=== PATIENT | female | born 1950 | race Caucasian/White ===

== ENCOUNTER 2016-03-16 10:18 | Observation (INO) ==
--- NOTE | 2016-03-16 10:23 | Emergency Department Note ---
Disposition Clinical Impression: Chest pain Disposition: Admitted As Inpatient Condition: Good Referrals: Gustavo Alcantara Jr, MD [Primary Care Provider] - Forms: ED Satisfaction Letter Chest Pain HPI - General Chief Complaint: ED Chest Pain Stated Complaint: chest pain Time Seen by Provider: 03/16/16 10:22 Source: patient, EMS Mode of arrival: EMS Limitations: no limitations Vital Signs Reviewed: Yes Nursing Notes Reviewed: Yes - History of Present Illness HPI Narrative: A 66-year-old female with past medical history of coronary artery disease with 2 stents in the remote past presents with 1 day of worsening exertional dyspnea and left-sided chest pressure radiating into her left jaw. She states that she has pain when ambulating in the assisted. Normally, she is able to ambulate throughout the mild dyspnea, but has had chest pressure and significant shortness of breath over the last 24 hours. This morning, she denies chest pressure radiating to her left jaw at rest. This is not associated with diaphoresis or nausea. No GI or symptoms. No rashes or increased edema. Pt complaint: chest pain - Related Data Home Medications Medication Instructions Recorded Confirmed Ascorbic Acid [Vitamin C] 500 mg PO BID 06/13/15 06/13/15 Aspirin [Adult Low Dose Aspirin EC] 81 mg PO QDPC 06/13/15 06/13/15 Blistex Medicated Lip Ointment QID PRN 06/13/15 Calmoseptine Ointment Packet BID 06/13/15 Carbidopa-Levo 25-100 mg Odt 25 - 100 mg PO HS 06/13/15 06/13/15 Furosemide [Lasix] 80 mg PO BID 06/13/15 06/13/15 Insulin DETEMIR [Levemir] 70 unit SQ QAM 06/13/15 06/13/15 L. Acidophilus/Pectin, [place] 1 each PO QDPC 06/13/15 06/13/15 [Acidophilus Probiotic Capsule] LORazepam [Ativan] 0.5 mg PO Q8HR PRN 06/13/15 06/13/15 Metformin HCl [Glucophage] 1,000 mg PO BID 06/13/15 06/13/15 Metolazone [Zaroxolyn] 2.5 mg PO 3XW 06/13/15 06/13/15 Multivit/Ca/Min/Fe/FA [Thera M 1 each PO DAILY 06/13/15 06/13/15 Plus] Novolog units SQ ACHS PRN 06/13/15 Oxycodone HCl/Acetaminophen 1 each PO Q4HR PRN 06/13/15 06/13/15 [Percocet 5-325 mg Tablet] Potassium Chloride [K-Tab ER] 30 meq PO TID 06/13/15 06/13/15 Rivaroxaban [Xarelto] 20 mg PO HS 06/13/15 06/13/15 Ropinirole HCl [Requip] 0.25 mg PO HS 06/13/15 06/13/15 Sennosides/Docusate Sodium [Senna 1 each PO DAILY 06/13/15 06/13/15 Plus] Sertraline [Zoloft] 50 mg PO DAILY 06/13/15 06/13/15 Simvastatin 40 mg PO HS 06/13/15 06/13/15 SitaGLIPtin [Januvia] 100 mg PO DAILY 06/13/15 06/13/15 Spironolactone [Aldactone] 50 mg PO QAM 06/13/15 06/13/15 Zinc Sulfate 220 mg PO BID 06/13/15 06/13/15 Allergies Allergy/AdvReac Type Severity Reaction Status Date / Time Sulfa (Sulfonamide Allergy See Verified 06/12/15 20:58 Antibiotics) Comments tramadol AdvReac Nausea Verified 06/12/15 20:58 All systems ED: reviewed and negative except as stated. Chest Pain PMH - Past Medical History Medical history: Reports: diabetes, hyperlipidemia, myocardial infarction Surgical history: Reports: , cholecystectomy, orthopedic, other Psychiatric history: Reports: anxiety, depression - Social History Smoking Status: Never smoker Alcohol use: Reports: none Drug use: Reports: none Physical Exam - Head Head exam: atraumatic, normocephalic, normal inspection - Eye Eye exam: Present: normal appearance, PERRL, EOMI - ENT ENT exam: normal exam, normal oropharynx, mucous membranes moist - Neck Neck exam: Present: normal inspection, full ROM, trachea midline - Chest Chest inspection: Present: normal inspection, symmetric chest wall rise - Respiratory Respiratory exam: Clear to auscultation bilaterally without wheezes rales or rhonchi Cardiovascular Cardiovascular exam: Present: regular rate, normal rhythm, normal heart sounds - Abdominal Exam Abdominal exam: Present: soft, Non-Tender. Absent: tenderness, distention, guarding, rebound, rigidity - Extremities Exam Bilateral edema in the lower extremities with chronic venous stasis changes. - Back Exam Back exam: Present: normal inspection, full ROM. Absent: tenderness, CVA tenderness (R), CVA tenderness (L) - Neurological Exam Neurological exam: Present: alert, oriented X3, CN II-XII intact - Psychiatric Psychiatric exam: Present: normal affect, normal mood - Skin Skin exam: Present: warm, dry, intact, normal color Course - Reevaluation(s) Reevaluation #1: Patient with potassium of 2.5. This was replaced. Pain is remitted after nitroglycerin in the emergency department. Troponin is negative. Patient admitted for possible unstable angina. Time: 11:49 Reevaluation #2: Accepted by Herson. Time: 11:56 Vital Signs Temperature 98.2 F 03/16/16 10:21 Pulse Rate 77 03/16/16 10:21 Respiratory Rate 16 03/16/16 10:21 Blood Pressure 96/70 03/16/16 10:21 O2 Sat by Pulse Oximetry 97 03/16/16 10:21 Temperature 98.2 F 03/16/16 10:21 Pulse Rate 99 03/16/16 11:21 Respiratory Rate 16 03/16/16 11:21 Blood Pressure 142/60 03/16/16 11:21 O2 Sat by Pulse Oximetry 96 03/16/16 11:21 Oxygen Delivery Oxygen Delivery Room Air Chest Pain - Medical Records Medical records reviewed: Yes I reviewed the patient's medical records. - Lab Data Lab results reviewed: Yes I reviewed the patient's lab results. Result diagrams: 03/16/16 11:10 03/16/16 11:10 Lab Results 03/16/16 03/16/16 03/16/16 Range/Units 11:10 11:10 11:10 WBC 12.5 H (4.3-11.1) K/mcL RBC 4.27 (3.82-4.97) M/mcL Hgb 11.3 L (11.5-15.4) g/dL Hct 35.0 L (35.3-44.9) % MCV 82.0 L (83.0-100.0) fL MCH 26.5 L (28.0-33.3) pg MCHC 32.3 (31.6-35.5) g/dL RDW 16.7 H (11.5-14.5) % Plt Count 249 (140-400) K/mcL MPV 8.9 L (9.4-12.4) fL Immature Gran % 0.4 (0-4) % Seg Neutrophils % 77.1 % Lymphocytes % 16.1 % Monocytes % 3.8 % Eosinophils % 2.4 % Basophils % 0.2 % Neutrophils # 9.6 H (1.6-8.9) K/mcL Lymphocytes # 2.0 (0.6-4.6) K/mcL Monocytes # 0.5 (0.0-1.3) K/mcL Eosinophils # 0.3 (0.0-0.6) K/mcL Basophils # 0.0 (0.0-0.2) K/mcL PT 16.2 H (9.4-12.1) Seconds INR 1.5 APTT 36.0 (26.0-36.0) Seconds Sodium 136 (136-145) mEq/L Potassium 2.5 L* (3.5-4.5) mEq/L Chloride 92 L (98-109) mEq/L Carbon Dioxide 31 H (19-29) mEq/L BUN 41 H (7-20) mg/dL Creatinine 1.11 (0.57-1.11) mg/dL Est GFR ( Amer) 60 (> 60) Est GFR (Non-Af Amer) 49 L (> 60) BUN/Creatinine Ratio 37 H (6-26) Glucose 199 H (70-99) mg/dL Calculated Osmolality 298 (280-300) Calcium 9.3 (8.6-10.8) mg/dL Troponin I (0-0.03) ng/mL 03/16/16 Range/Units 11:10 WBC (4.3-11.1) K/mcL RBC (3.82-4.97) M/mcL Hgb (11.5-15.4) g/dL Hct (35.3-44.9) % MCV (83.0-100.0) fL MCH (28.0-33.3) pg MCHC (31.6-35.5) g/dL RDW (11.5-14.5) % Plt Count (140-400) K/mcL MPV (9.4-12.4) fL Immature Gran % (0-4) % Seg Neutrophils % % Lymphocytes % % Monocytes % % Eosinophils % % Basophils % % Neutrophils # (1.6-8.9) K/mcL Lymphocytes # (0.6-4.6) K/mcL Monocytes # (0.0-1.3) K/mcL Eosinophils # (0.0-0.6) K/mcL Basophils # (0.0-0.2) K/mcL PT (9.4-12.1) Seconds INR APTT (26.0-36.0) Seconds Sodium (136-145) mEq/L Potassium (3.5-4.5) mEq/L Chloride (98-109) mEq/L Carbon Dioxide (19-29) mEq/L BUN (7-20) mg/dL Creatinine (0.57-1.11) mg/dL Est GFR ( Amer) (> 60) Est GFR (Non-Af Amer) (> 60) BUN/Creatinine Ratio (6-26) Glucose (70-99) mg/dL Calculated Osmolality (280-300) Calcium (8.6-10.8) mg/dL Troponin I 0.02 (0-0.03) ng/mL - Radiology Data Radiology results reviewed: Yes I reviewed the patient's radiology results. - EKG Data EKG attestation: Yes I reviewed and interpreted this EKG. EKG results narrative: Normal sinus rhythm at 86 with normal axis and intervals. There is sinus arrhythmia. No ST elevation or depression. There is diffuse nonspecific T wave flattening. There is no significant change from 06/12/2015.
[2016-03-16] MEDS ORDERED: Nitroglycerin 0.4 MG TAB.SUBL SL ONE (10:34)
[2016-03-16] MEDS ORDERED: 0.9 % Sodium Chloride 500 ML IVC ONE (10:34)
[2016-03-16] MEDS ORDERED: Aspirin 81 MG TAB.CHEW PO ONE (10:34)
--- NOTE | 2016-03-16 10:40 | Emergency Department Note ---
START Narrative - START START: I examined this patient and my medical decision-making was reviewed with the COLLEGE ASSOCIATE/PA/Advanced Practice Nurse/Resident Physician. I agree with the documented findings, disposition and treatment plan as described except to the extent set forth below. ED attending note: Patient seen with emergency medicine resident Dr. Bernal. Please see a copy of his note for details of the H&P, evaluation, management and disposition of this patient. We independently had [id number] contact with the patient Briefly: 66-year-old female history of 2 prior stents comes in with chest pain. EKG shows a acute ischemic changes. Labs and x-ray are pending. Patient will get ED workup and admission for acute coronary syndrome. We have provided 30 minutes critical care service this patient.
[2016-03-16 11:18] LABS: Basophils % 0.2 %; Eosinophils # 0.3 K/mcL (0.0-0.6); Eosinophils % 2.4 %; Hemoglobin 11.3 g/dL (11.5-15.4); Immature Granulocytes % 0.4 % (0-4); Lymphocytes % 16.1 %; Mean Corpuscular HGB Conc 32.3 g/dL (31.6-35.5); Mean Corpuscular Hemoglobin 26.5 pg (28.0-33.3); Mean Platelet Volume 8.9 fL (9.4-12.4); Monocytes # 0.5 K/mcL (0.0-1.3); Monocytes % 3.8 %; Neutrophils # 9.6 K/mcL (1.6-8.9); Platelet Count 249 K/mcL (140-400); Red Blood Count 4.27 M/mcL (3.82-4.97); Red Cell Distribution Width 16.7 % (11.5-14.5); Segmented Neutrophils % 77.1 %
[2016-03-16 11:25] LABS: INR 1.5; Prothrombin Time 16.2 Seconds (9.4-12.1)
[2016-03-16 11:31] LABS: Calcium 9.3 mg/dL (8.6-10.8)
[2016-03-16 11:33] LABS: Potassium 2.5 mEq/L (3.5-4.5)
[2016-03-16] MEDS ORDERED: Potassium Effervescent 25 MEQ TABLET.EFF PO ONE (11:34)
[2016-03-16] MEDS ORDERED: 0.9 % Sodium Chloride 1,000 ML ONE ×2 (11:38→13:43)
[2016-03-16] MEDS ORDERED: Naloxone 0.4 MG/ML INJ IVP PRN (13:23)
[2016-03-16] MEDS ORDERED: Acetaminophen 325 MG TABLET PO PRN (13:23)
[2016-03-16] MEDS ORDERED: Ondansetron ODT 4 MG TAB.RAPDIS SL PRN (13:23)
[2016-03-16] MEDS ORDERED: Dextrose Gel 15 GM PO PRN ×2 (13:27)
[2016-03-16] MEDS ORDERED: D5% in Water 1,000 ML IV PRN (13:27)
[2016-03-16] MEDS ORDERED: *HR* Dextrose 50 % in Water (Syg) 50 ML SYRINGE IVP PRN (13:27)
--- NOTE | 2016-03-16 13:43 | Internal Med History&Physical ---
Date of Encounter: 03/16/16 Time of Encounter: 13:00 Assessment and Plan (1) Chest pain Current visit: Yes Status: Acute Patient has chest pain, with left-sided neck radiation, history of CAD S/P stent. History of diabetes. Need to rule out ACS. 1. We will trend his 3 sets of troponin. 2. Nuclear stress test if troponin negative. 3. Patient is on aspirin and xarelto. 4. Continue closely monitor patient 5. Nitroglycerin sublingual when necessary Qualifiers: Chest pain type: precordial pain Qualified Code(s): R07.2 - Precordial pain (2) Atrial flutter Current visit: No Status: Acute Now patient is on sinus rhythm. On xarelto Qualifiers: Atrial flutter type: unspecified Qualified Code(s): I48.92 - Unspecified atrial flutter (3) CAD (coronary artery disease) Current visit: No Status: Acute S/P 2 stent. Closer monitoring and continue current medication Qualifiers: Coronary Disease-Associated Artery/Lesion type: [place] artery [place] vs. transplanted heart: [place] heart Associated angina: angina presence unspecified Qualified Code(s): I25.10 - Atherosclerotic heart disease of [place] coronary artery without angina pectoris (4) DVT prophylaxis Current visit: No Status: Acute On xarelto (5) Diastolic CHF Current visit: No Status: Acute Pt is on lasix 80 mg po bid. Qualifiers: Congestive heart failure chronicity: chronic Qualified Code(s): I50.32 - Chronic diastolic (congestive) heart failure (6) Leukocytosis Current visit: No Status: Acute Review of her old charts, her WBC is always at high side. No signs of infection now. Qualifiers: Leukocytosis type: unspecified Qualified Code(s): D72.829 - Elevated white blood cell count, unspecified (7) Morbid obesity Current visit: No Status: Acute Need lifestyle modification Qualifiers: Obesity type: unspecified obesity type Qualified Code(s): E66.01 - Morbid ( severe) obesity due to excess calories (8) Parkinson disease Current visit: No Status: Acute Continue home medication levodopa/carbidopa (9) Diabetes mellitus Current visit: Yes Status: Acute Continue basal and sliding scale insulin. Follow-up glucose level. Qualifiers: Diabetes mellitus type: type 2 Diabetes mellitus complication status: without complication Diabetes mellitus watermelon inspector insulin use: with watermelon inspector use Qualified Code(s): E11.9 - Type 2 diabetes mellitus without complications ; Z79.4 - USP (current) use of insulin Internal Medicine - H&P: HPI Chief complaint: Chest pain Admitted From: Home Plans for Post Hospital Care: Home History of present illness: Ms. Francisco is a 66 year old female presented to ER for chest pain on and off since two days ago. Patient said that the pain started when she is at rest two days ago, located in the mid chest, dull, 8/10, radiated to the left and neck. Patient has nausea but not vomiting. She also complained mild shortness of breath when the pain happens. She also has diaphoresis with the chest pain. Pain lasted about 1 hour and disappear but itself. This morning patient had another episode of similar pain but without radiation. She denies cough, fever , runny nose, sore throat, abdominal pain or diarrhea. She was sent to ER. In ER she was found severe hypokalemia, she was given potassium by mouth and IV by ER doctor. She was admitted to rule out ACS. Past Med Surg Social Fam HX - Past Medical History Medical history: diabetes, hyperlipidemia, myocardial infarction Psychiatric history: anxiety, depression - Past Surgical History Surgical History: , cholecystectomy, orthopedic, other - Social History Smoking Status: Never smoker Smokeless Tobacco Status: No Alcohol use: none Drug use: none - Family History Mother Adopted: No Family Member Ethnicity: Non- Living Status: Hx Family Cardiac Disorders: Yes Hx Family Respiratory Disorders: Yes Hx Family Cancer: No Hx Family GI Disorders: No Hx Family Endocrine Disorder: No Hx Family Neuromuscular Disorders: No Hx Family Neurologic Disorders: No Hx Family HEENT Disorders: Yes Hx Family Autoimmune Disorders: No Internal Medicine - H&P: Meds Ascorbic Acid [Vitamin C] 500 mg PO BID 06/13/15 [History] Aspirin [Adult Low Dose Aspirin EC] 81 mg PO QDPC 06/13/15 [History] Blistex Medicated Lip Ointment QID PRN 06/13/15 [History] Calmoseptine Ointment Packet BID 06/13/15 [History] Carbidopa-Levo 25-100 mg Odt 25 - 100 mg PO HS 06/13/15 [History] Furosemide [Lasix] 80 mg PO BID 06/13/15 [History] Insulin DETEMIR [Levemir] 70 unit SQ QAM 06/13/15 [History] L. Acidophilus/Pectin, [place] [Acidophilus Probiotic Capsule] 1 each PO QDPC [History] LORazepam [Ativan] 0.5 mg PO Q8HR PRN 06/13/15 [History] Metformin HCl [Glucophage] 1,000 mg PO BID 06/13/15 [History] Metolazone [Zaroxolyn] 2.5 mg PO 3XW 06/13/15 [History] Multivit/Ca/Min/Fe/FA [Thera M Plus] 1 each PO DAILY 06/13/15 [History] Novolog units SQ ACHS PRN 06/13/15 [History] Oxycodone HCl/Acetaminophen [Percocet 5-325 mg Tablet] 1 each PO Q4HR PRN [History] Potassium Chloride [K-Tab ER] 30 meq PO TID 06/13/15 [History] Rivaroxaban [Xarelto] 20 mg PO HS 06/13/15 [History] Ropinirole HCl [Requip] 0.25 mg PO HS 06/13/15 [History] Sennosides/Docusate Sodium [Senna Plus] 1 each PO DAILY 06/13/15 [History] Sertraline [Zoloft] 50 mg PO DAILY 06/13/15 [History] Simvastatin 40 mg PO HS 06/13/15 [History] SitaGLIPtin [Januvia] 100 mg PO DAILY 06/13/15 [History] Spironolactone [Aldactone] 50 mg PO QAM 06/13/15 [History] Zinc Sulfate 220 mg PO BID 06/13/15 [History] Allergies Sulfa (Sulfonamide Antibiotics) Allergy (Verified 06/12/15 20:58) See Comments tramadol Adverse Reaction (Verified 06/12/15 20:58) Nausea All Systems PM: A 10-system review of systems was performed and is negative for pertinent findings except as documented above in the HPI. - Constitutional Vitals: Temp Pulse Resp BP Pulse Ox 98.2 F 99 16 142/60 96 03/16/16 10:21 03/16/16 11:21 03/16/16 11:21 03/16/16 11:21 03/16/16 11:21 General appearance: Present: A&O X 3, no acute distress, answers questions appropriately - Head Head exam: Present: atraumatic, normocephalic - Eye Eye exam: Present: PERRL, conjuntiva pink, sclera anicteric Pupils: Present: PERRL - Neck Neck exam general surgery: Present: supple, trachea midline. Absent: lymphadenopathy - Respiratory Respiratory exam: Present: CTAB. Absent: accessory muscle use, rales, rhonchi, wheezes - Cardiovascular Cardiovascular exam: Present: RRR, +S1, +S2. Absent: diastolic murmur, gallop, rubs, systolic murmur - GI/Abdominal GI/Abdominal exam: Present: normal bowel sounds, soft, no peritoneal signs. Absent: distended, tenderness - Extremities Exam Extremities exam: Present: pedal edema (Both leg non pitting Edema (lymph edema )), warm, radial pulses palpable and symetrical. Absent: calf tenderness, cyanotic - Neurological Exam Neurological exam: Present: CN II-XII intact, oriented X3, no focal deficits. Absent: pronater drift, facial droop, speech deficit - Skin Skin exam: Present: dry, intact Internal Med - H&P Results - Labs CBC & Chem 7: 03/16/16 11:10 03/16/16 11:10 Labs: Short CBC 03/16/16 Range/Units 11:10 WBC 12.5 H (4.3-11.1) K/mcL Hgb 11.3 L (11.5-15.4) g/dL Hct 35.0 L (35.3-44.9) % Plt Count 249 (140-400) K/mcL Neutrophils # 9.6 H (1.6-8.9) K/mcL BMP 03/16/16 11:10 Sodium 136 Potassium 2.5 L* Chloride 92 L Carbon Dioxide 31 H BUN 41 H Creatinine 1.11 Glucose 199 H Calcium 9.3 Cardiac Enzymes 03/16/16 Range/Units 11:10 Troponin I 0.02 (0-0.03) ng/mL
[2016-03-16] MEDS: Insulin LISPRO 300 UNITS/3 ML VIAL SQ SCH ×2 (17:48→22:08)
[2016-03-16] MEDS: Furosemide 40 MG TABLET PO SCH (22:03)
[2016-03-16] MEDS: Carbidopa/Levodopa 25/100 TABLET PO SCH (22:03)
[2016-03-16] MEDS: *HR* Rivaroxaban 10 MG TABLET PO SCH (22:03)
[2016-03-16] MEDS: Insulin DETEMIR 100 UNIT/ML X5UNITS SQ SCH (22:04)
[2016-03-17 04:22] LABS: Basophils % 0.2 %; Eosinophils # 0.3 K/mcL (0.0-0.6); Eosinophils % 2.3 %; Hematocrit 33.5 % (35.3-44.9); Hemoglobin 10.8 g/dL (11.5-15.4); Immature Granulocytes % 0.5 % (0-4); Lymphocytes # 1.6 K/mcL (0.6-4.6); Lymphocytes % 13.4 %; Mean Corpuscular HGB Conc 32.2 g/dL (31.6-35.5); Mean Corpuscular Hemoglobin 26.7 pg (28.0-33.3); Mean Corpuscular Volume 82.9 fL (83.0-100.0); Mean Platelet Volume 9.4 fL (9.4-12.4); Monocytes # 0.4 K/mcL (0.0-1.3); Monocytes % 3.5 %; Neutrophils # 9.3 K/mcL (1.6-8.9); Platelet Count 256 K/mcL (140-400); Red Blood Count 4.04 M/mcL (3.82-4.97); Red Cell Distribution Width 16.7 % (11.5-14.5); Segmented Neutrophils % 80.1 %
[2016-03-17 04:56] LABS: BUN/Creatinine Ratio 36 (6-26); Blood Urea Nitrogen 32 mg/dL (7-20); Calcium 8.9 mg/dL (8.6-10.8); Carbon Dioxide 30 mEq/L (19-29); Chloride 97 mEq/L (98-109); Chol/HDL Ratio 5.1 (0-4.9); Cholesterol 154 mg/dL (< 200); Glucose 155 mg/dL (70-99); HDL Cholesterol 30 mg/dL (40-59); LDL Cholesterol,Calculated 91 mg/dL (0-99); Magnesium 1.9 mg/dL (1.6-2.6); Osmolality,Calculated 300 (280-300); Sodium 140 mEq/L (136-145); Triglycerides 166 mg/dL (< 150); eGFR For African Americans > 60 (> 60); eGFR For Non-African Americans > 60 (> 60)
[2016-03-17] MEDS ORDERED: Regadenoson 0.4 MG/5 ML SYRINGE IVP ONE (07:39)
[2016-03-17] MEDS: Insulin LISPRO 300 UNITS/3 ML VIAL SQ SCH ×4 (08:17→21:29)
[2016-03-17] MEDS: Aspirin Enteric Coated 81 MG Tablet PO SCH (12:43)
[2016-03-17] MEDS: Furosemide 40 MG TABLET PO SCH ×2 (12:43→21:28)
--- NOTE | 2016-03-17 14:15 | Internal Med Progress Note ---
Date of Encounter: 03/17/16 Time of Encounter: 11:40 - Subjective Interval history: Ms. Francisco is a 66 year old female admitted with atypical chest pain and severe hypokalemia. Cycled troponin and serial EKG remain normal. Serum potassium now up to 3.0. She completed the first half of stress test is negative. The second half is scheduled for tomorrow. She does not have chest pain now, though she has had a few episodes since admission. O/E: Not in distress, morbidly obese. HEENT: Not pale, anicteric, afebrile, acyanotic, Chest: Mild biabasilar crackles, reduced air entry in the lung bases posteriorly , suspect atelectasis. Chest pain is not reproducible Heart: RRR, HS1/2, no murmur Abdomen: obese, soft, non-tender, no masses. 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 IMP Atypical chest pain Severe hypokalemia PLAN For second half of stress test in the AM Potassium chloride po 40 mEQ Q1H x 3 doses BMP in the AM. Continue other care. - Constitutional Vitals: Temp Pulse Resp BP Pulse Ox 98.2 F 91 17 104/74 100 03/17/16 11:52 03/17/16 11:52 03/17/16 11:52 03/17/16 11:52 03/17/16 11:52 General appearance: Present: A&O X 3, no acute distress, answers questions appropriately Internal Medicine: Result - Labs CBC & Chem 7: 03/17/16 03:21 03/17/16 03:21 Labs: Short CBC 03/17/16 Range/Units 03:21 WBC 11.6 H (4.3-11.1) K/mcL Hgb 10.8 L (11.5-15.4) g/dL Hct 33.5 L (35.3-44.9) % Plt Count 256 (140-400) K/mcL Neutrophils # 9.3 H (1.6-8.9) K/mcL BMP 03/17/16 03:21 Sodium 140 Potassium 3.0 L Chloride 97 L Carbon Dioxide 30 H BUN 32 H Creatinine 0.89 Glucose 155 H Calcium 8.9 Cardiac Enzymes 03/16/16 Range/Units 19:07 Troponin I 0.03 (0-0.03) ng/mL - ABG Interpretation ABG results: PT/INR, D-dimer PT 16.2 Seconds (9.4-12.1) H 03/16/16 11:10 Consult Discharge Plan - Plan Referrals: Gustavo Alcantara Jr, MD [Primary Care Provider] -
--- NOTE | 2016-03-17 19:56 | Electrocardiograph Report ---
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
[2016-03-17] MEDS: *HR* Rivaroxaban 10 MG TABLET PO SCH (21:28)
[2016-03-17] MEDS: Carbidopa/Levodopa 25/100 TABLET PO SCH (21:28)
[2016-03-17] MEDS: Insulin DETEMIR 100 UNIT/ML X5UNITS SQ SCH (21:29)
[2016-03-18 02:56] LABS: BUN/Creatinine Ratio 32 (6-26); Blood Urea Nitrogen 28 mg/dL (7-20); Calcium 9.1 mg/dL (8.6-10.8); Carbon Dioxide 29 mEq/L (19-29); Chloride 98 mEq/L (98-109); Glucose 174 mg/dL (70-99); Osmolality,Calculated 300 (280-300); Potassium 3.4 mEq/L (3.5-4.5); Sodium 140 mEq/L (136-145); eGFR For African Americans > 60 (> 60); eGFR For Non-African Americans > 60 (> 60)
[2016-03-18] MEDS: Aspirin Enteric Coated 81 MG Tablet PO SCH (08:34)
[2016-03-18] MEDS: Furosemide 40 MG TABLET PO SCH (08:34)
[2016-03-18] MEDS: Insulin LISPRO 300 UNITS/3 ML VIAL SQ SCH ×2 (08:34→13:34)
[2016-03-18] MEDS ORDERED: Nystatin POWDER 30 GM BOTTLE TP SCH (09:00)
[2016-03-18] MEDS ORDERED: Potassium Chloride Elixir 20 MEQ/15 ML UDC PO SCH (10:30)
--- NOTE | 2016-03-18 10:32 | Nuclear Medicine Stress Report ---
Regadenoson Nuclear 2 day Name: Meagan Francisco Date of Study: 03/17/2016 Date: 1950 Ht: 57.0 in Medical Record#: [id number] Age: 66 Wt: 255.0 lb Gender: Female Order #: [id number] Location: [facility] Room: [facility] Supervising Provider: Marli Ashraf CNP Reading Physician: Donavon Patterson DO, FACAnthony, AMI MELO Ordering Physician: Georgette Toney CNP Primary Care Physician: Gustavo Alcantara MD Stress Technologist: Kali Luciano, NATURAL SCIENCE CURATOR, CCT Gate Technician: Moustapha López Indications: Chest Pain Impression: Pharmacologic stress ECG is non-diagnostic for ischemia due to submaximal heartrate. Gated EF = 73%. Small size, moderate intensity, fixed apical lateral defect. Wall motion appears normal. These findings are most consistent with artifact. Perfusion imaging was negative for ischemia or infarct. Clinical correlation suggested. History: Diabetes Hypercholesteremia Prior PCI Stress Test Summary: Stress Test Type: Pharmacologic Regadenoson 0.4mg/5ml given IV Baseline Information: Initial Heart Rate: 75 Blood Pressure: 136/66 Stress Information: Stress Time: 4 min 00 sec Test Terminated Due to (primary): Completed Protocol Maximum Blood Pressure: 142/70 Maximum Heart Rate: 95 Percent Maximum Heart Rate Achieved: 62 Double Product: 13,490 METS Reached: 1 Symptoms: No symptoms Nuclear Summary: SPECT myocardial perfusion imaging using Tc99m Sestamibi given intravenously was performed at rest and following cardiac stress testing. The resting images were obtained following initial dose of 35.2 mCi. Following stress an additional dose of 34.6 mCi was given at peak exercise or 30 seconds post regadenoson infusion. Medication Given: Time Medication Dose Units Route Findings: Stress Note * Resting ECG demonstrated normal sinus rhythm. * Frequent PACs noted prior to exam beginning. * Pharmacologic stress ECG is non-diagnostic for ischemia due to submaximal heartrate. * Frequent PACs noted during stress. * Patient had no chest pain during stress. * Normal hemodynamic responses to pharmacologic stress. Study Quality * Study quality is average. Gated EF % * Gated EF = 73%. Left Ventricle * The left ventricle is not dilated. LVEDV = 66 mL. * Normal wall motion. Apical Perfusion Rest * The apical lateral segment shows a moderate reduction in perfusion. Apical Perfusion Stress * The apical lateral segment shows a moderate reduction in perfusion. TID * No evidence of transient ischemic dilatation. TID ratio = 1.08. Lung Uptake * There is no evidence of increase lung uptake. Updated by Donavon Patterson DO, HILDA, KAMERON, AMI on 03/18/2016 10:27:24 AM electronically signed on 03/18/2016 10:28:32 AM with status of Final
[2016-03-18 10:55] VITALS: BP 130/62
--- NOTE | 2016-03-18 11:45 | Discharge Summary ---
Date of Encounter: 03/18/16 Time of Encounter: 11:40 - Discharge Diagnosis (1) Chest pain Priority: Primary Status: Acute Qualifiers: Chest pain type: precordial pain Qualified Code(s): R07.2 - Precordial pain (2) Diabetes mellitus Priority: Secondary Status: Acute Qualifiers: Diabetes mellitus type: type 2 Diabetes mellitus complication status: without complication Diabetes mellitus termite helper insulin use: with detention use Qualified Code(s): E11.9 - Type 2 diabetes mellitus without complications ; Z79.4 - intermission coordinator (current) use of insulin (3) Atrial flutter Priority: Secondary Status: Acute Qualifiers: Atrial flutter type: unspecified Qualified Code(s): I48.92 - Unspecified atrial flutter (4) CAD (coronary artery disease) Priority: Secondary Status: Acute Qualifiers: Coronary Disease-Associated Artery/Lesion type: [place] artery [place] vs. transplanted heart: [place] heart Associated angina: angina presence unspecified Qualified Code(s): I25.10 - Atherosclerotic heart disease of [place] coronary artery without angina pectoris - Discharge Medications Prescriptions: Nitroglycerin 0.4 mg SL Q5MIN #30 tab.subl Nystatin POWDER [Nystop] 1 appl TP TID 14 Days Potassium Chloride Elixir [Potassium Chloride] 20 meq PO BID 30 Days Home Medications: Ascorbic Acid [Vitamin C] 500 mg PO BID 06/13/15 [History] Aspirin [Adult Low Dose Aspirin EC] 81 mg PO DAILY 06/13/15 [History] Furosemide [Lasix] 80 mg PO BID 06/13/15 [History] Insulin ASPART [NovoLOG] 2 - 12 unit SQ TIDWM #0 06/13/15 [History] Insulin DETEMIR [Levemir] 80 unit SQ QAM 06/13/15 [History] L. Acidophilus/Pectin, [place] [Acidophilus Probiotic Capsule] 1 cap PO DAILY [History] LORazepam [Ativan] 0.5 mg PO Q8HR PRN 06/13/15 [History] Menthol/Camphor/Dimeth/Phenol [Blistex Medicated Lip Ointment] 1 appl TP QID #0 06/13/15 [History] Menthol/Zinc Oxide [Calmoseptine Ointment Packet] 1 appl TP BID #0 06/13/15 [ History] Metformin HCl [Glucophage] 1,000 mg PO BID 06/13/15 [History] Metolazone [Zaroxolyn] 2.5 mg PO DAILY 06/13/15 [History] Multivit/Ca/Min/Fe/FA [Thera M Plus] 1 tab PO DAILY 06/13/15 [History] Oxycodone HCl/Acetaminophen [Percocet 5-325 mg Tablet] 1 tab PO Q4HR PRN [History] Rivaroxaban [Xarelto] 20 mg PO HS 06/13/15 [History] Ropinirole HCl [Requip] 0.5 mg PO HS 06/13/15 [History] Sennosides/Docusate Sodium [Senna Plus] 1 tab PO DAILY 06/13/15 [History] Sertraline [Zoloft] 50 mg PO DAILY 06/13/15 [History] Simvastatin [Zocor] 40 mg PO DAILY #0 06/13/15 [History] SitaGLIPtin [Januvia] 100 mg PO DAILY 06/13/15 [History] Zinc Sulfate 220 mg PO BID 06/13/15 [History] Carbidopa/Levodopa [Carbidopa-Levodopa 25-100 Tab] 1 tab PO HS 03/16/16 [History ] Insulin DETEMIR [Levemir Flextouch] 14 unit SQ HS 03/16/16 [History] Promethazine [Phenergan] 12.5 mg PO Q6HR 03/16/16 [History] Nitroglycerin 0.4 mg SL Q5MIN #30 tab.subl 03/18/16 [Rx] Nystatin POWDER [Nystop] 1 appl TP TID 14 Days 03/18/16 [Rx] Potassium Chloride Elixir [Potassium Chloride] 20 meq PO BID 30 Days 03/18/16 [ Rx] Allergies/Adverse Reactions: Allergies Sulfa (Sulfonamide Antibiotics) Allergy (Verified 06/12/15 20:58) See Comments tramadol Adverse Reaction (Verified 06/12/15 20:58) Nausea Procedures/tests Complete & Pending: Procedures Performed prior 72 hours Category Date Time Status SP pharm nuclear stress Routine Y 03/17/16 Completed Date of admission: 03/16/16 14:18 Primary care physician: Gustavo Alcantara Jr, MD Discharging clinician: Tonya Maurice Anticipated date of discharge: 03/18/16 - Patient Status Disposition: Home, Self-Care Condition: Good Functional capacity at discharge: independent ambulation Overall status at discharge: patient is back to baseline - Discharge Instructions Instructions: Chest Pain (DC), Hypokalemia (DC) Follow Up With: Kamryn Husain CNP [Advanced Practice Nurse] - 03/25/16 9:40 am - Diet and Activity Activity: resume usual activities as tolerated Diet: advance to your usual diet Interval History: Ms. Francisco is a 66 year old female presented to ER for chest pain on and off since two days ago. Patient said that the pain started when she is at rest two days ago, located in the mid chest, dull, 8/10, radiated to the left and neck. Patient has nausea but not vomiting. She also complained mild shortness of breath when the pain happens. She also has diaphoresis with the chest pain. Pain lasted about 1 hour and disappear but itself. This morning patient had another episode of similar pain but without radiation. She denies cough, fever , runny nose, sore throat, abdominal pain or diarrhea. She was sent to ER. In ER she was found severe hypokalemia, she was given potassium by mouth and IV by ER doctor. She was admitted to rule out ACS. Hospital course: Ms. Francisco is a 66 year old female admitted with atypical chest pain and severe hypokalemia. Cycled troponin and serial EKG remain normal. Serum potassium now up to 3.4.Thi sis most likely secondary to high-dose Lasix and metolazone that she has had home, her home medication does not show potassium supplement. She completed stress testing which was negative for ischemia or infarction. She reports much improvement with resolution of chest pain. She denies any other complaints at this time. She is being discharged today in stable condition, will give prescription for nitroglycerin when necessary for chest pain. We will also give her potassium supplementation as she is on high-dose of Lasix at home. Time spent discussing smoking cessation with patient: more than 10 minutes - Time Spent with Patient Total time spent providing and/or coordinating discharge services: Greater than 30 minutes - Constitutional Vitals: Temp Pulse Resp BP Pulse Ox 98.1 F 76 15 130/62 92 L 03/18/16 10:50 03/18/16 10:50 03/18/16 10:50 03/18/16 10:50 03/18/16 10:50 General appearance: Present: A&O X 3, no acute distress, answers questions appropriately Exam: General appearance: Present: A&O X 3, no acute distress, answers questions appropriately - Head Head exam: Present: atraumatic, normocephalic - Eye Eye exam: Present: PERRL, conjuntiva pink, sclera anicteric Pupils: Present: PERRL - Neck Neck exam general surgery: Present: supple, trachea midline. Absent: lymphadenopathy - Respiratory Respiratory exam: Present: CTAB. Absent: accessory muscle use, rales, rhonchi, wheezes - Cardiovascular Cardiovascular exam: Present: RRR, +S1, +S2. Absent: diastolic murmur, gallop, rubs, systolic murmur - GI/Abdominal GI/Abdominal exam: Present: normal bowel sounds, soft, no peritoneal signs. Absent: distended, tenderness - Extremities Exam Extremities exam: Present: pedal edema (Both leg non pitting Edema (lymph edema )), warm, radial pulses palpable and symetrical. Absent: calf tenderness, cyanotic - Neurological Exam Neurological exam: Present: CN II-XII intact, oriented X3, no focal deficits. Absent: pronater drift, facial droop, speech deficit - Skin Skin exam: Present: dry, intact
--- NOTE | 2016-03-18 12:13 | Physician Discharge Referral ---
ExtendedCare Referral Info Transfer To: [facility] Provider in Charge: anju maurer Institutional Level of Care: Intermediate - MR - Diagnosis (1) Chest pain Status: Acute (2) Diabetes mellitus Status: Acute (3) Atrial flutter Status: Acute (4) CAD (coronary artery disease) Status: Acute - Transfer Medications Prescriptions: Nitroglycerin 0.4 mg SL Q5MIN #30 tab.subl Nystatin POWDER [Nystop] 1 appl TP TID 14 Days Potassium Chloride Elixir [Potassium Chloride] 20 meq PO BID 30 Days Home Medications: Ascorbic Acid [Vitamin C] 500 mg PO BID 06/13/15 [History] Aspirin [Adult Low Dose Aspirin EC] 81 mg PO DAILY 06/13/15 [History] Furosemide [Lasix] 80 mg PO BID 06/13/15 [History] Insulin ASPART [NovoLOG] 2 - 12 unit SQ TIDWM #0 06/13/15 [History] Insulin DETEMIR [Levemir] 80 unit SQ QAM 06/13/15 [History] L. Acidophilus/Pectin, [place] [Acidophilus Probiotic Capsule] 1 cap PO DAILY [History] LORazepam [Ativan] 0.5 mg PO Q8HR PRN 06/13/15 [History] Menthol/Camphor/Dimeth/Phenol [Blistex Medicated Lip Ointment] 1 appl TP QID #0 06/13/15 [History] Menthol/Zinc Oxide [Calmoseptine Ointment Packet] 1 appl TP BID #0 06/13/15 [ History] Metformin HCl [Glucophage] 1,000 mg PO BID 06/13/15 [History] Metolazone [Zaroxolyn] 2.5 mg PO DAILY 06/13/15 [History] Multivit/Ca/Min/Fe/FA [Thera M Plus] 1 tab PO DAILY 06/13/15 [History] Oxycodone HCl/Acetaminophen [Percocet 5-325 mg Tablet] 1 tab PO Q4HR PRN [History] Rivaroxaban [Xarelto] 20 mg PO HS 06/13/15 [History] Ropinirole HCl [Requip] 0.5 mg PO HS 06/13/15 [History] Sennosides/Docusate Sodium [Senna Plus] 1 tab PO DAILY 06/13/15 [History] Sertraline [Zoloft] 50 mg PO DAILY 06/13/15 [History] Simvastatin [Zocor] 40 mg PO DAILY #0 06/13/15 [History] SitaGLIPtin [Januvia] 100 mg PO DAILY 06/13/15 [History] Zinc Sulfate 220 mg PO BID 06/13/15 [History] Carbidopa/Levodopa [Carbidopa-Levodopa 25-100 Tab] 1 tab PO HS 03/16/16 [History ] Insulin DETEMIR [Levemir Flextouch] 14 unit SQ HS 03/16/16 [History] Promethazine [Phenergan] 12.5 mg PO Q6HR 03/16/16 [History] Nitroglycerin 0.4 mg SL Q5MIN #30 tab.subl 03/18/16 [Rx] Nystatin POWDER [Nystop] 1 appl TP TID 14 Days 03/18/16 [Rx] Potassium Chloride Elixir [Potassium Chloride] 20 meq PO BID 30 Days 03/18/16 [ Rx] Allergies/Adverse Reactions: Allergies Sulfa (Sulfonamide Antibiotics) Allergy (Verified 06/12/15 20:58) See Comments tramadol Adverse Reaction (Verified 06/12/15 20:58) Nausea - Respiratory Orders Smoking Cessation: Smoking cessation has been advised. For more information, call the [place] Tobacco Quit Line at [phone]-[phone]. - Advance Directives Code Status: Full Code - Mobility Orders Ambulate - Rehabiliation Orders Rehab Potential: Fair Rehab Orders: Evaluation for Physical Therapy, Evaluation for Occupational Therapy CERTIFICATION: I certify that the transfer of the above named patient to an Extended Care Facility is necessary for the continuing treatment of the diagnosis listed. The above information is true and accurate reflection of patient's current condition. Confidential - Redisclosure prohibited without a patient's written consent.
== END 2016-03-18 15:30 ==
LOC: 3BNU 10:18 → EMEROO 10:18 → SUATTDRO 14:18 → 3BNU 14:50
PROVIDERS: ADMIT Nurse Practitioner Family; ATTEND Internal Medicine Endocrinology, Diabetes & Metabolism

== ENCOUNTER 2016-09-27 11:17 | Inpatient (IN) ==
[2016-09-27] MEDS ORDERED: *HR* Morphine 2 MG/ML SYRINGE IVP ONE (11:28)
[2016-09-27] MEDS ORDERED: Ondansetron 4 MG/2 ML VIAL IVP ONE (11:28)
[2016-09-27 11:59] LABS: Basophils # 0.1 K/mcL (0.0-0.2); Basophils % 0.4 %; Eosinophils # 0.4 K/mcL (0.0-0.6); Eosinophils % 2.8 %; Hematocrit 36.6 % (35.3-44.9); Hemoglobin 11.6 g/dL (11.5-15.4); Immature Granulocytes % 0.5 % (0-4); Lymphocytes # 2.1 K/mcL (0.6-4.6); Mean Corpuscular HGB Conc 31.7 g/dL (31.6-35.5); Mean Corpuscular Hemoglobin 26.2 pg (28.0-33.3); Mean Corpuscular Volume 82.6 fL (83.0-100.0); Mean Platelet Volume 9.2 fL (9.4-12.4); Monocytes # 0.6 K/mcL (0.0-1.3); Monocytes % 4.7 %; Neutrophils # 10.5 K/mcL (1.6-8.9); Platelet Count 294 K/mcL (140-400); Red Blood Count 4.43 M/mcL (3.82-4.97); Red Cell Distribution Width 16.5 % (11.5-14.5); Segmented Neutrophils % 76.6 %
[2016-09-27 12:05] LABS: INR 1.3
[2016-09-27 12:08] LABS: Activated Partial Thrombo Time 33.3 Seconds (26.0-36.0)
[2016-09-27 12:11] LABS: Calcium 9.6 mg/dL (8.6-10.8); Potassium 3.3 mEq/L (3.5-4.5)
[2016-09-27 12:15] LABS: Bilirubin,Urine Negative (Negative); Blood,Urine Negative (Negative); Clarity,Urine Clear (Clear); Color,Urine Yellow (Yellow); Glucose,Urine (UA) Normal (Normal); Ketones,Urine Negative (Negative); Leukocyte Esterase,Urine Moderate (Negative); Nitrite,Urine Negative (Negative); Protein,Urine Negative (Neg-Trace); Specific Gravity,Urine 1.013 (1.010-1.025); Urobilinogen,Urine Normal (Normal)
[2016-09-27 12:19] LABS: Bacteria,Urine None Seen per hpf (None-Few); Hyaline Casts,Urine None Seen per lpf (None-Few); RBC,Urine 0-3 per hpf (0-3); Squamous Epithelial Cell,Urine Many per lpf (None-Few); WBC,Urine 15-30 per hpf (0-3)
[2016-09-27] MEDS ORDERED: 0.9 % Sodium Chloride 1,000 ML ONE (12:21)
--- NOTE | 2016-09-27 12:50 | Emergency Department Note ---
Disposition Clinical Impression: Acute kidney insufficiency Chest pain Qualifiers: Chest pain type: unspecified Qualified Code(s): R07.9 - Chest pain, unspecified Leukocytosis Qualifiers: Leukocytosis type: unspecified Qualified Code(s): D72.829 - Elevated white blood cell count, unspecified Pneumonia Qualifiers: Pneumonia type: due to unspecified organism Laterality: unspecified laterality Lung location: unspecified part of lung Qualified Code(s): J18.9 - Pneumonia, unspecified organism Disposition: Admitted As Inpatient Condition: Fair Forms: ED Satisfaction Letter Time of Disposition: 15:14 Chest Pain HPI - General Chief Complaint: ED Chest Pain Stated Complaint: Chest pain Source: patient Mode of arrival: EMS Limitations: no limitations Vital Signs Reviewed: Yes Nursing Notes Reviewed: Yes - History of Present Illness HPI Narrative: She presents emergency room approximately 3 hours of midsternal chest pain. She has never been quite this bad before. She has a history of stable angina that response to nitroglycerin at home. Just a blood thinners without any complication. She denies any recent trauma except for a fall 3 days ago where she fell to her about but did not hit her chest or injure anything else. Patient otherwise denies any other symptoms or complaints nonproductive cough sputum or infection that she knows of at this time. Pt complaint: chest pain Onset (ago): Just [employer] Duration: constant Onset: during rest Pain Location: substernal Severity: moderate Severity scale (1-10): 9 Quality: sharp Pain Radiation: none Improves with: nothing Worsens with: nothing Treatments prior to arrival chest pain: aspirin, nitroglycerin - Related Data Home Medications Medication Instructions Recorded Confirmed Ascorbic Acid [Vitamin C] 500 mg PO BID 06/13/15 03/16/16 Aspirin [Adult Low Dose Aspirin EC] 81 mg PO DAILY 06/13/15 03/16/16 Furosemide [Lasix] 80 mg PO BID 06/13/15 03/16/16 Insulin ASPART [NovoLOG] 2 - 12 unit SQ TIDWM #0 06/13/15 03/16/16 Insulin DETEMIR [Levemir] 80 unit SQ QAM 06/13/15 03/16/16 L. Acidophilus/Pectin, [place] 1 cap PO DAILY 06/13/15 03/16/16 [Acidophilus Probiotic Capsule] LORazepam [Ativan] 0.5 mg PO Q8HR PRN 06/13/15 03/16/16 Menthol/Camphor/Dimeth/Phenol 1 appl TP QID #0 06/13/15 03/16/16 [Blistex Medicated Lip Ointment] Menthol/Zinc Oxide [Calmoseptine 1 appl TP BID #0 06/13/15 03/16/16 Ointment Packet] Metformin HCl [Glucophage] 1,000 mg PO BID 06/13/15 03/16/16 Multivit/Ca/Min/Fe/FA [Thera M 1 tab PO DAILY 06/13/15 03/16/16 Plus] Oxycodone HCl/Acetaminophen 1 tab PO Q4HR PRN 06/13/15 03/16/16 [Percocet 5-325 mg Tablet] Rivaroxaban [Xarelto] 20 mg PO HS 06/13/15 03/16/16 Ropinirole HCl [Requip] 0.5 mg PO HS 06/13/15 03/16/16 Sennosides/Docusate Sodium [Senna 1 tab PO DAILY 06/13/15 03/16/16 Plus] Sertraline [Zoloft] 50 mg PO DAILY 06/13/15 03/16/16 Simvastatin [Zocor] 40 mg PO DAILY #0 06/13/15 03/16/16 SitaGLIPtin [Januvia] 100 mg PO DAILY 06/13/15 03/16/16 Zinc Sulfate 220 mg PO BID 06/13/15 03/16/16 metOLazone [Zaroxolyn] 2.5 mg PO DAILY 06/13/15 03/16/16 Carbidopa/Levodopa 1 tab PO HS 03/16/16 03/16/16 [Carbidopa-Levodopa 25-100 Tab] Insulin DETEMIR [Levemir Flextouch] 14 unit SQ HS 03/16/16 03/16/16 Promethazine [Phenergan] 12.5 mg PO Q6HR 03/16/16 03/16/16 Previous Rx's Medication Instructions Recorded Nitroglycerin 0.4 mg SL Q5MIN #30 tab.subl 03/18/16 Nystatin POWDER [Nystop] 1 appl TP TID 14 Days 03/18/16 Potassium Chloride Elixir 20 meq PO BID 30 Days 03/18/16 [Potassium Chloride] Allergies Allergy/AdvReac Type Severity Reaction Status Date / Time Sulfa (Sulfonamide Allergy See Verified 06/12/15 20:58 Antibiotics) Comments tramadol AdvReac Nausea Verified 06/12/15 20:58 All systems ED: reviewed and negative except as stated. Review of Systems: As Per HPI Constitutional: Denies: fever, chills Cardiovascular: Reports: chest pain. Denies: palpitations, dyspnea on exertion , orthopnea, edema Respiratory: Denies: cough, dyspnea, wheezes Gastrointestinal: Denies: abdominal pain, nausea, vomiting, diarrhea, constipation Genitourinary: Denies: urgency, dysuria Musculoskeletal: Denies: back pain, neck pain Integumentary: Denies: rash, abrasion Neurological: Reports: headache. Denies: weakness Psychiatric: Denies: anxiety, depression Hematological/Lymphatic: Denies: easy bleeding Chest Pain PMH - Past Medical History Medical history: Reports: diabetes, hyperlipidemia, myocardial infarction Surgical history: Reports: , cholecystectomy, orthopedic, other Psychiatric history: Reports: anxiety, depression - Social History Smoking Status: Never smoker Alcohol use: Reports: none Drug use: Reports: none Physical Exam - General Limitations: no limitations General appearance: alert, in no apparent distress - Head Head exam: atraumatic, normocephalic, normal inspection - Eye Eye exam: Present: normal appearance, PERRL, EOMI. Absent: periorbital swelling , periorbital tenderness - Neck Neck exam: Present: normal inspection, full ROM, trachea midline. Absent: tenderness, meningismus, lymphadenopathy - Chest Chest inspection: Present: normal inspection, symmetric chest wall rise. Absent : tenderness - Respiratory Respiratory exam: Present: normal lung sounds bilaterally - Cardiovascular Cardiovascular exam: Present: regular rate, normal rhythm, normal heart sounds - Abdominal Exam Abdominal exam: Present: soft, Non-Tender, normal bowel sounds. Absent: tenderness, distention, guarding, rebound, rigidity, diminished bowel sounds, Granger's sign, Rovsing's sign, tenderness at McBurney's Point - Extremities Exam Extremities exam: Present: normal inspection, full ROM. Absent: tenderness - Back Exam Back exam: Present: normal inspection, full ROM. Absent: tenderness - Neurological Exam Neurological exam: Present: alert, oriented X3, CN II-XII intact - Skin Skin exam: Present: warm, dry, intact, normal color Course Course Narrative: Patient seen and examined the time of arrival. See history of present illness. 66-year-old female [facility] for evaluation of chest pain. Transported by EMS were no complications. EKG showed sinus rhythm with intermittent PVCs. Patient is describing approximate 3 hours of substernal chest pain. She has a symptoms on and off all the time. Today they were worse and did not respond to nitroglycerin so she decided to come into the emergency room. Patient denies any recent illnesses fevers chills nausea vomiting or diarrhea. Denies any trauma or injury. She did take aspirin and nitroglycerin prior to coming in. She denies any changes in her medical history or significant life stressors. Vital signs on presentation are stable heart rate is regular with intermittent PVCs. Patient has no specific reproducible symptoms except with palpation to the left anterior sternal margin. Lungs are otherwise clear heart is regular abdomen is soft nontender nondistended. Patient does have chronic disability and is nonambulatory. She does have a decubitus ulcer which we did not evaluate initially here. She has lower extremity edema and swelling that does not appear to show signs of cellulitis at this point. Patient is mentating appropriately answering questions appropriately this time. Otherwise complaining of no other symptoms. Patient will be evaluated for cardiac related source including chest x-ray EKG troponin labs. Will reevaluate for possible infectious etiology with a consideration of possible intrathoracic issue including pulmonary emboli or undiagnosed infection. Patient does not require CT imaging that at this time considering she has not had a closed head injury and does not have any acute signs of altered mentation. Her only complaint at this point is the chest discomfort and pain - Reevaluation(s) Reevaluation #1: Patient's chest x-ray is otherwise negative. EKG shows similar morphology from earlier this year in February. Patient is denying any chest pain symptoms at this time. She is eating a meal at the bedside in no distress. She does have a mildly elevated white blood cell count and mild renal insufficiency her today. Fluids to be given at this time and then CT imaging of the chest to be completed with concern of undiagnosed pulmonary infection or possible aneurysm. Patient otherwise is resting in bed. Will continue monitoring until treatment course is completed Time: 13:03 Reevaluation #2: CT angios shows possible spiculated areas consistent with either pneumonia or underlying interstitial disease. Antibiotics were to the style of blood cultures. Patient's symptoms have resolved she is sleeping in the bed at this point. We will admit her at this time for what appears to be possibility of pneumonia causing chest discomfort and pain. Patient is chronically debilitated making it difficult to complete full assessment. We will monitor his admission process is complete. Detailed review the presentation symptoms of medical intervention were discussed with the hospitalist Dr. slade we reviewed the medical intervention as well as the history and the presentation. He is happy with the patient the hospital. No other recommendations noted at this time. Antibiotic regimen started at this point. Patient will be treated for possible pneumonia, AK I, generalized malaise and chest discomfort. Time: 14:56 Vital Signs Temperature 98.2 F 09/27/16 11:31 Pulse Rate 97 09/27/16 11:31 Respiratory Rate 20 09/27/16 11:31 Blood Pressure 137/59 09/27/16 11:31 O2 Sat by Pulse Oximetry 99 09/27/16 11:31 Temperature 98.2 F 09/27/16 11:31 Pulse Rate 71 09/27/16 12:50 Respiratory Rate 20 09/27/16 12:50 Blood Pressure 157/64 09/27/16 12:50 O2 Sat by Pulse Oximetry 100 09/27/16 12:50 Oxygen Delivery Oxygen Delivery Nasal Cannula Chest Pain - MDM Narrative Medical decision making narrative: Chest pain, - Medical Records Medical records reviewed: Yes I reviewed the patient's medical records. - Lab Data Lab results reviewed: Yes I reviewed the patient's lab results. Result diagrams: 09/27/16 11:52 09/27/16 11:52 Lab Results 09/27/16 09/27/16 09/27/16 Range/Units 11:52 11:52 11:52 WBC 13.7 H (4.3-11.1) K/mcL RBC 4.43 (3.82-4.97) M/mcL Hgb 11.6 (11.5-15.4) g/dL Hct 36.6 (35.3-44.9) % MCV 82.6 L (83.0-100.0) fL MCH 26.2 L (28.0-33.3) pg MCHC 31.7 (31.6-35.5) g/dL RDW 16.5 H (11.5-14.5) % Plt Count 294 (140-400) K/mcL MPV 9.2 L (9.4-12.4) fL Immature Gran % 0.5 (0-4) % Seg Neutrophils % 76.6 % Lymphocytes % 15.0 % Monocytes % 4.7 % Eosinophils % 2.8 % Basophils % 0.4 % Neutrophils # 10.5 H (1.6-8.9) K/mcL Lymphocytes # 2.1 (0.6-4.6) K/mcL Monocytes # 0.6 (0.0-1.3) K/mcL Eosinophils # 0.4 (0.0-0.6) K/mcL Basophils # 0.1 (0.0-0.2) K/mcL PT 14.0 H (9.4-12.1) Seconds INR 1.3 APTT 33.3 (26.0-36.0) Seconds Sodium (136-145) mEq/L Potassium (3.5-4.5) mEq/L Chloride (98-109) mEq/L Carbon Dioxide (19-29) mEq/L BUN (7-20) mg/dL Creatinine (0.57-1.11) mg/dL Est GFR ( Amer) (> 60) Est GFR (Non-Af Amer) (> 60) BUN/Creatinine Ratio (6-26) Glucose (70-99) mg/dL Calculated Osmolality (280-300) Calcium (8.6-10.8) mg/dL Troponin I (0-0.03) ng/mL B-Natriuretic Peptide 73 (0-100) pg/mL Urine Color (Yellow) Urine Clarity (Clear) Urine pH (5.0-8.0) pH Units Ur Specific [place] (1.010-1.025) Urine Protein (Neg-Trace) mg/dL Urine Glucose (UA) (Normal) mg/dL Urine Ketones (Negative) mg/dL Urine Blood (Negative) Urine Nitrite (Negative) Urine Bilirubin (Negative) Urine Urobilinogen (Normal) mg/dL Ur Leukocyte Esterase (Negative) Urine Microscopic RBC (0-3) per hpf Urine Microscopic WBC (0-3) per hpf Ur Squamous Epith Cells (None-Few) per lpf Urine Bacteria (None-Few) per hpf Hyaline Casts (None-Few) per lpf Ur Culture Indicated? (NO) 09/27/16 09/27/16 09/27/16 Range/Units 11:52 11:52 12:06 WBC (4.3-11.1) K/mcL RBC (3.82-4.97) M/mcL Hgb (11.5-15.4) g/dL Hct (35.3-44.9) % MCV (83.0-100.0) fL MCH (28.0-33.3) pg MCHC (31.6-35.5) g/dL RDW (11.5-14.5) % Plt Count (140-400) K/mcL MPV (9.4-12.4) fL Immature Gran % (0-4) % Seg Neutrophils % % Lymphocytes % % Monocytes % % Eosinophils % % Basophils % % Neutrophils # (1.6-8.9) K/mcL Lymphocytes # (0.6-4.6) K/mcL Monocytes # (0.0-1.3) K/mcL Eosinophils # (0.0-0.6) K/mcL Basophils # (0.0-0.2) K/mcL PT (9.4-12.1) Seconds INR APTT (26.0-36.0) Seconds Sodium 139 (136-145) mEq/L Potassium 3.3 L (3.5-4.5) mEq/L Chloride 97 L (98-109) mEq/L Carbon Dioxide 30 H (19-29) mEq/L BUN 49 H (7-20) mg/dL Creatinine 1.31 H (0.57-1.11) mg/dL Est GFR ( Amer) 49 L (> 60) Est GFR (Non-Af Amer) 41 L (> 60) BUN/Creatinine Ratio 37 H (6-26) Glucose 193 H (70-99) mg/dL Calculated Osmolality 306 H (280-300) Calcium 9.6 (8.6-10.8) mg/dL Troponin I 0.03 (0-0.03) ng/mL B-Natriuretic Peptide (0-100) pg/mL Urine Color Yellow (Yellow) Urine Clarity Clear (Clear) Urine pH 6.0 (5.0-8.0) pH Units Ur Specific [place] 1.013 (1.010-1.025) Urine Protein Negative (Neg-Trace) mg/dL Urine Glucose (UA) Normal (Normal) mg/dL Urine Ketones Negative (Negative) mg/dL Urine Blood Negative (Negative) Urine Nitrite Negative (Negative) Urine Bilirubin Negative (Negative) Urine Urobilinogen Normal (Normal) mg/dL Ur Leukocyte Esterase Moderate H (Negative) Urine Microscopic RBC 0-3 (0-3) per hpf Urine Microscopic WBC 15-30 H (0-3) per hpf Ur Squamous Epith Cells Many H (None-Few) per lpf Urine Bacteria None Seen (None-Few) per hpf Hyaline Casts None Seen (None-Few) per lpf Ur Culture Indicated? YES A (NO) - Radiology Data Radiology results reviewed: Yes I reviewed the patient's radiology results. Chest x-ray is otherwise negative at this time. - EKG Data EKG attestation: Yes I reviewed and interpreted this EKG. EKG shows normal: sinus rhythm, axis, intervals, QRS complexes, ST-T waves Rate: normal Rhythm: NSR, PVC's Barton/QRS: normal Voltage: c/w LVH When compared to previous EKG there are: no significant changes Interpretation: no acute changes, unchanged when compared to prior tracing (date ) (03/16/16) Heart Score - Score History: Slightly Suspicious EKG: Non Specific repolarisation Disturbance Age: Greater than 65 Risk Factors: Equal/Greater than 3 risk factor or history of atherosclerotic disease Troponin: Less than normal limit HEART Score Total: 5
[2016-09-27] MEDS ORDERED: 0.9 % Sodium Chloride 1,000 ML IVC ONE (13:01)
[2016-09-27] MEDS ORDERED: methylPREDNISolone 125 MG/2 ML VIAL IVP ONE (14:25)
[2016-09-27] MEDS ORDERED: Levofloxacin 750 MG/150 ML 750 MG/150 ML BAG IVPB ONE (14:55)
--- NOTE | 2016-09-27 15:25 | Event Note ---
Date of Encounter: 09/27/16 Time of Encounter: 15:22 1. Acute renal failure likely secondary to diuretics, creatinine has increased from 0.87 apt to 1.31 Hold Zaroxolyn, order normal saline at 75 mL per hour for only 1 L 2. Possible acute bronchitis viral versus bacterial, consider early atypical pneumonia as a CT scan shows diffuse pneumonitis in small areas suspicious for atypical pneumonia Continue Levaquin started on the ER 3., Diabetes of 2 insulin-dependent, continue insulin sliding scale 4. History of atrial flutter, currently on Xarelto next 5. History of diastolic CHF, no exacerbation 6. Chronic lower extremity edema/cellulitis 7. Chest pain with history of CAD status post stents Continue aspirin and trend troponins, continue telemetry, may order a limited echocardiogram Omeprazole for GI prophylaxis and Xarelto for DVT prophylaxis. The patient will be admitted for observation. Full code. Time spent on this admission 40 minutes. H&P will be dictated by LOGAN Acevedo
[2016-09-27] MEDS ORDERED: Naloxone 0.4 MG/ML INJ IVP PRN (15:57)
[2016-09-27] MEDS ORDERED: 0.9 % Sodium Chloride 1,000 ML IVC SCH ×2 (16:00→17:05)
--- NOTE | 2016-09-27 16:16 | Internal Med History&Physical ---
<Bhavesh Bhatia J - Last Filed: 09/27/16 16:18> Date of Encounter: 09/27/16 Time of Encounter: 16:15 Assessment and Plan (1) Acute kidney insufficiency Current visit: Yes Status: Acute COLIN likely secondary to bed bug exterminator diuretic use. Creatinine has increased from 0.87 from last draw to 1.31. BMP in am, gentle hydration 0.9 ns, hold zaroxolyn (2) Chest pain Current visit: Yes Status: Acute Chest pain with H/O CAD, CHF and ND with stents and a-fib; continue xarelto, CT chest shows possible PNA no evidence of PE. Acute renal failure likely secondary to diuretics, creatinine has increased from 0.87 apt to 1.31 Qualifiers: Chest pain type: unspecified Qualified Code(s): R07.9 - Chest pain, unspecified (3) Pneumonia Current visit: Yes Status: Acute CT reveals possible acute viral bronchitis vs bacterial PNA. Levaquin started in the ED. Continue levaquin therapy. 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 On prison diuretics. Will hold for now as it has likely contributed to COLIN Qualifiers: Congestive heart failure chronicity: chronic Qualified Code(s): I50.32 - Chronic diastolic (congestive) heart failure (6) DVT prophylaxis Current visit: Yes Status: Acute At risk for DVT d/t prolonged bedrest. 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 Francisco is a 66 year old female with a PMH of IDDM, HLD, CAD, ND with stents, and CHF. Presented to [facility] form [facility] on 09-27-16 with substernal chest pain unresponsive to nitro at the ECF and SOB that started this am while eating breakfast. Information obtained from chart reveiw and patient report. She mentions an increase in lower extremity swelling and a decline of physical capacity over the last couple of months noting being increasingly SOB with activity. She does have a h/o CHF and ND with stents and there is concern for CHF. A CT chest was obtained in the ER and exhibited spictulated areas consistent with PNA or underlying disease. Levaquin IVPB was started and Blood cultures were sent in ED. Of additional concern is an COLIN. An increasing Cr of more than 30% of baseline warrants further evaluation and intervention. She is being admitted in observation status at this time for further workup. Past Med Surg Social Fam HX - Past Medical History Medical history: diabetes, hyperlipidemia, myocardial infarction Psychiatric history: anxiety, depression - Past Surgical History Surgical History: , cholecystectomy, orthopedic, other - Social History Smoking Status: Never smoker Smokeless Tobacco Status: No Alcohol use: none Drug use: none - Family History Mother Adopted: No Family Member Ethnicity: Non- Living Status: Age at : 77 Hx Family Cardiac Disorders: Yes Hx Family Respiratory Disorders: Yes Hx Family Cancer: No Hx Family GI Disorders: No Hx Family Endocrine Disorder: No Hx Family Neuromuscular Disorders: No Hx Family Neurologic Disorders: No Hx Family HEENT Disorders: Yes Hx Family Autoimmune Disorders: No Father Race: Family Member Ethnicity: Non- Living Status: Age at : 67 Hx Family Cardiac Disorders: Yes Hx Family Respiratory Disorders: Yes Hx Family Cancer: No Brother Race: Family Member Ethnicity: Non- Living Status: Age at : 59 Cause of : brain ca Hx Family Cardiac Disorders: No Hx Family Respiratory Disorders: No Hx Family Cancer: Yes Sister Race: Family Member Ethnicity: Non- Living Status: Age at : 55 Cause of : aneurysm Hx Family Cardiac Disorders: No Hx Family Respiratory Disorders: No Hx Family Medical Disorders: No Internal Medicine - H&P: Meds Ascorbic Acid [Vitamin C] 500 mg PO BID 06/13/15 [History] Aspirin [Adult Low Dose Aspirin EC] 81 mg PO DAILY 06/13/15 [History] Furosemide [Lasix] 80 mg PO BID 06/13/15 [History] Insulin ASPART [NovoLOG] 2 - 12 unit SQ QID #0 06/13/15 [History] Insulin DETEMIR [Levemir] 80 unit SQ QAM 06/13/15 [History] L. Acidophilus/Pectin, [place] [Acidophilus Probiotic Capsule] 1 cap PO DAILY [History] LORazepam [Ativan] 0.5 mg PO BID 06/13/15 [History] Menthol/Camphor/Dimeth/Phenol [Blistex Medicated Lip Ointment] 1 appl TP QID #0 06/13/15 [History] Metformin HCl [Glucophage] 1,000 mg PO BID 06/13/15 [History] Multivit/Ca/Min/Fe/FA [Thera M Plus] 1 tab PO DAILY 06/13/15 [History] Oxycodone HCl/Acetaminophen [Percocet 5-325 mg Tablet] 1 tab PO BID 06/13/15 [ History] Rivaroxaban [Xarelto] 20 mg PO HS 06/13/15 [History] Ropinirole HCl [Requip] 0.5 mg PO HS 06/13/15 [History] Sennosides/Docusate Sodium [Senna Plus] 1 tab PO DAILY 06/13/15 [History] Sertraline [Zoloft] 50 mg PO DAILY 06/13/15 [History] Simvastatin [Zocor] 40 mg PO DAILY #0 06/13/15 [History] SitaGLIPtin [Januvia] 100 mg PO DAILY 06/13/15 [History] Zinc Sulfate 220 mg PO BID 06/13/15 [History] metOLazone [Zaroxolyn] 2.5 mg PO DAILY 06/13/15 [History] Carbidopa/Levodopa [Carbidopa-Levodopa 25-100 Tab] 1 tab PO HS 03/16/16 [History ] Insulin DETEMIR [Levemir Flextouch] 14 unit SQ HS 03/16/16 [History] Amino Acids/Protein Hydrolys [Pro-Stat Awc Liquid] 30 ml PO QAM 09/27/16 [ History] Insulin ASPART [NovoLOG] 7 unit SQ TIDWM 09/27/16 [History] Isosorbide MONOnitrate (24 HR) [Imdur] 30 mg PO DAILY 09/27/16 [History] LORazepam [Ativan] 0.5 mg PO TID PRN 09/27/16 [History] Methyl Salicylate/Menthol [Bengay] 1 appl TP BID PRN 09/27/16 [History] Maulik/Poly/DEX Opth OINT [Maxitrol OPTH Oint] 1 appl BOTH EYES HS 09/27/16 [ History] Nitroglycerin 0.4 mg SL Q5MIN PRN 09/27/16 [History] Oxycodone HCl/Acetaminophen [Percocet 5-325 mg Tablet] 1 tab PO Q4H PRN [History] Potassium Chloride [Klor-Con 10] 30 meq PO TID 09/27/16 [History] Spironolactone [Aldactone] 25 mg PO DAILY 09/27/16 [History] Allergies Sulfa (Sulfonamide Antibiotics) Allergy (Verified 06/12/15 20:58) See Comments tramadol Adverse Reaction (Verified 06/12/15 20:58) Nausea All Systems PM: A 10-system review of systems was performed and is negative for pertinent findings except as documented above in the HPI. - Constitutional Constitutional: fatigue, weakness, no chills, no fever(s), no night sweats - EENT Eyes: no change in vision, no discharge, no pain, no photophobia Ears: no ear discharge, no ear pain, no tinnitus Nose, mouth and throat: no dysphagia, no nasal discharge, no neck pain, no sore throat - Cardiovascular Cardiovascular ROS IM: dyspnea on exertion, edema, no chest pain, no diaphoresis , no dyspnea, no lightheadedness, no palpitations, no syncope - Respiratory Respiratory: cough, no dyspnea, no wheezing, no excessive phlegm production Additional comments: Ongoing dry cough patient reports as lasting a few months; likey chronic - Gastrointestinal Gastrointestinal: no abdominal pain, no diarrhea, no hematemesis, no hematochezia, no melena, no nausea, no vomiting - Genitourinary Genitourinary: no change in urinary stream, no dysuria, no flank pain, no hematuria - Musculoskeletal Musculoskeletal ROS IM: no numbness, no tingling - Integumentary Integumentary IM: no rash, no unusual bruising - Neurological Neurological ROS: no confusion, no convulsions, no focal weakness, no numbness, no tingling, no tremor(s) - Hematologic/Lymphatic Hematologic/Lymphatic: no easy bruising - Constitutional Vitals: Temp Pulse Resp BP Pulse Ox 98.7 F 66 20 134/61 98 09/27/16 16:07 09/27/16 14:25 09/27/16 16:07 09/27/16 16:07 09/27/16 14:25 General appearance: Present: cooperative, A&O X 3, pleasant, no acute distress, obese, answers questions appropriately Exam: A&Ox3; tired but easy arousal to verbal stimuli. Able to answer all question appropriately - Head Head exam: Present: atraumatic, normocephalic - Eye Eye exam: Present: PERRL, conjuntiva pink, sclera anicteric Pupils: Present: PERRL - Neck Neck exam general surgery: Present: supple, trachea midline. Absent: lymphadenopathy - Respiratory Respiratory exam: Present: decreased breath sounds, CTAB. Absent: accessory muscle use, rales, rhonchi, wheezes - Cardiovascular Cardiovascular exam: Present: RRR, +S1, +S2. Absent: diastolic murmur, gallop, rubs, systolic murmur - GI/Abdominal GI/Abdominal exam: Present: normal bowel sounds, soft, no peritoneal signs. Absent: distended, tenderness Additional comments: round non-tender - Extremities Exam Extremities exam: Present: warm, radial pulses palpable and symetrical. Absent : calf tenderness, cyanotic, pedal edema - Expanded Lower Extremities Exam Lower Leg exam: Present: swelling (edematous BLE; does not appear to be cellulitis) - Neurological Exam Neurological exam: Present: CN II-XII intact, oriented X3, no focal deficits. Absent: pronater drift, facial droop, speech deficit - Skin Skin exam: Present: dry, intact Internal Med - H&P Results - Labs CBC & Chem 7: 09/27/16 11:52 09/27/16 11:52 - EKG Data Prior EKG available for review: yes When compared to previous EKG: there are significant changes Interpretation IM: normal EKG - Impressions no morphologic changes - Diagnostic Studies CT scan - chest Additional comments: Results as per HPI <Herson-Matovelle,Jose H - Last Filed: 09/27/16 18:09> Date of Encounter: 09/27/16 Internal Medicine - H&P: HPI History of present illness: Ms. Francisco is a 66 year old female All Systems PM: A 10-system review of systems was performed and is negative for pertinent findings except as documented above in the HPI. - Constitutional Vitals: Temp Pulse Resp BP Pulse Ox 98.7 F 66 20 134/61 100 09/27/16 16:07 09/27/16 14:25 09/27/16 16:07 09/27/16 16:07 09/27/16 16:56 Internal Med - H&P Results - Labs CBC & Chem 7: 09/27/16 11:52 09/27/16 11:52 - Attending Attestation 1. Acute renal failure likely secondary to diuretics, creatinine has increased from 0.87 apt to 1.31 Hold Zaroxolyn, order normal saline at 75 mL per hour for only 1 L 2. Possible acute bronchitis viral versus bacterial, consider early atypical pneumonia as a CT scan shows diffuse pneumonitis in small areas suspicious for atypical pneumonia Continue Levaquin started on the ER 3., Diabetes of 2 insulin-dependent, continue insulin sliding scale 4. History of atrial flutter, currently on Xarelto next 5. History of diastolic CHF, no exacerbation 6. Chronic lower extremity edema/cellulitis 7. Chest pain with history of CAD status post stents Continue aspirin and trend troponins, continue telemetry, may order a limited echocardiogram Omeprazole for GI prophylaxis and Xarelto for DVT prophylaxis. The patient will be admitted for observation. Full code. Time spent on this admission 40 minutes. For this encounter, I have reviewed the HAND CANDLE MOLDER or PA documentation, treatment plan, and medical decision making; and I have had face to face time with this patient.
[2016-09-27] MEDS ORDERED: *HR* LORazepam 0.5 MG TABLET PO PRN (16:35)
[2016-09-27] MEDS ORDERED: Nitroglycerin 0.4 MG TAB.SUBL SL PRN (16:35)
[2016-09-27] MEDS ORDERED: D5% in Water 1,000 ML IVC PRN (16:46)
[2016-09-27] MEDS ORDERED: *HR* Dextrose 50 % in Water (Syg) 50 ML SYRINGE IVP PRN (16:46)
[2016-09-27] MEDS ORDERED: Dextrose Gel 15 GM PO PRN ×2 (16:46)
[2016-09-27] MEDS: rOPINIRole 0.25 MG TABLET PO SCH (20:03)
[2016-09-27] MEDS: Carbidopa/Levodopa 25/100 TABLET PO SCH (20:04)
[2016-09-27] MEDS: Zinc Sulfate 220 MG CAPSULE PO SCH (20:04)
[2016-09-27] MEDS: Ascorbic Acid 500 MG TABLET PO SCH (20:04)
[2016-09-27] MEDS: Acetaminophen 325 MG TABLET PO PRN (20:13)
[2016-09-27] MEDS: Insulin DETEMIR 100 UNIT/ML X5UNITS SQ SCH (20:20)
[2016-09-27] MEDS ORDERED: NON-FORMULARY MEDICATION 1 EACH EACH (Furosemide [Lasix] 80 MG) PO SCH (21:00)
[2016-09-27] MEDS ORDERED: INSULIN DETEMIR 14 UNIT SQ SCH (21:00)
[2016-09-27] MEDS ORDERED: *HR* Rivaroxaban 10 MG TABLET PO SCH (21:00)
[2016-09-27] MEDS ORDERED: Insulin LISPRO 300 UNITS/3 ML VIAL SQ SCH (21:00)
[2016-09-28 02:18] LABS: Basophils % 0.2 %; Hematocrit 35.2 % (35.3-44.9); Immature Granulocytes % 1.2 % (0-4); Lymphocytes # 0.8 K/mcL (0.6-4.6); Lymphocytes % 8.1 %; Mean Corpuscular HGB Conc 31.3 g/dL (31.6-35.5); Mean Corpuscular Hemoglobin 25.9 pg (28.0-33.3); Mean Corpuscular Volume 82.8 fL (83.0-100.0); Mean Platelet Volume 9.8 fL (9.4-12.4); Monocytes # 0.1 K/mcL (0.0-1.3); Monocytes % 0.5 %; Neutrophils # 8.8 K/mcL (1.6-8.9); Platelet Count 260 K/mcL (140-400); Red Blood Count 4.25 M/mcL (3.82-4.97); Red Cell Distribution Width 16.4 % (11.5-14.5)
[2016-09-28 02:32] LABS: Albumin 3.3 g/dL (3.5-5.0); Albumin/Globulin Ratio 0.8 (1.1-2.2); Alkaline Phosphatase 93 Units/L (38-126); Aspartate Amino Transferase 18 Units/L (5-34); BUN/Creatinine Ratio 32 (6-26); Bilirubin,Total 0.3 mg/dL (0.2-1.2); Blood Urea Nitrogen 48 mg/dL (7-20); Calcium 9.2 mg/dL (8.6-10.8); Carbon Dioxide 31 mEq/L (19-29); Chloride 95 mEq/L (98-109); Chol/HDL Ratio 4.1 (0-4.9); Cholesterol 151 mg/dL (< 200); Globulin 3.9 g/dL (2.4-3.5); Glucose 200 mg/dL (70-99); HDL Cholesterol 37 mg/dL (40-59); LDL Cholesterol,Calculated 96 mg/dL (0-99); Osmolality,Calculated 306 (280-300); Potassium 3.5 mEq/L (3.5-4.5); Sodium 139 mEq/L (136-145); Total Protein 7.2 g/dL (6.0-8.3); Triglycerides 88 mg/dL (< 150); eGFR For African Americans 43 (> 60); eGFR For Non-African Americans 35 (> 60)
[2016-09-28 02:37] LABS: Alanine Aminotransferase < 6 Units/L (0-55)
[2016-09-28] MEDS ORDERED: Insulin LISPRO 300 UNITS/3 ML VIAL SQ SCH (07:30)
--- NOTE | 2016-09-28 08:54 | Internal Med Progress Note ---
Date of Encounter: 09/28/16 Time of Encounter: 08:49 - Assessment and plan (1) Pneumonia Current Visit: Yes Status: Acute Assessment and plan: Chest CT shows possible acute viral bronchitis, bacterial PNA. Levaquin started in the ED. Concerned for possible atypical pneumonia as a CT scan shows diffuse pneumonitis in small areas suspicious for atypical pneumonia. Cont IV levaquin, nebs. Urinary Ags, resp PCR, sputum pending Qualifiers: Pneumonia type: due to unspecified organism Laterality: unspecified laterality Lung location: unspecified part of lung Qualified Code(s): J18.9 - Pneumonia, unspecified organism (2) CAD (coronary artery disease) Current Visit: No Status: Acute Assessment and plan: with hx GA and stents. Presented with chest pain not relieved with nitro. Initial troponin 0.02, EKG without acute ST changes. Stress test 02/2016 however unable to view results in [place]. Still with intermittent chest pain that radiates to back on 09/28 exam. Cont hoe ASA, nitrate. Check echo, Cardiology consulted Qualifiers: Coronary Disease-Associated Artery/Lesion type: [place] artery [place] vs. transplanted heart: [place] heart Associated angina: angina presence unspecified Qualified Code(s): I25.10 - Atherosclerotic heart disease of [place] coronary artery without angina pectoris (3) Acute kidney insufficiency Current Visit: Yes Status: Acute Assessment and plan: Cr 1.3 on arrival. Home diuretics and zaroxolyn held on admission. Cr 1.4 on 09/28 after receiving IV fluids overnight. Cont IV fluids, renal US pending. Nephrology consulted (4) Atrial fibrillation Current Visit: Yes Status: Acute Assessment and plan: per hx. Not on BB or rate controlling agent. HR controlled in 60s. Cont to monitor on tele. Cont Xarelto Qualifiers: Atrial fibrillation type: paroxysmal Qualified Code(s): I48.0 - Paroxysmal atrial fibrillation (5) IDDM (insulin dependent diabetes mellitus) Current Visit: No Status: Acute Assessment and plan: per hx. Hgb A1c 7. Holding home metformin. Cont home long acting; increase SSI to high dose with elevated blood sugars. Monitor blood sugars and titrate PRN (6) DVT prophylaxis Current Visit: Yes Status: Acute Assessment and plan: xarelto - Time Spent With Patient 25 - 35 minutes - Subjective Interval history: Patient is new to me; information obtained from chart review and patient report. Seen and examined at bedside; says she feels a little better today but is still having intermittent chest pain that radiates to back, nothing makes better or worse. Says lower extremity edema is at baseline, denies SOB - Constitutional Vitals: Temp Pulse Resp BP Pulse Ox 98.1 F 60 17 137/51 100 09/28/16 06:58 09/28/16 06:58 09/28/16 06:58 09/28/16 06:58 09/28/16 06:58 General appearance: Present: cooperative, A&O X 3, pleasant, no acute distress, obese, answers questions appropriately - Head Head exam: Present: atraumatic, normocephalic - Eye Eye exam: Present: PERRL, conjuntiva pink, sclera anicteric Pupils: Present: PERRL - Neck Neck exam general surgery: Present: supple, trachea midline. Absent: lymphadenopathy - Respiratory Respiratory exam: Present: CTAB. Absent: accessory muscle use, rales, rhonchi, wheezes - Cardiovascular Cardiovascular exam: Present: RRR, +S1, +S2. Absent: diastolic murmur, gallop, rubs, systolic murmur - GI/Abdominal GI/Abdominal exam: Present: normal bowel sounds, soft, no peritoneal signs. Absent: distended, tenderness - Extremities Exam Extremities exam: Present: pedal edema, warm, radial pulses palpable and symetrical. Absent: calf tenderness, cyanotic - Neurological Exam Neurological exam: Present: CN II-XII intact, oriented X3, no focal deficits. Absent: pronater drift, facial droop, speech deficit - Skin Skin exam: Present: dry, intact Internal Medicine: Result - Labs CBC & Chem 7: 09/28/16 01:19 09/28/16 01:19 Labs: Short CBC 09/28/16 Range/Units 01:19 WBC 9.8 (4.3-11.1) K/mcL Hgb 11.0 L (11.5-15.4) g/dL Hct 35.2 L (35.3-44.9) % Plt Count 260 (140-400) K/mcL Neutrophils # 8.8 (1.6-8.9) K/mcL BMP 09/28/16 01:19 Sodium 139 Potassium 3.5 Chloride 95 L Carbon Dioxide 31 H BUN 48 H Creatinine 1.48 H Glucose 200 H Calcium 9.2 Cardiac Enzymes 09/27/16 09/28/16 Range/Units 19:01 01:19 Troponin I 0.02 0.02 (0-0.03) ng/mL Liver Function 09/28/16 Range/Units 01:19 Total Bilirubin 0.3 (0.2-1.2) mg/dL AST 18 (5-34) Units/L ALT < 6 (0-55) Units/L Alkaline Phosphatase 93 (38-126) Units/L Albumin 3.3 L (3.5-5.0) g/dL - ABG Interpretation ABG results: PT/INR, D-dimer PT 14.0 Seconds (9.4-12.1) H 09/27/16 11:52 Consult Discharge Plan - Plan Referrals: NONE,PCP [Primary Care Provider] -
[2016-09-28] MEDS ORDERED: INSULIN DETEMIR 80 UNIT SQ SCH (09:00)
[2016-09-28] MEDS ORDERED: Levofloxacin 750 MG/150 ML 750 MG/150 ML BAG IVPB SCH (09:00)
[2016-09-28] MEDS ORDERED: Spironolactone 25 MG TABLET PO SCH (09:00)
[2016-09-28] MEDS ORDERED: metOLazone 2.5 MG TABLET PO SCH (09:00)
[2016-09-28] MEDS ORDERED: Isosorbide MONOnitrate (24 HR) 30 MG TAB.ER.24H PO SCH (09:00)
[2016-09-28] MEDS ORDERED: 0.9 % Sodium Chloride 1,000 ML IVC SCH (09:15)
[2016-09-28] MEDS: Aspirin Enteric Coated 81 MG Tablet PO SCH (09:16)
[2016-09-28] MEDS: Lactobacillus 1 EACH CAP.SPRINK PO SCH (09:16)
[2016-09-28] MEDS: Sennosides/Docusate Sodium TABLET PO SCH (09:17)
[2016-09-28] MEDS: Multivit/Ca/Min/Fe/FA 1 TAB TABLET PO SCH (09:17)
[2016-09-28] MEDS: Ascorbic Acid 500 MG TABLET PO SCH ×2 (09:17→20:42)
[2016-09-28] MEDS: Zinc Sulfate 220 MG CAPSULE PO SCH ×2 (09:18→20:42)
[2016-09-28] MEDS: PRO STAT AWC PO SCH (09:19)
[2016-09-28] MEDS: Insulin DETEMIR 100 UNIT/ML X5UNITS SQ SCH ×2 (09:20→20:42)
[2016-09-28] MEDS: Insulin LISPRO 300 UNITS/3 ML VIAL SQ SCH ×4 (09:25→20:43)
--- NOTE | 2016-09-28 10:42 | Cardiology Consult Note ---
Date of Encounter: 09/28/16 Time of Encounter: 10:38 Assessment and Plan (1) Chest pain Current Visit: Yes Status: Acute Started yesterday at rest, has been intermittent. No relief with nitro. Different from prior anginal equivalent. Negative stress test 02/2016. Troponins negative x 3. Chest pain is in setting of a possible PNA, which she is being treated for. Borderline ST changes in aVF. Pt saw Dr. Patterson 05/2016. He offered LHC at that time, which she declined. She is still reluctant, prefers medical management. Will increase Imdur to 60mg daily and re-evaluate tomorrow. Recheck echo. Qualifiers: Chest pain type: unspecified Qualified Code(s): R07.9 - Chest pain, unspecified (2) Atrial flutter Current Visit: No Status: Chronic Hx of paroxysmal atrial flutter. HR will not tolerate AV ifrah blockers. Currently SR. Anticoagulated on Xarelto. If renal function continues to worsen, may need to adjust dose. Qualifiers: Atrial flutter type: unspecified Qualified Code(s): I48.92 - Unspecified atrial flutter (3) CAD (coronary artery disease) Current Visit: Yes Status: Chronic LHC 05/27/2014: Left main normal. LAD 30% diagonal stenosis. Circumflex serial 80 % stenoses (2 drug-eluting stents). RCA normal. Continue ASA, Statin. No BB due to bradycardia. Qualifiers: Coronary Disease-Associated Artery/Lesion type: red devil artery [place] vs. transplanted heart: red devil heart Associated angina: angina presence unspecified Qualified Code(s): I25.10 - Atherosclerotic heart disease of red devil coronary artery without angina pectoris Discussion w patient/family: The assessment and plan as outlined above was discussed with the patient and/or family members who expressed understanding and agreement. All questions were answered. Thank you for involving us in the care of your patient. Please call with any questions. I will discuss all the above with Dr. Enrique Coyle and make changes as necessary. History of Present Illness Consult date: 09/28/16 Requesting physician: Maryan Galvez Consult reason: chest pain Chief complaint: chest pain History of present illness: Ms. Francisco is a 66 year old female with a PMH of IDDM, HLD, hx of PR, CAD s/p PCI , A-Flutter on Xarelto, diastolic CHF. Presented to [facility] form [facility] on 09-27-16 with substernal chest pain unresponsive to nitro at the ECF and SOB that started yesterday am while eating breakfast. It is worse if she exerts herself or gets worked up. Calming down seems to help. It feels different from per prior anginal equivalent. She reports intermittent lower extremity swelling and a decline of physical capacity over the last couple of months. A CT of chest was obtained in the ER and exhibited spictulated areas consistent with PNA or underlying disease. Levaquin IVPB was started and Blood cultures were sent in ED. She was also found to have COLIN. Troponins have been negative. She had a negative stress test in February 2016. Cardiology consulted for further recommendations. Prior CV testing TTE 06/14/2015: EF 60-65%. Moderate diastolic dysfunction. Moderate left atrial enlargement. Mild TR. Moderate pulmonary hypertension, RVSP 53 mmHg. Regadenoson Nuclear 2 day stress test 03/17/2016: Pharmacologic stress Ech is non -diagnostic for ischemia due to submaximal heartrate. Gated EF 73%. Small size, moderate intensity, fixed apical latera defect. Perfusion imaging negative for ischemia of infarct. [facility] 05/27/2014: Left main normal. LAD 30% diagonal stenosis. Circumflex serial 80 % stenoses (2 drug-eluting stents). RCA normal. Past Med Surg Social Fam HX - Past Medical History Medical history: CHF, coronary artery disease, diabetes, hyperlipidemia, myocardial infarction Psychiatric history: anxiety, depression - Past Surgical History Surgical History: angioplasty/stent, , cholecystectomy, orthopedic, other - Social History Smoking Status: Never smoker Smokeless Tobacco Status: No Alcohol use: none Drug use: none - Family History Father Race: Family Member Ethnicity: Non- Living Status: Age at : 67 Hx Family Cardiac Disorders: Yes Hx Family Respiratory Disorders: Yes Hx Family Cancer: No Brother Race: Family Member Ethnicity: Non- Living Status: Age at : 59 Cause of : brain ca Hx Family Cardiac Disorders: No Hx Family Respiratory Disorders: No Hx Family Cancer: Yes Sister Race: Family Member Ethnicity: Non- Living Status: Age at : 55 Cause of : aneurysm Hx Family Cardiac Disorders: No Hx Family Respiratory Disorders: No Hx Family Medical Disorders: No Mother Adopted: No Family Member Ethnicity: Non- Living Status: Age at : 77 Hx Family Cardiac Disorders: Yes Hx Family Respiratory Disorders: Yes Hx Family Cancer: No Hx Family GI Disorders: No Hx Family Endocrine Disorder: No Hx Family Neuromuscular Disorders: No Hx Family Neurologic Disorders: No Hx Family HEENT Disorders: Yes Hx Family Autoimmune Disorders: No Medications and Allergies Ascorbic Acid [Vitamin C] 500 mg PO BID 06/13/15 [History] Aspirin [Adult Low Dose Aspirin EC] 81 mg PO DAILY 06/13/15 [History] Furosemide [Lasix] 80 mg PO BID 06/13/15 [History] Insulin ASPART [NovoLOG] 2 - 12 unit SQ QID #0 06/13/15 [History] Insulin DETEMIR [Levemir] 80 unit SQ QAM 06/13/15 [History] L. Acidophilus/Pectin, [place] [Acidophilus Probiotic Capsule] 1 cap PO DAILY [History] LORazepam [Ativan] 0.5 mg PO BID 06/13/15 [History] Menthol/Camphor/Dimeth/Phenol [Blistex Medicated Lip Ointment] 1 appl TP QID #0 06/13/15 [History] Metformin HCl [Glucophage] 1,000 mg PO BID 06/13/15 [History] Multivit/Ca/Min/Fe/FA [Thera M Plus] 1 tab PO DAILY 06/13/15 [History] Oxycodone HCl/Acetaminophen [Percocet 5-325 mg Tablet] 1 tab PO BID 06/13/15 [ History] Rivaroxaban [Xarelto] 20 mg PO HS 06/13/15 [History] Ropinirole HCl [Requip] 0.5 mg PO HS 06/13/15 [History] Sennosides/Docusate Sodium [Senna Plus] 1 tab PO DAILY 06/13/15 [History] Sertraline [Zoloft] 50 mg PO DAILY 06/13/15 [History] Simvastatin [Zocor] 40 mg PO DAILY #0 06/13/15 [History] SitaGLIPtin [Januvia] 100 mg PO DAILY 06/13/15 [History] Zinc Sulfate 220 mg PO BID 06/13/15 [History] metOLazone [Zaroxolyn] 2.5 mg PO DAILY 06/13/15 [History] Carbidopa/Levodopa [Carbidopa-Levodopa 25-100 Tab] 1 tab PO HS 03/16/16 [History ] Insulin DETEMIR [Levemir Flextouch] 14 unit SQ HS 03/16/16 [History] Amino Acids/Protein Hydrolys [Pro-Stat Awc Liquid] 30 ml PO QAM 09/27/16 [ History] Insulin ASPART [NovoLOG] 7 unit SQ TIDWM 09/27/16 [History] Isosorbide MONOnitrate (24 HR) [Imdur] 30 mg PO DAILY 09/27/16 [History] LORazepam [Ativan] 0.5 mg PO TID PRN 09/27/16 [History] Methyl Salicylate/Menthol [Bengay] 1 appl TP BID PRN 09/27/16 [History] Maulik/Poly/DEX Opth OINT [Maxitrol OPTH Oint] 1 appl BOTH EYES HS 09/27/16 [ History] Nitroglycerin 0.4 mg SL Q5MIN PRN 09/27/16 [History] Oxycodone HCl/Acetaminophen [Percocet 5-325 mg Tablet] 1 tab PO Q4H PRN [History] Potassium Chloride [Klor-Con 10] 30 meq PO TID 09/27/16 [History] Spironolactone [Aldactone] 25 mg PO DAILY 09/27/16 [History] Allergies Sulfa (Sulfonamide Antibiotics) Allergy (Verified 06/12/15 20:58) See Comments tramadol Adverse Reaction (Verified 06/12/15 20:58) Nausea All Systems Review: A 10-system review of systems was performed and is negative for pertinent findings except as documented above in the HPI. - Constitutional Constitutional: fatigue - Cardiovascular Cardiovascular: as per HPI, chest pain at rest, chest pain with exertion, dyspnea at rest, dyspnea on exertion, radiating jaw, neck or arm pain, leg edema - Respiratory Respiratory: dyspnea Physical Examination Vital Signs, Last 4 Hours Temp Pulse Resp BP Pulse Ox 09/28/16 06:58 98.1 F 60 17 137/51 100 Vital Signs Temp Pulse Resp BP Pulse Ox 09/28/16 06:58 98.1 F 60 17 137/51 100 09/28/16 04:42 98.6 F 63 19 144/54 100 09/27/16 23:46 97.7 F 59 15 147/58 99 09/27/16 21:30 97.8 F 64 16 145/80 100 09/27/16 16:56 100 09/27/16 16:07 98.7 F 20 134/61 09/27/16 14:25 66 20 128/58 98 09/27/16 13:50 69 20 125/59 100 09/27/16 12:50 71 20 157/64 100 09/27/16 11:43 88 20 182/68 96 09/27/16 11:38 99 09/27/16 11:31 98.2 F 97 20 137/59 99 Intake and Output 09/27/16 09/28/16 09/28/16 23:59 07:59 15:59 Intake Total 270 / 270 300 / 300 Output Total 550 / 550 425 / 425 Balance -280 / -280 -425 / -425 300 / 300 Intake: IV Fluids 150 / 150 Levaquin Premix 750mg/150 150 / 150 mL 750 mg In 150 ml @ 100 mls/hr IVPB ONCE ONE Rx#:[id number] Oral 120 / 120 300 / 300 Output: Urine 550 / 550 425 / 425 Other: Meal Dinner Breakfast Percent of Meal Consumed 65% 80% # Voids 1 Blood Glucose* 257 203 General: Conversant, No Apparent Distress HEENT: Atraumatic, Normocephaly, Mucus Membranes Moist Neck: No JVD, Normal carotid pulses Cardiac: Reg Rate and Rhythm, Normal S1 and S2, No Murmur Lungs: Other (diminished) Neuro: Alert and responsive, No focal deficits noted Abdomen: Soft, Non-Tender Skin: No rashes noted on visualized skin Musculoskeletal: No Chest Wall Tenderness Extremities: No Clubbing, No Cyanosis, No Edema, Normal Pulses Results 09/28/16 01:19 09/28/16 01:19 Lab Results 09/27/16 09/28/16 09/28/16 19:01 01:19 01:19 WBC 9.8 Hgb 11.0 L Hct 35.2 L Plt Count 260 Sodium Potassium Chloride Carbon Dioxide BUN Creatinine Glucose Calcium Total Bilirubin AST ALT Alkaline Phosphatase Troponin I 0.02 0.02 09/28/16 01:19 WBC Hgb Hct Plt Count Sodium 139 Potassium 3.5 Chloride 95 L Carbon Dioxide 31 H BUN 48 H Creatinine 1.48 H Glucose 200 H Calcium 9.2 Total Bilirubin 0.3 AST 18 ALT < 6 Alkaline Phosphatase 93 Troponin I Short CBC 09/28/16 09/27/16 Range/Units 01:19 11:52 WBC 9.8 13.7 H (4.3-11.1) K/mcL Hgb 11.0 L 11.6 (11.5-15.4) g/dL Hct 35.2 L 36.6 (35.3-44.9) % Plt Count 260 294 (140-400) K/mcL Neutrophils # 8.8 10.5 H (1.6-8.9) K/mcL BMP 09/28/16 09/27/16 Range/Units 01:19 11:52 Sodium 139 139 (136-145) mEq/L Potassium 3.5 3.3 L (3.5-4.5) mEq/L Chloride 95 L 97 L (98-109) mEq/L Carbon Dioxide 31 H 30 H (19-29) mEq/L BUN 48 H 49 H (7-20) mg/dL Creatinine 1.48 H 1.31 H (0.57-1.11) mg/dL Glucose 200 H 193 H (70-99) mg/dL Calcium 9.2 9.6 (8.6-10.8) mg/dL Cardiac Enzymes 09/28/16 09/27/16 09/27/16 Range/Units 01:19 19:01 11:52 Troponin I 0.02 0.02 0.03 (0-0.03) ng/mL Liver Function 09/28/16 Range/Units 01:19 Total Bilirubin 0.3 (0.2-1.2) mg/dL AST 18 (5-34) Units/L ALT < 6 (0-55) Units/L Alkaline Phosphatase 93 (38-126) Units/L Albumin 3.3 L (3.5-5.0) g/dL Urine 09/27/16 Range/Units 12:06 Urine Color Yellow (Yellow) Urine Clarity Clear (Clear) Urine pH 6.0 (5.0-8.0) pH Units Ur Specific [place] 1.013 (1.010-1.025) Urine Protein Negative (Neg-Trace) mg/dL Urine Glucose (UA) Normal (Normal) mg/dL Impressions Chest X-Ray 09/27/16 11:28 IMPRESSION: No acute process. D/ / Simon Guzmán MD / Simon Guzmán MD Interpreting Provider: Simon Guzmán MD Chest CTA 09/27/16 12:20 IMPRESSION: No acute pulmonary embolus is identified. Scattered mosaic opacities in the lungs, most likely atelectasis related air trapping. Differential diagnosis is hypersensitivity pneumonitis or chronic pulmonary emboli. D/ / Asher Contreras MD / Asher Contreras MD Interpreting Provider: Asher Contreras MD Active Medications Acetaminophen (Tylenol) 650 mg PO Q6HR PRN PRN Reason: Mild Pain (1-3) Stop: 03/29/17 15:58 Last Admin: 09/27/16 20:13 Dose: 650 mg Ascorbic Acid (Vitamin C) 500 mg PO BID [facility] Stop: 03/29/17 21:01 Last Admin: 09/28/16 09:17 Dose: 500 mg Aspirin (Aspirin Ec) 81 mg PO DAILY [facility] Stop: 03/30/17 09:01 Last Admin: 09/28/16 09:16 Dose: 81 mg Carbidopa/Levodopa (Sinemet) 1 each PO HS [facility] Stop: 03/29/17 21:01 Last Admin: 09/27/16 20:04 Dose: 1 each Dextrose/Water (Dextrose 50% (Syg)) 25 ml IVP AD PRN PRN Reason: Hypoglycemia Stop: 03/29/17 16:47 Glucagon (Glucagen) 1 mg IM ONCE PRN PRN Reason: Hypoglycemia Stop: 03/29/17 16:47 Glucose (Gluctose) 15 gm PO ONCE PRN PRN Reason: Hypoglycemia Stop: 03/29/17 16:47 Glucose (Gluctose) 30 gm PO ONCE PRN PRN Reason: Hypoglycemia Stop: 03/29/17 16:47 Levofloxacin/Dextrose (Levaquin Premix 750mg/150 Ml) 750 mg in 150 mls @ 100 mls/hr IVPB DAILY [facility] PRN Reason: Protocol Stop: 03/30/17 09:01 Last Admin: 09/28/16 09:28 Dose: 100 mls/hr Dextrose (Dextrose 5%) 1,000 mls @ 100 mls/hr IVC .Q10H PRN PRN Reason: HYPOGLYCEMIA Stop: 03/29/17 16:47 Sodium Chloride (0.9 % Sodium Chloride) 1,000 mls @ 75 mls/hr IVC .[id number] [facility] Stop: 03/30/17 09:16 Insulin Detemir (Levemir) 14 unit SQ HS [facility] Stop: 03/29/17 21:01 Last Admin: 09/27/16 20:20 Dose: 14 unit Insulin Detemir (Levemir) 80 unit SQ QAM [facility] Stop: 03/30/17 09:01 Last Admin: 09/28/16 09:20 Dose: 80 unit Insulin Human Lispro (Humalog) 0 units SQ TIDAC [facility] PRN Reason: Protocol Stop: 03/30/17 11:31 Last Admin: 09/28/16 09:25 Dose: 8 units Insulin Human Lispro (Humalog) 0 units SQ HS [facility] PRN Reason: Protocol Stop: 03/30/17 21:01 Isosorbide Mononitrate (Imdur) 30 mg PO DAILY [facility] Stop: 03/30/17 09:01 Last Admin: 09/28/16 09:16 Dose: 30 mg Lactobacillus Acidophilus/Rhamnosus (Culturelle) 1 each PO DAILY [facility] Stop: 03/30/17 09:01 Last Admin: 09/28/16 09:16 Dose: 1 each Lorazepam (Ativan) 0.5 mg PO TID PRN PRN Reason: Anxiety Stop: 03/29/17 16:36 Last Admin: 09/27/16 20:14 Dose: 0.5 mg Multivitamins/Calcium (Thera M Plus) 1 tab PO DAILY [facility] PRN Reason: Protocol Stop: 03/30/17 09:01 Last Admin: 09/28/16 09:17 Dose: 1 tab Naloxone HCl (Narcan) 0.4 mg IVP Q2MIN PRN PRN Reason: Opioid Reversal Stop: 03/29/17 15:58 Nitroglycerin (Nitroglycerin) 0.4 mg SL Q5MIN PRN PRN Reason: Chest Pain Stop: 03/29/17 16:36 Pharmacy Profile Note (Patient Taking Own Medication) 0 each PO QAM [facility] Stop: 03/30/17 09:01 Last Admin: 09/28/16 09:19 Dose: Not Given Potassium Chloride (Potassium Chloride) 30 meq PO TID [facility] Stop: 03/29/17 21:01 Last Admin: 09/28/16 09:16 Dose: 30 meq Rivaroxaban (Xarelto) 20 mg PO HS [facility] Stop: 03/29/17 21:01 Last Admin: 09/27/16 20:03 Dose: 20 mg Ropinirole HCl (Requip) 0.5 mg PO HS [facility] Stop: 03/29/17 21:01 Last Admin: 09/27/16 20:03 Dose: 0.5 mg Senna/Docusate Sodium (Senna Plus) 1 each PO DAILY [facility] PRN Reason: Protocol Stop: 03/30/17 09:01 Last Admin: 09/28/16 09:17 Dose: 1 each Sertraline HCl (Zoloft) 50 mg PO DAILY [facility] Stop: 03/30/17 09:01 Last Admin: 09/28/16 09:18 Dose: 50 mg Simvastatin (Zocor) 40 mg PO DAILY [facility] PRN Reason: Protocol Stop: 03/30/17 09:01 Last Admin: 09/28/16 09:17 Dose: 40 mg Zinc Sulfate (Zinc Sulfate) 220 mg PO BID [facility] Stop: 03/29/17 21:01 Last Admin: 09/28/16 09:18 Dose: 220 mg - Imaging and Cardiology Stress Test: report reviewed Echo: report reviewed Cardiac cath: report reviewed - EKG Interpretation EKG results cardiology: personally reviewed (SR, borderline ST changes aVL.), other (12 hr tele AVG HR 61, SR) Consult Discharge Plan - Plan Referrals: NONE,PCP [Primary Care Provider] -
[2016-09-28] MEDS ORDERED: Isosorbide MONOnitrate (24 HR) 30 MG TAB.ER.24H PO ONE (10:54)
--- NOTE | 2016-09-28 13:43 | Nephrology Consult Note ---
Date of Encounter: 09/28/16 Time of Encounter: 13:20 Assessment and Plan (1) Acute kidney insufficiency Current Visit: Yes Status: Acute Non-oliguric COLIN with several renal risk factors: IV contrast exposure in the setting of metformin, high dose diuretics and hemodynamics with AF. Hemodynamically stable during my exam with nonpitting LE lymphedema. I recommend wraps, and ideally avoiding such high diuretics unless indicated for other medical diagnoses. Follow a renal protective / supportive strategy: no indication for CASING WORKER today. Thank you for consulting the [facility] group. (2) Lymphedema Current Visit: Yes Status: Chronic See above History of Present Illness - Reason for Consult Consult date: 09/28/16 Acute Kidney Injury Requesting physician: Keisha Quintanilla - Chief Complaint COLIN - History of Present Illness Meagan Francisco is a very pleasant 66 y/o WF with a pmh of morbid obesity, chronic LE lymphedema on high dose oral diuretics, T2DM on metformin and et al who presented from her ECF. Nephrology was consulted for COLIN with SCr rising to about 1.4. She was receiving metformin, Diuretics and underwent contrast exposure from a CTA the day prior to the COLIN. She did not affirm uremic symptoms nor severe shortness of breath, N/V/D, CP, change in her chronic lymphedema nor any prior leave manager to her knowledge. She denied OTC use of NSAIDs. Past Med Surg Social Fam HX - Past Medical History Medical history: CHF, coronary artery disease, diabetes, hyperlipidemia, myocardial infarction Psychiatric history: anxiety, depression - Past Surgical History Surgical History: angioplasty/stent, , cholecystectomy, orthopedic, other - Social History Smoking Status: Never smoker Smokeless Tobacco Status: No Alcohol use: none Drug use: none - Family History Father Race: Family Member Ethnicity: Non- Living Status: Age at : 67 Hx Family Cardiac Disorders: Yes Hx Family Respiratory Disorders: Yes Hx Family Cancer: No Brother Race: Family Member Ethnicity: Non- Living Status: Age at : 59 Cause of : brain ca Hx Family Cardiac Disorders: No Hx Family Respiratory Disorders: No Hx Family Cancer: Yes Sister Race: Family Member Ethnicity: Non- Living Status: Age at : 55 Cause of : aneurysm Hx Family Cardiac Disorders: No Hx Family Respiratory Disorders: No Hx Family Medical Disorders: No Mother Adopted: No Family Member Ethnicity: Non- Living Status: Age at : 77 Hx Family Cardiac Disorders: Yes Hx Family Respiratory Disorders: Yes Hx Family Cancer: No Hx Family GI Disorders: No Hx Family Endocrine Disorder: No Hx Family Neuromuscular Disorders: No Hx Family Neurologic Disorders: No Hx Family HEENT Disorders: Yes Hx Family Autoimmune Disorders: No Medications and Allergies Ascorbic Acid [Vitamin C] 500 mg PO BID 06/13/15 [History] Aspirin [Adult Low Dose Aspirin EC] 81 mg PO DAILY 06/13/15 [History] Furosemide [Lasix] 80 mg PO BID 06/13/15 [History] Insulin ASPART [NovoLOG] 2 - 12 unit SQ QID #0 06/13/15 [History] Insulin DETEMIR [Levemir] 80 unit SQ QAM 06/13/15 [History] L. Acidophilus/Pectin, [place] [Acidophilus Probiotic Capsule] 1 cap PO DAILY [History] LORazepam [Ativan] 0.5 mg PO BID 06/13/15 [History] Menthol/Camphor/Dimeth/Phenol [Blistex Medicated Lip Ointment] 1 appl TP QID #0 06/13/15 [History] Metformin HCl [Glucophage] 1,000 mg PO BID 06/13/15 [History] Multivit/Ca/Min/Fe/FA [Thera M Plus] 1 tab PO DAILY 06/13/15 [History] Oxycodone HCl/Acetaminophen [Percocet 5-325 mg Tablet] 1 tab PO BID 06/13/15 [ History] Rivaroxaban [Xarelto] 20 mg PO HS 06/13/15 [History] Ropinirole HCl [Requip] 0.5 mg PO HS 06/13/15 [History] Sennosides/Docusate Sodium [Senna Plus] 1 tab PO DAILY 06/13/15 [History] Sertraline [Zoloft] 50 mg PO DAILY 06/13/15 [History] Simvastatin [Zocor] 40 mg PO DAILY #0 06/13/15 [History] SitaGLIPtin [Januvia] 100 mg PO DAILY 06/13/15 [History] Zinc Sulfate 220 mg PO BID 06/13/15 [History] metOLazone [Zaroxolyn] 2.5 mg PO DAILY 06/13/15 [History] Carbidopa/Levodopa [Carbidopa-Levodopa 25-100 Tab] 1 tab PO HS 03/16/16 [History ] Insulin DETEMIR [Levemir Flextouch] 14 unit SQ HS 03/16/16 [History] Amino Acids/Protein Hydrolys [Pro-Stat Awc Liquid] 30 ml PO QAM 09/27/16 [ History] Insulin ASPART [NovoLOG] 7 unit SQ TIDWM 09/27/16 [History] Isosorbide MONOnitrate (24 HR) [Imdur] 30 mg PO DAILY 09/27/16 [History] LORazepam [Ativan] 0.5 mg PO TID PRN 09/27/16 [History] Methyl Salicylate/Menthol [Bengay] 1 appl TP BID PRN 09/27/16 [History] Maulik/Poly/DEX Opth OINT [Maxitrol OPTH Oint] 1 appl BOTH EYES HS 09/27/16 [ History] Nitroglycerin 0.4 mg SL Q5MIN PRN 09/27/16 [History] Oxycodone HCl/Acetaminophen [Percocet 5-325 mg Tablet] 1 tab PO Q4H PRN [History] Potassium Chloride [Klor-Con 10] 30 meq PO TID 09/27/16 [History] Spironolactone [Aldactone] 25 mg PO DAILY 09/27/16 [History] Allergies Sulfa (Sulfonamide Antibiotics) Allergy (Verified 06/12/15 20:58) See Comments tramadol Adverse Reaction (Verified 06/12/15 20:58) Nausea Review of Systems All Systems: reviewed and no additional remarkable complaints except as stated Exam - Vital Signs Vital signs: Initial Vital Signs Temp Pulse Resp BP Pulse Ox 98.2 F 97 20 137/59 99 09/27/16 11:31 09/27/16 11:31 09/27/16 11:31 09/27/16 11:31 09/27/16 11:31 Vital Signs - Last 8 Hours Temp Pulse Resp BP Pulse Ox 09/28/16 11:58 69 16 123/70 100 09/28/16 06:58 98.1 F 60 17 137/51 100 Intake and Output 09/27/16 09/28/16 09/28/16 23:59 07:59 15:59 Intake Total 270 / 270 2490 / 2490 Output Total 550 / 550 425 / 425 200 / 200 Balance -280 / -280 -425 / -425 2290 / 2290 Intake: IV Fluids 150 / 150 1150 / 1150 0.9 % Sodium Chloride 1, 1000 / 1000 000 ML @ 75 mls/hr IVC . [id number] [facility] Rx#: [id number] Levaquin Premix 750mg/150 150 / 150 150 / 150 mL 750 mg In 150 ml @ 100 mls/hr IVPB DAILY [facility] Rx#:[id number] Oral 120 / 120 1340 / 1340 Output: Urine 550 / 550 425 / 425 200 / 200 Other: Meal Dinner Lunch Percent of Meal Consumed 65% 30% # Voids 1 Blood Glucose* 257 203 175 - General Appearance General appearance: well-developed, well-nourished, appears started age EENT: ATNC, PERRL, mucous membranes moist Neck: supple Respiratory: clear Cardiology: edema (nonpitting appears most consistent with lymphedema.), normal S1, normal S2 Gastrointestinal: normoactive bowel sounds, no tenderness, no guarding Integumentary: no rash, warm and dry Neurologic: no focal deficit, no asterixis, alert and oriented x3 Musculoskeletal: no cyanosis, no clubbing Psychiatric: cooperative Results - Lab Results 09/28/16 01:19 09/28/16 01:19 Most recent lab results Calcium 9.2 mg/dL (8.6-10.8) 09/28/16 01:19 Reviewed above autogenerated data from 09/28/16, and also reviewed the progress notes, labs, vitals, imaging and meds. Consult Discharge Plan - Plan Referrals: NONE,PCP [Primary Care Provider] -
[2016-09-28 15:45] LABS: Adenovirus Not Detected (Not Detect); Bordetella Pertussis Not Detected (Not Detect); Chlamydophila pneumoniae Not Detected (Not Detect); Coronavirus 229E Not Detected (Not Detect); Coronavirus HKU1 Not Detected (Not Detect); Coronavirus NL63 Not Detected (Not Detect); Coronavirus OC43 Not Detected (Not Detect); Human Metapneumovirus Not Detected (Not Detect); Human Rhinovirus/Enterovirus ***DETECTED*** (Not Detect); Influenza A Subtype 2009 H1 Not Detected (Not Detect); Influenza A Untypeable Not Detected (Not Detect); Influenza B Not Detected (Not Detect); Mycoplasma pneumoniae Not Detected (Not Detect); Parainfluenza Virus 1 Not Detected (Not Detect); Parainfluenza Virus 2 Not Detected (Not Detect); Parainfluenza Virus 3 Not Detected (Not Detect); Parainfluenza Virus 4 Not Detected (Not Detect); Respiratory Syncytial Virus Not Detected (Not Detect)
[2016-09-28] MEDS: Carbidopa/Levodopa 25/100 TABLET PO SCH (20:42)
[2016-09-28] MEDS: rOPINIRole 0.25 MG TABLET PO SCH (20:42)
[2016-09-28] MEDS: Acetaminophen 325 MG TABLET PO PRN (20:42)
[2016-09-28] MEDS ORDERED: *HR* Rivaroxaban 15 MG TABLET PO SCH (21:00)
[2016-09-29 05:42] LABS: Hemoglobin 10.3 g/dL (11.5-15.4); Mean Corpuscular HGB Conc 30.3 g/dL (31.6-35.5); Mean Corpuscular Volume 85.9 fL (83.0-100.0); Mean Platelet Volume 9.5 fL (9.4-12.4); Platelet Count 228 K/mcL (140-400); Red Blood Count 3.96 M/mcL (3.82-4.97); Red Cell Distribution Width 16.6 % (11.5-14.5)
[2016-09-29 05:56] LABS: Alanine Aminotransferase 6 Units/L (0-55); Albumin 3.1 g/dL (3.5-5.0); Albumin/Globulin Ratio 0.9 (1.1-2.2); Alkaline Phosphatase 81 Units/L (38-126); Aspartate Amino Transferase 18 Units/L (5-34); BUN/Creatinine Ratio 34 (6-26); Bilirubin,Total < 0.3 mg/dL (0.2-1.2); Blood Urea Nitrogen 34 mg/dL (7-20); Calcium 9.2 mg/dL (8.6-10.8); Carbon Dioxide 29 mEq/L (19-29); Chloride 105 mEq/L (98-109); Globulin 3.6 g/dL (2.4-3.5); Glucose 122 mg/dL (70-99); Osmolality,Calculated 303 (280-300); Sodium 142 mEq/L (136-145); Total Protein 6.7 g/dL (6.0-8.3); eGFR For African Americans > 60 (> 60); eGFR For Non-African Americans 56 (> 60)
[2016-09-29] MEDS: Insulin LISPRO 300 UNITS/3 ML VIAL SQ SCH ×4 (08:25→21:33)
[2016-09-29] MEDS: PRO STAT AWC PO SCH (08:32)
[2016-09-29] MEDS: Lactobacillus 1 EACH CAP.SPRINK PO SCH (08:32)
[2016-09-29] MEDS: Aspirin Enteric Coated 81 MG Tablet PO SCH (08:32)
[2016-09-29] MEDS: Sennosides/Docusate Sodium TABLET PO SCH (08:33)
[2016-09-29] MEDS: Multivit/Ca/Min/Fe/FA 1 TAB TABLET PO SCH (08:33)
[2016-09-29] MEDS: Ascorbic Acid 500 MG TABLET PO SCH ×2 (08:33→21:29)
[2016-09-29] MEDS: Zinc Sulfate 220 MG CAPSULE PO SCH ×2 (08:33→21:29)
[2016-09-29] MEDS ORDERED: Isosorbide MONOnitrate (24 HR) 30 MG TAB.ER.24H PO SCH (09:00)
--- NOTE | 2016-09-29 09:01 | Cardiology Progress Note ---
Date of Encounter: 09/29/16 Time of Encounter: 08:58 Assessment and Plan (1) Chest pain Current Visit: Yes Status: Acute Reports "minimal, if any" chest pain overnight. Negative stress test 02/2016. Troponins negative x 3. Chest pain is in setting of a possible PNA, which she is being treated for. Borderline ST changes in aVF. Pt saw Dr. Patterson 05/2016. He offered LHC at that time, which she declined. She is still reluctant, prefers medical management. Increased Imdur to 60mg daily yesterday. Will increase to 120mg daily today. Echo shows preserved EF 60-65%, moderate TR, moderate-severe phtn, RV mildly dilated with normal function. Cardiology signing off. Reconsult PRN. Follow-up in 1-[address] Patterson for re-evaluation. Qualifiers: Chest pain type: unspecified Qualified Code(s): R07.9 - Chest pain, unspecified (2) Atrial flutter Current Visit: No Status: Chronic Hx of paroxysmal atrial flutter. HR will not tolerate AV ifrah blockers. Currently SR. Anticoagulated on Xarelto. Renal function normalized today, will increase Xarelto back to 20mg daily. Qualifiers: Atrial flutter type: unspecified Qualified Code(s): I48.92 - Unspecified atrial flutter (3) CAD (coronary artery disease) Current Visit: Yes Status: Chronic LHC 05/27/2014: Left main normal. LAD 30% diagonal stenosis. Circumflex serial 80 % stenoses (2 drug-eluting stents). RCA normal. Continue ASA, Statin. No BB due to bradycardia. Qualifiers: Coronary Disease-Associated Artery/Lesion type: [place] artery [place] vs. transplanted heart: [place] heart Associated angina: angina presence unspecified Qualified Code(s): I25.10 - Atherosclerotic heart disease of [place] coronary artery without angina pectoris Discussion w patient/family: The assessment and plan as outlined above was discussed with the patient and/or family members who expressed understanding and agreement. All questions were answered. Thank you for involving us in the care of your patient. Please call with any questions. I will discuss all the above with Dr. Enrique Coyle and make changes as necessary. Subjective Principal diagnosis: Chest pain, PNA Interval history: Pt reports feeling better today. Reports "minimal, if any" chest pain overnight. Echo resulted EF 60-65%, RV mildly dilated with normal function, moderate TR, moderate-severe phtn. Objective Vital Signs, Last 4 Hours Temp Pulse Resp BP Pulse Ox 09/29/16 07:00 97.5 F L 57 14 126/57 100 09/29/16 05:11 96.2 F L 112/56 Vital Signs Temp Pulse Resp BP Pulse Ox 09/29/16 07:00 97.5 F L 57 14 126/57 100 09/29/16 05:11 96.2 F L 112/56 09/28/16 20:31 98.9 F 70 18 112/58 100 09/28/16 15:00 98.5 F 62 17 138/52 94 09/28/16 11:58 69 16 123/70 100 Intake and Output 09/28/16 09/29/16 09/29/16 23:59 07:59 15:59 Intake Total 360 / 360 Balance 360 / 360 Intake: IV Fluids 0 / 0 0.9 % Sodium Chloride 1, 0 / 0 000 ML @ 75 mls/hr IVC . [id number] [facility] Rx#: [id number] Oral 360 / 360 Other: Meal Dinner Percent of Meal Consumed 100% Blood Glucose* 176 109 General: Conversant, No Apparent Distress HEENT: Atraumatic, Normocephaly, Mucus Membranes Moist Neck: No JVD, Normal carotid pulses Cardiac: Reg Rate and Rhythm, Normal S1 and S2, No Murmur Lungs: Other (diminished) Neuro: Alert and responsive, No focal deficits noted Abdomen: Soft, Non-Tender Skin: No rashes noted on visualized skin Musculoskeletal: No Chest Wall Tenderness Extremities: No Clubbing, No Cyanosis, No Edema, Normal Pulses Results 09/29/16 05:16 09/29/16 05:16 Lab Results 09/29/16 09/29/16 09/29/16 05:16 05:16 05:16 WBC 10.8 Hgb 10.3 L Hct 34.0 L Plt Count 228 Sodium 142 Potassium 4.0 Chloride 105 Carbon Dioxide 29 BUN 34 H D Creatinine 0.99 Glucose 122 H Calcium 9.2 Total Bilirubin < 0.3 AST 18 ALT 6 Alkaline Phosphatase 81 B-Natriuretic Peptide 186 H Short CBC 09/29/16 Range/Units 05:16 WBC 10.8 (4.3-11.1) K/mcL Hgb 10.3 L (11.5-15.4) g/dL Hct 34.0 L (35.3-44.9) % Plt Count 228 (140-400) K/mcL BMP 09/29/16 Range/Units 05:16 Sodium 142 (136-145) mEq/L Potassium 4.0 (3.5-4.5) mEq/L Chloride 105 (98-109) mEq/L Carbon Dioxide 29 (19-29) mEq/L BUN 34 H D (7-20) mg/dL Creatinine 0.99 (0.57-1.11) mg/dL Glucose 122 H (70-99) mg/dL Calcium 9.2 (8.6-10.8) mg/dL Liver Function 09/29/16 Range/Units 05:16 Total Bilirubin < 0.3 (0.2-1.2) mg/dL AST 18 (5-34) Units/L ALT 6 (0-55) Units/L Alkaline Phosphatase 81 (38-126) Units/L Albumin 3.1 L (3.5-5.0) g/dL Impressions Retroperitoneum Ultrasound 09/28/16 13:00 IMPRESSION: 1. Left renal cyst for which no follow-up is recommended. Otherwise normal sonographic appearance of the kidneys. 2. Normal prevoid sonographic appearance of the urinary bladder. D/ / Milad Kilpatrick MD / Milad Kilpatrick MD Interpreting Provider: Milad Kilpatrick MD Active Medications Acetaminophen (Tylenol) 650 mg PO Q6HR PRN PRN Reason: Mild Pain (1-3) Stop: 03/29/17 15:58 Last Admin: 09/28/16 20:42 Dose: 650 mg Ascorbic Acid (Vitamin C) 500 mg PO BID [facility] Stop: 03/29/17 21:01 Last Admin: 09/29/16 08:33 Dose: 500 mg Aspirin (Aspirin Ec) 81 mg PO DAILY [facility] Stop: 03/30/17 09:01 Last Admin: 09/29/16 08:32 Dose: 81 mg Carbidopa/Levodopa (Sinemet) 1 each PO HS [facility] Stop: 03/29/17 21:01 Last Admin: 09/28/16 20:42 Dose: 1 each Dextrose/Water (Dextrose 50% (Syg)) 25 ml IVP AD PRN PRN Reason: Hypoglycemia Stop: 03/29/17 16:47 Glucagon (Glucagen) 1 mg IM ONCE PRN PRN Reason: Hypoglycemia Stop: 03/29/17 16:47 Glucose (Gluctose) 15 gm PO ONCE PRN PRN Reason: Hypoglycemia Stop: 03/29/17 16:47 Glucose (Gluctose) 30 gm PO ONCE PRN PRN Reason: Hypoglycemia Stop: 03/29/17 16:47 Dextrose (Dextrose 5%) 1,000 mls @ 100 mls/hr IVC .Q10H PRN PRN Reason: HYPOGLYCEMIA Stop: 03/29/17 16:47 Sodium Chloride (0.9 % Sodium Chloride) 1,000 mls @ 75 mls/hr IVC .[id number] [facility] Stop: 03/30/17 09:16 Last Infusion: 09/28/16 16:51 Dose: 75 mls/hr Levofloxacin/Dextrose (Levaquin Premix 750mg/150 Ml) 750 mg in 150 mls @ 100 mls/hr IVPB Q48H [facility] PRN Reason: Protocol Stop: 04/01/17 09:01 Insulin Detemir (Levemir) 14 unit SQ HS [facility] Stop: 03/29/17 21:01 Last Admin: 09/28/16 20:42 Dose: 14 unit Insulin Detemir (Levemir) 80 unit SQ QAM [facility] Stop: 03/30/17 09:01 Last Admin: 09/28/16 09:20 Dose: 80 unit Insulin Human Lispro (Humalog) 0 units SQ TIDAC [facility] PRN Reason: Protocol Stop: 03/30/17 11:31 Last Admin: 09/29/16 08:25 Dose: Not Given Insulin Human Lispro (Humalog) 0 units SQ HS [facility] PRN Reason: Protocol Stop: 03/30/17 21:01 Last Admin: 09/28/16 20:43 Dose: Not Given Isosorbide Mononitrate (Imdur) 60 mg PO DAILY [facility] Stop: 03/31/17 09:01 Last Admin: 09/29/16 08:32 Dose: 60 mg Lactobacillus Acidophilus/Rhamnosus (Culturelle) 1 each PO DAILY [facility] Stop: 03/30/17 09:01 Last Admin: 09/29/16 08:32 Dose: 1 each Lorazepam (Ativan) 0.5 mg PO TID PRN PRN Reason: Anxiety Stop: 03/29/17 16:36 Last Admin: 09/27/16 20:14 Dose: 0.5 mg Multivitamins/Calcium (Thera M Plus) 1 tab PO DAILY [facility] PRN Reason: Protocol Stop: 03/30/17 09:01 Last Admin: 09/29/16 08:33 Dose: 1 tab Naloxone HCl (Narcan) 0.4 mg IVP Q2MIN PRN PRN Reason: Opioid Reversal Stop: 03/29/17 15:58 Nitroglycerin (Nitroglycerin) 0.4 mg SL Q5MIN PRN PRN Reason: Chest Pain Stop: 03/29/17 16:36 Pharmacy Profile Note (Patient Taking Own Medication) 0 each PO QAM [facility] Stop: 03/30/17 09:01 Last Admin: 09/29/16 08:32 Dose: Not Given Potassium Chloride (Potassium Chloride) 30 meq PO TID [facility] Stop: 03/29/17 21:01 Last Admin: 09/28/16 20:42 Dose: 30 meq Rivaroxaban (Xarelto) 15 mg PO HS [facility] Stop: 03/30/17 21:01 Last Admin: 09/28/16 20:42 Dose: 15 mg Ropinirole HCl (Requip) 0.5 mg PO HS [facility] Stop: 03/29/17 21:01 Last Admin: 09/28/16 20:42 Dose: 0.5 mg Senna/Docusate Sodium (Senna Plus) 1 each PO DAILY [facility] PRN Reason: Protocol Stop: 03/30/17 09:01 Last Admin: 09/29/16 08:33 Dose: 1 each Sertraline HCl (Zoloft) 50 mg PO DAILY [facility] Stop: 03/30/17 09:01 Last Admin: 09/29/16 08:33 Dose: 50 mg Simvastatin (Zocor) 40 mg PO DAILY [facility] PRN Reason: Protocol Stop: 03/30/17 09:01 Last Admin: 09/29/16 08:33 Dose: 40 mg Zinc Sulfate (Zinc Sulfate) 220 mg PO BID [facility] Stop: 03/29/17 21:01 Last Admin: 09/29/16 08:33 Dose: 220 mg - Imaging and Cardiology Echo: report reviewed Consult Discharge Plan - Plan Referrals: NONE,PCP [Primary Care Provider] -
[2016-09-29] MEDS ORDERED: Isosorbide MONOnitrate (24 HR) 60 MG TAB.ER.24H PO ONE (09:07)
--- NOTE | 2016-09-29 10:03 | Event Note ---
Date of Encounter: 09/29/16 Time of Encounter: 10:02 [facility] COLIN has resolved. Will sign-off. Please feel free to contact our group if any questions. Thank you.
[2016-09-29] MEDS: Furosemide 40 MG TABLET PO SCH (10:32)
[2016-09-29] MEDS: Insulin DETEMIR 100 UNIT/ML X5UNITS SQ SCH ×2 (10:33→21:31)
[2016-09-29] MEDS ORDERED: Levofloxacin 750 MG/150 ML 750 MG/150 ML BAG IVPB SCH (16:00)
--- NOTE | 2016-09-29 16:33 | Internal Med Progress Note ---
Date of Encounter: 09/29/16 Time of Encounter: 16:30 - Assessment and plan (1) Pneumonia Current Visit: Yes Status: Acute Qualifiers: Pneumonia type: due to unspecified organism Laterality: unspecified laterality Lung location: unspecified part of lung Qualified Code(s): J18.9 - Pneumonia, unspecified organism (2) Acute kidney insufficiency Current Visit: Yes Status: Acute (3) IDDM (insulin dependent diabetes mellitus) Current Visit: Yes Status: Acute (4) Morbid obesity Current Visit: Yes Status: Acute (5) Lymphedema Current Visit: Yes Status: Chronic (6) Atrial flutter Current Visit: Yes Status: Chronic Qualifiers: Atrial flutter type: unspecified Qualified Code(s): I48.92 - Unspecified atrial flutter (7) Parkinson disease Current Visit: Yes Status: Acute (8) DVT prophylaxis Current Visit: Yes Status: Acute - Subjective Interval history: Seems to be doing well in no acute distress breathing comfortably has been diuresed well. Labwork reviewed and seems like renal failure has resolved and white count normalized. She has pneumonia and therefore continue antibiotics DC IV fluid. Her CTA chest was negative and her leg edema is perhaps due to dependent edema as she is mostly bedridden due to her morbid obesity. Patient encouraged to ambulate and nursing staff asked to put her in chair and bed 2 hours every shift. Patient however feels that she is still quite sick. #[address] chest negative for PE continue antibiotics #2 peripheral leg edema echocardiogram done previously did not show any systolic congestive heart failure normal EF may have diastolic dysfunction low- dose Lasix is okay #3 acute kidney injury resolved with IV hydration #400 obesity, skin provided - Constitutional Vitals: Temp Pulse Resp BP Pulse Ox 98.2 F 75 17 127/49 95 09/29/16 15:00 09/29/16 15:00 09/29/16 15:00 09/29/16 15:00 09/29/16 15:00 General appearance: Present: cooperative, A&O X 3, pleasant, no acute distress, obese, answers questions appropriately - Head Head exam: Present: atraumatic, normocephalic - Eye Eye exam: Present: PERRL, conjuntiva pink, sclera anicteric Pupils: Present: PERRL - Neck Neck exam general surgery: Present: supple, trachea midline. Absent: lymphadenopathy - Respiratory Respiratory exam: Present: decreased breath sounds. Absent: accessory muscle use, rales, rhonchi, wheezes - Cardiovascular Cardiovascular exam: Present: RRR, +S1, +S2. Absent: diastolic murmur, gallop, rubs, systolic murmur - GI/Abdominal GI/Abdominal exam: Present: normal bowel sounds, soft, no peritoneal signs. Absent: distended, tenderness - Extremities Exam Extremities exam: Present: pedal edema, warm, radial pulses palpable and symetrical. Absent: calf tenderness, cyanotic - Neurological Exam Neurological exam: Present: CN II-XII intact, oriented X3, no focal deficits. Absent: pronater drift, facial droop, speech deficit - Skin Skin exam: Present: dry, intact Internal Medicine: Result - Labs CBC & Chem 7: 09/29/16 05:16 09/29/16 05:16 Labs: Short CBC 09/29/16 Range/Units 05:16 WBC 10.8 (4.3-11.1) K/mcL Hgb 10.3 L (11.5-15.4) g/dL Hct 34.0 L (35.3-44.9) % Plt Count 228 (140-400) K/mcL BMP 09/29/16 05:16 Sodium 142 Potassium 4.0 Chloride 105 Carbon Dioxide 29 BUN 34 H D Creatinine 0.99 Glucose 122 H Calcium 9.2 Liver Function 09/29/16 Range/Units 05:16 Total Bilirubin < 0.3 (0.2-1.2) mg/dL AST 18 (5-34) Units/L ALT 6 (0-55) Units/L Alkaline Phosphatase 81 (38-126) Units/L Albumin 3.1 L (3.5-5.0) g/dL - ABG Interpretation ABG results: PT/INR, D-dimer PT 14.0 Seconds (9.4-12.1) H 09/27/16 11:52 Consult Discharge Plan - Plan Referrals: NONE,PCP [Primary Care Provider] -
[2016-09-29] MEDS ORDERED: *HR* Rivaroxaban 10 MG TABLET PO SCH (21:00)
[2016-09-29] MEDS: rOPINIRole 0.25 MG TABLET PO SCH (21:28)
[2016-09-29] MEDS: Carbidopa/Levodopa 25/100 TABLET PO SCH (21:28)
[2016-09-30 04:02] LABS: Hematocrit 32.6 % (35.3-44.9); Hemoglobin 10.1 g/dL (11.5-15.4); Mean Corpuscular Hemoglobin 26.4 pg (28.0-33.3); Mean Corpuscular Volume 85.1 fL (83.0-100.0); Mean Platelet Volume 9.6 fL (9.4-12.4); Platelet Count 223 K/mcL (140-400); Red Blood Count 3.83 M/mcL (3.82-4.97); Red Cell Distribution Width 16.7 % (11.5-14.5)
[2016-09-30 04:19] LABS: Albumin/Globulin Ratio 0.8 (1.1-2.2); Alkaline Phosphatase 76 Units/L (38-126); Aspartate Amino Transferase 16 Units/L (5-34); BUN/Creatinine Ratio 26 (6-26); Bilirubin,Total 0.3 mg/dL (0.2-1.2); Blood Urea Nitrogen 28 mg/dL (7-20); Calcium 9.3 mg/dL (8.6-10.8); Carbon Dioxide 31 mEq/L (19-29); Chloride 102 mEq/L (98-109); Globulin 3.6 g/dL (2.4-3.5); Glucose 124 mg/dL (70-99); Osmolality,Calculated 301 (280-300); Potassium 3.5 mEq/L (3.5-4.5); Sodium 142 mEq/L (136-145); Total Protein 6.6 g/dL (6.0-8.3); eGFR For African Americans > 60 (> 60); eGFR For Non-African Americans 50 (> 60)
[2016-09-30 04:20] LABS: Alanine Aminotransferase < 6 Units/L (0-55)
[2016-09-30] MEDS ORDERED: Isosorbide MONOnitrate (24 HR) 30 MG TAB.ER.24H PO SCH (09:00)
[2016-09-30] MEDS ORDERED: Levofloxacin 750 MG/150 ML 750 MG/150 ML BAG IVPB SCH (09:00)
[2016-09-30] MEDS: Zinc Sulfate 220 MG CAPSULE PO SCH (09:29)
[2016-09-30] MEDS: Aspirin Enteric Coated 81 MG Tablet PO SCH (09:29)
[2016-09-30] MEDS: Multivit/Ca/Min/Fe/FA 1 TAB TABLET PO SCH (09:29)
[2016-09-30] MEDS: Sennosides/Docusate Sodium TABLET PO SCH (09:30)
[2016-09-30] MEDS: Furosemide 40 MG TABLET PO SCH (09:30)
[2016-09-30] MEDS: Insulin DETEMIR 100 UNIT/ML X5UNITS SQ SCH (09:30)
[2016-09-30] MEDS: Ascorbic Acid 500 MG TABLET PO SCH (09:30)
[2016-09-30] MEDS: PRO STAT AWC PO SCH (09:31)
[2016-09-30] MEDS: Lactobacillus 1 EACH CAP.SPRINK PO SCH (09:32)
[2016-09-30] MEDS: Insulin LISPRO 300 UNITS/3 ML VIAL SQ SCH ×2 (09:34→12:56)
--- NOTE | 2016-09-30 14:09 | Discharge Summary ---
Date of Encounter: 09/30/16 Time of Encounter: 14:07 - Discharge Diagnosis (1) Pneumonia Priority: Primary Status: Acute Qualifiers: Pneumonia type: due to unspecified organism Laterality: unspecified laterality Lung location: unspecified part of lung Qualified Code(s): J18.9 - Pneumonia, unspecified organism (2) Acute kidney insufficiency Priority: Secondary Status: Acute (3) IDDM (insulin dependent diabetes mellitus) Priority: Secondary Status: Acute (4) Morbid obesity Priority: Secondary Status: Acute (5) Lymphedema Priority: Secondary Status: Chronic (6) Atrial flutter Priority: Secondary Status: Chronic Qualifiers: Atrial flutter type: unspecified Qualified Code(s): I48.92 - Unspecified atrial flutter (7) Parkinson disease Priority: Secondary Status: Acute (8) DVT prophylaxis Priority: Secondary Status: Acute - Discharge Medications Home Medications: Ascorbic Acid [Vitamin C] 500 mg PO BID 06/13/15 [History] Aspirin [Adult Low Dose Aspirin EC] 81 mg PO DAILY 06/13/15 [History] Furosemide [Lasix] 80 mg PO BID 06/13/15 [History] Insulin ASPART [NovoLOG] 2 - 12 unit SQ QID #0 06/13/15 [History] Insulin DETEMIR [Levemir] 80 unit SQ QAM 06/13/15 [History] L. Acidophilus/Pectin, [place] [Acidophilus Probiotic Capsule] 1 cap PO DAILY [History] LORazepam [Ativan] 0.5 mg PO BID 06/13/15 [History] Menthol/Camphor/Dimeth/Phenol [Blistex Medicated Lip Ointment] 1 appl TP QID #0 06/13/15 [History] Metformin HCl [Glucophage] 1,000 mg PO BID 06/13/15 [History] Multivit/Ca/Min/Fe/FA [Thera M Plus] 1 tab PO DAILY 06/13/15 [History] Oxycodone HCl/Acetaminophen [Percocet 5-325 mg Tablet] 1 tab PO BID 06/13/15 [ History] Rivaroxaban [Xarelto] 20 mg PO HS 06/13/15 [History] Ropinirole HCl [Requip] 0.5 mg PO HS 06/13/15 [History] Sennosides/Docusate Sodium [Senna Plus] 1 tab PO DAILY 06/13/15 [History] Sertraline [Zoloft] 50 mg PO DAILY 06/13/15 [History] Simvastatin [Zocor] 40 mg PO DAILY #0 06/13/15 [History] SitaGLIPtin [Januvia] 100 mg PO DAILY 06/13/15 [History] Zinc Sulfate 220 mg PO BID 06/13/15 [History] metOLazone [Zaroxolyn] 2.5 mg PO DAILY 06/13/15 [History] Carbidopa/Levodopa [Carbidopa-Levodopa 25-100 Tab] 1 tab PO HS 03/16/16 [History ] Insulin DETEMIR [Levemir Flextouch] 14 unit SQ HS 03/16/16 [History] Amino Acids/Protein Hydrolys [Pro-Stat Awc Liquid] 30 ml PO QAM 09/27/16 [ History] Insulin ASPART [NovoLOG] 7 unit SQ TIDWM 09/27/16 [History] Isosorbide MONOnitrate (24 HR) [Imdur] 30 mg PO DAILY 09/27/16 [History] LORazepam [Ativan] 0.5 mg PO TID PRN 09/27/16 [History] Methyl Salicylate/Menthol [Bengay] 1 appl TP BID PRN 09/27/16 [History] Maulik/Poly/DEX Opth OINT [Maxitrol OPTH Oint] 1 appl BOTH EYES HS 09/27/16 [ History] Nitroglycerin 0.4 mg SL Q5MIN PRN 09/27/16 [History] Oxycodone HCl/Acetaminophen [Percocet 5-325 mg Tablet] 1 tab PO Q4H PRN [History] Potassium Chloride [Klor-Con 10] 30 meq PO TID 09/27/16 [History] Spironolactone [Aldactone] 25 mg PO DAILY 09/27/16 [History] Allergies/Adverse Reactions: Allergies Sulfa (Sulfonamide Antibiotics) Allergy (Verified 06/12/15 20:58) See Comments tramadol Adverse Reaction (Verified 06/12/15 20:58) Nausea Date of admission: 09/29/16 16:54 Primary care physician: PCP NONE Discharging clinician: Keisha Quintanilla Anticipated date of discharge: 09/30/16 - Patient Status Disposition: Transfer SNF Condition: Fair Overall status at discharge: patient is progressing back to baseline - Discharge Instructions Follow Up With: Renu Yoo HANDS PARTER [Advanced Practice Nurse] - 10/07/16 1:00 pm - Diet and Activity Activity: as per physical therapy Diet: advance to your usual diet, diabetic diet, low fat, low cholesterol, low salt diet (Please check CBC BMP weekly and follow those results with admitting M.D.) Hospital course: Ms. Francisco is a 66 year old female Seems to be doing well in no acute distress breathing comfortably has been diuresed well. Labwork reviewed and seems like renal failure has resolved and white count normalized. She has pneumonia and therefore continue antibiotics . All her culture reports are negative.. Her CTA chest was negative and her leg edema is perhaps due to dependent edema as she is mostly bedridden due to her morbid obesity. Patient encouraged to ambulate and nursing staff asked to put her in chair and bed 2 hours every shift. Patient however feels that she is still quite sick. #[address] chest negative for PE continue antibiotics #2 peripheral leg edema echocardiogram done previously did not show any systolic congestive heart failure normal EF, may have diastolic dysfunction low- dose Lasix is okay #3 acute kidney injury resolved with IV hydration #400 obesity, consultation provided - Time Spent with Patient Total time spent providing and/or coordinating discharge services: Greater than 30 minutes - Constitutional Vitals: Temp Pulse Resp BP Pulse Ox 98 F 71 17 149/59 99 09/30/16 11:16 09/30/16 11:16 09/30/16 11:16 09/30/16 11:16 09/30/16 11:16 General appearance: Present: cooperative, A&O X 3, pleasant, no acute distress, obese, answers questions appropriately - Head Head exam: Present: atraumatic, normocephalic - Eye Eye exam: Present: PERRL, conjuntiva pink, sclera anicteric Pupils: Present: PERRL - Neck Neck exam general surgery: Present: supple, trachea midline. Absent: lymphadenopathy - Respiratory Respiratory exam: Present: CTAB. Absent: accessory muscle use, rales, rhonchi, wheezes - Cardiovascular Cardiovascular exam: Present: RRR, +S1, +S2. Absent: diastolic murmur, gallop, rubs, systolic murmur - GI/Abdominal GI/Abdominal exam: Present: normal bowel sounds, soft, no peritoneal signs. Absent: distended, tenderness - Extremities Exam Extremities exam: Present: warm, radial pulses palpable and symetrical. Absent : calf tenderness, cyanotic, pedal edema - Neurological Exam Neurological exam: Present: CN II-XII intact, oriented X3, no focal deficits. Absent: pronater drift, facial droop, speech deficit - Skin Skin exam: Present: dry, intact
--- NOTE | 2016-09-30 15:08 | Electrocardiograph Report ---
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
[2016-09-30 16:31] VITALS: BP 126/59
--- NOTE | 2016-09-30 17:58 | Physician Discharge Referral ---
ExtendedCare Referral Info Transfer To: SNF Provider in Charge: cindy Provider in Charge after Transfer: PCP Institutional Level of Care: Skilled - Diagnosis (1) Pneumonia Status: Acute (2) Acute kidney insufficiency Status: Acute (3) IDDM (insulin dependent diabetes mellitus) Status: Acute (4) Morbid obesity Status: Acute (5) Lymphedema Status: Chronic (6) Atrial flutter Status: Chronic (7) Parkinson disease Status: Acute (8) DVT prophylaxis Status: Acute - Transfer Medications Prescriptions: levoFLOXacin [Levaquin] 750 mg PO DAILY #7 tablet LORazepam [Ativan] 0.5 mg PO TID PRN #10 tab PRN Reason: Anxiety Potassium Chloride 40 meq PO ONCE #30 tab.er.prt Home Medications: Ascorbic Acid [Vitamin C] 500 mg PO BID 06/13/15 [History] Aspirin [Adult Low Dose Aspirin EC] 81 mg PO DAILY 06/13/15 [History] Insulin ASPART [NovoLOG] 2 - 12 unit SQ QID #0 06/13/15 [History] Insulin DETEMIR [Levemir] 80 unit SQ QAM 06/13/15 [History] L. Acidophilus/Pectin, [place] [Acidophilus Probiotic Capsule] 1 cap PO DAILY [History] LORazepam [Ativan] 0.5 mg PO BID 06/13/15 [History] Menthol/Camphor/Dimeth/Phenol [Blistex Medicated Lip Ointment] 1 appl TP QID #0 06/13/15 [History] Metformin HCl [Glucophage] 1,000 mg PO BID 06/13/15 [History] Multivit/Ca/Min/Fe/FA [Thera M Plus] 1 tab PO DAILY 06/13/15 [History] Rivaroxaban [Xarelto] 20 mg PO HS 06/13/15 [History] Ropinirole HCl [Requip] 0.5 mg PO HS 06/13/15 [History] Sennosides/Docusate Sodium [Senna Plus] 1 tab PO DAILY 06/13/15 [History] Sertraline [Zoloft] 50 mg PO DAILY 06/13/15 [History] Simvastatin [Zocor] 40 mg PO DAILY #0 06/13/15 [History] SitaGLIPtin [Januvia] 100 mg PO DAILY 06/13/15 [History] Zinc Sulfate 220 mg PO BID 06/13/15 [History] Carbidopa/Levodopa [Carbidopa-Levodopa 25-100 Tab] 1 tab PO HS 03/16/16 [History ] Insulin DETEMIR [Levemir Flextouch] 14 unit SQ HS 03/16/16 [History] Amino Acids/Protein Hydrolys [Pro-Stat Awc Liquid] 30 ml PO QAM 09/27/16 [ History] Insulin ASPART [NovoLOG] 7 unit SQ TIDWM 09/27/16 [History] Isosorbide MONOnitrate (24 HR) [Imdur] 30 mg PO DAILY 09/27/16 [History] Methyl Salicylate/Menthol [Bengay] 1 appl TP BID PRN 09/27/16 [History] Maulik/Poly/DEX Opth OINT [Maxitrol OPTH Oint] 1 appl BOTH EYES HS 09/27/16 [ History] Nitroglycerin 0.4 mg SL Q5MIN PRN 09/27/16 [History] Oxycodone HCl/Acetaminophen [Percocet 5-325 mg Tablet] 1 tab PO Q4H PRN [History] Spironolactone [Aldactone] 25 mg PO DAILY 09/27/16 [History] Furosemide [Lasix] 40 mg PO DAILY tab 09/30/16 [Rx] LORazepam [Ativan] 0.5 mg PO TID PRN #10 tab 09/30/16 [Rx] Potassium Chloride 40 meq PO ONCE #30 tab.er.prt 09/30/16 [Rx] levoFLOXacin [Levaquin] 750 mg PO DAILY #7 tablet 09/30/16 [Rx] Allergies/Adverse Reactions: Allergies Sulfa (Sulfonamide Antibiotics) Allergy (Verified 06/12/15 20:58) See Comments tramadol Adverse Reaction (Verified 06/12/15 20:58) Nausea - Respiratory Orders Smoking Cessation: Smoking cessation has been advised. For more information, call the [place] Tobacco Quit Line at 2-663-JYKD-NOW. CERTIFICATION: I certify that the transfer of the above named patient to an Extended Care Facility is necessary for the continuing treatment of the diagnosis listed. The above information is true and accurate reflection of patient's current condition. Confidential - Redisclosure prohibited without a patient's written consent.
== END 2016-09-30 20:00 | DRG 194 ==
LOC: EMEROO 11:17 → 2NENU 11:17
PROVIDERS: ADMIT Internal Medicine; ATTEND Internal Medicine

== ENCOUNTER 2017-06-20 12:01 | Inpatient (IN) ==
--- NOTE | 2017-06-20 12:12 | Emergency Department Note ---
Disposition Clinical Impression: Atrial flutter with rapid ventricular response Chest pain Qualifiers: Chest pain type: unspecified Qualified Code(s): R07.9 - Chest pain, unspecified Disposition: Admitted As Inpatient Condition: Fair Referrals: Gustavo Alcantara Jr, MD [Primary Care Provider] - Forms: ED Satisfaction Letter Time of Disposition: 14:06 Arrhythmia/Palpitations HPI - General Chief Complaint: ED Arrhythmia/Palpitations Stated Complaint: chest pain Time Seen by Provider: 06/20/17 12:02 Source: patient, EMS Mode of arrival: EMS Limitations: no limitations Nursing Notes Reviewed: Yes Vital Signs Reviewed: Yes - History of Present Illness HPI Narrative: 67-year-old female with a history of paroxysmal atrial flutter who comes in complaining of chest pain found to be in flutter with a rate of about 143. Review of her previous visits cardiology consult indicates the patient does not tolerate AV ifrah medications. When I review her records she is not on a calcium channel raad or beta raad does not appear to be on amiodarone. The patient is on Xarelto. EF on echo from last summer was 60-65% with the patient does have a history of mood overload and chronic diastolic congestive heart failure. Pt Subjective Complaint: rapid heart beat Onset (ago): Just [employer] Duration: constant Severity: moderate Context: occurred during rest Arrhythmia History: on anti-coagulants, other (Atrial flutter) Associated symptoms: Reports: chest pain - Related Data Home Medications Medication Instructions Recorded Confirmed Ascorbic Acid [Vitamin C] 500 mg PO BID 06/13/15 06/20/17 Aspirin [Adult Low Dose Aspirin EC] 81 mg PO DAILY 06/13/15 06/20/17 Insulin ASPART [NovoLOG] 2 - 12 unit SQ QID #0 06/13/15 06/20/17 Insulin DETEMIR [Levemir] 70 unit SQ QAM 06/13/15 06/20/17 LORazepam [Ativan] 0.5 mg PO BID 06/13/15 06/20/17 Metformin HCl [Glucophage] 1,000 mg PO BID 06/13/15 06/20/17 Multivit/Ca/Min/Fe/FA [Thera M 1 tab PO DAILY 06/13/15 06/20/17 Plus] Rivaroxaban [Xarelto] 20 mg PO HS 06/13/15 06/20/17 Ropinirole HCl [Requip] 0.5 mg PO HS 06/13/15 06/20/17 Sennosides/Docusate Sodium [Senna 1 tab PO DAILY 06/13/15 06/20/17 Plus] Simvastatin [Zocor] 40 mg PO DAILY #0 06/13/15 06/20/17 SitaGLIPtin [Januvia] 100 mg PO DAILY 06/13/15 06/20/17 Zinc Sulfate 220 mg PO BID 06/13/15 06/20/17 Carbidopa/Levodopa 1 tab PO HS 03/16/16 06/20/17 [Carbidopa-Levodopa 25-100 Tab] Insulin DETEMIR [Levemir Flextouch] 14 unit SQ HS 03/16/16 06/20/17 Insulin ASPART [NovoLOG] 7 unit SQ TIDWM 09/27/16 06/20/17 Methyl Salicylate/Menthol [Bengay] 1 appl TP BID PRN 09/27/16 06/20/17 Nitroglycerin 0.4 mg SL Q5MIN PRN 09/27/16 06/20/17 Oxycodone HCl/Acetaminophen 1 tab PO Q4H PRN 09/27/16 06/20/17 [Percocet 5-325 mg Tablet] Isosorbide MONOnitrate [Isosorbide 120 mg PO DAILY 06/20/17 06/20/17 Mononitrate ER] Menthol/Zinc Oxide [Calmoseptine 1 appl TP BID 06/20/17 06/20/17 Ointment Packet] Multivit/Ca/Min/Fe/FA [Thera M 1 tab PO DAILY 06/20/17 06/20/17 Plus] Nystatin POWDER [Nystop] 1 appl TP BID 06/20/17 06/20/17 Potassium Chloride [Klor-Con 10] 10 meq PO BID 06/20/17 06/20/17 Sertraline [Zoloft] 100 mg PO DAILY 06/20/17 06/20/17 Spironolactone [Aldactone] 50 mg PO BID 06/20/17 06/20/17 metOLazone [Zaroxolyn] 2.5 mg PO DAILY 06/20/17 06/20/17 Previous Rx's Medication Instructions Recorded Furosemide [Lasix] 40 mg PO DAILY tab 09/30/16 Allergies Allergy/AdvReac Type Severity Reaction Status Date / Time Sulfa (Sulfonamide Allergy See Verified 06/12/15 20:58 Antibiotics) Comments tramadol AdvReac Nausea Verified 06/12/15 20:58 All systems ED: reviewed and negative except as stated. Constitutional: Denies: fever, chills, weakness, weight change Eyes: Denies: eye pain, eye discharge, vision change ENT ED: Denies: ear pain, throat pain, dental pain, hearing loss, epistaxis, congestion, dysphagia Cardiovascular: Reports: chest pain. Denies: palpitations, dyspnea on exertion , edema, syncope Respiratory: Denies: cough, dyspnea, wheezes, hemoptysis, stridor Gastrointestinal: Denies: abdominal pain, nausea, vomiting, diarrhea, constipation, hematemesis, melena, hematochezia Genitourinary: Denies: dysuria, frequency, hematuria, discharge Musculoskeletal: Denies: back pain, neck pain, arthralgia, myalgia Integumentary: Denies: rash, abrasion, lesions Neurological: Denies: headache, weakness, numbness, paresthesias, confusion, abnormal gait, vertigo Psychiatric: Denies: anxiety, depression, suicidal thoughts, homicidal thoughts , auditory hallucinations, visual hallucinations Endocrine: Denies: fatigue Hematological/Lymphatic: Denies: easy bleeding, easy bruising Allergic/Immunologic: Denies: facial swelling, urticaria Past Medical History - Past Medical History Medical history: Reports: CHF, coronary artery disease, diabetes, hyperlipidemia , myocardial infarction Surgical history: Reports: angioplasty/stent, , cholecystectomy, orthopedic, other Psychiatric history: Reports: anxiety, depression - Social History Smoking Status: Never smoker Smokeless Tobacco Status: No Alcohol use: Reports: none Drug use: Reports: none Physical Exam - General Limitations: no limitations General appearance: alert, in no apparent distress - Head Head exam: atraumatic, normocephalic, normal inspection - Eye Eye exam: Present: normal appearance, PERRL, EOMI - ENT ENT exam: normal exam, normal oropharynx, mucous membranes moist - Neck Neck exam: Present: normal inspection, full ROM, trachea midline - Chest Chest inspection: Present: normal inspection, symmetric chest wall rise - Respiratory Respiratory exam: Present: normal lung sounds bilaterally - Cardiovascular Cardiovascular exam: Present: regular rate, tachycardia - Abdominal Exam Abdominal exam: Present: soft, Non-Tender. Absent: tenderness, distention, guarding, rebound, rigidity - Extremities Exam Extremities exam: Present: normal inspection, full ROM. Absent: tenderness, pedal edema - Expanded Lower Extremity Exam Neurovascular/Tendon exam: Absent: motor deficit, sensory deficit, tendon deficit Gait: not tested/not observed - Back Exam Back exam: Present: normal inspection, full ROM. Absent: tenderness - Neurological Exam Neurological exam: Present: alert, oriented X3 - Psychiatric Psychiatric exam: Present: normal affect, normal mood - Skin Skin exam: Present: warm, dry, intact, normal color Course - Reevaluation(s) Reevaluation #1: 67-year-old a history of paroxysmal atrial flutter who comes in with a rapid heartbeat and some chest discomfort. Initial troponin is negative. Consultation obtained with cardiology will start Cardizem. Patient will be admitted. Time: 14:06 - Consultations Consultation #1: Discussed with the Enrique Coyle cardiology and he would like to go ahead and start Cardizem drip. He is aware previous consults feel that the do not tolerate AV ifrah drugs when in sinus rhythm. Time: 12:24 Consultation #2: Discussed with Dr. Carreno, admit. Time: 14:06 Vital Signs Temperature 97.6 F 06/20/17 12:02 Pulse Rate 143 06/20/17 12:02 Respiratory Rate 20 06/20/17 12:02 Blood Pressure 105/80 06/20/17 12:02 O2 Sat by Pulse Oximetry 98 06/20/17 12:02 Temperature 97.6 F 06/20/17 12:02 Pulse Rate 143 06/20/17 13:58 Respiratory Rate 16 06/20/17 13:00 Blood Pressure 101/64 06/20/17 13:58 O2 Sat by Pulse Oximetry 98 06/20/17 13:00 Oxygen Delivery Oxygen Delivery Room Air Arrhythmia/Palpitations - Lab Data Result diagrams: 06/20/17 12:12 06/20/17 12:12 Lab Results 06/20/17 06/20/17 06/20/17 Range/Units 12:12 12:12 12:12 WBC 12.7 H (4.3-11.1) K/mcL RBC 4.09 (3.82-4.97) M/mcL Hgb 11.2 L (11.5-15.4) g/dL Hct 35.1 L (35.3-44.9) % MCV 85.8 (83.0-100.0) fL MCH 27.4 L (28.0-33.3) pg MCHC 31.9 (31.6-35.5) g/dL RDW 15.8 H (11.5-14.5) % Plt Count 260 (140-400) K/mcL MPV 9.6 (9.4-12.4) fL Immature Gran % 0.9 (0-4) % Seg Neutrophils % 81.7 % Lymphocytes % 11.5 % Monocytes % 4.0 % Eosinophils % 1.7 % Basophils % 0.2 % Neutrophils # 10.4 H (1.6-8.9) K/mcL Lymphocytes # 1.5 (0.6-4.6) K/mcL Monocytes # 0.5 (0.0-1.3) K/mcL Eosinophils # 0.2 (0.0-0.6) K/mcL Basophils # 0.0 (0.0-0.2) K/mcL PT 13.7 H (9.4-12.1) Seconds INR 1.3 APTT 34.7 (26.0-36.0) Seconds Sodium 132 L (136-145) mEq/L Potassium 3.8 (3.5-5.1) mEq/L Chloride 95 L (98-107) mEq/L Carbon Dioxide 27 (23-29) mEq/L BUN 41 H (8-23) mg/dL Creatinine 1.07 (0.60-1.20) mg/dL Est GFR ( Amer) > 60 (> 60) Est GFR (Non-Af Amer) 51 L (> 60) BUN/Creatinine Ratio 38 H (6-26) Glucose 109 H (70-105) mg/dL Calculated Osmolality 285 (280-300) Calcium 9.1 (8.6-10.3) mg/dL Troponin I < 0.03 (< 0.04) ng/mL B-Natriuretic Peptide (Less than 100) pg/mL TSH 1.834 (0.340-5.600) mcIU/mL 06/20/17 Range/Units 12:44 WBC (4.3-11.1) K/mcL RBC (3.82-4.97) M/mcL Hgb (11.5-15.4) g/dL Hct (35.3-44.9) % MCV (83.0-100.0) fL MCH (28.0-33.3) pg MCHC (31.6-35.5) g/dL RDW (11.5-14.5) % Plt Count (140-400) K/mcL MPV (9.4-12.4) fL Immature Gran % (0-4) % Seg Neutrophils % % Lymphocytes % % Monocytes % % Eosinophils % % Basophils % % Neutrophils # (1.6-8.9) K/mcL Lymphocytes # (0.6-4.6) K/mcL Monocytes # (0.0-1.3) K/mcL Eosinophils # (0.0-0.6) K/mcL Basophils # (0.0-0.2) K/mcL PT (9.4-12.1) Seconds INR APTT (26.0-36.0) Seconds Sodium (136-145) mEq/L Potassium (3.5-5.1) mEq/L Chloride (98-107) mEq/L Carbon Dioxide (23-29) mEq/L BUN (8-23) mg/dL Creatinine (0.60-1.20) mg/dL Est GFR ( Amer) (> 60) Est GFR (Non-Af Amer) (> 60) BUN/Creatinine Ratio (6-26) Glucose (70-105) mg/dL Calculated Osmolality (280-300) Calcium (8.6-10.3) mg/dL Troponin I (< 0.04) ng/mL B-Natriuretic Peptide 110 H (Less than 100) pg/mL TSH (0.340-5.600) mcIU/mL - EKG Data EKG attestation: Yes I reviewed and interpreted this EKG. Rate: tachycardia Rhythm: A. flutter Interpretation: other (A flutter with RVR)
[2017-06-20 12:33] LABS: Basophils % 0.2 %; Eosinophils # 0.2 K/mcL (0.0-0.6); Eosinophils % 1.7 %; Hematocrit 35.1 % (35.3-44.9); Hemoglobin 11.2 g/dL (11.5-15.4); Immature Granulocytes % 0.9 % (0-4); Lymphocytes # 1.5 K/mcL (0.6-4.6); Lymphocytes % 11.5 %; Mean Corpuscular HGB Conc 31.9 g/dL (31.6-35.5); Mean Corpuscular Hemoglobin 27.4 pg (28.0-33.3); Mean Corpuscular Volume 85.8 fL (83.0-100.0); Mean Platelet Volume 9.6 fL (9.4-12.4); Monocytes # 0.5 K/mcL (0.0-1.3); Neutrophils # 10.4 K/mcL (1.6-8.9); Platelet Count 260 K/mcL (140-400); Red Blood Count 4.09 M/mcL (3.82-4.97); Red Cell Distribution Width 15.8 % (11.5-14.5); Segmented Neutrophils % 81.7 %
[2017-06-20 12:38] LABS: INR 1.3; Prothrombin Time 13.7 Seconds (9.4-12.1)
[2017-06-20 12:41] LABS: Activated Partial Thrombo Time 34.7 Seconds (26.0-36.0)
[2017-06-20 12:53] LABS: Troponin I < 0.03 ng/mL (< 0.04)
[2017-06-20 13:07] LABS: Thyroid Stimulating Hormone 1.834 mcIU/mL (0.340-5.600)
[2017-06-20 13:11] LABS: BUN/Creatinine Ratio 38 (6-26); Blood Urea Nitrogen 41 mg/dL (8-23); Calcium 9.1 mg/dL (8.6-10.3); Carbon Dioxide 27 mEq/L (23-29); Chloride 95 mEq/L (98-107); Glucose 109 mg/dL (70-105); Osmolality,Calculated 285 (280-300); Potassium 3.8 mEq/L (3.5-5.1); Sodium 132 mEq/L (136-145); eGFR For African Americans > 60 (> 60); eGFR For Non-African Americans 51 (> 60)
--- NOTE | 2017-06-20 14:43 | Cardiology Consult Note ---
Date of Encounter: 06/20/17 Time of Encounter: 14:40 Assessment and Plan (1) Atrial flutter with rapid ventricular response Current Visit: Yes Status: Acute Per Cardiology: Seen in the ER with atrial flutter in the 140s. Currently on IV Cardizem drip at 10 mg per hour. Systolic blood pressure in the 100s. May need to consider amiodarone drip. Chest x-ray appears stable. BNP mildly elevated only at 110. Suspect patient has chronic dependent edema. May benefit from some diuresis. Troponin negative. TSH stable. We will check magnesium. Regarding long-term anticoagulation, on Xarelto. H&H stable and denies any active bleeding or blood loss. Recommend continue. Mild renal insufficiency. Prior to completion of this note, I was to find patient arrival to the floor and remained a flutter with RVR in the 140s and now on Cardizem drip at 12.5 mg per hour. Also, notified of concern for of V. fib by RN, however upon assessment and evaluation no V. fib noted and patient remains a flutter with RVR 140's and clinically stable. Systolic blood pressure currently in the 90s. Recommend transfer to [address] will initiate amiodarone bolus and amiodarone drip. Will discuss and review with Dr. Enrique Coyle. (2) CAD (coronary artery disease) Current Visit: No Status: Chronic Per Cardiology: History of CAD with last catheterization showing diagonal 30%, circumflex 80% with 2 drug-eluting stents. Had negative nuclear stress test February 2016. Symptoms seem to correlate with a flutter with RVR. Initial troponin negative. Can consider echocardiogram if clinical appropriate and once rate controlled. Qualifiers: Coronary Disease-Associated Artery/Lesion type: [place] artery Associated angina: angina presence unspecified Qualified Code(s): I25.10 - Atherosclerotic heart disease of [place] coronary artery without angina pectoris Discussion w patient/family: The assessment and plan as outlined above was discussed with the patient and/or family members who expressed understanding and agreement. All questions were answered. Thank you for involving us in the care of your patient. Please call with any questions. History of Present Illness Consult date: 06/20/17 Requesting physician: Julio Lance Consult reason: Aflutter RVR, CHF Chief complaint: Chest heaviness, Fatigue History of present illness: Ms. Francisco is a 67 year old female with a relevant past medical history of diabetes mellitus, hyperlipidemia, history of [place]/CAD with PCI, history of atrial flutter on anticoagulation with Xarelto, history of diastolic CHF, resides at group home. Last seen by cardiology September 2016. Cardiology consult for atrial flutter with RVR, fatigue, and chest heaviness. Patient reports over the past few days increase in weakness and fatigue with " no energy and falling asleep". She reports yesterday evening while watching television had difficulty swallowing with chest heaviness and noticed rapid heart rates. Prior to this event she does report intermittent episodes of cough with occasional greenish productive sputum. She reports told at group home recent fevers. She denies any chills. She denies any vomiting or diarrhea. She reports occasional nausea, however this appears to be about baseline for her. Prior to this event she is not experiencing any chest pain symptoms. She does report compliance with medications and denies any active bleeding or blood loss. She reports current weight about 251 pounds which she believes is about baseline. She does report chronic bilateral lower extremity swelling and does indicate she believes increase in swelling recently. She reports she does ambulate short distances. Past Med Surg Social Fam HX - Past Medical History Attestation: Yes The following information was validated with the patient. Source: patient, old records reviewed Medical history: CHF, coronary artery disease, diabetes, hyperlipidemia, myocardial infarction Psychiatric history: anxiety, depression - Past Surgical History Surgical History: angioplasty/stent, , cholecystectomy, orthopedic, other - Social History Smoking Status: Never smoker Smokeless Tobacco Status: No Alcohol use: none Drug use: none - Family History Father Family Member Ethnicity: Non- Living Status: Hx Family Cardiac Disorders: Yes Hx Family Respiratory Disorders: Yes Hx Family Cancer: No Brother Family Member Ethnicity: Non- Living Status: Hx Family Cardiac Disorders: No Hx Family Respiratory Disorders: No Hx Family Cancer: Yes Sister Family Member Ethnicity: Non- Living Status: Hx Family Cardiac Disorders: No Hx Family Respiratory Disorders: No Mother Adopted: No Family Member Ethnicity: Non- Living Status: Hx Family Cardiac Disorders: Yes Hx Family Respiratory Disorders: Yes Hx Family Cancer: No Hx Family GI Disorders: No Hx Family Endocrine Disorder: No Hx Family Neuromuscular Disorders: No Hx Family Neurologic Disorders: No Hx Family HEENT Disorders: Yes Hx Family Autoimmune Disorders: No Medications and Allergies Ascorbic Acid [Vitamin C] 500 mg PO BID 06/13/15 [History] Aspirin [Adult Low Dose Aspirin EC] 81 mg PO DAILY 06/13/15 [History] Insulin ASPART [NovoLOG] 2 - 12 unit SQ QID #0 06/13/15 [History] Insulin DETEMIR [Levemir] 70 unit SQ QAM 06/13/15 [History] LORazepam [Ativan] 0.5 mg PO BID 06/13/15 [History] Metformin HCl [Glucophage] 1,000 mg PO BID 06/13/15 [History] Multivit/Ca/Min/Fe/FA [Thera M Plus] 1 tab PO DAILY 06/13/15 [History] Rivaroxaban [Xarelto] 20 mg PO HS 06/13/15 [History] Ropinirole HCl [Requip] 0.5 mg PO HS 06/13/15 [History] Sennosides/Docusate Sodium [Senna Plus] 1 tab PO DAILY 06/13/15 [History] Simvastatin [Zocor] 40 mg PO DAILY #0 06/13/15 [History] SitaGLIPtin [Januvia] 100 mg PO DAILY 06/13/15 [History] Zinc Sulfate 220 mg PO BID 06/13/15 [History] Carbidopa/Levodopa [Carbidopa-Levodopa 25-100 Tab] 1 tab PO HS 03/16/16 [History ] Insulin DETEMIR [Levemir Flextouch] 14 unit SQ HS 03/16/16 [History] Insulin ASPART [NovoLOG] 7 unit SQ TIDWM 09/27/16 [History] Methyl Salicylate/Menthol [Bengay] 1 appl TP BID PRN 09/27/16 [History] Nitroglycerin 0.4 mg SL Q5MIN PRN 09/27/16 [History] Oxycodone HCl/Acetaminophen [Percocet 5-325 mg Tablet] 1 tab PO Q4H PRN [History] Furosemide [Lasix] 40 mg PO DAILY tab 09/30/16 [Rx] Isosorbide MONOnitrate [Isosorbide Mononitrate ER] 120 mg PO DAILY 06/20/17 [ History] Menthol/Zinc Oxide [Calmoseptine Ointment Packet] 1 appl TP BID 06/20/17 [ History] Multivit/Ca/Min/Fe/FA [Thera M Plus] 1 tab PO DAILY 06/20/17 [History] Nystatin POWDER [Nystop] 1 appl TP BID 06/20/17 [History] Potassium Chloride [Klor-Con 10] 10 meq PO BID 06/20/17 [History] Sertraline [Zoloft] 100 mg PO DAILY 06/20/17 [History] Spironolactone [Aldactone] 50 mg PO BID 06/20/17 [History] metOLazone [Zaroxolyn] 2.5 mg PO DAILY 06/20/17 [History] 3 Allergy/AdvReac Type Severity Reaction Status Date / Time Sulfa (Sulfonamide Allergy See Verified 06/12/15 20:58 Antibiotics) Comments tramadol AdvReac Nausea Verified 06/12/15 20:58 All Systems Review: The remainder of the systems were reviewed and are negative - Constitutional Constitutional: fatigue, weakness - Cardiovascular Cardiovascular: as per HPI, chest pain at rest, rapid heart rate - Gastrointestinal Gastrointestinal: nausea Physical Examination Selected Entries 06/20/17 12:10 06/20/17 13:00 06/20/17 13:58 Pulse Rate 143 Blood Pressure 101/64 O2 Sat by Pulse Oximetry 98 Oxygen Delivery Method Room Air General: Conversant, No Apparent Distress HEENT: Atraumatic, Normocephaly, Mucus Membranes Moist Neck: No JVD, Normal carotid pulses Cardiac: Normal S1 and S2, No Murmur, Other (Irregularly irregular, rapid heart rate on telemetry, atrial flutter in the 140s) Lungs: Normal Breath Sounds, No Wheeze, Rales, Rhonchi, Other (Diminished breath sounds throughout) Neuro: Alert and responsive, No focal deficits noted Abdomen: Soft, Non-Tender, Other (obese) Skin: No rashes noted on visualized skin Musculoskeletal: No Chest Wall Tenderness Extremities: No Clubbing, No Cyanosis, Normal Pulses, Other (Bilateral lower extremity with generalized edema and bilateral Kev wraps) Results 06/20/17 12:12 06/20/17 12:12 Laboratory Tests 06/20/17 06/20/17 06/20/17 12:12 12:12 12:12 WBC 12.7 H Hgb 11.2 L Hct 35.1 L Plt Count 260 INR 1.3 Potassium 3.8 Creatinine 1.07 Est GFR (Non-Af Amer) 51 L Troponin I < 0.03 B-Natriuretic Peptide TSH 1.834 06/20/17 12:44 WBC Hgb Hct Plt Count INR Potassium Creatinine Est GFR (Non-Af Amer) Troponin I B-Natriuretic Peptide 110 H TSH ITS Impressions Chest X-Ray 06/20/17 12:03 IMPRESSION: Low lung volumes. Mild cardiomegaly without acute cardiopulmonary process. D/ / 06/20/2017 12:38:55 Yves Chávez MD / lillie Interpreting Provider: Yves Chávez MD Active Medications Diltiazem HCl 125 mg/ Sodium (Chloride) 125 mls @ 2.5 mls/hr IVC .Q24H CEM; 2.5 MG/HR PRN Reason: Protocol Stop: 12/20/17 12:31 Last Admin: 06/20/17 12:59 Dose: 2.5 mg/hr, 2.5 mls/hr - Imaging and Cardiology Echo: report reviewed Cardiac cath: report reviewed - EKG Interpretation EKG results cardiology: personally reviewed (Atrial flutter with RVR), other ( Currently atrial flutter in the 140s) Consult Discharge Plan - Plan Referrals: Gustavo Alcantara Jr, MD [Primary Care Provider] -
[2017-06-20] MEDS ORDERED: Naloxone 0.4 MG/ML INJ IVP PRN ×2 (16:03→20:19)
[2017-06-20] MEDS ORDERED: *HR* OxyCODONE/APAP 5/325 TABLET PO PRN (16:11)
[2017-06-20] MEDS ORDERED: Nitroglycerin 0.4 MG TAB.SUBL SL PRN (16:11)
--- NOTE | 2017-06-20 16:24 | Internal Med History&Physical ---
Date of Encounter: 06/20/17 Time of Encounter: 16:15 Internal Medicine - H&P: HPI Admitted From: Long-term Nursing Facility Plans for Post Hospital Care: Transfer [facility] History of present illness: Ms. Francisco is a 67 year old female who lives in senior care facility with history of PAF on Xarelto but not a candidate for AV ifrah blocking medicine as per cardiology note mentioned in the past, CAD status post 2 stent 3 years ago, Parkinson's disease, diabetes mellitus, recent pneumonia brought to ER with complaint of chest pain , palpitation found to be in flutter with a rate of about 143. In ER Cardizem drip was started by ER physician after discussing with cardiology. Last echo in September 2016 with pressure LV function EF 66-65%, moderate to severe pulmonary hypertension. Initial lab with mild leukocytosis, mild hyponatremia and slight raise BNP. Chest x-ray read with no acute finding but I reviewed the chest x-ray film and suspicious about infiltrate especially on right lobe. Patient also complained of feeling hot and cold, cough with greenish productive a sputum, generalized weakness and tired for last few days. Patient denies nausea, vomiting, headache, dizziness, abdominal pain, urinary or bowel complaint. Past Med Surg Social Fam HX - Past Medical History Medical history: CHF, coronary artery disease, diabetes, hyperlipidemia, myocardial infarction Psychiatric history: anxiety, depression - Past Surgical History Surgical History: angioplasty/stent, , cholecystectomy, orthopedic, other - Social History Smoking Status: Never smoker Smokeless Tobacco Status: No Alcohol use: none Drug use: none - Family History Father Family Member Ethnicity: Non- Living Status: Hx Family Cardiac Disorders: Yes Hx Family Respiratory Disorders: Yes Hx Family Cancer: No Brother Family Member Ethnicity: Non- Living Status: Hx Family Cardiac Disorders: No Hx Family Respiratory Disorders: No Hx Family Cancer: Yes Sister Family Member Ethnicity: Non- Living Status: Hx Family Cardiac Disorders: No Hx Family Respiratory Disorders: No Mother Adopted: No Family Member Ethnicity: Non- Living Status: Hx Family Cardiac Disorders: Yes Hx Family Respiratory Disorders: Yes Hx Family Cancer: No Hx Family GI Disorders: No Hx Family Endocrine Disorder: No Hx Family Neuromuscular Disorders: No Hx Family Neurologic Disorders: No Hx Family HEENT Disorders: Yes Hx Family Autoimmune Disorders: No Internal Medicine - H&P: Meds Ascorbic Acid [Vitamin C] 500 mg PO BID 06/13/15 [History] Aspirin [Adult Low Dose Aspirin EC] 81 mg PO DAILY 06/13/15 [History] Insulin ASPART [NovoLOG] 2 - 12 unit SQ QID #0 06/13/15 [History] Insulin DETEMIR [Levemir] 70 unit SQ QAM 06/13/15 [History] LORazepam [Ativan] 0.5 mg PO BID 06/13/15 [History] Metformin HCl [Glucophage] 1,000 mg PO BID 06/13/15 [History] Multivit/Ca/Min/Fe/FA [Thera M Plus] 1 tab PO DAILY 06/13/15 [History] Rivaroxaban [Xarelto] 20 mg PO HS 06/13/15 [History] Ropinirole HCl [Requip] 0.5 mg PO HS 06/13/15 [History] Sennosides/Docusate Sodium [Senna Plus] 1 tab PO DAILY 06/13/15 [History] Simvastatin [Zocor] 40 mg PO DAILY #0 06/13/15 [History] SitaGLIPtin [Januvia] 100 mg PO DAILY 06/13/15 [History] Zinc Sulfate 220 mg PO BID 06/13/15 [History] Carbidopa/Levodopa [Carbidopa-Levodopa 25-100 Tab] 1 tab PO HS 03/16/16 [History ] Insulin DETEMIR [Levemir Flextouch] 14 unit SQ HS 03/16/16 [History] Insulin ASPART [NovoLOG] 7 unit SQ TIDWM 09/27/16 [History] Methyl Salicylate/Menthol [Bengay] 1 appl TP BID PRN 09/27/16 [History] Nitroglycerin 0.4 mg SL Q5MIN PRN 09/27/16 [History] Oxycodone HCl/Acetaminophen [Percocet 5-325 mg Tablet] 1 tab PO Q4H PRN [History] Furosemide [Lasix] 40 mg PO DAILY tab 09/30/16 [Rx] Isosorbide MONOnitrate [Isosorbide Mononitrate ER] 120 mg PO DAILY 06/20/17 [ History] Menthol/Zinc Oxide [Calmoseptine Ointment Packet] 1 appl TP BID 06/20/17 [ History] Multivit/Ca/Min/Fe/FA [Thera M Plus] 1 tab PO DAILY 06/20/17 [History] Nystatin POWDER [Nystop] 1 appl TP BID 06/20/17 [History] Potassium Chloride [Klor-Con 10] 10 meq PO BID 06/20/17 [History] Sertraline [Zoloft] 100 mg PO DAILY 06/20/17 [History] Spironolactone [Aldactone] 50 mg PO BID 06/20/17 [History] metOLazone [Zaroxolyn] 2.5 mg PO DAILY 06/20/17 [History] 3 Allergy/AdvReac Type Severity Reaction Status Date / Time Sulfa (Sulfonamide Allergy See Verified 06/12/15 20:58 Antibiotics) Comments tramadol AdvReac Nausea Verified 06/12/15 20:58 All Systems PM: A 10-system review of systems was performed and is negative for pertinent findings except as documented above in the HPI. - Constitutional Vitals: Temp Pulse Resp BP Pulse Ox 98.2 F 143 16 111/63 95 06/20/17 15:35 06/20/17 15:35 06/20/17 15:35 06/20/17 15:35 06/20/17 15:35 Exam: General appearance: No acute distress, A&O X 3, oxygen by nasal cannula, morbidly obese, telemetry with atrial flutter flutter heart rate 143 Head exam: Atraumatic Eye exam: EOMI, PERRLA ENT exam: Moist oral mucosa Neck nontender, supple Respiratory exam: Decreased breath sound with crepitation bibasilar Cardiovascular exam: Tachycardia with regular rhythm, no systolic murmur Abdominal exam: Soft, nontender, nondistended, positive bowel sounds Extremities exam: No calf tenderness, trace pedal edema Present: Skin-no rash, warm, dry, intact Neurological exam: Alert, awake, oriented 3, CN II-XII intact, no focal deficits. No facial droop. Normal speech. Cannot walk as she has disability and use walker or wheelchair Internal Med - H&P Results - Labs CBC & Chem 7: 06/20/17 12:12 06/20/17 12:12 - Assessment and plan (1) Atrial flutter with rapid ventricular response Current Visit: Yes Status: Acute Assessment and plan: Acute on chronic. And last admission patient also had a atrial flutter and found to be due to underlying pneumonia. Cardizem started in the ER though there is concern to his start AV ifrah blocking is and as per cardiology note. Consulted cardiology. Is patient has persistent atrial flutter not responding to Cardizem therefore again contacted basket hand braider and who advise for amiodarone loading dose with drip. Will keep patient in the stepdown ICU. Continue Xarelto. Serial troponin. Continue home medicine (2) Pneumonia Current Visit: Yes Status: Acute Assessment and plan: Based on clinical symptoms. Leukocytosis with greenish productive sputum and history of pneumonia and patient live in senior care therefore high risk to develop pneumonia. Levaquin started for HCAP. DuoNeb, oxine supplementation Qualifiers: Pneumonia type: due to unspecified organism Laterality: unspecified laterality Qualified Code(s): J18.9 - Pneumonia, unspecified organism (3) Diabetes mellitus Current Visit: Yes Status: Acute Assessment and plan: At present low blood glucose level most likely due to above acute even. Will hold her scheduled insulin and SSI started with Accu-Chek. 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 use Diabetes mellitus complication status: without complication Qualified Code(s): E11.9 - Type 2 diabetes mellitus without complications; Z79.4 - half-way (current) use of insulin; Z79.4 - half-way ( current) use of insulin; Z79.4 - half-way (current) use of insulin; Z79.4 - buttermaker (current) use of insulin (4) Hyponatremia Current Visit: Yes Status: Acute (5) DVT prophylaxis Current Visit: Yes Status: Acute Assessment and plan: Patient is on XARELTO - Time Spent With Patient Total time spent is greater than 50% in coordination of care (as documented) at patient's floor/unit and/or counseling patient: 25 - 35 minutes
[2017-06-20] MEDS ORDERED: Ipratropium/Albuterol Neb 3 ML IH PRN ×2 (16:30→20:19)
[2017-06-20] MEDS ORDERED: Amiodarone Premix 150 MG/100 ML BAG IVPB ONE (16:30)
[2017-06-20] MEDS ORDERED: Amiodarone Premix 360 MG/200 ML BAG IVC ONE (16:30)
[2017-06-20] MEDS ORDERED: Dextrose Gel 15 GM/37.5 ML TUBE PO PRN ×4 (16:31→20:19)
[2017-06-20] MEDS ORDERED: *HR* Dextrose 50 % in Water (Syg) 50 ML SYRINGE IVP PRN ×2 (16:31→20:19)
[2017-06-20] MEDS ORDERED: D5% in Water 1,000 ML IVC PRN ×2 (16:31→20:19)
[2017-06-20] MEDS ORDERED: Levofloxacin 750 MG/150 ML 750 MG/150 ML BAG IVPB SCH (17:00)
[2017-06-20] MEDS ORDERED: Insulin LISPRO 300 UNITS/3 ML VIAL SQ SCH (18:00)
--- NOTE | 2017-06-20 18:57 | Electrocardiograph Report ---
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
[2017-06-20] MEDS ORDERED: Nystatin POWDER 30 GM BOTTLE TP SCH (21:00)
[2017-06-20] MEDS ORDERED: Carbidopa/Levodopa 25/100 TABLET PO SCH (21:00)
[2017-06-20] MEDS ORDERED: Ascorbic Acid 500 MG TABLET PO SCH (21:00)
[2017-06-20] MEDS ORDERED: rOPINIRole 0.25 MG TABLET PO SCH (21:00)
[2017-06-20] MEDS ORDERED: *HR* LORazepam 0.5 MG TABLET PO SCH (21:00)
[2017-06-20] MEDS ORDERED: Zinc Sulfate 220 MG CAPSULE PO SCH (21:00)
[2017-06-20] MEDS ORDERED: NON-FORMULARY MEDICATION 1 EACH EACH (Insulin Detemir [Levemir Flextouch] 10 UNIT) SQ SCH (21:00)
[2017-06-20] MEDS ORDERED: *HR* Rivaroxaban 10 MG TABLET PO SCH (21:00)
[2017-06-20] MEDS: *HR* Rivaroxaban 10 MG TABLET PO SCH (21:08)
[2017-06-20] MEDS: rOPINIRole 0.25 MG TABLET PO SCH (21:08)
[2017-06-20] MEDS: Ascorbic Acid 500 MG TABLET PO SCH (21:09)
[2017-06-20] MEDS: Zinc Sulfate 220 MG CAPSULE PO SCH (21:09)
[2017-06-20] MEDS: *HR* LORazepam 0.5 MG TABLET PO SCH (21:09)
[2017-06-20] MEDS: Carbidopa/Levodopa 25/100 TABLET PO SCH (21:09)
[2017-06-20] MEDS: Nystatin POWDER 30 GM BOTTLE TP SCH (21:10)
[2017-06-20] MEDS ORDERED: Amiodarone Premix 360 MG/200 ML BAG IVC SCH (22:30)
[2017-06-20] MEDS: Amiodarone Premix 360 MG/200 ML BAG IVC SCH (22:36)
[2017-06-21] MEDS: Insulin LISPRO 300 UNITS/3 ML VIAL SQ SCH ×6 (00:27→21:32)
[2017-06-21] MEDS ORDERED: *HR* Metoprolol 5 MG/5 ML VIAL IVP ONE ×2 (02:20→03:28)
[2017-06-21 04:52] LABS: Basophils % 0.2 %; Eosinophils # 0.2 K/mcL (0.0-0.6); Eosinophils % 1.6 %; Hematocrit 33.3 % (35.3-44.9); Hemoglobin 10.7 g/dL (11.5-15.4); Immature Granulocytes % 0.6 % (0-4); Lymphocytes # 1.3 K/mcL (0.6-4.6); Lymphocytes % 10.9 %; Mean Corpuscular HGB Conc 32.1 g/dL (31.6-35.5); Mean Corpuscular Hemoglobin 27.3 pg (28.0-33.3); Mean Corpuscular Volume 84.9 fL (83.0-100.0); Mean Platelet Volume 9.3 fL (9.4-12.4); Monocytes # 0.5 K/mcL (0.0-1.3); Monocytes % 3.7 %; Platelet Count 212 K/mcL (140-400); Red Blood Count 3.92 M/mcL (3.82-4.97); Red Cell Distribution Width 15.8 % (11.5-14.5)
[2017-06-21 05:12] LABS: Calcium 9.1 mg/dL (8.6-10.3); Potassium 3.9 mEq/L (3.5-5.1)
[2017-06-21] MEDS: Isosorbide MONOnitrate (24 HR) 60 MG TAB.ER.24H PO SCH (08:19)
[2017-06-21] MEDS: metOLazone 2.5 MG TABLET PO SCH (08:20)
[2017-06-21] MEDS: *HR* LORazepam 0.5 MG TABLET PO SCH ×2 (08:20→21:32)
[2017-06-21] MEDS: Aspirin Enteric Coated 81 MG Tablet PO SCH (08:20)
[2017-06-21] MEDS: Multivit/Ca/Min/Fe/FA 1 TAB TABLET PO SCH (08:21)
[2017-06-21] MEDS: Ascorbic Acid 500 MG TABLET PO SCH ×2 (08:21→21:32)
[2017-06-21] MEDS: Zinc Sulfate 220 MG CAPSULE PO SCH ×2 (08:21→21:31)
[2017-06-21] MEDS: Sennosides/Docusate Sodium TABLET PO SCH (08:21)
[2017-06-21] MEDS: Furosemide 40 MG TABLET PO SCH (08:21)
[2017-06-21] MEDS: Nystatin POWDER 30 GM BOTTLE TP SCH (08:22)
[2017-06-21] MEDS ORDERED: Isosorbide MONOnitrate (24 HR) 60 MG TAB.ER.24H PO SCH (09:00)
[2017-06-21] MEDS ORDERED: Furosemide 40 MG TABLET PO SCH (09:00)
[2017-06-21] MEDS ORDERED: metOLazone 2.5 MG TABLET PO SCH (09:00)
[2017-06-21] MEDS ORDERED: Insulin DETEMIR 100 UNIT/ML X5UNITS SQ SCH (09:00)
[2017-06-21] MEDS ORDERED: Sennosides/Docusate Sodium TABLET PO SCH (09:00)
[2017-06-21] MEDS ORDERED: Aspirin Enteric Coated 81 MG Tablet PO SCH (09:00)
[2017-06-21] MEDS ORDERED: Multivit/Ca/Min/Fe/FA 1 TAB TABLET PO SCH (09:00)
[2017-06-21] MEDS: Amiodarone Premix 360 MG/200 ML BAG IVC SCH (10:52)
--- NOTE | 2017-06-21 12:46 | Cardiology Progress Note ---
Date of Encounter: 06/21/17 Time of Encounter: 12:00 Assessment and Plan (1) Atrial flutter with rapid ventricular response Current Visit: Yes Status: Acute Currently in NSR- sinus tachycardia with HR in 120s. Will change amiodarone gtt to po amiodarone. Start low dose beta blockade for HR control. Continue Xarelto for chronic anticoagulation. (2) CAD (coronary artery disease) Current Visit: No Status: Chronic Currently stable with no recurrent angina. Continue medical therapy. History of CAD with last catheterization showing diagonal 30%, circumflex 80% with 2 drug-eluting stents. Had negative nuclear stress test February 2016. Echocardiogram in Sep 2016 with normal EF 60-65%, mild RVE, moderate TR, moderate to severe pulm HTN. Qualifiers: Coronary Disease-Associated Artery/Lesion type: sax[place] artery Associated angina: angina presence unspecified Qualified Code(s): I25.10 - Atherosclerotic heart disease of sax[place] coronary artery without angina pectoris Discussion w patient/family: The assessment and plan as outlined above was discussed with the patient and/or family members who expressed understanding and agreement. All questions were answered. Thank you for involving us in the care of your patient. Please call with any questions. Subjective Principal diagnosis: a flutter with RVR Interval history: Pt currently sitting upright in chair without complaints. Feels lightheaded if stands. Denies CP, SOB. Converted to NSR from a flutter overnight on amiodarone gtt. Currently sinus tachycardia in 120s Objective Vital Signs, Last 4 Hours Temp Pulse Resp BP Pulse Ox 06/21/17 12:00 127 20 139/87 97 06/21/17 10:58 98.1 F General: Conversant, No Apparent Distress HEENT: Atraumatic, Normocephaly, Mucus Membranes Moist Neck: No JVD, Normal carotid pulses Cardiac: Normal S1 and S2, No Murmur (tachycardic, regular rhyth) Lungs: Normal Breath Sounds, No Wheeze, Rales, Rhonchi Neuro: Alert and responsive, No focal deficits noted Abdomen: Soft, Non-Tender Skin: No rashes noted on visualized skin Musculoskeletal: No Chest Wall Tenderness Extremities: No Clubbing, No Cyanosis, Normal Pulses, Other (3+ b/l LE edema) Results 06/21/17 04:42 06/21/17 04:42 Lab Results 06/20/17 06/21/17 06/21/17 22:04 04:42 04:42 WBC 12.1 H Hgb 10.7 L Hct 33.3 L Plt Count 212 Sodium 132 L Potassium 3.9 Chloride 96 L Carbon Dioxide 27 BUN 38 H Creatinine 1.15 Glucose 128 H Calcium 9.1 Troponin I < 0.03 06/21/17 04:42 WBC Hgb Hct Plt Count Sodium Potassium Chloride Carbon Dioxide BUN Creatinine Glucose Calcium Troponin I < 0.03 Consult Discharge Plan - Plan Referrals: Gustavo Alcantara Jr, MD [Primary Care Provider] -
--- NOTE | 2017-06-21 14:57 | Internal Med Progress Note ---
Date of Encounter: 06/21/17 Time of Encounter: 10:00 - Assessment and plan (1) Atrial flutter with rapid ventricular response Current Visit: Yes Status: Resolved Assessment and plan: Patient has not converted to sinus tachycardia on amiodarone drip Cardiology following with recommendations to discontinue amiodarone drip and to start by mouth amiodarone Further recommendations to start beta raad for heart rate control and to continue oral anticoagulation with Xarelto Appreciate any further recommendations (2) Pneumonia Current Visit: Yes Status: Ruled-out Assessment and plan: Patient is asymptomatic denying any shortness of breath or cough and does not have any fevers with minimal elevation in white count Low suspicion for pneumonia and will therefore discontinue IV antibiotics. 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 terminal manager insulin use: with alf use Diabetes mellitus complication status: without complication Qualified Code(s): E11.9 - Type 2 diabetes mellitus without complications; Z79.4 - terminal block assembler (current) use of insulin; Z79.4 - shelter ( current) use of insulin; Z79.4 - terminal block assembler (current) use of insulin; Z79.4 - terminal block assembler (current) use of insulin (4) DVT prophylaxis Current Visit: Yes Status: Acute Assessment and plan: Patient is on XARELTO - Time Spent With Patient Total time spent is greater than 50% in coordination of care (as documented) at patient's floor/unit and/or counseling patient: - Subjective Interval history: Patient no longer with atrial flutter after being on amiodarone drip Patient currently with sinus tachycardia - Constitutional Vitals: Temp Pulse Resp BP Pulse Ox 98.1 F 125 18 100/74 94 06/21/17 10:58 06/21/17 14:00 06/21/17 14:00 06/21/17 14:00 06/21/17 14:00 General appearance: Present: no acute distress - Respiratory Respiratory exam: Present: CTAB. Absent: accessory muscle use, rales, rhonchi, wheezes - Cardiovascular Cardiovascular exam: Present: tachycardia - GI/Abdominal GI/Abdominal exam: Present: normal bowel sounds, soft, no peritoneal signs. Absent: distended, tenderness Internal Medicine: Result - Labs CBC & Chem 7: 06/21/17 04:42 06/21/17 04:42 Labs: Short CBC 06/21/17 Range/Units 04:42 WBC 12.1 H (4.3-11.1) K/mcL Hgb 10.7 L (11.5-15.4) g/dL Hct 33.3 L (35.3-44.9) % Plt Count 212 (140-400) K/mcL Neutrophils # 10.0 H (1.6-8.9) K/mcL BMP 06/21/17 04:42 Sodium 132 L Potassium 3.9 Chloride 96 L Carbon Dioxide 27 BUN 38 H Creatinine 1.15 Glucose 128 H Calcium 9.1 Cardiac Enzymes 06/20/17 06/21/17 Range/Units 22:04 04:42 Troponin I < 0.03 < 0.03 (< 0.04) ng/mL - ABG Interpretation ABG results: PT/INR, D-dimer PT 13.7 Seconds (9.4-12.1) H 06/20/17 12:12 Consult Discharge Plan - Plan Referrals: Gustavo Alcantara Jr, MD [Primary Care Provider] -
[2017-06-21] MEDS ORDERED: Levofloxacin 750 MG/150 ML 750 MG/150 ML BAG IVPB SCH (17:00)
[2017-06-21] MEDS: Carbidopa/Levodopa 25/100 TABLET PO SCH (21:31)
[2017-06-21] MEDS: *HR* Rivaroxaban 10 MG TABLET PO SCH (21:32)
[2017-06-21] MEDS: rOPINIRole 0.25 MG TABLET PO SCH (21:32)
[2017-06-22] MEDS: Nystatin POWDER 30 GM BOTTLE TP SCH ×3 (02:00→21:09)
[2017-06-22] MEDS: Aspirin Enteric Coated 81 MG Tablet PO SCH (08:14)
[2017-06-22] MEDS: Sennosides/Docusate Sodium TABLET PO SCH (08:14)
[2017-06-22] MEDS: Isosorbide MONOnitrate (24 HR) 60 MG TAB.ER.24H PO SCH (08:14)
[2017-06-22] MEDS: Ascorbic Acid 500 MG TABLET PO SCH ×2 (08:14→21:07)
[2017-06-22] MEDS: metOLazone 2.5 MG TABLET PO SCH (08:15)
[2017-06-22] MEDS: *HR* Amiodarone 200 MG TABLET PO SCH ×2 (08:15→21:07)
[2017-06-22] MEDS: Multivit/Ca/Min/Fe/FA 1 TAB TABLET PO SCH (08:15)
[2017-06-22] MEDS: *HR* LORazepam 0.5 MG TABLET PO SCH ×2 (08:15→21:07)
[2017-06-22] MEDS: Zinc Sulfate 220 MG CAPSULE PO SCH ×2 (08:15→21:07)
[2017-06-22] MEDS: Furosemide 40 MG TABLET PO SCH (08:15)
[2017-06-22] MEDS: Insulin LISPRO 300 UNITS/3 ML VIAL SQ SCH ×4 (08:35→21:52)
[2017-06-22 09:39] LABS: Basophils % 0.4 %; Eosinophils # 0.2 K/mcL (0.0-0.6); Eosinophils % 2.2 %; Hematocrit 32.2 % (35.3-44.9); Hemoglobin 10.3 g/dL (11.5-15.4); Immature Granulocytes % 0.8 % (0-4); Immature Platelets 1.8 % (1.1-6.1); Lymphocytes # 1.1 K/mcL (0.6-4.6); Lymphocytes % 10.5 %; Mean Corpuscular Hemoglobin 27.2 pg (28.0-33.3); Mean Corpuscular Volume 85.2 fL (83.0-100.0); Mean Platelet Volume 9.2 fL (9.4-12.4); Monocytes # 0.4 K/mcL (0.0-1.3); Monocytes % 3.4 %; Neutrophils # 8.7 K/mcL (1.6-8.9); Platelet Count 242 K/mcL (140-400); Red Blood Count 3.78 M/mcL (3.82-4.97); Red Cell Distribution Width 15.9 % (11.5-14.5); Segmented Neutrophils % 82.7 %
[2017-06-22 09:53] LABS: Potassium 4.3 mEq/L (3.5-5.1)
--- NOTE | 2017-06-22 13:06 | Cardiology Progress Note ---
Date of Encounter: 06/22/17 Time of Encounter: 12:00 Assessment and Plan (1) Atrial flutter with rapid ventricular response Current Visit: Yes Status: Acute Per cardiology: -Currently in NSR- sinus tachycardia with HR in 120s. -ON amiodaone oral and lopressor. -Continue Xarelto for chronic anticoagulation. -TTE 09/2016 as below -Will incrase lopressor to 25mg q6 hours. -Will continue to monitor. (2) CAD (coronary artery disease) Current Visit: No Status: Chronic Per cardiology: -Currently stable with no recurrent angina. Continue medical therapy. -History of CAD with last catheterization showing diagonal 30%, circumflex 80% with 2 drug-eluting stents. Had negative nuclear stress test February 2016. -Echocardiogram in Sep 2016 with normal EF 60-65%, mild RVE, moderate TR, moderate to severe pulm HTN. Qualifiers: Coronary Disease-Associated Artery/Lesion type: [place] artery Associated angina: angina presence unspecified Qualified Code(s): I25.10 - Atherosclerotic heart disease of tan[place] coronary artery without angina pectoris Discussion w patient/family: The assessment and plan as outlined above was discussed with the patient who expressed understanding and agreement. All questions were answered. Thank you for involving us in the care of your patient. Please call with any questions. Discussed and reviewed with Dr.Jennifer Coyle. Subjective Principal diagnosis: a flutter with RVR Interval history: Patient reports she feels ok today. Sitting in bed eating lunch. NO acute distress. Objective Vital Signs, Last 4 Hours Pulse Resp BP Pulse Ox 06/22/17 12:30 129 18 105/74 95 06/22/17 12:27 130 General: Conversant, No Apparent Distress HEENT: Atraumatic, Normocephaly, Mucus Membranes Moist Neck: No JVD, Normal carotid pulses Cardiac: Normal S1 and S2, No Murmur, Other (Tachycardic) Lungs: Normal Breath Sounds, No Wheeze, Rales, Rhonchi Neuro: Alert and responsive, No focal deficits noted Abdomen: Soft, Non-Tender Skin: No rashes noted on visualized skin Musculoskeletal: No Chest Wall Tenderness Extremities: No Clubbing, No Cyanosis, Normal Pulses, Other (Bialteral lower extremity edema noted. ) Results 06/22/17 09:22 06/22/17 09:22 Lab Results Active Medications Albuterol/Ipratropium (Duoneb) 3 ml IH [id number] PRN PRN Reason: Shortness Of Breath/Wheezing Stop: 12/20/17 16:31 Amiodarone HCl (Cordarone) 200 mg PO BID [facility] Stop: 12/22/17 09:01 Last Admin: 06/22/17 08:15 Dose: 200 mg Ascorbic Acid (Vitamin C) 500 mg PO BID [facility] Stop: 12/20/17 21:01 Last Admin: 06/22/17 08:14 Dose: 500 mg Aspirin (Aspirin Ec) 81 mg PO DAILY [facility] Stop: 12/21/17 09:01 Last Admin: 06/22/17 08:14 Dose: 81 mg Carbidopa/Levodopa (Sinemet) 1 each PO HS [facility]1983 Stop: 12/20/17 21:01 Last Admin: 06/21/17 21:31 Dose: 1 each Dextrose/Water (Dextrose 50% (Syg)) 25 ml IVP AD PRN PRN Reason: Hypoglycemia Stop: 12/20/17 16:32 Furosemide (Lasix) 40 mg PO DAILY [facility] Stop: 12/21/17 09:01 Last Admin: 06/22/17 08:15 Dose: 40 mg Glucagon (Glucagen) 1 mg IM ONCE PRN PRN Reason: Hypoglycemia Stop: 12/20/17 16:32 Glucose (Gluctose) 15 gm PO ONCE PRN PRN Reason: Hypoglycemia Stop: 12/20/17 16:32 Glucose (Gluctose) 30 gm PO ONCE PRN PRN Reason: Hypoglycemia Stop: 12/20/17 16:32 Dextrose (Dextrose 5%) 1,000 mls @ 100 mls/hr IVC .Q10H PRN PRN Reason: HYPOGLYCEMIA Stop: 12/20/17 16:32 Insulin Human Lispro (Humalog) 0 units SQ HS [facility] PRN Reason: Protocol Stop: 12/21/17 21:01 Last Admin: 06/21/17 21:32 Dose: 2 units Insulin Human Lispro (Humalog) 0 units SQ TIDAC [facility] PRN Reason: Protocol Stop: 12/21/17 11:31 Last Admin: 06/22/17 12:32 Dose: 2 units Isosorbide Mononitrate (Imdur) 120 mg PO DAILY [facility] Stop: 12/21/17 09:01 Last Admin: 06/22/17 08:14 Dose: 120 mg Lorazepam (Ativan) 0.5 mg PO BID CEM Stop: 12/20/17 21:01 Last Admin: 06/22/17 08:15 Dose: 0.5 mg Metolazone (Zaroxolyn) 2.5 mg PO DAILY CEM Stop: 12/21/17 09:01 Last Admin: 06/22/17 08:15 Dose: 2.5 mg Metoprolol Tartrate (Lopressor) 25 mg PO Q6HR CEM Stop: 12/22/17 12:01 Last Admin: 06/22/17 12:16 Dose: 25 mg Multivitamins/Calcium (Thera M Plus) 1 tab PO DAILY CEM PRN Reason: Protocol Stop: 12/21/17 09:01 Last Admin: 06/22/17 08:15 Dose: 1 tab Naloxone HCl (Narcan) 0.4 mg IVP Q2MIN PRN PRN Reason: SEE COMMENTS Stop: 12/20/17 16:04 Nitroglycerin (Nitroglycerin) 0.4 mg SL Q5MIN PRN PRN Reason: Chest Pain Stop: 12/20/17 16:12 Nystatin (Nystop) 1 appl TP BID CEM Stop: 12/20/17 21:01 Last Admin: 06/22/17 08:16 Dose: 1 appl Oxycodone/Acetaminophen (Percocet 5/325) 1 each PO Q4H PRN PRN Reason: Pain Stop: 12/20/17 16:12 Potassium Chloride (Potassium Chloride) 10 meq PO BID CEM Stop: 12/20/17 21:01 Last Admin: 06/22/17 08:15 Dose: 10 meq Rivaroxaban (Xarelto) 20 mg PO HS CEM Stop: 12/20/17 21:01 Last Admin: 06/21/17 21:32 Dose: 20 mg Ropinirole HCl (Requip) 0.5 mg PO HS CEM Stop: 12/20/17 21:01 Last Admin: 06/21/17 21:32 Dose: 0.5 mg Senna/Docusate Sodium (Senna Plus) 1 each PO DAILY CEM PRN Reason: Protocol Stop: 12/21/17 09:01 Last Admin: 06/22/17 08:14 Dose: 1 each Sertraline HCl (Zoloft) 100 mg PO DAILY CEM Stop: 12/21/17 09:01 Last Admin: 06/22/17 08:15 Dose: 100 mg Simvastatin (Zocor) 40 mg PO DAILY [facility] PRN Reason: Protocol Stop: 12/21/17 09:01 Last Admin: 06/22/17 08:15 Dose: 40 mg Spironolactone (Aldactone) 50 mg PO BID [facility] Stop: 12/20/17 21:01 Last Admin: 06/22/17 08:15 Dose: 50 mg Zinc Sulfate (Zinc Sulfate) 220 mg PO BID [facility] Stop: 12/20/17 21:01 Last Admin: 06/22/17 08:15 Dose: 220 mg Laboratory Tests 06/20/17 06/20/17 06/21/17 12:12 12:44 04:42 Hgb Potassium Creatinine Troponin I < 0.03 < 0.03 B-Natriuretic Peptide 110 H 06/22/17 06/22/17 09:22 09:22 Hgb 10.3 L Potassium 4.3 Creatinine 1.18 Troponin I B-Natriuretic Peptide - Imaging and Cardiology Chest Xray: report reviewed Echo: report reviewed - EKG Interpretation EKG results cardiology: other (Telemetry reviewed with average HR previous 12 hours noted to be 126, ST.) Consult Discharge Plan - Plan Referrals: Gustavo Alcantara Jr, MD [Primary Care Provider] -
--- NOTE | 2017-06-22 17:07 | Internal Med Progress Note ---
Date of Encounter: 06/22/17 Time of Encounter: 11:00 - Assessment and plan (1) Atrial flutter with rapid ventricular response Current Visit: Yes Status: Resolved Assessment and plan: Patient has not converted to sinus tachycardia on amiodarone drip Cardiology following with recommendations to discontinue amiodarone drip and patient has beenn palced on oral amiodarone Further recommendations continue oral anticoagulation with Xarelto Appreciate any further recommendations (2) Sinus tachycardia Current Visit: Yes Status: Acute Assessment and plan: Patient still with sinus tachycardia after initiating beta raad Cardiology following with recommendations to increase dose of beta raad Will continue to monitor (3) Pneumonia Current Visit: Yes Status: Ruled-out Assessment and plan: Patient is asymptomatic denying any shortness of breath or cough and does not have any fevers with minimal elevation in white count Low suspicion for pneumonia IV antibiotics were discontinued. Qualifiers: Pneumonia type: due to unspecified organism Laterality: unspecified laterality Qualified Code(s): J18.9 - Pneumonia, unspecified organism (4) Diabetes mellitus Current Visit: Yes Status: Acute Assessment and plan: Blood glucose levels controlled; continue sliding scale insulin Qualifiers: Diabetes mellitus type: type 2 Diabetes mellitus chcf insulin use: with long term care pharmacist use Diabetes mellitus complication status: without complication Qualified Code(s): E11.9 - Type 2 diabetes mellitus without complications; Z79.4 - terminologist (current) use of insulin; Z79.4 - terminologist ( current) use of insulin; Z79.4 - FDC (current) use of insulin; Z79.4 - FDC (current) use of insulin (5) DVT prophylaxis Current Visit: Yes Status: Acute Assessment and plan: Patient is on XARELTO - Time Spent With Patient Total time spent is greater than 50% in coordination of care (as documented) at patient's floor/unit and/or counseling patient: - Subjective Interval history: Patient with resolved atrial flutter with RVR after being on amiodarone drip but continues to have sinus tachycardia after starting beta raad - Constitutional Vitals: Temp Pulse Resp BP Pulse Ox 98.3 F 128 20 111/82 94 06/22/17 16:48 06/22/17 16:53 06/22/17 16:48 06/22/17 16:48 06/22/17 16:48 General appearance: Present: no acute distress - Respiratory Respiratory exam: Present: CTAB. Absent: accessory muscle use, rales, rhonchi, wheezes - Cardiovascular Cardiovascular exam: Present: RRR, +S1, +S2. Absent: diastolic murmur, gallop, rubs, systolic murmur Internal Medicine: Result - Labs CBC & Chem 7: 06/22/17 09:22 06/22/17 09:22 Labs: Short CBC 06/22/17 Range/Units 09:22 WBC 10.5 (4.3-11.1) K/mcL Hgb 10.3 L (11.5-15.4) g/dL Hct 32.2 L (35.3-44.9) % Plt Count 242 (140-400) K/mcL Neutrophils # 8.7 (1.6-8.9) K/mcL BMP 06/22/17 09:22 Sodium 136 Potassium 4.3 Chloride 99 Carbon Dioxide 27 BUN 37 H Creatinine 1.18 Glucose 210 H Calcium 9.0 - ABG Interpretation ABG results: PT/INR, D-dimer PT 13.7 Seconds (9.4-12.1) H 06/20/17 12:12 Consult Discharge Plan - Plan Referrals: Gustavo Alcantara Jr, MD [Primary Care Provider] -
[2017-06-22] MEDS: rOPINIRole 0.25 MG TABLET PO SCH (21:07)
[2017-06-22] MEDS: *HR* Rivaroxaban 10 MG TABLET PO SCH (21:07)
[2017-06-22] MEDS: Carbidopa/Levodopa 25/100 TABLET PO SCH (21:07)
[2017-06-23 04:25] LABS: Basophils % 0.2 %; Eosinophils # 0.3 K/mcL (0.0-0.6); Eosinophils % 2.3 %; Hematocrit 32.9 % (35.3-44.9); Hemoglobin 10.5 g/dL (11.5-15.4); Lymphocytes # 1.4 K/mcL (0.6-4.6); Lymphocytes % 11.6 %; Mean Corpuscular HGB Conc 31.9 g/dL (31.6-35.5); Mean Corpuscular Hemoglobin 27.4 pg (28.0-33.3); Mean Corpuscular Volume 85.9 fL (83.0-100.0); Mean Platelet Volume 9.5 fL (9.4-12.4); Monocytes # 0.5 K/mcL (0.0-1.3); Monocytes % 4.3 %; Platelet Count 231 K/mcL (140-400); Red Blood Count 3.83 M/mcL (3.82-4.97); Red Cell Distribution Width 15.8 % (11.5-14.5); Segmented Neutrophils % 80.6 %
[2017-06-23 04:38] LABS: Calcium 9.2 mg/dL (8.6-10.3); Potassium 4.1 mEq/L (3.5-5.1)
[2017-06-23] MEDS: Multivit/Ca/Min/Fe/FA 1 TAB TABLET PO SCH (08:49)
[2017-06-23] MEDS: *HR* Amiodarone 200 MG TABLET PO SCH ×2 (08:49→20:26)
[2017-06-23] MEDS: Aspirin Enteric Coated 81 MG Tablet PO SCH (08:49)
[2017-06-23] MEDS: Isosorbide MONOnitrate (24 HR) 60 MG TAB.ER.24H PO SCH (08:49)
[2017-06-23] MEDS: *HR* LORazepam 0.5 MG TABLET PO SCH ×2 (08:49→20:26)
[2017-06-23] MEDS: Sennosides/Docusate Sodium TABLET PO SCH (08:49)
[2017-06-23] MEDS: Furosemide 40 MG TABLET PO SCH (08:50)
[2017-06-23] MEDS: Ascorbic Acid 500 MG TABLET PO SCH ×2 (08:50→20:27)
[2017-06-23] MEDS: Zinc Sulfate 220 MG CAPSULE PO SCH ×2 (08:50→20:26)
[2017-06-23] MEDS: metOLazone 2.5 MG TABLET PO SCH (08:50)
[2017-06-23] MEDS: Insulin LISPRO 300 UNITS/3 ML VIAL SQ SCH ×3 (08:53→16:51)
[2017-06-23] MEDS: Nystatin POWDER 30 GM BOTTLE TP SCH ×2 (08:54→20:28)
[2017-06-23] MEDS ORDERED: *HR* Adenosine 6 MG/2 ML VIAL IVP ONE ×2 (09:45→09:51)
--- NOTE | 2017-06-23 10:26 | Electrocardiograph Report ---
[address] [place], [place] [address] Test Date: 2017-06-20 Pat Name: Meagan Francisco Department: 111 Room: 2N09 Gender: F Beater Room Helper: KAYLA : 1950 Requested By: Dennise Carreno Order Number: [id number] Reading MD: Deidre Cullen Measurements Intervals [place] Rate: 141 P: MT: 0 QRS: 74 QRSD: 109 T: 0 QT: 167 QTc: 249 Interpretive Statements ATRIAL FLUTTER/TACHYCARDIA WITH RAPID VENTRICULAR RESPONSE LOW QRS VOLTAGE IN PRECORDIAL LEADS PROBABLE LATERAL MYOCARDIAL INFARCTION, PROBABLY OLD Electronically Signed On 06-23-2017 10:24:50 EDT by Deidre Cullen
--- NOTE | 2017-06-23 10:41 | Cardiology Progress Note ---
Date of Encounter: 06/23/17 Time of Encounter: 09:30 Assessment and Plan (1) Atrial flutter with rapid ventricular response Current Visit: Yes Status: Acute Per cardiology: -Rhythm thoughtto be ST, however has been persistant. Was given IV adenosine with at bedside and atrial flutter noted. -ON amiodaone oral and lopressor. -BP marginal. -Continue Xarelto for chronic anticoagulation. OF note, may have missed doses in the past 30 days. Would require FIORDALIZA if DCCV necessary. -will check TTE. -Will attempt to titrate medications for better rate control. -Will make NPO after midnight for possible TTE/DCCV in am. -Will contineu to monitor. (2) CAD (coronary artery disease) Current Visit: No Status: Chronic Per cardiology: -Currently stable with no recurrent angina. Continue medical therapy. -History of CAD with last catheterization showing diagonal 30%, circumflex 80% with 2 drug-eluting stents. Had negative nuclear stress test February 2016. -Echocardiogram in Sep 2016 with normal EF 60-65%, mild RVE, moderate TR, moderate to severe pulm HTN. Qualifiers: Coronary Disease-Associated Artery/Lesion type: [place] artery Associated angina: angina presence unspecified Qualified Code(s): I25.10 - Atherosclerotic heart disease of [place] coronary artery without angina pectoris Discussion w patient/family: The assessment and plan as outlined above was discussed with the patient who expressed understanding and agreement. All questions were answered. Thank you for involving us in the care of your patient. Please call with any questions. Discussed and reviewed with Subjective Principal diagnosis: a flutter with RVR Interval history: Patient reports she feels ok today. Denies complaints. Objective Vital Signs, Last 4 Hours Temp Pulse Resp BP Pulse Ox 06/23/17 07:30 98.6 F 127 18 111/89 94 General: Conversant, No Apparent Distress HEENT: Atraumatic, Normocephaly, Mucus Membranes Moist Neck: No JVD, Normal carotid pulses Cardiac: Normal S1 and S2, No Murmur, Other (Regularly irregular) Lungs: Normal Breath Sounds, No Wheeze, Rales, Rhonchi Neuro: Alert and responsive, No focal deficits noted Abdomen: Soft, Non-Tender Skin: No rashes noted on visualized skin Musculoskeletal: No Chest Wall Tenderness Extremities: No Clubbing, No Cyanosis, Normal Pulses, Other (Bilateral lower extremity edema noted. ) Results 06/23/17 04:03 06/23/17 04:03 Lab Results Active Medications Albuterol/Ipratropium (Duoneb) 3 ml IH [id number] PRN PRN Reason: Shortness Of Breath/Wheezing Stop: 12/20/17 16:31 Amiodarone HCl (Cordarone) 200 mg PO BID [facility] Stop: 12/22/17 09:01 Last Admin: 06/23/17 08:49 Dose: 200 mg Ascorbic Acid (Vitamin C) 500 mg PO BID [facility] Stop: 12/20/17 21:01 Last Admin: 06/23/17 08:50 Dose: 500 mg Aspirin (Aspirin Ec) 81 mg PO DAILY [facility] Stop: 12/21/17 09:01 Last Admin: 06/23/17 08:49 Dose: 81 mg Carbidopa/Levodopa (Sinemet) 1 each PO HS [facility] Stop: 12/20/17 21:01 Last Admin: 06/22/17 21:07 Dose: 1 each Dextrose/Water (Dextrose 50% (Syg)) 25 ml IVP AD PRN PRN Reason: Hypoglycemia Stop: 12/20/17 16:32 Furosemide (Lasix) [address] [facility] Stop: 12/21/17 09:01 Last Admin: 06/23/17 08:50 Dose: 40 mg Glucagon (Glucagen) 1 mg IM ONCE PRN PRN Reason: Hypoglycemia Stop: 12/20/17 16:32 Glucose (Gluctose) 15 gm PO ONCE PRN PRN Reason: Hypoglycemia Stop: 12/20/17 16:32 Glucose (Gluctose) 30 gm PO ONCE PRN PRN Reason: Hypoglycemia Stop: 12/20/17 16:32 Dextrose (Dextrose 5%) 1,000 mls @ 100 mls/hr IVC .Q10H PRN PRN Reason: HYPOGLYCEMIA Stop: 12/20/17 16:32 Insulin Human Lispro (Humalog) 0 units SQ HS [facility] PRN Reason: Protocol Stop: 12/21/17 21:01 Last Admin: 06/22/17 21:52 Dose: 2 units Insulin Human Lispro (Humalog) 0 units SQ TIDAC [facility] PRN Reason: Protocol Stop: 12/21/17 11:31 Last Admin: 06/23/17 08:53 Dose: Not Given Isosorbide Mononitrate (Imdur) 120 mg PO DAILY [facility] Stop: 12/21/17 09:01 Last Admin: 06/23/17 08:49 Dose: 120 mg Lorazepam (Ativan) 0.5 mg PO BID [facility] Stop: 12/20/17 21:01 Last Admin: 06/23/17 08:49 Dose: 0.5 mg Metolazone (Zaroxolyn) 2.5 mg PO DAILY [facility] Stop: 12/21/17 09:01 Last Admin: 06/23/17 08:50 Dose: 2.5 mg Metoprolol Tartrate (Lopressor) 25 mg PO Q6HR [facility] Stop: 12/22/17 12:01 Last Admin: 06/23/17 05:27 Dose: 25 mg Multivitamins/Calcium (Thera M Plus) [address] [facility] PRN Reason: Protocol Stop: 12/21/17 09:01 Last Admin: 06/23/17 08:49 Dose: 1 tab Naloxone HCl (Narcan) 0.4 mg IVP Q2MIN PRN PRN Reason: SEE COMMENTS Stop: 12/20/17 16:04 Nitroglycerin (Nitroglycerin) 0.4 mg SL Q5MIN PRN PRN Reason: Chest Pain Stop: 12/20/17 16:12 Nystatin (Nystop) [address] [facility] Stop: 12/20/17 21:01 Last Admin: 06/23/17 08:54 Dose: 1 appl Oxycodone/Acetaminophen (Percocet 5/325) 1 each PO Q4H PRN PRN Reason: Pain Stop: 12/20/17 16:12 Potassium Chloride (Potassium Chloride) 10 meq PO BID [facility] Stop: 12/20/17 21:01 Last Admin: 06/23/17 08:49 Dose: 10 meq Rivaroxaban (Xarelto) [address] [facility] Stop: 12/20/17 21:01 Last Admin: 06/22/17 21:07 Dose: 20 mg Ropinirole HCl (Requip) 0.5 mg PO HS [facility] Stop: 12/20/17 21:01 Last Admin: 06/22/17 21:07 Dose: 0.5 mg Senna/Docusate Sodium (Senna Plus) [address] [facility] PRN Reason: Protocol Stop: 12/21/17 09:01 Last Admin: 06/23/17 08:49 Dose: 1 each Sertraline HCl (Zoloft) [address] [facility] Stop: 12/21/17 09:01 Last Admin: 06/23/17 08:50 Dose: 100 mg Simvastatin (Zocor) [address] [facility] PRN Reason: Protocol Stop: 12/21/17 09:01 Last Admin: 06/23/17 08:49 Dose: 40 mg Spironolactone (Aldactone) 50 mg PO BID [facility] Stop: 12/20/17 21:01 Last Admin: 06/23/17 08:49 Dose: 50 mg Zinc Sulfate (Zinc Sulfate) 220 mg PO BID [facility] Stop: 12/20/17 21:01 Last Admin: 06/23/17 08:50 Dose: 220 mg Laboratory Tests 06/20/17 06/20/17 06/20/17 12:12 16:25 16:25 WBC Hgb Potassium Creatinine Magnesium 2.2 Troponin I < 0.03 < 0.03 TSH 1.834 06/20/17 06/21/17 06/22/17 22:04 04:42 09:22 WBC Hgb Potassium Creatinine 1.18 Magnesium Troponin I < 0.03 < 0.03 TSH 06/23/17 06/23/17 04:03 04:03 WBC 12.4 H Hgb 10.5 L Potassium 4.1 Creatinine 1.23 H Magnesium Troponin I TSH - Imaging and Cardiology Chest Xray: report reviewed Echo: pending, report reviewed - EKG Interpretation EKG results cardiology: other (Telemtry reviewed with average HR previous 12 hours noted to be 128, a.flutter. PVCS noted.) Consult Discharge Plan - Plan Referrals: Gustavo Alcantara Jr, MD [Primary Care Provider] -
[2017-06-23] MEDS ORDERED: 0.9 % Sodium Chloride 500 ML ONE (12:19)
--- NOTE | 2017-06-23 16:34 | Electrocardiograph Report ---
[address] [place], [place] [address] Test Date: 2017-06-23 Pat Name: Meagan Francisco Department: 110 Room: 2N09 Gender: F Coater Smoking Pipe: : 1950 Requested By: Enrique Coyle Order Number: [id number] Reading MD: Deidre Cullen Measurements Intervals [place] Rate: 110 P: HI: 0 QRS: 68 QRSD: 78 T: 251 QT: 398 QTc: 463 Interpretive Statements ATRIAL FLUTTER/TACHYCARDIA WITH RAPID VENTRICULAR RESPONSE LOW QRS VOLTAGE IN PRECORDIAL LEADS POSSIBLE ANTERIOR MYOCARDIAL INFARCTION, OF INDETERMINATE AGE MODERATE T-WAVE ABNORMALITY, CONSIDER LATERAL ISCHEMIA MODERATE T-WAVE ABNORMALITY, CONSIDER INFERIOR ISCHEMIA Electronically Signed On 06-23-2017 16:32:27 EDT by Deidre Cullen
--- NOTE | 2017-06-23 18:19 | Internal Med Progress Note ---
Date of Encounter: 06/23/17 Time of Encounter: 11:00 - Assessment and plan (1) Atrial flutter with rapid ventricular response Current Visit: Yes Status: Resolved Assessment and plan: Patient with continued atrial flutter with RVR Recommendations to restart patient on Cardizem drip per cardiology Continue oral anticoagulation with Xarelto; considerations for FIORDALIZA due to possible missed doses as an outpatient Appreciate any further recommendations (2) Sinus tachycardia Current Visit: Yes Status: Acute Assessment and plan: Patient patient now in atrial flutter with RVR Cardiology following with recommendations to hold beta raad and managed as above Will continue to monitor (3) Pneumonia Current Visit: Yes Status: Ruled-out Assessment and plan: Patient is asymptomatic denying any shortness of breath or cough and does not have any fevers with minimal elevation in white count Low suspicion for pneumonia IV antibiotics were discontinued. Qualifiers: Pneumonia type: due to unspecified organism Laterality: unspecified laterality Qualified Code(s): J18.9 - Pneumonia, unspecified organism (4) Diabetes mellitus Current Visit: Yes Status: Acute Qualifiers: Diabetes mellitus type: type 2 Diabetes mellitus watermaster insulin use: with usp use Diabetes mellitus complication status: without complication Qualified Code(s): E11.9 - Type 2 diabetes mellitus without complications; Z79.4 - [facility] (current) use of insulin; Z79.4 - [facility] ( current) use of insulin; Z79.4 - [facility] (current) use of insulin; Z79.4 - [facility] (current) use of insulin (5) DVT prophylaxis Current Visit: Yes Status: Acute - Time Spent With Patient Total time spent is greater than 50% in coordination of care (as documented) at patient's floor/unit and/or counseling patient: - Subjective Interval history: Patient with continued atrial flutter with RVR so restarted on Cardizem drip per cardiology recommendations - Constitutional Vitals: Temp Pulse Resp BP Pulse Ox 98.0 F 103 16 98/62 95 06/23/17 16:41 06/23/17 16:41 06/23/17 16:41 06/23/17 16:41 06/23/17 16:41 General appearance: Present: no acute distress - Respiratory Respiratory exam: Present: CTAB. Absent: accessory muscle use, rales, rhonchi, wheezes - Cardiovascular Cardiovascular exam: Present: +S1, +S2, tachycardia. Absent: diastolic murmur, gallop, rubs, systolic murmur Internal Medicine: Result - Labs CBC & Chem 7: 06/23/17 04:03 06/23/17 04:03 Labs: Short CBC 06/23/17 Range/Units 04:03 WBC 12.4 H (4.3-11.1) K/mcL Hgb 10.5 L (11.5-15.4) g/dL Hct 32.9 L (35.3-44.9) % Plt Count 231 (140-400) K/mcL Neutrophils # 10.0 H (1.6-8.9) K/mcL BMP 06/23/17 04:03 Sodium 134 L Potassium 4.1 Chloride 99 Carbon Dioxide 27 BUN 43 H Creatinine 1.23 H Glucose 163 H Calcium 9.2 - ABG Interpretation ABG results: PT/INR, D-dimer PT 13.7 Seconds (9.4-12.1) H 06/20/17 12:12 Consult Discharge Plan - Plan Referrals: Gustavo Alcantara Jr, MD [Primary Care Provider] - 07/03/17 10:00 am ()
[2017-06-23] MEDS: *HR* Rivaroxaban 15 MG TABLET PO SCH (20:27)
[2017-06-23] MEDS: rOPINIRole 0.25 MG TABLET PO SCH (20:27)
[2017-06-23] MEDS: *HR* OxyCODONE/APAP 5/325 TABLET PO PRN (20:28)
[2017-06-23] MEDS: Carbidopa/Levodopa 25/100 TABLET PO SCH (20:28)
[2017-06-24] MEDS: Insulin LISPRO 300 UNITS/3 ML VIAL SQ SCH ×5 (03:53→21:10)
[2017-06-24 09:06] LABS: Basophils # 0.1 K/mcL (0.0-0.2); Basophils % 0.4 %; Eosinophils # 0.2 K/mcL (0.0-0.6); Eosinophils % 1.9 %; Hematocrit 35.5 % (35.3-44.9); Hemoglobin 11.1 g/dL (11.5-15.4); Immature Granulocytes % 1.1 % (0-4); Lymphocytes # 1.2 K/mcL (0.6-4.6); Lymphocytes % 10.5 %; Mean Corpuscular HGB Conc 31.3 g/dL (31.6-35.5); Mean Corpuscular Hemoglobin 27.2 pg (28.0-33.3); Mean Platelet Volume 9.4 fL (9.4-12.4); Monocytes # 0.5 K/mcL (0.0-1.3); Monocytes % 4.4 %; Neutrophils # 9.7 K/mcL (1.6-8.9); Platelet Count 247 K/mcL (140-400); Red Blood Count 4.08 M/mcL (3.82-4.97); Red Cell Distribution Width 15.9 % (11.5-14.5); Segmented Neutrophils % 81.7 %
[2017-06-24] MEDS: Furosemide 40 MG TABLET PO SCH (09:21)
[2017-06-24] MEDS: Aspirin Enteric Coated 81 MG Tablet PO SCH (09:21)
[2017-06-24] MEDS: *HR* Amiodarone 200 MG TABLET PO SCH ×2 (09:21→21:10)
[2017-06-24] MEDS: Multivit/Ca/Min/Fe/FA 1 TAB TABLET PO SCH (09:21)
[2017-06-24] MEDS: Sennosides/Docusate Sodium TABLET PO SCH (09:21)
[2017-06-24] MEDS: Zinc Sulfate 220 MG CAPSULE PO SCH ×2 (09:21→21:10)
[2017-06-24] MEDS: metOLazone 2.5 MG TABLET PO SCH (09:21)
[2017-06-24] MEDS: Nystatin POWDER 30 GM BOTTLE TP SCH ×2 (09:22→21:10)
[2017-06-24] MEDS: Ascorbic Acid 500 MG TABLET PO SCH ×2 (09:22→21:10)
[2017-06-24] MEDS: *HR* LORazepam 0.5 MG TABLET PO SCH ×2 (09:22→21:10)
[2017-06-24 09:24] LABS: Calcium 9.2 mg/dL (8.6-10.3); Potassium 4.3 mEq/L (3.5-5.1)
[2017-06-24] MEDS: Isosorbide MONOnitrate (24 HR) 60 MG TAB.ER.24H PO SCH (09:24)
--- NOTE | 2017-06-24 10:55 | Cardiology Progress Note ---
Date of Encounter: 06/24/17 Time of Encounter: 09:00 Assessment and Plan (1) Atrial flutter with rapid ventricular response Current Visit: Yes Status: Acute Per cardiology: -On amio oral and cardizem drip. -Average HR previous 12 hours noted to be 100, a.fib/flutter. -Continue Xarelto for chronic anticoagulation. OF note, may have missed doses in the past 30 days. Would require FIORDALIZA if DCCV necessary. -TTE pending. -Will give 10mg IV bolus of cardizem x1 now. Titrate cardizem drip. -Will continue to monitor. (2) CAD (coronary artery disease) Current Visit: No Status: Chronic Per cardiology: -Currently stable with no recurrent angina. Continue medical therapy. -History of CAD with last catheterization showing diagonal 30%, circumflex 80% with 2 drug-eluting stents. Had negative nuclear stress test February 2016. -Echocardiogram in Sep 2016 with normal EF 60-65%, mild RVE, moderate TR, moderate to severe pulm HTN. Qualifiers: Coronary Disease-Associated Artery/Lesion type: [place] artery Associated angina: angina presence unspecified Qualified Code(s): I25.10 - Atherosclerotic heart disease of [place] coronary artery without angina pectoris Discussion w patient/family: The assessment and plan as outlined above was discussed with the patient who expressed understanding and agreement. All questions were answered. Thank you for involving us in the care of your patient. Please call with any questions. Discussed and reviewed with Subjective Principal diagnosis: a flutter with RVR Interval history: Patient reports she feels ok today. Denies complaints. Resting in bed comfortably. Objective Vital Signs, Last 4 Hours Temp Pulse Resp BP Pulse Ox 06/24/17 08:40 85 16 128/73 93 06/24/17 08:06 106 06/24/17 08:04 97.7 F 101 18 114/78 94 General: Conversant, No Apparent Distress HEENT: Atraumatic, Normocephaly, Mucus Membranes Moist Neck: No JVD, Normal carotid pulses Cardiac: Normal S1 and S2, No Murmur, Other (Irregularlry irregular) Lungs: Normal Breath Sounds, No Wheeze, Rales, Rhonchi Neuro: Alert and responsive, No focal deficits noted Abdomen: Soft, Non-Tender Skin: No rashes noted on visualized skin Musculoskeletal: No Chest Wall Tenderness Extremities: No Clubbing, No Cyanosis, Normal Pulses, Other (Bilateral lower extremity edema noted. ) Results 06/24/17 08:36 06/24/17 08:36 Lab Results Active Medications Albuterol/Ipratropium (Duoneb) 3 ml IH [id number] PRN PRN Reason: Shortness Of Breath/Wheezing Stop: 12/20/17 16:31 Amiodarone HCl (Cordarone) 200 mg PO BID [facility] Stop: 12/22/17 09:01 Last Admin: 06/24/17 09:21 Dose: 200 mg Ascorbic Acid (Vitamin C) 500 mg PO BID [facility] Stop: 12/20/17 21:01 Last Admin: 06/24/17 09:22 Dose: 500 mg Aspirin (Aspirin Ec) 81 mg PO DAILY [facility] Stop: 12/21/17 09:01 Last Admin: 06/24/17 09:21 Dose: 81 mg Atorvastatin Calcium (Lipitor) 40 mg PO HS [facility] Stop: 12/24/17 21:01 Carbidopa/Levodopa (Sinemet) 1 each PO HS [facility] Stop: 12/20/17 21:01 Last Admin: 06/23/17 20:28 Dose: 1 each Dextrose/Water (Dextrose 50% (Syg)) 25 ml IVP AD PRN PRN Reason: Hypoglycemia Stop: 12/20/17 16:32 Furosemide (Lasix) 40 mg PO DAILY [facility] Stop: 12/21/17 09:01 Last Admin: 06/24/17 09:21 Dose: 40 mg Glucagon (Glucagen) 1 mg IM ONCE PRN PRN Reason: Hypoglycemia Stop: 12/20/17 16:32 Glucose (Gluctose) 15 gm PO ONCE PRN PRN Reason: Hypoglycemia Stop: 12/20/17 16:32 Glucose (Gluctose) 30 gm PO ONCE PRN PRN Reason: Hypoglycemia Stop: 12/20/17 16:32 Dextrose (Dextrose 5%) 1,000 mls @ 100 mls/hr IVC .Q10H PRN PRN Reason: HYPOGLYCEMIA Stop: 12/20/17 16:32 Diltiazem HCl 125 mg/ Sodium (Chloride) 125 mls @ 5 mls/hr IVC .Q24H CEM; 5 MG/ HR PRN Reason: Protocol Stop: 12/23/17 11:01 Last Admin: 06/23/17 20:34 Dose: 10 mg/hr, 10 mls/hr Insulin Human Lispro (Humalog) 0 units SQ HS [facility] PRN Reason: Protocol Stop: 12/21/17 21:01 Last Admin: 06/24/17 03:53 Dose: Not Given Insulin Human Lispro (Humalog) 0 units SQ TIDAC [facility] PRN Reason: Protocol Stop: 12/21/17 11:31 Last Admin: 06/24/17 08:25 Dose: Not Given Isosorbide Mononitrate (Imdur) 120 mg PO DAILY [facility] Stop: 12/21/17 09:01 Last Admin: 06/24/17 09:24 Dose: 120 mg Lorazepam (Ativan) 0.5 mg PO BID [facility] Stop: 12/20/17 21:01 Last Admin: 06/24/17 09:22 Dose: 0.5 mg Metolazone (Zaroxolyn) 2.5 mg PO DAILY [facility] Stop: 12/21/17 09:01 Last Admin: 06/24/17 09:21 Dose: 2.5 mg Multivitamins/Calcium (Thera M Plus) 1 tab PO DAILY [facility] PRN Reason: Protocol Stop: 12/21/17 09:01 Last Admin: 06/24/17 09:21 Dose: 1 tab Naloxone HCl (Narcan) 0.4 mg IVP Q2MIN PRN PRN Reason: SEE COMMENTS Stop: 12/20/17 16:04 Nitroglycerin (Nitroglycerin) 0.4 mg SL Q5MIN PRN PRN Reason: Chest Pain Stop: 12/20/17 16:12 Nystatin (Nystop) 1 appl TP BID [facility] Stop: 12/20/17 21:01 Last Admin: 06/24/17 09:22 Dose: 1 appl Oxycodone/Acetaminophen (Percocet 5/325) 1 each PO Q4H PRN PRN Reason: Pain Stop: 12/20/17 16:12 Last Admin: 06/23/17 20:28 Dose: 1 each Potassium Chloride (Potassium Chloride) 10 meq PO BID [facility] Stop: 12/20/17 21:01 Last Admin: 06/24/17 09:20 Dose: 10 meq Rivaroxaban (Xarelto) 15 mg PO HS [facility] Stop: 12/20/17 21:01 Last Admin: 06/23/17 20:27 Dose: 15 mg Ropinirole HCl (Requip) 0.5 mg PO HS [facility] Stop: 12/20/17 21:01 Last Admin: 06/23/17 20:27 Dose: 0.5 mg Senna/Docusate Sodium (Senna Plus) 1 each PO DAILY [facility] PRN Reason: Protocol Stop: 12/21/17 09:01 Last Admin: 06/24/17 09:21 Dose: 1 each Sertraline HCl (Zoloft) 100 mg PO DAILY [facility] Stop: 12/21/17 09:01 Last Admin: 06/24/17 09:21 Dose: 100 mg Spironolactone (Aldactone) 50 mg PO BID [facility] Stop: 12/20/17 21:01 Last Admin: 06/24/17 09:21 Dose: 50 mg Zinc Sulfate (Zinc Sulfate) 220 mg PO BID [facility] Stop: 12/20/17 21:01 Last Admin: 06/24/17 09:21 Dose: 220 mg Laboratory Tests 06/24/17 06/24/17 08:36 08:36 Hgb 11.1 L Potassium 4.3 Creatinine 1.20 - Imaging and Cardiology Chest Xray: report reviewed Echo: report reviewed - EKG Interpretation EKG results cardiology: other (Telemetry reviewed with average HR previous 12 hours noted to be 100, a.fib/flutter) Consult Discharge Plan - Plan Referrals: Gustavo Alcantara Jr, MD [Primary Care Provider] - 07/03/17 10:00 am ()
[2017-06-24] MEDS: Diltiazem CD (24hr) 180 MG CAPSULE PO SCH (12:06)
--- NOTE | 2017-06-24 15:59 | Internal Med Progress Note ---
Date of Encounter: 06/24/17 Time of Encounter: 15:57 - Assessment and plan (1) Atrial flutter with rapid ventricular response Current Visit: Yes Status: Acute Assessment and plan: Improved with IV Cardizem. Has not been transitioned to oral Cardizem per cardiology recommendations. If heart rate remains controlled with oral Cardizem , will discharge patient tomorrow. (2) Diabetes mellitus Current Visit: Yes Status: Chronic Assessment and plan: Blood sugars are elevated today. Will place her on low-dose long-acting insulin. Continue sliding scale coverage. Qualifiers: Diabetes mellitus type: type 2 Diabetes mellitus snf insulin use: with corsage maker use Diabetes mellitus complication status: without complication Qualified Code(s): E11.9 - Type 2 diabetes mellitus without complications; Z79.4 - [facility] (current) use of insulin; Z79.4 - [facility] ( current) use of insulin; Z79.4 - [facility] (current) use of insulin; Z79.4 - [facility] (current) use of insulin (3) DVT prophylaxis Current Visit: Yes Status: Acute Assessment and plan: On Xarelto - Time Spent With Patient Total time spent is greater than 50% in coordination of care (as documented) at patient's floor/unit and/or counseling patient: - Subjective Interval history: Patient is awake and alert. Feels much better today. Denies any chest pain. No palpitations. No dizziness or lightheadedness. No nausea or vomiting. No abdominal pain. - Constitutional Vitals: Temp Pulse Resp BP Pulse Ox 97.9 F 99 17 129/90 94 06/24/17 15:00 06/24/17 15:00 06/24/17 15:00 06/24/17 15:00 06/24/17 15:00 General appearance: Present: cooperative, A&O X 3, no acute distress, answers questions appropriately - Neck Neck exam general surgery: Present: supple, trachea midline. Absent: lymphadenopathy - Respiratory Respiratory exam: Present: CTAB. Absent: accessory muscle use, rales, rhonchi, wheezes - Cardiovascular Cardiovascular exam: Present: RRR, +S1, +S2, tachycardia. Absent: diastolic murmur, gallop, rubs, systolic murmur - GI/Abdominal GI/Abdominal exam: Present: normal bowel sounds, soft, no peritoneal signs. Absent: distended, tenderness - Extremities Exam Extremities exam: Present: warm, radial pulses palpable and symmetrical. Absent : calf tenderness, cyanotic, pedal edema - Neurological Exam Neurological exam: Present: CN II-XII intact, oriented X3, no focal deficits, strengths equal and symetr throughout. Absent: facial droop, speech deficit - Skin Skin exam: Present: dry, intact Internal Medicine: Result - Labs CBC & Chem 7: 06/24/17 08:36 06/24/17 08:36 Labs: Short CBC 06/24/17 Range/Units 08:36 WBC 11.9 H (4.3-11.1) K/mcL Hgb 11.1 L (11.5-15.4) g/dL Hct 35.5 (35.3-44.9) % Plt Count 247 (140-400) K/mcL Neutrophils # 9.7 H (1.6-8.9) K/mcL BMP 06/24/17 08:36 Sodium 137 Potassium 4.3 Chloride 101 Carbon Dioxide 28 BUN 37 H Creatinine 1.20 Glucose 163 H Calcium 9.2 - ABG Interpretation ABG results: PT/INR, D-dimer PT 13.7 Seconds (9.4-12.1) H 06/20/17 12:12 - Impressions Impressions Echocardiogram 06/23/17 08:38 Impressions: Atrial fibrillation, HR 90-100's. LVEF 50%. Low normal LV systolic function. Indeterminate diastolic function. RV is mildly dilated with normal function. Mild mitral regurgitation. Mild-moderate tricuspid regurgitation. Moderate pulmonary hypertension. Left Ventricular Wall Motion: Rest Echo Findings All wall segments showed normal motion. Findings: Study Quality * Technically challenging due to body habitus. ECG Findings * Atrial fibrillation. Left Ventricle * LVEF 50%. * Normal LV chamber size. * LV wall thickness measurements not well obtained. * Indeterminate diastolic function. Right Ventricle * RV is mildly dilated with normal function. Left Atrium * Moderately dilated left atrium. Right Atrium * Moderately dilated right atrium. Aortic Valve * No aortic regurgitation. * Trileaflet aortic valve. * No aortic stenosis. Mitral Valve * Normal mitral valve structure. * No mitral stenosis. * Mild mitral regurgitation. Tricuspid Valve * Tricuspid valve not well visualized. * Estimated RA pressure is 20 mmHg. * Estimated RVSP is 49 mmHg. * Moderate pulmonary hypertension. * Mild-moderate tricuspid regurgitation. Pulmonic Valve * Pulmonic valve is not well visualized. * No pulmonic stenosis. * No pulmonic regurgitation. Pulmonary Artery * Pulmonary artery not well visualized. Aorta * Not well visualized. Interatrial Septum * No evidence of PFO by color Doppler. Pericardium * There is no pericardial effusion present. IVC * The IVC is dilated. * < 50% respiratory change. Consult Discharge Plan - Plan Referrals: Gustavo Alcantara Jr, MD [Primary Care Provider] - 07/03/17 10:00 am ()
[2017-06-24] MEDS ORDERED: Insulin DETEMIR 100 UNIT/ML X5UNITS SQ SCH (21:00)
[2017-06-24] MEDS: *HR* Rivaroxaban 15 MG TABLET PO SCH (21:09)
[2017-06-24] MEDS: rOPINIRole 0.25 MG TABLET PO SCH (21:09)
[2017-06-24] MEDS: Carbidopa/Levodopa 25/100 TABLET PO SCH (21:10)
[2017-06-25] MEDS: Diltiazem CD (24hr) 180 MG CAPSULE PO SCH (07:44)
[2017-06-25] MEDS: metOLazone 2.5 MG TABLET PO SCH (07:45)
[2017-06-25] MEDS: Multivit/Ca/Min/Fe/FA 1 TAB TABLET PO SCH (07:45)
[2017-06-25] MEDS: Isosorbide MONOnitrate (24 HR) 60 MG TAB.ER.24H PO SCH (07:45)
[2017-06-25] MEDS: Sennosides/Docusate Sodium TABLET PO SCH (07:45)
[2017-06-25] MEDS: Furosemide 40 MG TABLET PO SCH (07:45)
[2017-06-25] MEDS: *HR* Amiodarone 200 MG TABLET PO SCH ×2 (07:45→21:13)
[2017-06-25] MEDS: Ascorbic Acid 500 MG TABLET PO SCH ×2 (07:45→21:13)
[2017-06-25] MEDS: Aspirin Enteric Coated 81 MG Tablet PO SCH (07:45)
[2017-06-25] MEDS: Zinc Sulfate 220 MG CAPSULE PO SCH ×2 (07:45→21:14)
[2017-06-25] MEDS: *HR* LORazepam 0.5 MG TABLET PO SCH ×2 (07:45→21:13)
[2017-06-25] MEDS: Nystatin POWDER 30 GM BOTTLE TP SCH ×2 (07:46→21:20)
[2017-06-25] MEDS: Insulin LISPRO 300 UNITS/3 ML VIAL SQ SCH ×4 (07:46→21:15)
[2017-06-25] MEDS ORDERED: *HR* Metoprolol 5 MG/5 ML VIAL IVP ONE (10:41)
[2017-06-25] MEDS: Metoprolol XL (24 HR) Succ 25 MG TAB.ER.24H PO SCH ×2 (11:28→21:14)
--- NOTE | 2017-06-25 12:05 | Cardiology Progress Note ---
Date of Encounter: 06/25/17 Time of Encounter: 11:30 Assessment and Plan (1) Atrial flutter with rapid ventricular response Current Visit: Yes Status: Acute Per cardiology: -On oral amio, cardizem CD 360. -Average HR previous 12 hours noted to be 112, a.fib/flutter. -BP much improved, currently 120-130s systolic. -Continue Xarelto for chronic anticoagulation. Was on 20mg dose, was changed to 15mg inpatient. Creatinine clearance 69ml/min. Recommedn 20mg xarelto dose. -OF note, may have missed doses in the past 30 days. Would require FIORDALIZA if DCCV necessary. -Will give IV lopressor x1. -Will start toprol 25mg BID. -Will resume home dose of xarelto. -Will continue to monitor. (2) CAD (coronary artery disease) Current Visit: No Status: Chronic Per cardiology: -Currently stable with no recurrent angina. Continue medical therapy. -History of CAD with last catheterization showing diagonal 30%, circumflex 80% with 2 drug-eluting stents. Had negative nuclear stress test February 2016. -Echocardiogram in Sep 2016 with normal EF 60-65%, mild RVE, moderate TR, moderate to severe pulm HTN. Qualifiers: Coronary Disease-Associated Artery/Lesion type: [place] artery [place] vs. transplanted heart: [place] heart Associated angina: angina presence unspecified Qualified Code(s): I25.10 - Atherosclerotic heart disease of [place] coronary artery without angina pectoris Discussion w patient/family: The assessment and plan as outlined above was discussed with the patient who expressed understanding and agreement. All questions were answered. Thank you for involving us in the care of your patient. Please call with any questions. Discussed and reviewed with Subjective Principal diagnosis: a flutter with RVR Interval history: Patient reports she feels ok today. Denies complaints. Sitting in chair. Objective Vital Signs, Last 4 Hours Temp Pulse Resp BP Pulse Ox 06/25/17 11:14 98.4 F 130 19 122/71 95 General: Conversant, No Apparent Distress HEENT: Atraumatic, Normocephaly, Mucus Membranes Moist Neck: No JVD, Normal carotid pulses Cardiac: Normal S1 and S2, No Murmur, Other (Irregularly irregular) Lungs: Normal Breath Sounds, No Wheeze, Rales, Rhonchi Neuro: Alert and responsive, No focal deficits noted Abdomen: Soft, Non-Tender Skin: No rashes noted on visualized skin Musculoskeletal: No Chest Wall Tenderness Extremities: No Clubbing, No Cyanosis, No Edema, Normal Pulses, Other ( Bilateral lower extremity edema noted. ) Results 06/24/17 08:36 06/24/17 08:36 Impressions Echocardiogram 06/23/17 08:38 Impressions: Atrial fibrillation, HR 90-100's. LVEF 50%. Low normal LV systolic function. Indeterminate diastolic function. RV is mildly dilated with normal function. Mild mitral regurgitation. Mild-moderate tricuspid regurgitation. Moderate pulmonary hypertension. Left Ventricular Wall Motion: Rest Echo Findings All wall segments showed normal motion. Findings: Study Quality * Technically challenging due to body habitus. ECG Findings * Atrial fibrillation. Left Ventricle * LVEF 50%. * Normal LV chamber size. * LV wall thickness measurements not well obtained. * Indeterminate diastolic function. Right Ventricle * RV is mildly dilated with normal function. Left Atrium * Moderately dilated left atrium. Right Atrium * Moderately dilated right atrium. Aortic Valve * No aortic regurgitation. * Trileaflet aortic valve. * No aortic stenosis. Mitral Valve * Normal mitral valve structure. * No mitral stenosis. * Mild mitral regurgitation. Tricuspid Valve * Tricuspid valve not well visualized. * Estimated RA pressure is 20 mmHg. * Estimated RVSP is 49 mmHg. * Moderate pulmonary hypertension. * Mild-moderate tricuspid regurgitation. Pulmonic Valve * Pulmonic valve is not well visualized. * No pulmonic stenosis. * No pulmonic regurgitation. Pulmonary Artery * Pulmonary artery not well visualized. Aorta * Not well visualized. Interatrial Septum * No evidence of PFO by color Doppler. Pericardium * There is no pericardial effusion present. IVC * The IVC is dilated. * < 50% respiratory change. Active Medications Albuterol/Ipratropium (Duoneb) 3 ml IH [id number] PRN PRN Reason: Shortness Of Breath/Wheezing Stop: 12/20/17 16:31 Amiodarone HCl (Cordarone) 200 mg PO BID [facility] Stop: 12/22/17 09:01 Last Admin: 06/25/17 07:45 Dose: 200 mg Ascorbic Acid (Vitamin C) 500 mg PO BID [facility] Stop: 12/20/17 21:01 Last Admin: 06/25/17 07:45 Dose: 500 mg Aspirin (Aspirin Ec) 81 mg PO DAILY [facility] Stop: 12/21/17 09:01 Last Admin: 06/25/17 07:45 Dose: 81 mg Atorvastatin Calcium (Lipitor) 40 mg PO HS [facility] Stop: 12/24/17 21:01 Last Admin: 06/24/17 21:10 Dose: 40 mg Carbidopa/Levodopa (Sinemet) 1 each PO HS [facility] Stop: 12/20/17 21:01 Last Admin: 06/24/17 21:10 Dose: 1 each Dextrose/Water (Dextrose 50% (Syg)) 25 ml IVP AD PRN PRN Reason: Hypoglycemia Stop: 12/20/17 16:32 Diltiazem HCl (Cardizem Cd) 360 mg PO DAILY [facility] Stop: 12/24/17 11:31 Last Admin: 06/25/17 07:44 Dose: 360 mg Furosemide (Lasix) 40 mg PO DAILY [facility] Stop: 12/21/17 09:01 Last Admin: 06/25/17 07:45 Dose: 40 mg Glucagon (Glucagen) 1 mg IM ONCE PRN PRN Reason: Hypoglycemia Stop: 12/20/17 16:32 Glucose (Gluctose) 15 gm PO ONCE PRN PRN Reason: Hypoglycemia Stop: 12/20/17 16:32 Glucose (Gluctose) 30 gm PO ONCE PRN PRN Reason: Hypoglycemia Stop: 12/20/17 16:32 Dextrose (Dextrose 5%) 1,000 mls @ 100 mls/hr IVC .Q10H PRN PRN Reason: HYPOGLYCEMIA Stop: 12/20/17 16:32 Insulin Detemir (Levemir) 5 unit SQ HS [facility] Stop: 12/24/17 21:01 Last Admin: 06/24/17 21:10 Dose: 5 unit Insulin Human Lispro (Humalog) 0 units SQ HS [facility] PRN Reason: Protocol Stop: 12/21/17 21:01 Last Admin: 06/24/17 21:10 Dose: 4 units Insulin Human Lispro (Humalog) 0 units SQ TIDAC [facility] PRN Reason: Protocol Stop: 12/21/17 11:31 Last Admin: 06/25/17 11:39 Dose: 6 units Isosorbide Mononitrate (Imdur) 120 mg PO DAILY [facility] Stop: 12/21/17 09:01 Last Admin: 06/25/17 07:45 Dose: 120 mg Lorazepam (Ativan) 0.5 mg PO BID [facility] Stop: 12/20/17 21:01 Last Admin: 06/25/17 07:45 Dose: 0.5 mg Metolazone (Zaroxolyn) 2.5 mg PO DAILY [facility] Stop: 12/21/17 09:01 Last Admin: 06/25/17 07:45 Dose: 2.5 mg Metoprolol Succinate (Toprol Xl) 25 mg PO BID [facility] Stop: 12/25/17 10:46 Last Admin: 06/25/17 11:28 Dose: 25 mg Multivitamins/Calcium (Thera M Plus) 1 tab PO DAILY [facility] PRN Reason: Protocol Stop: 12/21/17 09:01 Last Admin: 06/25/17 07:45 Dose: 1 tab Naloxone HCl (Narcan) 0.4 mg IVP Q2MIN PRN PRN Reason: SEE COMMENTS Stop: 12/20/17 16:04 Nitroglycerin (Nitroglycerin) 0.4 mg SL Q5MIN PRN PRN Reason: Chest Pain Stop: 12/20/17 16:12 Nystatin (Nystop) 1 appl TP BID [facility] Stop: 12/20/17 21:01 Last Admin: 06/25/17 07:46 Dose: 1 appl Oxycodone/Acetaminophen (Percocet 5/325) 1 each PO Q4H PRN PRN Reason: Pain Stop: 12/20/17 16:12 Last Admin: 06/23/17 20:28 Dose: 1 each Potassium Chloride (Potassium Chloride) 10 meq PO BID [facility] Stop: 12/20/17 21:01 Last Admin: 06/25/17 07:45 Dose: 10 meq Rivaroxaban (Xarelto) 15 mg PO HS [facility] Stop: 12/20/17 21:01 Last Admin: 06/24/17 21:09 Dose: 15 mg Ropinirole HCl (Requip) 0.5 mg PO HS [facility] Stop: 12/20/17 21:01 Last Admin: 06/24/17 21:09 Dose: 0.5 mg Senna/Docusate Sodium (Senna Plus) 1 each PO DAILY [facility] PRN Reason: Protocol Stop: 12/21/17 09:01 Last Admin: 06/25/17 07:45 Dose: 1 each Sertraline HCl (Zoloft) 100 mg PO DAILY [facility] Stop: 12/21/17 09:01 Last Admin: 06/25/17 07:45 Dose: 100 mg Spironolactone (Aldactone) 50 mg PO BID [facility] Stop: 12/20/17 21:01 Last Admin: 06/25/17 07:45 Dose: 50 mg Zinc Sulfate (Zinc Sulfate) 220 mg PO BID [facility] Stop: 12/20/17 21:01 Last Admin: 06/25/17 07:45 Dose: 220 mg Laboratory Tests 06/24/17 06/24/17 08:36 08:36 WBC 11.9 H Hgb 11.1 L Potassium 4.3 Creatinine 1.20 - Imaging and Cardiology Chest Xray: report reviewed Echo: report reviewed - EKG Interpretation EKG results cardiology: other (Telemetry reviewed with average HR previous 12 hours noted to be 112, a.fib/flutter.) Consult Discharge Plan - Plan Referrals: Gustavo Alcantara Jr, MD [Primary Care Provider] - 07/03/17 10:00 am ()
--- NOTE | 2017-06-25 14:38 | Internal Med Progress Note ---
Date of Encounter: 06/25/17 Time of Encounter: 10:55 - Assessment and plan (1) Atrial flutter with rapid ventricular response Current Visit: Yes Status: Acute Assessment and plan: Heart rate remains elevated today. Discussed with cardiology. Patient has now been placed on Lopressor. Will monitor heart rate overnight. If controlled tomorrow, will plan on discharging patient on Cardizem and Lopressor. Will need to continue to monitor heart rate closely as outpatient. On anticoagulation with Xarelto (2) Diabetes mellitus Current Visit: Yes Status: Chronic Assessment and plan: Blood sugars are improved. Remains slightly elevated. We will increase long- acting insulin coverage. 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 She is comfortable. Denies any chest pain. Does have some palpitations. Heart rate has been elevated today. Denies any dizziness or lightheadedness. No shortness of breath. - Constitutional Vitals: Temp Pulse Resp BP Pulse Ox 98.4 F 130 19 122/71 95 06/25/17 11:14 06/25/17 11:14 06/25/17 11:14 06/25/17 11:14 06/25/17 11:14 General appearance: Present: cooperative, A&O X 3, no acute distress, answers questions appropriately - Neck Neck exam general surgery: Present: supple, trachea midline. Absent: lymphadenopathy - Respiratory Respiratory exam: Present: CTAB. Absent: accessory muscle use, rales, rhonchi, wheezes - Cardiovascular Cardiovascular exam: Present: RRR, +S1, +S2, tachycardia. Absent: diastolic murmur, gallop, rubs, systolic murmur - GI/Abdominal GI/Abdominal exam: Present: normal bowel sounds, soft, no peritoneal signs. Absent: distended, tenderness - Extremities Exam Extremities exam: Present: warm, radial pulses palpable and symmetrical. Absent : calf tenderness, cyanotic, pedal edema - Neurological Exam Neurological exam: Present: alert, oriented X3, no focal deficits. Absent: facial droop, speech deficit - Skin Skin exam: Present: dry, intact Internal Medicine: Result - Labs CBC & Chem 7: 06/24/17 08:36 06/24/17 08:36 - ABG Interpretation ABG results: PT/INR, D-dimer PT 13.7 Seconds (9.4-12.1) H 06/20/17 12:12 Consult Discharge Plan - Plan Referrals: Gustavo Alcantara Jr, MD [Primary Care Provider] - 07/03/17 10:00 am ()
[2017-06-25] MEDS: *HR* Rivaroxaban 10 MG TABLET PO SCH (16:40)
[2017-06-25] MEDS: *HR* OxyCODONE/APAP 5/325 TABLET PO PRN (16:40)
[2017-06-25] MEDS ORDERED: Insulin DETEMIR 100 UNIT/ML X5UNITS SQ SCH (21:00)
[2017-06-25] MEDS: Carbidopa/Levodopa 25/100 TABLET PO SCH (21:13)
[2017-06-25] MEDS: rOPINIRole 0.25 MG TABLET PO SCH (21:13)
[2017-06-26] MEDS: Insulin LISPRO 300 UNITS/3 ML VIAL SQ SCH ×4 (07:39→21:12)
[2017-06-26] MEDS: metOLazone 2.5 MG TABLET PO SCH (07:40)
[2017-06-26] MEDS: Ascorbic Acid 500 MG TABLET PO SCH ×2 (07:40→21:11)
[2017-06-26] MEDS: Sennosides/Docusate Sodium TABLET PO SCH (07:40)
[2017-06-26] MEDS: Diltiazem CD (24hr) 180 MG CAPSULE PO SCH (07:40)
[2017-06-26] MEDS: Nystatin POWDER 30 GM BOTTLE TP SCH ×2 (07:41→21:13)
[2017-06-26] MEDS: *HR* LORazepam 0.5 MG TABLET PO SCH ×2 (07:41→21:11)
[2017-06-26] MEDS: Zinc Sulfate 220 MG CAPSULE PO SCH ×2 (07:41→21:12)
[2017-06-26] MEDS: *HR* Amiodarone 200 MG TABLET PO SCH ×2 (07:41→21:11)
[2017-06-26] MEDS: Multivit/Ca/Min/Fe/FA 1 TAB TABLET PO SCH (07:41)
[2017-06-26] MEDS: Furosemide 40 MG TABLET PO SCH (07:41)
[2017-06-26] MEDS: Aspirin Enteric Coated 81 MG Tablet PO SCH (07:41)
[2017-06-26] MEDS: Isosorbide MONOnitrate (24 HR) 60 MG TAB.ER.24H PO SCH (07:41)
[2017-06-26] MEDS: Metoprolol XL (24 HR) Succ 25 MG TAB.ER.24H PO SCH (07:41)
--- NOTE | 2017-06-26 08:49 | Cardiology Progress Note ---
Date of Encounter: 06/26/17 Time of Encounter: 08:45 Assessment and Plan (1) Atrial flutter with rapid ventricular response Current Visit: Yes Status: Acute Per cardiology: -Apparent history of atrial fibrillation and presented from skilled nursing with A. fib with RVR. Now on amiodarone 200 mg by mouth twice a day cardizem CD 360mg PO daily, and Toprol-XL 25 mg by mouth twice a day. Current systolic blood pressure stable 110's-130's. Average HR previous 12 hours noted to be 106 , a.fib/flutter. Currently A. fib/flutter in the 100s to 120s. Recommend attempt at rate authorization of heart rates around 100 or less. Increase Toprol-XL to 50 mg by mouth twice a day and monitor heart rate and blood pressure. Currently on Aldactone 50 mg by mouth twice a day, will decrease to daily to allow for blood pressure room in case further rate control agent titration warranted. Discussed with primary service. -Continue Xarelto for chronic anticoagulation. Now back on home dose. (2) CAD (coronary artery disease) Current Visit: No Status: Chronic Per cardiology: -History of CAD with last catheterization showing diagonal 30%, circumflex 80% with 2 drug-eluting stents. Had negative nuclear stress test February 2016. Echocardiogram in Sep 2016 with normal EF 60-65%, mild RVE, moderate TR, moderate to severe pulm HTN. Chest pain-free. On aspirin, statin, beta raad , long-acting nitrate. Qualifiers: Coronary Disease-Associated Artery/Lesion type: [place] artery [place] vs. transplanted heart: [place] heart Associated angina: angina presence unspecified Qualified Code(s): I25.10 - Atherosclerotic heart disease of [place] coronary artery without angina pectoris Discussion w patient/family: The assessment and plan as outlined above was discussed with the patient who expressed understanding and agreement. All questions were answered. Thank you for involving us in the care of your patient. Please call with any questions. Subjective Principal diagnosis: a flutter with RVR Interval history: Patient reported 2 episodes of sharp stabbing left-sided pain overnight that last for a few seconds and subsided. Denies any other concerns or complaints. Objective Vital Signs, Last 4 Hours Temp Pulse Resp BP Pulse Ox 06/26/17 07:17 98.5 F 109 18 111/68 92 General: Conversant, No Apparent Distress HEENT: Atraumatic, Normocephaly, Mucus Membranes Moist Neck: No JVD, Normal carotid pulses Cardiac: Normal S1 and S2, No Murmur, Other (Irregular irregular) Lungs: Normal Breath Sounds, No Wheeze, Rales, Rhonchi Neuro: Alert and responsive, No focal deficits noted Abdomen: Soft, Non-Tender, Other (obese) Skin: No rashes noted on visualized skin Musculoskeletal: No Chest Wall Tenderness Extremities: No Clubbing, No Cyanosis, Normal Pulses, Other (+2- 3 nonpitting bilateral lower extremity edema) Results 06/24/17 08:36 06/24/17 08:36 Laboratory Tests 06/20/17 06/20/17 06/21/17 12:12 16:25 04:42 Potassium Creatinine Est GFR (Non-Af Amer) Magnesium 2.2 Troponin I < 0.03 TSH 1.834 06/24/17 08:36 Potassium 4.3 Creatinine 1.20 Est GFR (Non-Af Amer) 45 L Magnesium Troponin I TSH ITS Impressions Chest X-Ray 06/20/17 12:03 IMPRESSION: Low lung volumes. Mild cardiomegaly without acute cardiopulmonary process. D/ / 06/20/2017 12:38:55 Yves Chávez MD / lillie Interpreting Provider: Yves Chávez MD Echocardiogram 06/23/17 08:38 Impressions: Atrial fibrillation, HR 90-100's. LVEF 50%. Low normal LV systolic function. Indeterminate diastolic function. RV is mildly dilated with normal function. Mild mitral regurgitation. Mild-moderate tricuspid regurgitation. Moderate pulmonary hypertension. Left Ventricular Wall Motion: Rest Echo Findings All wall segments showed normal motion. Findings: Study Quality * Technically challenging due to body habitus. ECG Findings * Atrial fibrillation. Left Ventricle * LVEF 50%. * Normal LV chamber size. * LV wall thickness measurements not well obtained. * Indeterminate diastolic function. Right Ventricle * RV is mildly dilated with normal function. Left Atrium * Moderately dilated left atrium. Right Atrium * Moderately dilated right atrium. Aortic Valve * No aortic regurgitation. * Trileaflet aortic valve. * No aortic stenosis. Mitral Valve * Normal mitral valve structure. * No mitral stenosis. * Mild mitral regurgitation. Tricuspid Valve * Tricuspid valve not well visualized. * Estimated RA pressure is 20 mmHg. * Estimated RVSP is 49 mmHg. * Moderate pulmonary hypertension. * Mild-moderate tricuspid regurgitation. Pulmonic Valve * Pulmonic valve is not well visualized. * No pulmonic stenosis. * No pulmonic regurgitation. Pulmonary Artery * Pulmonary artery not well visualized. Aorta * Not well visualized. Interatrial Septum * No evidence of PFO by color Doppler. Pericardium * There is no pericardial effusion present. IVC * The IVC is dilated. * < 50% respiratory change. Active Medications Albuterol/Ipratropium (Duoneb) 3 ml IH [id number] PRN PRN Reason: Shortness Of Breath/Wheezing Stop: 12/20/17 16:31 Amiodarone HCl (Cordarone) 200 mg PO BID [facility] Stop: 12/22/17 09:01 Last Admin: 06/26/17 07:41 Dose: 200 mg Ascorbic Acid (Vitamin C) 500 mg PO BID [facility] Stop: 12/20/17 21:01 Last Admin: 06/26/17 07:40 Dose: 500 mg Aspirin (Aspirin Ec) 81 mg PO DAILY [facility] Stop: 12/21/17 09:01 Last Admin: 06/26/17 07:41 Dose: 81 mg Atorvastatin Calcium (Lipitor) 40 mg PO HS [facility] Stop: 12/24/17 21:01 Last Admin: 06/25/17 21:14 Dose: 40 mg Carbidopa/Levodopa (Sinemet) 1 each PO HS [facility] Stop: 12/20/17 21:01 Last Admin: 06/25/17 21:13 Dose: 1 each Dextrose/Water (Dextrose 50% (Syg)) 25 ml IVP AD PRN PRN Reason: Hypoglycemia Stop: 12/20/17 16:32 Diltiazem HCl (Cardizem Cd) 360 mg PO DAILY [facility] Stop: 12/24/17 11:31 Last Admin: 06/26/17 07:40 Dose: 360 mg Furosemide (Lasix) 40 mg PO DAILY [facility] Stop: 12/21/17 09:01 Last Admin: 06/26/17 07:41 Dose: 40 mg Glucagon (Glucagen) 1 mg IM ONCE PRN PRN Reason: Hypoglycemia Stop: 12/20/17 16:32 Glucose (Gluctose) 15 gm PO ONCE PRN PRN Reason: Hypoglycemia Stop: 12/20/17 16:32 Glucose (Gluctose) 30 gm PO ONCE PRN PRN Reason: Hypoglycemia Stop: 12/20/17 16:32 Dextrose (Dextrose 5%) 1,000 mls @ 100 mls/hr IVC .Q10H PRN PRN Reason: HYPOGLYCEMIA Stop: 12/20/17 16:32 Insulin Detemir (Levemir) 10 unit SQ HS [facility] Stop: 12/25/17 21:01 Last Admin: 06/25/17 21:14 Dose: 10 unit Insulin Human Lispro (Humalog) 0 units SQ HS [facility] PRN Reason: Protocol Stop: 12/21/17 21:01 Last Admin: 06/25/17 21:15 Dose: 4 units Insulin Human Lispro (Humalog) 0 units SQ TIDAC [facility] PRN Reason: Protocol Stop: 12/21/17 11:31 Last Admin: 06/26/17 07:39 Dose: 6 units Isosorbide Mononitrate (Imdur) 120 mg PO DAILY [facility] Stop: 12/21/17 09:01 Last Admin: 06/26/17 07:41 Dose: 120 mg Lorazepam (Ativan) 0.5 mg PO BID [facility] Stop: 12/20/17 21:01 Last Admin: 06/26/17 07:41 Dose: 0.5 mg Metolazone (Zaroxolyn) 2.5 mg PO DAILY [facility] Stop: 12/21/17 09:01 Last Admin: 06/26/17 07:40 Dose: 2.5 mg Metoprolol Succinate (Toprol Xl) 25 mg PO BID [facility] Stop: 12/25/17 10:46 Last Admin: 06/26/17 07:41 Dose: 25 mg Multivitamins/Calcium (Thera M Plus) 1 tab PO DAILY [facility] PRN Reason: Protocol Stop: 12/21/17 09:01 Last Admin: 06/26/17 07:41 Dose: 1 tab Naloxone HCl (Narcan) 0.4 mg IVP Q2MIN PRN PRN Reason: SEE COMMENTS Stop: 12/20/17 16:04 Nitroglycerin (Nitroglycerin) 0.4 mg SL Q5MIN PRN PRN Reason: Chest Pain Stop: 12/20/17 16:12 Nystatin (Nystop) 1 appl TP BID [facility] Stop: 12/20/17 21:01 Last Admin: 06/26/17 07:41 Dose: 1 appl Oxycodone/Acetaminophen (Percocet 5/325) 1 each PO Q4H PRN PRN Reason: Pain Stop: 12/20/17 16:12 Last Admin: 06/25/17 16:40 Dose: 1 each Potassium Chloride (Potassium Chloride) 10 meq PO BID [facility] Stop: 12/20/17 21:01 Last Admin: 06/26/17 07:40 Dose: 10 meq Rivaroxaban (Xarelto) 20 mg PO 1700 [facility] Stop: 12/25/17 17:01 Last Admin: 06/25/17 16:40 Dose: 20 mg Ropinirole HCl (Requip) 0.5 mg PO HS [facility] Stop: 12/20/17 21:01 Last Admin: 06/25/17 21:13 Dose: 0.5 mg Senna/Docusate Sodium (Senna Plus) 1 each PO DAILY [facility] PRN Reason: Protocol Stop: 12/21/17 09:01 Last Admin: 06/26/17 07:40 Dose: 1 each Sertraline HCl (Zoloft) 100 mg PO DAILY [facility] Stop: 12/21/17 09:01 Last Admin: 06/26/17 07:41 Dose: 100 mg Spironolactone (Aldactone) 50 mg PO BID [facility] Stop: 12/20/17 21:01 Last Admin: 06/26/17 07:41 Dose: 50 mg Zinc Sulfate (Zinc Sulfate) 220 mg PO BID [facility] Stop: 12/20/17 21:01 Last Admin: 06/26/17 07:41 Dose: 220 mg - Imaging and Cardiology Echo: report reviewed - EKG Interpretation EKG results cardiology: other (Telemetry reviewed shows A. fib with RVR currently fluctuating 100s to 120s. Average heart rate the past 12 hours 106) Consult Discharge Plan - Plan Referrals: Gustavo Alcantara Jr, MD [Primary Care Provider] - 07/03/17 10:00 am ()
[2017-06-26] MEDS ORDERED: Metoprolol XL (24 HR) Succ 25 MG TAB.ER.24H PO STA (10:05)
--- NOTE | 2017-06-26 13:51 | Discharge Summary ---
- NOTES TO OUTPATIENT PROVIDER Notes to Outpatient Provider: Patient admitted here with possible pneumonia and atrial flutter with rapid ventricular response. Cardiology evaluated patient and place her on amiodarone and Cardizem. Heart rate remained uncontrolled initially but has now improved. She will need close monitoring of her heart rate at rehabilitation due to high risk for bradycardia due to her being on multiple rate controlling medications. Pneumonia was ruled out based on negative cultures and no clinical findings of pneumonia. She will be discharged to skilled rehabilitation today if her HR is better controlled. Date of Encounter: 06/26/17 Time of Encounter: 13:48 - Discharge Diagnosis (1) Atrial flutter with rapid ventricular response Priority: Primary Status: Acute (2) Diabetes mellitus Priority: Secondary Status: Chronic Qualifiers: Diabetes mellitus type: type 2 Diabetes mellitus usp insulin use: with usp use Diabetes mellitus complication status: without complication Qualified Code(s): E11.9 - Type 2 diabetes mellitus without complications; Z79.4 - residential (current) use of insulin; Z79.4 - residential ( current) use of insulin; Z79.4 - extermination supervisor (current) use of insulin; Z79.4 - extermination supervisor (current) use of insulin (3) DVT prophylaxis Priority: Secondary Status: Acute Hospital course: Ms. Francisco is a 67 year old female patient with a history of coronary artery disease, diabetes, hyperlipidemia, PA and congestive heart failure along with paroxysmal atrial fibrillation who was hospitalized here with atrial flutter with ventricular rate in the 140s. She was started on IV Cardizem drip. However as her blood pressure was on the lower side, she was switched to amiodarone. She was then transitioned to oral amiodarone once her heart rate was better controlled. However she continued to be tachycardic and so was placed on 360 mg of oral Cardizem daily. This also did not control heart rate and so she was started on metoprolol 25 mg twice daily and then increase to 50 mg and this morning. Presently her heart rate has improved and it is better controlled. At this time she is clinically stable to be discharged back to skilled rehabilitation provider that her heart rate remains well controlled. We will continue to monitor her through today and if her heart rate remains stable, she will be discharged to skilled rehabilitation. She is also suspected of having pneumonia initially but this was ruled out with negative blood cultures as patient was also asymptomatic and chest x-ray did not show any infiltrate. Discharge discussed with: patient, nurse, senior health consultant - Time Spent with Patient Total time spent providing and/or coordinating discharge services: Greater than 30 minutes (45 min) - Discharge Medications Prescriptions: Amiodarone [Cordarone] 200 mg PO BID #60 tablet Diltiazem CD (24hr) [Cardizem CD] 360 mg PO DAILY #60 cap.er.24h LORazepam [Ativan] 0.5 mg PO BID 5 Days #10 tablet Home Medications: Ascorbic Acid [Vitamin C] 500 mg PO BID 06/13/15 [History] Aspirin [Adult Low Dose Aspirin EC] 81 mg PO DAILY 06/13/15 [History] Insulin ASPART [NovoLOG] 2 - 12 unit SQ QID #0 06/13/15 [History] Metformin HCl [Glucophage] 1,000 mg PO BID 06/13/15 [History] Multivit/Ca/Min/Fe/FA [Thera M Plus] 1 tab PO DAILY 06/13/15 [History] Rivaroxaban [Xarelto] 20 mg PO HS 06/13/15 [History] Ropinirole HCl [Requip] 0.5 mg PO HS 06/13/15 [History] Sennosides/Docusate Sodium [Senna Plus] 1 tab PO DAILY 06/13/15 [History] Simvastatin [Zocor] 40 mg PO DAILY #0 06/13/15 [History] SitaGLIPtin [Januvia] 100 mg PO DAILY 06/13/15 [History] Zinc Sulfate 220 mg PO BID 06/13/15 [History] Carbidopa/Levodopa [Carbidopa-Levodopa 25-100 Tab] 1 tab PO HS 03/16/16 [History ] Insulin DETEMIR [Levemir Flextouch] 14 unit SQ HS 03/16/16 [History] Insulin ASPART [NovoLOG] 7 unit SQ TIDWM 09/27/16 [History] Methyl Salicylate/Menthol [Bengay] 1 appl TP BID PRN 09/27/16 [History] Nitroglycerin 0.4 mg SL Q5MIN PRN 09/27/16 [History] Oxycodone HCl/Acetaminophen [Percocet 5-325 mg Tablet] 1 tab PO Q4H PRN [History] Furosemide [Lasix] 40 mg PO DAILY tab 09/30/16 [Rx] Isosorbide MONOnitrate [Isosorbide Mononitrate ER] 120 mg PO DAILY 06/20/17 [ History] Menthol/Zinc Oxide [Calmoseptine Ointment Packet] 1 appl TP BID 06/20/17 [ History] Nystatin POWDER [Nystop] 1 appl TP BID 06/20/17 [History] Potassium Chloride [Klor-Con 10] 10 meq PO BID 06/20/17 [History] Sertraline [Zoloft] 100 mg PO DAILY 06/20/17 [History] Spironolactone [Aldactone] 50 mg PO BID 06/20/17 [History] metOLazone [Zaroxolyn] 2.5 mg PO DAILY 06/20/17 [History] Amiodarone [Cordarone] 200 mg PO BID #60 tablet 06/26/17 [Rx] Diltiazem CD (24hr) [Cardizem CD] 360 mg PO DAILY #60 cap.er.24h 06/26/17 [Rx] Insulin DETEMIR [Levemir] 20 unit SQ DAILY [id number] 06/26/17 [Rx] LORazepam [Ativan] 0.5 mg PO BID 5 Days #10 tablet 06/26/17 [Rx] Allergies/Adverse Reactions: 3 Allergy/AdvReac Type Severity Reaction Status Date / Time Sulfa (Sulfonamide Allergy See Verified 06/12/15 20:58 Antibiotics) Comments tramadol AdvReac Nausea Verified 06/12/15 20:58 Date of admission: 06/20/17 17:23 Primary care physician: Gustavo Alcantara Jr, MD Consults: 06/20/17 12:26 Consult to Cardiology [CONS] Stat Comment: Consulting Provider: [facility] [place] Reason for Consult: A flutter with rapid ventricular response, diastolic heart failure Time Notified: 12:27 Call Completed: Yes 06/20/17 16:00 Consult to Stockbroking Dealer [CONS] Routine Reason for SW Consult: from [place] Discharging clinician: Martin Barragan Anticipated date of discharge: 06/26/17 - Constitutional Vitals: Temp Pulse Resp BP Pulse Ox 98.1 F 108 20 93/75 91 06/26/17 11:15 06/26/17 11:15 06/26/17 11:15 06/26/17 11:15 06/26/17 11:15 General appearance: Present: cooperative, A&O X 3, no acute distress, answers questions appropriately - Neck Neck exam general surgery: Present: supple, trachea midline. Absent: lymphadenopathy - Respiratory Respiratory exam: Present: CTAB. Absent: accessory muscle use, rales, rhonchi, wheezes - Cardiovascular Cardiovascular exam: Present: irregular rhythm, +S1, +S2, tachycardia. Absent: diastolic murmur, gallop, rubs, systolic murmur - GI/Abdominal GI/Abdominal exam: Present: normal bowel sounds, soft, no peritoneal signs. Absent: distended, tenderness - Extremities Exam Extremities exam: Present: pedal edema, warm, radial pulses palpable and symmetrical. Absent: calf tenderness, cyanotic - Patient Status Disposition: Transfer SNF Condition: Fair Functional capacity at discharge: wheelchair bound Overall status at discharge: patient is progressing back to baseline - Discharge Instructions Instructions: Atrial Flutter (DC), Chest Pain (DC), Diabetes Mellitus Type 2 in Adults (DC) Follow Up With: Gustavo Alcantara Jr, MD [Primary Care Provider] - (Patient is going to [facility] No PCP appointment needed) Donavon Patterson DO [Partnered Physician] - (1 week) - Diet and Activity Activity: as per physical therapy, increase activity as tolerated Diet: diabetic diet, low fat, low cholesterol, low salt diet
--- NOTE | 2017-06-26 14:01 | Physician Discharge Referral ---
ExtendedCare Referral Info Provider in Charge after Transfer: PCP Institutional Level of Care: Skilled - Diagnosis (1) Atrial flutter with rapid ventricular response Priority: Primary Status: Acute (2) Diabetes mellitus Priority: Secondary Status: Chronic (3) DVT prophylaxis Priority: Secondary Status: Acute Prognosis: Fair Aware of Diagnosis: Patient Aware of Prognosis: Patient - Transfer Medications Prescriptions: Amiodarone [Cordarone] 200 mg PO BID #60 tablet Diltiazem CD (24hr) [Cardizem CD] 360 mg PO DAILY #60 cap.er.24h LORazepam [Ativan] 0.5 mg PO BID 5 Days #10 tablet Home Medications: Ascorbic Acid [Vitamin C] 500 mg PO BID 06/13/15 [History] Aspirin [Adult Low Dose Aspirin EC] 81 mg PO DAILY 06/13/15 [History] Insulin ASPART [NovoLOG] 2 - 12 unit SQ QID #0 06/13/15 [History] Metformin HCl [Glucophage] 1,000 mg PO BID 06/13/15 [History] Multivit/Ca/Min/Fe/FA [Thera M Plus] 1 tab PO DAILY 06/13/15 [History] Rivaroxaban [Xarelto] 20 mg PO HS 06/13/15 [History] Ropinirole HCl [Requip] 0.5 mg PO HS 06/13/15 [History] Sennosides/Docusate Sodium [Senna Plus] 1 tab PO DAILY 06/13/15 [History] Simvastatin [Zocor] 40 mg PO DAILY #0 06/13/15 [History] SitaGLIPtin [Januvia] 100 mg PO DAILY 06/13/15 [History] Zinc Sulfate 220 mg PO BID 06/13/15 [History] Carbidopa/Levodopa [Carbidopa-Levodopa 25-100 Tab] 1 tab PO HS 03/16/16 [History ] Insulin DETEMIR [Levemir Flextouch] 14 unit SQ HS 03/16/16 [History] Insulin ASPART [NovoLOG] 7 unit SQ TIDWM 09/27/16 [History] Methyl Salicylate/Menthol [Bengay] 1 appl TP BID PRN 09/27/16 [History] Nitroglycerin 0.4 mg SL Q5MIN PRN 09/27/16 [History] Oxycodone HCl/Acetaminophen [Percocet 5-325 mg Tablet] 1 tab PO Q4H PRN [History] Furosemide [Lasix] 40 mg PO DAILY tab 09/30/16 [Rx] Isosorbide MONOnitrate [Isosorbide Mononitrate ER] 120 mg PO DAILY 06/20/17 [ History] Menthol/Zinc Oxide [Calmoseptine Ointment Packet] 1 appl TP BID 06/20/17 [ History] Nystatin POWDER [Nystop] 1 appl TP BID 06/20/17 [History] Potassium Chloride [Klor-Con 10] 10 meq PO BID 06/20/17 [History] Sertraline [Zoloft] 100 mg PO DAILY 06/20/17 [History] Spironolactone [Aldactone] 50 mg PO BID 06/20/17 [History] metOLazone [Zaroxolyn] 2.5 mg PO DAILY 06/20/17 [History] Amiodarone [Cordarone] 200 mg PO BID #60 tablet 06/26/17 [Rx] Diltiazem CD (24hr) [Cardizem CD] 360 mg PO DAILY #60 cap.er.24h 06/26/17 [Rx] Insulin DETEMIR [Levemir] 20 unit SQ DAILY [id number] 06/26/17 [Rx] LORazepam [Ativan] 0.5 mg PO BID 5 Days #10 tablet 06/26/17 [Rx] Allergies/Adverse Reactions: 3 Allergy/AdvReac Type Severity Reaction Status Date / Time Sulfa (Sulfonamide Allergy See Verified 06/12/15 20:58 Antibiotics) Comments tramadol AdvReac Nausea Verified 06/12/15 20:58 - Respiratory Orders Oxygen / L per min (keep sats >88%) Smoking Cessation: Smoking cessation has been advised. For more information, call the [place] Tobacco Quit Line at 4-792-GQTZ-NOW. - Advance Directives Code Status: Full Code - Mobility Orders Ambulate (per PT) - Rehabiliation Orders Rehab Orders: Evaluation for Physical Therapy, Evaluation for Occupational Therapy - Treatments List/Other: Please check vital signs daily and notify lane marker installer if heart rate less than 60. - Diet Orders Mechanical Soft, No Concentrated Sweets (diabetic), Cardiac CERTIFICATION: I certify that the transfer of the above named patient to an Extended Care Facility is necessary for the continuing treatment of the diagnosis listed. The above information is true and accurate reflection of patient's current condition. Confidential - Redisclosure prohibited without a patient's written consent.
--- NOTE | 2017-06-26 14:27 | Event Note ---
Date of Encounter: 06/26/17 Time of Encounter: 14:25 - Cardiology Event Note Heart rate now noted to be in the 60s to 70s. Discussed with primary service, we will continue to monitor heart rate and blood pressure overnight with possible discharge to [facility] tomorrow. Agree with discontinuation of beta raad for now. Suspect amiodarone taking effect. Recommend amiodarone 200 mg by mouth twice a day for one week and then decrease to 200 mg by mouth daily. Continue Cardizem CD 360 mg by mouth daily for now. Cardiology will sign off, reconsult as needed. QUESTIONS answered, patient verbalized understanding and agree to plan, follow-up arranged.
[2017-06-26] MEDS: *HR* Rivaroxaban 10 MG TABLET PO SCH (16:10)
[2017-06-26] MEDS: Insulin DETEMIR 100 UNIT/ML X5UNITS SQ SCH ×2 (16:11→21:13)
[2017-06-26] MEDS: *HR* OxyCODONE/APAP 5/325 TABLET PO PRN (16:54)
[2017-06-26] MEDS ORDERED: Metoprolol XL (24 HR) Succ 50 MG TAB.ER.24H PO SCH (21:00)
[2017-06-26] MEDS: rOPINIRole 0.25 MG TABLET PO SCH (21:11)
[2017-06-26] MEDS: Carbidopa/Levodopa 25/100 TABLET PO SCH (21:11)
[2017-06-27] MEDS: Nitroglycerin 0.4 MG TAB.SUBL SL PRN ×3 (04:15→04:30)
[2017-06-27 07:03] VITALS: BP 125/69
--- NOTE | 2017-06-27 07:07 | Event Note ---
Date of Encounter: 06/27/17 Time of Encounter: 07:00 - Cardiology Event Note Tele shows avg HR 60 past 12 hrs, remains aflutter. Currently aflutter 60's-70' s this am. SBP 100's-110's. Off BB. On Amio 200mg PO BID for 1 week and then recs to decrease to 200mg PO daily. On Cardizem CD 360mg PO daily. Appears rate controlled, recs to continue to monitor HR and BP. Continue Xarelto for AC. Anticipate DC back to [facility] today.
[2017-06-27] MEDS: Insulin LISPRO 300 UNITS/3 ML VIAL SQ SCH (07:47)
[2017-06-27] MEDS: *HR* LORazepam 0.5 MG TABLET PO SCH (07:47)
[2017-06-27] MEDS: Furosemide 40 MG TABLET PO SCH (07:48)
[2017-06-27] MEDS: metOLazone 2.5 MG TABLET PO SCH (07:48)
[2017-06-27] MEDS: Isosorbide MONOnitrate (24 HR) 60 MG TAB.ER.24H PO SCH (07:48)
[2017-06-27] MEDS: *HR* Amiodarone 200 MG TABLET PO SCH (07:48)
[2017-06-27] MEDS: Sennosides/Docusate Sodium TABLET PO SCH (07:48)
[2017-06-27] MEDS: Aspirin Enteric Coated 81 MG Tablet PO SCH (07:48)
[2017-06-27] MEDS: Diltiazem CD (24hr) 180 MG CAPSULE PO SCH (07:48)
[2017-06-27] MEDS: Nystatin POWDER 30 GM BOTTLE TP SCH (07:49)
[2017-06-27] MEDS: Insulin DETEMIR 100 UNIT/ML X5UNITS SQ SCH (07:49)
[2017-06-27] MEDS: Multivit/Ca/Min/Fe/FA 1 TAB TABLET PO SCH (07:49)
[2017-06-27] MEDS: Ascorbic Acid 500 MG TABLET PO SCH (07:49)
[2017-06-27] MEDS: Zinc Sulfate 220 MG CAPSULE PO SCH (07:50)
--- NOTE | 2017-06-27 10:24 | Internal Med Progress Note ---
Date of Encounter: 06/27/17 Time of Encounter: 09:30 - Assessment and plan (1) Atrial flutter with rapid ventricular response Current Visit: Yes Status: Acute Assessment and plan: Heart rate better today.Will continue amiodarone and Cardizem. Stop metoprolol. Stable to be discharged today back to skilled rehabilitation. Will need close monitoring of heart rate at the rehabilitation facility. In amiodarone 200 twice daily for 2 more days and then taper down to once daily (2) Diabetes mellitus Current Visit: Yes Status: Chronic Assessment and plan: Continue current insulin regimen. Home dose of Levemir decreased to 20 units twice daily. Qualifiers: Diabetes mellitus type: type 2 Diabetes mellitus long term care pharmacist insulin use: with shelter use Diabetes mellitus complication status: without complication Qualified Code(s): E11.9 - Type 2 diabetes mellitus without complications; Z79.4 - lobsterman (current) use of insulin; Z79.4 - lobsterman ( current) use of insulin; Z79.4 - [facility] (current) use of insulin; Z79.4 - [facility] (current) use of insulin (3) DVT prophylaxis Current Visit: Yes Status: Acute Assessment and plan: continue Xarelto 20 mg daily - Time Spent With Patient Total time spent is greater than 50% in coordination of care (as documented) at patient's floor/unit and/or counseling patient: - Subjective Interval history: Patient is doing well today. HR better controlled. No dizziness or lightheadedness. No chest pain or palpitations. - Constitutional Vitals: Temp Pulse Resp BP Pulse Ox 97.8 F 67 19 125/69 98 06/27/17 06:56 06/27/17 07:59 06/27/17 06:56 06/27/17 06:56 06/27/17 06:56 General appearance: Present: cooperative, A&O X 3, no acute distress, answers questions appropriately - Neck Neck exam general surgery: Present: supple, trachea midline. Absent: lymphadenopathy - Respiratory Respiratory exam: Present: CTAB. Absent: accessory muscle use, rales, rhonchi, wheezes - Cardiovascular Cardiovascular exam: Present: RRR, +S1, +S2. Absent: diastolic murmur, gallop, rubs, systolic murmur - GI/Abdominal GI/Abdominal exam: Present: normal bowel sounds, soft, no peritoneal signs. Absent: distended, tenderness - Extremities Exam Extremities exam: Present: pedal edema, warm, radial pulses palpable and symmetrical. Absent: calf tenderness, cyanotic Internal Medicine: Result - Labs CBC & Chem 7: 06/24/17 08:36 06/24/17 08:36 - ABG Interpretation ABG results: PT/INR, D-dimer PT 13.7 Seconds (9.4-12.1) H 06/20/17 12:12 Consult Discharge Plan - Plan Instructions: Atrial Flutter (DC), Chest Pain (DC), Diabetes Mellitus Type 2 in Adults (DC) Referrals: Gustavo Alcantara Jr, MD [Primary Care Provider] - ([facility] No PCP appointment needed) Donavon Patterson DO [Partnered Physician] - (1 week OFFICE WILL CALL PATIENT AT [facility] FOR APPOINTMENT TIME) Prescriptions: Amiodarone [Cordarone] 200 mg PO DAILY #40 tablet Diltiazem CD (24hr) [Cardizem CD] 360 mg PO DAILY #60 cap.er.24h LORazepam [Ativan] 0.5 mg PO BID 5 Days #10 tablet Oxycodone HCl/Acetaminophen [Percocet 5-325 mg Tablet] 1 tab PO Q4H PRN 5 Days # 10 tablet PRN Reason: Moderate Pain
--- NOTE | 2017-06-28 06:35 | Electrocardiograph Report ---
[address] [address] Test Date: 2017-06-27 Pat Name: Meagan Francisco Department: 110 Room: 09 Gender: F Launch Manager: [id number] : 1950 Requested By: Merna Flor Order Number: [id number] Reading MD: Ronny Santillan Measurements Intervals [place] Rate: 59 P: PA: 0 QRS: 14 QRSD: 106 T: 4 QT: 437 QTc: 436 Interpretive Statements ATRIAL FLUTTER/TACHYCARDIA WITH SLOW VENTRICULAR RESPONSE LOW QRS VOLTAGE IN PRECORDIAL LEADS BASELINE ARTIFACT COMPLICATES ACCURATE INTERPRETATION Electronically Signed On 06-28-2017 6:33:42 EDT by Ronny Santillan
== END 2017-06-27 11:55 | DRG 308 ==
LOC: EMEROO 12:01 → 2NENU 12:01 → SUATTDRO 17:23 → ICNU 20:34 → 2NNU 06-21 18:43
PROVIDERS: ADMIT Internal Medicine; ATTEND Internal Medicine

== ENCOUNTER 2017-06-29 08:13 | Inpatient (IN) ==
--- NOTE | 2017-06-29 08:19 | Emergency Department Note ---
Disposition Clinical Impression: Acute exacerbation of CHF (congestive heart failure), Atrial fibrillation, Fatigue Disposition: Admitted As Inpatient Condition: Fair General Adult HPI - General Chief complaint: ED Altered Mental Status Stated complaint: AMS Time Seen by Provider: 06/29/17 08:15 - Related Data Home Medications Medication Instructions Recorded Confirmed Ascorbic Acid [Vitamin C] 500 mg PO BID 06/13/15 06/29/17 Aspirin [Adult Low Dose Aspirin EC] 81 mg PO DAILY 06/13/15 06/29/17 Insulin ASPART [NovoLOG] 2 - 12 unit SQ QID PRN #0 06/13/15 06/29/17 Metformin HCl [Glucophage] 1,000 mg PO BID 06/13/15 06/29/17 Rivaroxaban [Xarelto] 20 mg PO HS 06/13/15 06/29/17 Ropinirole HCl [Requip] 0.5 mg PO HS 06/13/15 06/29/17 Sennosides/Docusate Sodium [Senna 1 tab PO DAILY 06/13/15 06/29/17 Plus] Simvastatin [Zocor] 40 mg PO DAILY #0 06/13/15 06/29/17 SitaGLIPtin [Januvia] 100 mg PO DAILY 06/13/15 06/29/17 Zinc Sulfate 220 mg PO BID 06/13/15 06/29/17 Carbidopa/Levodopa 1 tab PO HS 03/16/16 06/29/17 [Carbidopa-Levodopa 25-100 Tab] Insulin DETEMIR [Levemir Flextouch] 14 unit SQ HS 03/16/16 06/29/17 Nitroglycerin 0.4 mg SL Q5MIN PRN 09/27/16 06/29/17 Isosorbide MONOnitrate [Isosorbide 120 mg PO DAILY 06/20/17 06/29/17 Mononitrate ER] Menthol/Zinc Oxide [Calmoseptine 1 appl TP BID 06/20/17 06/29/17 Ointment Packet] Nystatin POWDER [Nystop] 1 appl TP BID 06/20/17 06/29/17 Potassium Chloride [Klor-Con 10] 10 meq PO BID 06/20/17 06/29/17 Sertraline [Zoloft] 100 mg PO DAILY 06/20/17 06/29/17 Spironolactone [Aldactone] 50 mg PO BID 06/20/17 06/29/17 metOLazone [Zaroxolyn] 2.5 mg PO DAILY 06/20/17 06/29/17 Insulin DETEMIR [Levemir] 70 unit SQ QAM 06/29/17 06/29/17 LORazepam [Ativan] 0.5 mg PO Q8H PRN 06/29/17 06/29/17 Previous Rx's Medication Instructions Recorded Diltiazem CD (24hr) [Cardizem CD] 360 mg PO DAILY #60 cap.er.24h 06/26/17 Amiodarone [Cordarone] 200 mg PO DAILY #40 tablet 06/27/17 Oxycodone HCl/Acetaminophen 1 tab PO Q4H PRN 5 Days #10 tablet 06/27/17 [Percocet 5-325 mg Tablet] Allergies Allergy/AdvReac Type Severity Reaction Status Date / Time Sulfa (Sulfonamide Allergy See Verified 06/12/15 20:58 Antibiotics) Comments tramadol AdvReac Nausea Verified 06/12/15 20:58 Past Medical History - Past Medical History Medical history: Reports: CHF, coronary artery disease, diabetes, hyperlipidemia , myocardial infarction Surgical history: Reports: angioplasty/stent, , cholecystectomy, orthopedic, other Psychiatric history: Reports: anxiety, depression - Social History Smoking Status: Never smoker Smokeless Tobacco Status: No Alcohol use: Reports: none Drug use: Reports: none Course Vital Signs Temperature 97.7 F 06/29/17 08:16 Pulse Rate 122 06/29/17 08:16 Respiratory Rate 12 06/29/17 08:16 Blood Pressure 136/80 06/29/17 08:16 O2 Sat by Pulse Oximetry 95 06/29/17 08:16 Temperature 97.4 F L 06/29/17 11:20 Pulse Rate 122 06/29/17 11:20 Respiratory Rate 17 06/29/17 11:20 Blood Pressure 113/70 06/29/17 11:20 O2 Sat by Pulse Oximetry 97 06/29/17 11:20 Oxygen Delivery Oxygen Delivery Nasal Cannula Medical Decision Making - Lab Data Result diagrams: 06/29/17 08:39 06/29/17 08:39 Lab Results 06/29/17 06/29/17 06/29/17 Range/Units 08:31 08:31 08:39 WBC 12.4 H (4.3-11.1) K/mcL RBC 4.14 (3.82-4.97) M/mcL Hgb 11.2 L (11.5-15.4) g/dL Hct 35.8 (35.3-44.9) % MCV 86.5 (83.0-100.0) fL MCH 27.1 L (28.0-33.3) pg MCHC 31.3 L (31.6-35.5) g/dL RDW 16.4 H (11.5-14.5) % Plt Count 242 (140-400) K/mcL MPV 8.9 L (9.4-12.4) fL Immature Gran % 0.9 (0-4) % Seg Neutrophils % 77.6 % Lymphocytes % 15.4 % Monocytes % 3.5 % Eosinophils % 2.4 % Basophils % 0.2 % Neutrophils # 9.7 H (1.6-8.9) K/mcL Lymphocytes # 1.9 (0.6-4.6) K/mcL Monocytes # 0.4 (0.0-1.3) K/mcL Eosinophils # 0.3 (0.0-0.6) K/mcL Basophils # 0.0 (0.0-0.2) K/mcL PT (9.4-12.1) Seconds INR Sample Site R Radial ABG pH 7.32 (7.32-7.45) pH Units ABG pCO2 52 H (35-45) mmHg ABG pO2 93 (85-104) mmHg ABG HCO3 27 (21-27) mEq/L ABG Total CO2 28 H (20-26) mEq/L ABG O2 Saturation 96 (95-98) % ABG Base Excess 0 (-2 to 3) mEq/L Andriy Test Positive Inspired O2 2.0 (1-15=lpm [id number]=%) Sodium (136-145) mEq/L Potassium (3.5-5.1) mEq/L Chloride (98-107) mEq/L Carbon Dioxide (23-29) mEq/L BUN (8-23) mg/dL Creatinine (0.60-1.20) mg/dL Est GFR ( Amer) (> 60) Est GFR (Non-Af Amer) (> 60) BUN/Creatinine Ratio (6-26) Glucose (70-105) mg/dL POC Glucose 121 H (70-99) mg/dL Calculated Osmolality (280-300) Lactic Acid (0.5-2.2) mmol/L Calcium (8.6-10.3) mg/dL Total Bilirubin (0.3-1.0) mg/dL Direct Bilirubin (0.0-0.2) mg/dL Indirect Bilirubin (0.0-1.2) mg/dL AST (13-39) Units/L ALT (7-52) Units/L Alkaline Phosphatase (34-104) Units/L Ammonia (16-53) mcmol/L Troponin I (< 0.04) ng/mL Serum Total Protein (6.4-8.9) g/dL Albumin (3.5-5.7) g/dL Globulin (2.4-3.5) g/dL Albumin/Globulin Ratio (1.1-2.2) Urine Color (Yellow) Urine Clarity (Clear) Urine pH (5.0-8.0) pH Units Ur Specific [place] (1.010-1.025) Urine Protein (Neg-Trace) mg/dL Urine Glucose (UA) (Normal) mg/dL Urine Ketones (Negative) mg/dL Urine Blood (Negative) Urine Nitrite (Negative) Urine Bilirubin (Negative) Urine Urobilinogen (Normal) mg/dL Ur Leukocyte Esterase (Negative) Urine Microscopic RBC (0-3) per hpf Urine Microscopic WBC (0-3) per hpf Ur Squamous Epith Cells (None-Few) per lpf Urine Bacteria (None-Few) per hpf Hyaline Casts (None-Few) per lpf Ur Culture Indicated? (NO) 06/29/17 06/29/17 06/29/17 Range/Units 08:39 08:39 08:39 WBC (4.3-11.1) K/mcL RBC (3.82-4.97) M/mcL Hgb (11.5-15.4) g/dL Hct (35.3-44.9) % MCV (83.0-100.0) fL MCH (28.0-33.3) pg MCHC (31.6-35.5) g/dL RDW (11.5-14.5) % Plt Count (140-400) K/mcL MPV (9.4-12.4) fL Immature Gran % (0-4) % Seg Neutrophils % % Lymphocytes % % Monocytes % % Eosinophils % % Basophils % % Neutrophils # (1.6-8.9) K/mcL Lymphocytes # (0.6-4.6) K/mcL Monocytes # (0.0-1.3) K/mcL Eosinophils # (0.0-0.6) K/mcL Basophils # (0.0-0.2) K/mcL PT 20.8 H (9.4-12.1) Seconds INR 1.9 Sample Site ABG pH (7.32-7.45) pH Units ABG pCO2 (35-45) mmHg ABG pO2 (85-104) mmHg ABG HCO3 (21-27) mEq/L ABG Total CO2 (20-26) mEq/L ABG O2 Saturation (95-98) % ABG Base Excess (-2 to 3) mEq/L Andriy Test Inspired O2 (1-15=lpm [id number]=%) Sodium 136 (136-145) mEq/L Potassium 4.4 (3.5-5.1) mEq/L Chloride 103 (98-107) mEq/L Carbon Dioxide 25 (23-29) mEq/L BUN 36 H (8-23) mg/dL Creatinine 1.06 (0.60-1.20) mg/dL Est GFR ( Amer) > 60 (> 60) Est GFR (Non-Af Amer) 52 L (> 60) BUN/Creatinine Ratio 34 H (6-26) Glucose 135 H (70-105) mg/dL POC Glucose (70-99) mg/dL Calculated Osmolality 292 (280-300) Lactic Acid (0.5-2.2) mmol/L Calcium 9.1 (8.6-10.3) mg/dL Total Bilirubin 0.4 (0.3-1.0) mg/dL Direct Bilirubin 0.1 (0.0-0.2) mg/dL Indirect Bilirubin 0.3 (0.0-1.2) mg/dL AST 17 (13-39) Units/L ALT 10 (7-52) Units/L Alkaline Phosphatase 117 H (34-104) Units/L Ammonia 26 (16-53) mcmol/L Troponin I < 0.03 (< 0.04) ng/mL Serum Total Protein 6.9 (6.4-8.9) g/dL Albumin 3.9 (3.5-5.7) g/dL Globulin 3.0 (2.4-3.5) g/dL Albumin/Globulin Ratio 1.3 (1.1-2.2) Urine Color (Yellow) Urine Clarity (Clear) Urine pH (5.0-8.0) pH Units Ur Specific [place] (1.010-1.025) Urine Protein (Neg-Trace) mg/dL Urine Glucose (UA) (Normal) mg/dL Urine Ketones (Negative) mg/dL Urine Blood (Negative) Urine Nitrite (Negative) Urine Bilirubin (Negative) Urine Urobilinogen (Normal) mg/dL Ur Leukocyte Esterase (Negative) Urine Microscopic RBC (0-3) per hpf Urine Microscopic WBC (0-3) per hpf Ur Squamous Epith Cells (None-Few) per lpf Urine Bacteria (None-Few) per hpf Hyaline Casts (None-Few) per lpf Ur Culture Indicated? (NO) 06/29/17 06/29/17 Range/Units 08:39 08:44 WBC (4.3-11.1) K/mcL RBC (3.82-4.97) M/mcL Hgb (11.5-15.4) g/dL Hct (35.3-44.9) % MCV (83.0-100.0) fL MCH (28.0-33.3) pg MCHC (31.6-35.5) g/dL RDW (11.5-14.5) % Plt Count (140-400) K/mcL MPV (9.4-12.4) fL Immature Gran % (0-4) % Seg Neutrophils % % Lymphocytes % % Monocytes % % Eosinophils % % Basophils % % Neutrophils # (1.6-8.9) K/mcL Lymphocytes # (0.6-4.6) K/mcL Monocytes # (0.0-1.3) K/mcL Eosinophils # (0.0-0.6) K/mcL Basophils # (0.0-0.2) K/mcL PT (9.4-12.1) Seconds INR Sample Site ABG pH (7.32-7.45) pH Units ABG pCO2 (35-45) mmHg ABG pO2 (85-104) mmHg ABG HCO3 (21-27) mEq/L ABG Total CO2 (20-26) mEq/L ABG O2 Saturation (95-98) % ABG Base Excess (-2 to 3) mEq/L Andriy Test Inspired O2 (1-15=lpm [id number]=%) Sodium (136-145) mEq/L Potassium (3.5-5.1) mEq/L Chloride (98-107) mEq/L Carbon Dioxide (23-29) mEq/L BUN (8-23) mg/dL Creatinine (0.60-1.20) mg/dL Est GFR ( Amer) (> 60) Est GFR (Non-Af Amer) (> 60) BUN/Creatinine Ratio (6-26) Glucose (70-105) mg/dL POC Glucose (70-99) mg/dL Calculated Osmolality (280-300) Lactic Acid 1.7 (0.5-2.2) mmol/L Calcium (8.6-10.3) mg/dL Total Bilirubin (0.3-1.0) mg/dL Direct Bilirubin (0.0-0.2) mg/dL Indirect Bilirubin (0.0-1.2) mg/dL AST (13-39) Units/L ALT (7-52) Units/L Alkaline Phosphatase (34-104) Units/L Ammonia (16-53) mcmol/L Troponin I (< 0.04) ng/mL Serum Total Protein (6.4-8.9) g/dL Albumin (3.5-5.7) g/dL Globulin (2.4-3.5) g/dL Albumin/Globulin Ratio (1.1-2.2) Urine Color Yellow (Yellow) Urine Clarity Clear (Clear) Urine pH 5.5 (5.0-8.0) pH Units Ur Specific [place] 1.022 (1.010-1.025) Urine Protein Negative (Neg-Trace) mg/dL Urine Glucose (UA) Normal (Normal) mg/dL Urine Ketones Negative (Negative) mg/dL Urine Blood Moderate H (Negative) Urine Nitrite Negative (Negative) Urine Bilirubin Negative (Negative) Urine Urobilinogen Normal (Normal) mg/dL Ur Leukocyte Esterase Negative (Negative) Urine Microscopic RBC 15-30 H (0-3) per hpf Urine Microscopic WBC 0-3 (0-3) per hpf Ur Squamous Epith Cells Many H (None-Few) per lpf Urine Bacteria None Seen (None-Few) per hpf Hyaline Casts None Seen (None-Few) per lpf Ur Culture Indicated? NO (NO) Attestation Statement - Attestation Attestation: I examined this patient and my medical decision-making was reviewed with the Resident Physician. I agree with the documented findings, disposition and treatment plan as described except to the extent set forth below. [id number] time provided Patient arrives by EMS from extended care facility for changes in mentation. She has a recent history of admission for atrial flutter with RVR. On exam the patient has a resting tremor. She is lying supine position with her eyes closed. She answers questions, is protecting her airway. Baseline medication list reviewed by me
[2017-06-29 08:34] LABS: ABG Base Excess 0 mEq/L (-2 to 3); ABG HCO3 27 mEq/L (21-27); ABG Oxygen Saturation 96 % (95-98); ABG PCO2 52 mmHg (35-45); ABG PH 7.32 pH Units (7.32-7.45); ABG PO2 93 mmHg (85-104); ABG TCO2 28 mEq/L (20-26)
--- NOTE | 2017-06-29 08:38 | Emergency Department Note ---
Disposition Clinical Impression: Acute exacerbation of CHF (congestive heart failure) Qualifiers: Heart failure type: unspecified Qualified Code(s): I50.9 - Heart failure, unspecified Atrial fibrillation Qualifiers: Atrial fibrillation type: unspecified Qualified Code(s): I48.91 - Unspecified atrial fibrillation Fatigue Qualifiers: Fatigue type: other Qualified Code(s): R53.83 - Other fatigue Disposition: Admitted As Inpatient Condition: Fair Time of Disposition: 09:42 Altered Mental Status HPI - General Chief Complaint: ED Altered Mental Status Stated Complaint: AMS Time Seen by Provider: 06/29/17 08:15 Source: EMS Limitations: physical limitation Nursing Notes Reviewed: Yes Vital Signs Reviewed: Yes - History of Present Illness HPI Narrative: Mrs. Francisco presents from [facility] via EMS for evaluation of changes in mentation. Per [facility]CF signed out to EMS, patient was at baseline on going to bed last night. On their inspection this morning, she was sleepy and fatigued with generalized weakness. EMS notes the patient has increased swelling of her legs as she is well-known to them. EMS also notes that the patient's mentation was waxing and waning in route. Patient's only complaint is generalized weakness and the desire to go to sleep. Patient was discharged from this facility 2 days ago for a flutter with RVR. She was cardioverted at that time. PMH: coronary artery disease, diabetes, hyperlipidemia, AK and congestive heart failure along with paroxysmal atrial fibrillation, atrial flutter. ROS: Positive: As above Negative: Fever, chills, nausea, vomiting, chest pains, palpitations, unusual back pains, unilateral numbness/tingling/weakness, confusion, changes in vision - Related Data Home Medications Medication Instructions Recorded Confirmed Ascorbic Acid [Vitamin C] 500 mg PO BID 06/13/15 06/20/17 Aspirin [Adult Low Dose Aspirin EC] 81 mg PO DAILY 06/13/15 06/20/17 Insulin ASPART [NovoLOG] 2 - 12 unit SQ QID #0 06/13/15 06/20/17 Metformin HCl [Glucophage] 1,000 mg PO BID 06/13/15 06/20/17 Multivit/Ca/Min/Fe/FA [Thera M 1 tab PO DAILY 06/13/15 06/20/17 Plus] Rivaroxaban [Xarelto] 20 mg PO HS 06/13/15 06/20/17 Ropinirole HCl [Requip] 0.5 mg PO HS 06/13/15 06/20/17 Sennosides/Docusate Sodium [Senna 1 tab PO DAILY 06/13/15 06/20/17 Plus] Simvastatin [Zocor] 40 mg PO DAILY #0 06/13/15 06/20/17 SitaGLIPtin [Januvia] 100 mg PO DAILY 06/13/15 06/20/17 Zinc Sulfate 220 mg PO BID 06/13/15 06/20/17 Carbidopa/Levodopa 1 tab PO HS 03/16/16 06/20/17 [Carbidopa-Levodopa 25-100 Tab] Insulin DETEMIR [Levemir Flextouch] 14 unit SQ HS 03/16/16 06/20/17 Insulin ASPART [NovoLOG] 7 unit SQ TIDWM 09/27/16 06/20/17 Methyl Salicylate/Menthol [Bengay] 1 appl TP BID PRN 09/27/16 06/20/17 Nitroglycerin 0.4 mg SL Q5MIN PRN 09/27/16 06/20/17 Isosorbide MONOnitrate [Isosorbide 120 mg PO DAILY 06/20/17 06/20/17 Mononitrate ER] Menthol/Zinc Oxide [Calmoseptine 1 appl TP BID 06/20/17 06/20/17 Ointment Packet] Nystatin POWDER [Nystop] 1 appl TP BID 06/20/17 06/20/17 Potassium Chloride [Klor-Con 10] 10 meq PO BID 06/20/17 06/20/17 Sertraline [Zoloft] 100 mg PO DAILY 06/20/17 06/20/17 Spironolactone [Aldactone] 50 mg PO BID 06/20/17 06/20/17 metOLazone [Zaroxolyn] 2.5 mg PO DAILY 06/20/17 06/20/17 Previous Rx's Medication Instructions Recorded Furosemide [Lasix] 40 mg PO DAILY tab 09/30/16 Diltiazem CD (24hr) [Cardizem CD] 360 mg PO DAILY #60 cap.er.24h 06/26/17 Insulin DETEMIR [Levemir] 20 unit SQ DAILY [id number] 06/26/17 LORazepam [Ativan] 0.5 mg PO BID 5 Days #10 tablet 06/26/17 Amiodarone [Cordarone] 200 mg PO DAILY #40 tablet 06/27/17 Oxycodone HCl/Acetaminophen 1 tab PO Q4H PRN 5 Days #10 tablet 06/27/17 [Percocet 5-325 mg Tablet] Allergies Allergy/AdvReac Type Severity Reaction Status Date / Time Sulfa (Sulfonamide Allergy See Verified 06/12/15 20:58 Antibiotics) Comments tramadol AdvReac Nausea Verified 06/12/15 20:58 All systems ED: reviewed and negative except as stated. Review of Systems: As Per HPI Past Medical History - Past Medical History Medical history: Reports: CHF, coronary artery disease, diabetes, hyperlipidemia , myocardial infarction Surgical history: Reports: angioplasty/stent, , cholecystectomy, orthopedic, other Psychiatric history: Reports: anxiety, depression - Social History Smoking Status: Never smoker Smokeless Tobacco Status: No Alcohol use: Reports: none Drug use: Reports: none Physical Exam Vital Signs Reviewed General: Patient is alert, oriented, and in no acute distress. She is answering questions properly and maintaining her airway. She is lying supine in bed with her eyes closed but will open to voice. Head: atraumatic, normocephalic Eye: normal appearance, no scleral icterus, no conjunctival injection ENT: mucous membranes moist, normal external ear exam Neck: normal inspection, trachea midline, full ROM Chest: normal inspection, symmetric chest rise Respiratory: Poor respiratory effort. Bilateral breath sounds are clear without wheezing, crackles, or rhonchi. Cardiovascular: Tachycardic rate and regular rhythm. No clicks, rubs, gallops, or murmors. 1+ pitting bilateral pedal edema. Abdomen: Obese. Abdomen is soft, nondistended, and nontender. No guarding or rebound. Musculoskeletal: Spontaneously moving all extremities. Skin: warm, dry, intact. Neuro: Alert and oriented x4. Sensation light touch intact bilaterally. Strength equal bilaterally. No facial asymmetry. No slurring of speech. Psych: Patient's affect is appropriate for situation. - General Limitations: physical limitation Course Course Narrative: Patient is in a flutter on bedside monitor, EMS to lead, and 12-lead EKG. She does have pitting pedal edema however unsure of her baseline. Sounds are diminished secondary to patient's body habitus and poor respiratory effort. Chest x-ray is concerning for pleural effusion and pulmonary edema consistent with acute exacerbation of congestive heart failure. CT head is unremarkable per radiology read. Urinalysis not concerning for UTI. Lab work otherwise unremarkable. She is not in a restaurant distress. No need for BiPAP at this time. Provided 40 mg Lasix IV in the emergency department. Patient is in agreement to admission for evaluation of her acute exacerbation of congestive heart failure. I discussed the patient with the admitting hospitalist, Dr. Etienne, who agrees to accept the patient for continued evaluation and management. Chest X-Ray 06/29/17 08:17 IMPRESSION: 1. Findings are suggestive of component of pulmonary edema. Persistent marked enlargement of the cardiomediastinal silhouette. 2. Right pleural effusion, with or without associated right basilar pulmonary opacity. Recommend radiographic follow-up to complete resolution. D/ / Des Coronado MD / Des Coronado MD Interpreting Provider: Des Coronado MD Head CT 06/29/17 08:17 IMPRESSION: Minimal sequela of chronic small vessel ischemic change. No acute intracranial abnormality is seen. D/ / 06/29/2017 09:23:19 Higinio Wild MD / gary Interpreting Provider: Higinio Wild MD Vital Signs Temperature 97.7 F 06/29/17 08:16 Pulse Rate 122 06/29/17 08:16 Respiratory Rate 12 06/29/17 08:16 Blood Pressure 136/80 06/29/17 08:16 O2 Sat by Pulse Oximetry 95 06/29/17 08:16 Temperature 97.7 F 06/29/17 08:16 Pulse Rate 122 06/29/17 08:26 Respiratory Rate 20 06/29/17 08:26 Blood Pressure 136/80 06/29/17 08:26 O2 Sat by Pulse Oximetry 100 06/29/17 08:47 Oxygen Delivery Oxygen Delivery Nasal Cannula Altered Mental Status - Lab Data Result diagrams: 06/29/17 08:39 06/29/17 08:39 Lab Results 06/29/17 06/29/17 06/29/17 Range/Units 08:31 08:39 08:39 WBC 12.4 H (4.3-11.1) K/mcL RBC 4.14 (3.82-4.97) M/mcL Hgb 11.2 L (11.5-15.4) g/dL Hct 35.8 (35.3-44.9) % MCV 86.5 (83.0-100.0) fL MCH 27.1 L (28.0-33.3) pg MCHC 31.3 L (31.6-35.5) g/dL RDW 16.4 H (11.5-14.5) % Plt Count 242 (140-400) K/mcL MPV 8.9 L (9.4-12.4) fL Immature Gran % 0.9 (0-4) % Seg Neutrophils % 77.6 % Lymphocytes % 15.4 % Monocytes % 3.5 % Eosinophils % 2.4 % Basophils % 0.2 % Neutrophils # 9.7 H (1.6-8.9) K/mcL Lymphocytes # 1.9 (0.6-4.6) K/mcL Monocytes # 0.4 (0.0-1.3) K/mcL Eosinophils # 0.3 (0.0-0.6) K/mcL Basophils # 0.0 (0.0-0.2) K/mcL PT 20.8 H (9.4-12.1) Seconds INR 1.9 Sample Site R Radial ABG pH 7.32 (7.32-7.45) pH Units ABG pCO2 52 H (35-45) mmHg ABG pO2 93 (85-104) mmHg ABG HCO3 27 (21-27) mEq/L ABG Total CO2 28 H (20-26) mEq/L ABG O2 Saturation 96 (95-98) % ABG Base Excess 0 (-2 to 3) mEq/L Andriy Test Positive Inspired O2 2.0 (1-15=lpm [id number]=%) Sodium (136-145) mEq/L Potassium (3.5-5.1) mEq/L Chloride (98-107) mEq/L Carbon Dioxide (23-29) mEq/L BUN (8-23) mg/dL Creatinine (0.60-1.20) mg/dL Est GFR ( Amer) (> 60) Est GFR (Non-Af Amer) (> 60) BUN/Creatinine Ratio (6-26) Glucose (70-105) mg/dL Calculated Osmolality (280-300) Lactic Acid (0.5-2.2) mmol/L Calcium (8.6-10.3) mg/dL Total Bilirubin (0.3-1.0) mg/dL Direct Bilirubin (0.0-0.2) mg/dL Indirect Bilirubin (0.0-1.2) mg/dL AST (13-39) Units/L ALT (7-52) Units/L Alkaline Phosphatase (34-104) Units/L Ammonia (16-53) mcmol/L Troponin I (< 0.04) ng/mL Serum Total Protein (6.4-8.9) g/dL Albumin (3.5-5.7) g/dL Globulin (2.4-3.5) g/dL Albumin/Globulin Ratio (1.1-2.2) Urine Color (Yellow) Urine Clarity (Clear) Urine pH (5.0-8.0) pH Units Ur Specific [place] (1.010-1.025) Urine Protein (Neg-Trace) mg/dL Urine Glucose (UA) (Normal) mg/dL Urine Ketones (Negative) mg/dL Urine Blood (Negative) Urine Nitrite (Negative) Urine Bilirubin (Negative) Urine Urobilinogen (Normal) mg/dL Ur Leukocyte Esterase (Negative) Urine Microscopic RBC (0-3) per hpf Urine Microscopic WBC (0-3) per hpf Ur Squamous Epith Cells (None-Few) per lpf Urine Bacteria (None-Few) per hpf Hyaline Casts (None-Few) per lpf Ur Culture Indicated? (NO) 06/29/17 06/29/17 06/29/17 Range/Units 08:39 08:39 08:39 WBC (4.3-11.1) K/mcL RBC (3.82-4.97) M/mcL Hgb (11.5-15.4) g/dL Hct (35.3-44.9) % MCV (83.0-100.0) fL MCH (28.0-33.3) pg MCHC (31.6-35.5) g/dL RDW (11.5-14.5) % Plt Count (140-400) K/mcL MPV (9.4-12.4) fL Immature Gran % (0-4) % Seg Neutrophils % % Lymphocytes % % Monocytes % % Eosinophils % % Basophils % % Neutrophils # (1.6-8.9) K/mcL Lymphocytes # (0.6-4.6) K/mcL Monocytes # (0.0-1.3) K/mcL Eosinophils # (0.0-0.6) K/mcL Basophils # (0.0-0.2) K/mcL PT (9.4-12.1) Seconds INR Sample Site ABG pH (7.32-7.45) pH Units ABG pCO2 (35-45) mmHg ABG pO2 (85-104) mmHg ABG HCO3 (21-27) mEq/L ABG Total CO2 (20-26) mEq/L ABG O2 Saturation (95-98) % ABG Base Excess (-2 to 3) mEq/L Andriy Test Inspired O2 (1-15=lpm [id number]=%) Sodium 136 (136-145) mEq/L Potassium 4.4 (3.5-5.1) mEq/L Chloride 103 (98-107) mEq/L Carbon Dioxide 25 (23-29) mEq/L BUN 36 H (8-23) mg/dL Creatinine 1.06 (0.60-1.20) mg/dL Est GFR ( Amer) > 60 (> 60) Est GFR (Non-Af Amer) 52 L (> 60) BUN/Creatinine Ratio 34 H (6-26) Glucose 135 H (70-105) mg/dL Calculated Osmolality 292 (280-300) Lactic Acid 1.7 (0.5-2.2) mmol/L Calcium 9.1 (8.6-10.3) mg/dL Total Bilirubin 0.4 (0.3-1.0) mg/dL Direct Bilirubin 0.1 (0.0-0.2) mg/dL Indirect Bilirubin 0.3 (0.0-1.2) mg/dL AST 17 (13-39) Units/L ALT 10 (7-52) Units/L Alkaline Phosphatase 117 H (34-104) Units/L Ammonia 26 (16-53) mcmol/L Troponin I < 0.03 (< 0.04) ng/mL Serum Total Protein 6.9 (6.4-8.9) g/dL Albumin 3.9 (3.5-5.7) g/dL Globulin 3.0 (2.4-3.5) g/dL Albumin/Globulin Ratio 1.3 (1.1-2.2) Urine Color (Yellow) Urine Clarity (Clear) Urine pH (5.0-8.0) pH Units Ur Specific [place] (1.010-1.025) Urine Protein (Neg-Trace) mg/dL Urine Glucose (UA) (Normal) mg/dL Urine Ketones (Negative) mg/dL Urine Blood (Negative) Urine Nitrite (Negative) Urine Bilirubin (Negative) Urine Urobilinogen (Normal) mg/dL Ur Leukocyte Esterase (Negative) Urine Microscopic RBC (0-3) per hpf Urine Microscopic WBC (0-3) per hpf Ur Squamous Epith Cells (None-Few) per lpf Urine Bacteria (None-Few) per hpf Hyaline Casts (None-Few) per lpf Ur Culture Indicated? (NO) 06/29/17 Range/Units 08:44 WBC (4.3-11.1) K/mcL RBC (3.82-4.97) M/mcL Hgb (11.5-15.4) g/dL Hct (35.3-44.9) % MCV (83.0-100.0) fL MCH (28.0-33.3) pg MCHC (31.6-35.5) g/dL RDW (11.5-14.5) % Plt Count (140-400) K/mcL MPV (9.4-12.4) fL Immature Gran % (0-4) % Seg Neutrophils % % Lymphocytes % % Monocytes % % Eosinophils % % Basophils % % Neutrophils # (1.6-8.9) K/mcL Lymphocytes # (0.6-4.6) K/mcL Monocytes # (0.0-1.3) K/mcL Eosinophils # (0.0-0.6) K/mcL Basophils # (0.0-0.2) K/mcL PT (9.4-12.1) Seconds INR Sample Site ABG pH (7.32-7.45) pH Units ABG pCO2 (35-45) mmHg ABG pO2 (85-104) mmHg ABG HCO3 (21-27) mEq/L ABG Total CO2 (20-26) mEq/L ABG O2 Saturation (95-98) % ABG Base Excess (-2 to 3) mEq/L Andriy Test Inspired O2 (1-15=lpm [id number]=%) Sodium (136-145) mEq/L Potassium (3.5-5.1) mEq/L Chloride (98-107) mEq/L Carbon Dioxide (23-29) mEq/L BUN (8-23) mg/dL Creatinine (0.60-1.20) mg/dL Est GFR ( Amer) (> 60) Est GFR (Non-Af Amer) (> 60) BUN/Creatinine Ratio (6-26) Glucose (70-105) mg/dL Calculated Osmolality (280-300) Lactic Acid (0.5-2.2) mmol/L Calcium (8.6-10.3) mg/dL Total Bilirubin (0.3-1.0) mg/dL Direct Bilirubin (0.0-0.2) mg/dL Indirect Bilirubin (0.0-1.2) mg/dL AST (13-39) Units/L ALT (7-52) Units/L Alkaline Phosphatase (34-104) Units/L Ammonia (16-53) mcmol/L Troponin I (< 0.04) ng/mL Serum Total Protein (6.4-8.9) g/dL Albumin (3.5-5.7) g/dL Globulin (2.4-3.5) g/dL Albumin/Globulin Ratio (1.1-2.2) Urine Color Yellow (Yellow) Urine Clarity Clear (Clear) Urine pH 5.5 (5.0-8.0) pH Units Ur Specific [place] 1.022 (1.010-1.025) Urine Protein Negative (Neg-Trace) mg/dL Urine Glucose (UA) Normal (Normal) mg/dL Urine Ketones Negative (Negative) mg/dL Urine Blood Moderate H (Negative) Urine Nitrite Negative (Negative) Urine Bilirubin Negative (Negative) Urine Urobilinogen Normal (Normal) mg/dL Ur Leukocyte Esterase Negative (Negative) Urine Microscopic RBC 15-30 H (0-3) per hpf Urine Microscopic WBC 0-3 (0-3) per hpf Ur Squamous Epith Cells Many H (None-Few) per lpf Urine Bacteria None Seen (None-Few) per hpf Hyaline Casts None Seen (None-Few) per lpf Ur Culture Indicated? NO (NO) TPA Checklist - LKW: 3-4.5 hrs Add. Warnings/Precautions Patient/family understanding: The patient/family members have been counseled and understood the risk, benefit , and alternatives of treatment.
[2017-06-29 08:53] LABS: Basophils % 0.2 %; Eosinophils # 0.3 K/mcL (0.0-0.6); Eosinophils % 2.4 %; Hematocrit 35.8 % (35.3-44.9); Hemoglobin 11.2 g/dL (11.5-15.4); Immature Granulocytes % 0.9 % (0-4); Lymphocytes # 1.9 K/mcL (0.6-4.6); Lymphocytes % 15.4 %; Mean Corpuscular HGB Conc 31.3 g/dL (31.6-35.5); Mean Corpuscular Hemoglobin 27.1 pg (28.0-33.3); Mean Corpuscular Volume 86.5 fL (83.0-100.0); Mean Platelet Volume 8.9 fL (9.4-12.4); Monocytes # 0.4 K/mcL (0.0-1.3); Monocytes % 3.5 %; Neutrophils # 9.7 K/mcL (1.6-8.9); Platelet Count 242 K/mcL (140-400); Red Blood Count 4.14 M/mcL (3.82-4.97); Red Cell Distribution Width 16.4 % (11.5-14.5); Segmented Neutrophils % 77.6 %
[2017-06-29 08:54] LABS: Bilirubin,Urine Negative (Negative); Blood,Urine Moderate (Negative); Clarity,Urine Clear (Clear); Color,Urine Yellow (Yellow); Glucose,Urine (UA) Normal (Normal); Ketones,Urine Negative (Negative); Leukocyte Esterase,Urine Negative (Negative); Nitrite,Urine Negative (Negative); PH,Urine 5.5 pH Units (5.0-8.0); Protein,Urine Negative (Neg-Trace); Specific Gravity,Urine 1.022 (1.010-1.025); Urobilinogen,Urine Normal (Normal)
[2017-06-29 08:57] LABS: Bacteria,Urine None Seen per hpf (None-Few); Hyaline Casts,Urine None Seen per lpf (None-Few); RBC,Urine 15-30 per hpf (0-3); Squamous Epithelial Cell,Urine Many per lpf (None-Few); WBC,Urine 0-3 per hpf (0-3)
[2017-06-29 08:57] LABS: INR 1.9; Prothrombin Time 20.8 Seconds (9.4-12.1)
[2017-06-29 09:10] LABS: Troponin I < 0.03 ng/mL (< 0.04)
[2017-06-29 09:11] LABS: Alanine Aminotransferase 10 Units/L (7-52); Albumin 3.9 g/dL (3.5-5.7); Albumin/Globulin Ratio 1.3 (1.1-2.2); Alkaline Phosphatase 117 Units/L (34-104); Aspartate Amino Transferase 17 Units/L (13-39); BUN/Creatinine Ratio 34 (6-26); Bilirubin,Direct 0.1 mg/dL (0.0-0.2); Bilirubin,Indirect 0.3 mg/dL (0.0-1.2); Bilirubin,Total 0.4 mg/dL (0.3-1.0); Blood Urea Nitrogen 36 mg/dL (8-23); Calcium 9.1 mg/dL (8.6-10.3); Carbon Dioxide 25 mEq/L (23-29); Chloride 103 mEq/L (98-107); Glucose 135 mg/dL (70-105); Osmolality,Calculated 292 (280-300); Potassium 4.4 mEq/L (3.5-5.1); Sodium 136 mEq/L (136-145); Total Protein 6.9 g/dL (6.4-8.9); eGFR For African Americans > 60 (> 60); eGFR For Non-African Americans 52 (> 60)
[2017-06-29] MEDS ORDERED: Furosemide 40 MG/4 ML VIAL IVP ONE (09:16)
[2017-06-29] MEDS ORDERED: Naloxone 0.4 MG/ML INJ IVP PRN (12:03)
[2017-06-29] MEDS ORDERED: Acetaminophen 325 MG TABLET PO PRN (12:03)
[2017-06-29] MEDS ORDERED: Nitroglycerin 0.4 MG TAB.SUBL SL PRN (12:08)
[2017-06-29] MEDS ORDERED: *HR* OxyCODONE/APAP 5/325 TABLET PO PRN (12:08)
[2017-06-29] MEDS ORDERED: *HR* Dextrose 50 % in Water (Syg) 50 ML SYRINGE IVP PRN (12:27)
[2017-06-29] MEDS ORDERED: D5% in Water 1,000 ML IVC PRN (12:27)
[2017-06-29] MEDS ORDERED: Dextrose Gel 15 GM/37.5 ML TUBE PO PRN ×2 (12:27)
--- NOTE | 2017-06-29 12:41 | Internal Med History&Physical ---
Date of Encounter: 06/29/17 Time of Encounter: 12:40 Internal Medicine - H&P: HPI Chief complaint: palpitations. Admitted From: Emergency Dept Plans for Post Hospital Care: Home History of present illness: Ms. Francisco is a 67 year old female Cardiology: Dr. Enrique Coyle Brief past medical history: Diabetes, hypertension, dyslipidemia, previous myocardial infarction, heart failure with preserved ejection fraction, atrial fibrillation with rapid ventricular rate status post cardioversion. History of present medical illness: Patient was recently hospitalized here for atrial ablation with rapid ventricular rate. Patient underwent cardiac evaluation. Patient underwent cardioversion by cardiology. Patient was transferred to longterm for further evaluation. Noted that in the longterm patient was drowsy and patient was complaining of palpitation. This was the reason patient was sent to this hospital for further evaluation. Upon examining the patient patient claims that she does not have a chest pain, nausea, vomiting, dizziness or diarrhea. Workup in the ER: Patient was evaluated in the emergency room. Basic labs were drawn. X-ray chest was done. Noted that on the EKG patient was evaluated with rapid ventricular rate. Reason for admission: Atrial ablation with a rapid ventricular rate with possible/probably failed cardioversion. Family history: Noncontributory Past Med Surg Social Fam HX - Past Medical History Medical history: CHF, coronary artery disease, diabetes, hyperlipidemia, myocardial infarction Psychiatric history: anxiety, depression - Past Surgical History Surgical History: angioplasty/stent, , cholecystectomy, orthopedic, other - Social History Smoking Status: Never smoker Smokeless Tobacco Status: No Alcohol use: none Drug use: none - Family History Father Family Member Ethnicity: Non- Living Status: Hx Family Cardiac Disorders: Yes Hx Family Respiratory Disorders: Yes Hx Family Cancer: No Brother Family Member Ethnicity: Non- Living Status: Hx Family Cardiac Disorders: No Hx Family Respiratory Disorders: No Hx Family Cancer: Yes Sister Family Member Ethnicity: Non- Living Status: Hx Family Cardiac Disorders: Yes Hx Family Respiratory Disorders: No Mother Adopted: No Family Member Ethnicity: Non- Living Status: Hx Family Cardiac Disorders: Yes Hx Family Respiratory Disorders: Yes Hx Family Cancer: No Hx Family GI Disorders: No Hx Family Endocrine Disorder: No Hx Family Neuromuscular Disorders: No Hx Family Neurologic Disorders: No Hx Family HEENT Disorders: Yes Hx Family Autoimmune Disorders: No Internal Medicine - H&P: Meds Ascorbic Acid [Vitamin C] 500 mg PO BID 06/13/15 [History] Aspirin [Adult Low Dose Aspirin EC] 81 mg PO DAILY 06/13/15 [History] Insulin ASPART [NovoLOG] 2 - 12 unit SQ QID PRN #0 06/13/15 [History] Metformin HCl [Glucophage] 1,000 mg PO BID 06/13/15 [History] Rivaroxaban [Xarelto] 20 mg PO HS 06/13/15 [History] Ropinirole HCl [Requip] 0.5 mg PO HS 06/13/15 [History] Sennosides/Docusate Sodium [Senna Plus] 1 tab PO DAILY 06/13/15 [History] Simvastatin [Zocor] 40 mg PO DAILY #0 06/13/15 [History] SitaGLIPtin [Januvia] 100 mg PO DAILY 06/13/15 [History] Zinc Sulfate 220 mg PO BID 06/13/15 [History] Carbidopa/Levodopa [Carbidopa-Levodopa 25-100 Tab] 1 tab PO HS 03/16/16 [History ] Insulin DETEMIR [Levemir Flextouch] 14 unit SQ HS 03/16/16 [History] Nitroglycerin 0.4 mg SL Q5MIN PRN 09/27/16 [History] Isosorbide MONOnitrate [Isosorbide Mononitrate ER] 120 mg PO DAILY 06/20/17 [ History] Menthol/Zinc Oxide [Calmoseptine Ointment Packet] 1 appl TP BID 06/20/17 [ History] Nystatin POWDER [Nystop] 1 appl TP BID 06/20/17 [History] Potassium Chloride [Klor-Con 10] 10 meq PO BID 06/20/17 [History] Sertraline [Zoloft] 100 mg PO DAILY 06/20/17 [History] Spironolactone [Aldactone] 50 mg PO BID 06/20/17 [History] metOLazone [Zaroxolyn] 2.5 mg PO DAILY 06/20/17 [History] Diltiazem CD (24hr) [Cardizem CD] 360 mg PO DAILY #60 cap.er.24h 06/26/17 [Rx] Amiodarone [Cordarone] 200 mg PO DAILY #40 tablet 06/27/17 [Rx] Oxycodone HCl/Acetaminophen [Percocet 5-325 mg Tablet] 1 tab PO Q4H PRN 5 Days # 10 tablet 06/27/17 [Rx] Insulin DETEMIR [Levemir] 70 unit SQ QAM 06/29/17 [History] LORazepam [Ativan] 0.5 mg PO Q8H PRN 06/29/17 [History] 3 Allergy/AdvReac Type Severity Reaction Status Date / Time Sulfa (Sulfonamide Allergy See Verified 06/12/15 20:58 Antibiotics) Comments tramadol AdvReac Nausea Verified 06/12/15 20:58 All Systems PM: A 10-system review of systems was performed and is negative for pertinent findings except as documented above in the HPI. - Constitutional Constitutional: fatigue, lethargy, malaise, weakness, no chills, no fever(s), no night sweats - EENT Eyes: no change in vision, no discharge, no pain, no photophobia Ears: no ear discharge, no ear pain, no tinnitus Nose, mouth and throat: no dysphagia, no nasal discharge, no neck pain, no sore throat - Cardiovascular Cardiovascular ROS IM: no chest pain, no diaphoresis, no dyspnea, no lightheadedness, no palpitations, no syncope - Respiratory Respiratory: dyspnea on exertion, no cough, no dyspnea, no wheezing, no excessive phlegm production - Gastrointestinal Gastrointestinal: no abdominal pain, no diarrhea, no hematemesis, no hematochezia, no melena, no nausea, no vomiting - Genitourinary Genitourinary: no change in urinary stream, no dysuria, no flank pain, no hematuria - Musculoskeletal Musculoskeletal ROS IM: no numbness, no tingling - Integumentary Integumentary IM: no rash, no unusual bruising - Neurological Neurological ROS: no confusion, no convulsions, no focal weakness, no numbness, no tingling, no tremor(s) - Hematologic/Lymphatic Hematologic/Lymphatic: no easy bruising - Constitutional Vitals: Temp Pulse Resp BP Pulse Ox 97.4 F L 122 17 113/70 97 06/29/17 11:20 06/29/17 11:20 06/29/17 11:20 06/29/17 11:20 06/29/17 11:20 General appearance: Present: A&O X 3, pleasant, no acute distress, answers questions appropriately - Head Head exam: Present: atraumatic, normocephalic - Eye Eye exam: Present: PERRL, conjuntiva pink, sclera anicteric Pupils: Present: PERRL - Neck Neck exam general surgery: Present: supple, trachea midline. Absent: lymphadenopathy - Respiratory Respiratory exam: Present: CTAB. Absent: accessory muscle use, rales, rhonchi, wheezes - Cardiovascular Cardiovascular exam: Present: RRR, +S1, +S2. Absent: diastolic murmur, gallop, rubs, systolic murmur - GI/Abdominal GI/Abdominal exam: Present: normal bowel sounds, soft, no peritoneal signs. Absent: distended, tenderness - Extremities Exam Extremities exam: Present: warm, radial pulses palpable and symmetrical. Absent : calf tenderness, cyanotic, pedal edema - Neurological Exam Neurological exam: Present: CN II-XII intact, oriented X3, no focal deficits. Absent: pronater drift, facial droop, speech deficit - Skin Skin exam: Present: dry, intact Internal Med - H&P Results - Labs CBC & Chem 7: 06/29/17 08:39 06/29/17 08:39 - Assessment and plan (1) Atrial fibrillation with rapid ventricular response Current Visit: No Status: Acute Assessment and plan: Patient is back to atrial ablation the rapid ventricular rate. We will start patient on Cardizem drip. Current evaluation:Xarelto rate contrl: Metoprolol. cardizem Allergies from the cardiology. Cardiology will see this patient region We will follow the recommendations from cardiology. (2) IDDM (insulin dependent diabetes mellitus) Current Visit: No Status: Acute Assessment and plan: Patient is known to have type 2 diabetes mellitus. Patient is presently on insulin. Patient's blood pressure at this point is within acceptable range. We will follow the recommendations from subcutaneous insulin order set. (3) Morbid obesity Current Visit: No Status: Acute Assessment and plan: Patient will get benefit from outpatient bariatric surgery. (4) Parkinson disease Current Visit: No Status: Acute Assessment and plan: Patient was Parkinson's disease. We will resume home medication. We will closely monitor her mental status. (5) CAD (coronary artery disease) Current Visit: No Status: Chronic Assessment and plan: Patient is known to have a coronary artery disease. At this point patient is chest pain-free. We will closely monitor patient's cardiac status. Qualifiers: Coronary Disease-Associated Artery/Lesion type: [place] artery [place] vs. transplanted heart: [place] heart Associated angina: angina presence unspecified Qualified Code(s): I25.10 - Atherosclerotic heart disease of [place] coronary artery without angina pectoris (6) DVT prophylaxis Current Visit: No Status: Acute Assessment and plan: Xarelto Medical decision making: This patient is a moderate to severe risk of worsening in spite of being on appropriate treatment/medication due to the underlying complex comorbid conditions. - Time Spent With Patient Total time spent is greater than 50% in coordination of care (as documented) at patient's floor/unit and/or counseling patient:
[2017-06-29] MEDS: *HR* Amiodarone 200 MG TABLET PO SCH (13:32)
[2017-06-29] MEDS: Insulin LISPRO 300 UNITS/3 ML VIAL SQ SCH ×2 (15:11→20:44)
[2017-06-29] MEDS: *HR* Rivaroxaban 10 MG TABLET PO SCH (17:36)
[2017-06-29] MEDS: rOPINIRole 0.25 MG TABLET PO SCH (20:46)
[2017-06-29] MEDS: Carbidopa/Levodopa 25/100 TABLET PO SCH (20:46)
[2017-06-29] MEDS: Insulin DETEMIR 100 UNIT/ML X5UNITS SQ SCH (20:46)
[2017-06-29 21:08] LABS: Amphetamine Screen,Urine Negative ng/mL (Cutoff=1000); Barbiturate Screen,Urine Negative ng/mL (Cutoff=200); Benzodiazepines Screen,Urine Negative ng/mL (Cutoff=200); Cannabinoid Screen,Urine Negative ng/mL (Cutoff = 50); Cocaine Screen,Urine Negative ng/mL (Cutoff= 300); Opiate Screen,Urine Positive ng/mL (Cutoff=300); Phencyclidine Screen,Urine Negative ng/mL (Cutoff=25)
[2017-06-29] MEDS ORDERED: 0.9 % Sodium Chloride 500 ML ONE (21:26)
[2017-06-30 02:46] LABS: Alanine Aminotransferase 5 Units/L (7-52); Albumin 3.7 g/dL (3.5-5.7); Albumin/Globulin Ratio 1.4 (1.1-2.2); Alkaline Phosphatase 109 Units/L (34-104); Aspartate Amino Transferase 18 Units/L (13-39); Bilirubin,Total 0.5 mg/dL (0.3-1.0); Calcium 8.9 mg/dL (8.6-10.3); Chol/HDL Ratio 4.3 (0-4.9); Cholesterol 107 mg/dL (< 200); Globulin 2.7 g/dL (2.4-3.5); HDL Cholesterol 25 mg/dL (40-59); LDL Cholesterol,Calculated 44 mg/dL (0-99); Magnesium 2.1 mg/dL (1.6-2.6); Phosphorous 3.2 mg/dL (2.7-4.5); Total Protein 6.4 g/dL (6.4-8.9); Triglycerides 189 mg/dL (< 150)
[2017-06-30 02:47] LABS: BUN/Creatinine Ratio 28 (6-26); Blood Urea Nitrogen 29 mg/dL (8-23); Carbon Dioxide 21 mEq/L (23-29); Chloride 103 mEq/L (98-107); Glucose 117 mg/dL (70-105); Osmolality,Calculated 287 (280-300); Potassium 4.8 mEq/L (3.5-5.1); Sodium 135 mEq/L (136-145); eGFR For African Americans > 60 (> 60); eGFR For Non-African Americans 53 (> 60)
[2017-06-30 02:57] LABS: Activated Partial Thrombo Time 25.2 Seconds (26.0-36.0); INR 2.1; Prothrombin Time 22.8 Seconds (9.4-12.1)
[2017-06-30 03:05] LABS: Basophils % 0.2 %; Eosinophils # 0.3 K/mcL (0.0-0.6); Eosinophils % 2.6 %; Hematocrit 35.8 % (35.3-44.9); Hemoglobin 11.4 g/dL (11.5-15.4); Immature Granulocytes % 0.6 % (0-4); Lymphocytes # 1.9 K/mcL (0.6-4.6); Mean Corpuscular HGB Conc 31.8 g/dL (31.6-35.5); Mean Corpuscular Hemoglobin 27.3 pg (28.0-33.3); Mean Corpuscular Volume 85.6 fL (83.0-100.0); Mean Platelet Volume 9.7 fL (9.4-12.4); Monocytes # 0.4 K/mcL (0.0-1.3); Monocytes % 3.2 %; Neutrophils # 9.7 K/mcL (1.6-8.9); Red Blood Count 4.18 M/mcL (3.82-4.97); Red Cell Distribution Width 16.2 % (11.5-14.5); Segmented Neutrophils % 78.4 %
[2017-06-30 03:54] LABS: Platelet Count 240 K/mcL (140-400)
[2017-06-30] MEDS ORDERED: 0.9 % Sodium Chloride 1,000 ML ONE (03:58)
[2017-06-30] MEDS: Isosorbide MONOnitrate (24 HR) 60 MG TAB.ER.24H PO SCH (07:29)
[2017-06-30] MEDS: Sennosides/Docusate Sodium TABLET PO SCH (07:29)
[2017-06-30] MEDS: metOLazone 2.5 MG TABLET PO SCH (07:29)
[2017-06-30] MEDS: *HR* Amiodarone 200 MG TABLET PO SCH (07:29)
[2017-06-30] MEDS: Aspirin Enteric Coated 81 MG Tablet PO SCH (07:30)
[2017-06-30] MEDS: Insulin LISPRO 300 UNITS/3 ML VIAL SQ SCH ×4 (09:25→21:43)
[2017-06-30] MEDS: Insulin DETEMIR 100 UNIT/ML X5UNITS SQ SCH ×2 (09:44→21:45)
[2017-06-30] MEDS: Diltiazem CD (24hr) 180 MG CAPSULE PO SCH (09:44)
--- NOTE | 2017-06-30 14:50 | Internal Med Progress Note ---
Date of Encounter: 06/30/17 Time of Encounter: 14:48 - Assessment and plan (1) Atrial fibrillation with rapid ventricular response Current Visit: Yes Status: Acute Assessment and plan: known hx A. fib. Recently admitted for A. fib with RVR. Evaluated by cardiology that time who recommended amiodarone 200 mg BID 1 week then decrease to 200 mg daily and continuing oral Cardizem. Found to be in A. fib with RVR on arrival. Cardizem gtt started in ED. Discussed with [facility] SENSITIZER who recommended restarting oral Cardizem and wean Cardizem gtt. hold on official cardiology consult at this time. Home Cardizem resumed, wean gtt as able, amiodarone, Xarelto. Consult Cardiology if needed. (2) Acute on chronic diastolic (congestive) heart failure Current Visit: Yes Status: Acute Assessment and plan: has known diastolic dysfunction (per 2016 TTE). 05/2017 TTE with EF 50% and indeterminate diastolic dysfunction. CXR consistent with pulmonary edema and right pleural effusion. Clinically appears overloaded with shortness of breath and lower extremity edema. Chest CT pending. Start IV Lasix, daily weights, strict I&O's (3) Cellulitis Current Visit: Yes Status: Acute Assessment and plan: Nonpurulent cellulitis to bilateral lower extremities. Start doxycycline Qualifiers: Site of cellulitis: extremity Site of cellulitis of extremity: lower extremity Laterality: left Qualified Code(s): L03.116 - Cellulitis of left lower limb (4) Acute metabolic encephalopathy Current Visit: Yes Status: Acute Assessment and plan: reportedly presented to ED for altered mental status. Head CT nonacute. No UA available for review. Mentation back to baseline, LOC 4. Patient reports receiving another patient's medication at the [facility] and she suspect this is the reason why she became confused. On further workup/testing at this time. (5) IDDM (insulin dependent diabetes mellitus) Current Visit: No Status: Acute Assessment and plan: per hx. Holding home oral hypoglycemics. Blood sugars controlled. SSI. Monitor blood sugar and titrate PRN (6) Parkinson disease Current Visit: No Status: Acute Assessment and plan: per hx. Cont home carbidopa/levodopa. (7) CAD (coronary artery disease) Current Visit: No Status: Chronic Assessment and plan: History of CAD with last catheterization showing diagonal 30%, circumflex 80% with 2 drug-eluting stents. Had negative nuclear stress test February 2016. Echocardiogram in Sep 2016 with normal EF 60-65%, mild RVE, moderate TR, moderate to severe pulm HTN. Currently stable with no recurrent angina. Continue medical therapy. Qualifiers: Coronary Disease-Associated Artery/Lesion type: [place] artery [place] vs. transplanted heart: [place] heart Associated angina: angina presence unspecified Qualified Code(s): I25.10 - Atherosclerotic heart disease of [place] coronary artery without angina pectoris (8) Morbid obesity Current Visit: No Status: Acute Assessment and plan: BMI 54, weight 113 kg (9) DVT prophylaxis Current Visit: No Status: Acute Assessment and plan: Xarelto - Time Spent With Patient Total time spent is greater than 50% in coordination of care (as documented) at patient's floor/unit and/or counseling patient: - Subjective Interval history: Seen and examined at bedside. Patient is new to me, information obtained from chart review and patient report. No chest pain or shortness of breath. She tells me she was given the wrong medication at the [facility]way yesterday that and is why she became confused. Feels back to baseline now. - Constitutional Vitals: Temp Pulse Resp BP Pulse Ox 99.1 F 115 16 95/61 96 06/30/17 11:51 06/30/17 11:51 06/30/17 11:51 06/30/17 11:51 06/30/17 11:51 General appearance: Present: A&O X 3, morbidly obese, pleasant, no acute distress, answers questions appropriately - Head Head exam: Present: atraumatic, normocephalic - Eye Eye exam: Present: PERRL, conjuntiva pink, sclera anicteric Pupils: Present: PERRL - Neck Neck exam general surgery: Present: supple, trachea midline. Absent: lymphadenopathy - Respiratory Respiratory exam: Present: CTAB. Absent: accessory muscle use, rales, rhonchi, wheezes - Cardiovascular Cardiovascular exam: Present: irregular rhythm, +S1, +S2, tachycardia. Absent: diastolic murmur, gallop, rubs, systolic murmur - GI/Abdominal GI/Abdominal exam: Present: normal bowel sounds, soft, no peritoneal signs. Absent: distended, tenderness - Extremities Exam Extremities exam: Present: pedal edema (bilateral lower extremity edema areas of erythema), warm, radial pulses palpable and symmetrical. Absent: calf tenderness, cyanotic - Neurological Exam Neurological exam: Present: CN II-XII intact, oriented X3, no focal deficits. Absent: pronater drift, facial droop, speech deficit - Skin Skin exam: Present: dry, intact Internal Medicine: Result - Labs CBC & Chem 7: 06/30/17 01:02 06/30/17 01:02 Labs: Short CBC 06/30/17 Range/Units 01:02 WBC 12.4 H (4.3-11.1) K/mcL Hgb 11.4 L (11.5-15.4) g/dL Hct 35.8 (35.3-44.9) % Plt Count 240 (140-400) K/mcL Neutrophils # 9.7 H (1.6-8.9) K/mcL BMP 06/30/17 01:02 Sodium 135 L Potassium 4.8 Chloride 103 Carbon Dioxide 21 L BUN 29 H Creatinine 1.03 Glucose 117 H Calcium 8.9 Cardiac Enzymes 06/29/17 06/29/17 06/30/17 Range/Units 14:59 20:38 01:02 Troponin I < 0.03 < 0.03 < 0.03 (< 0.04) ng/mL Liver Function 06/30/17 Range/Units 01:02 Total Bilirubin 0.5 (0.3-1.0) mg/dL AST 18 (13-39) Units/L ALT 5 L (7-52) Units/L Alkaline Phosphatase 109 H (34-104) Units/L Albumin 3.7 (3.5-5.7) g/dL - ABG Interpretation ABG results: ABG ABG pH 7.32 pH Units (7.32-7.45) 06/29/17 08:31 ABG pCO2 52 mmHg (35-45) H 06/29/17 08:31 ABG pO2 93 mmHg (85-104) 06/29/17 08:31 ABG O2 Saturation 96 % (95-98) 06/29/17 08:31 PT/INR, D-dimer PT 22.8 Seconds (9.4-12.1) H 06/30/17 01:02 Consult Discharge Plan - Plan Referrals: Gustavo Alcantara Jr, MD [Primary Care Provider] -
[2017-06-30] MEDS: *HR* Rivaroxaban 10 MG TABLET PO SCH (15:36)
[2017-06-30] MEDS: Furosemide 40 MG/4 ML VIAL IVP SCH (15:36)
[2017-06-30] MEDS: rOPINIRole 0.25 MG TABLET PO SCH (21:40)
[2017-06-30] MEDS: Carbidopa/Levodopa 25/100 TABLET PO SCH (21:40)
[2017-07-01] MEDS: Insulin LISPRO 300 UNITS/3 ML VIAL SQ SCH ×4 (08:09→20:32)
[2017-07-01] MEDS: Insulin DETEMIR 100 UNIT/ML X5UNITS SQ SCH ×2 (08:22→21:00)
[2017-07-01] MEDS: Furosemide 40 MG/4 ML VIAL IVP SCH (08:22)
[2017-07-01] MEDS: Isosorbide MONOnitrate (24 HR) 60 MG TAB.ER.24H PO SCH (08:24)
[2017-07-01] MEDS: *HR* Amiodarone 200 MG TABLET PO SCH (08:25)
[2017-07-01] MEDS: metOLazone 2.5 MG TABLET PO SCH (08:25)
[2017-07-01] MEDS: Aspirin Enteric Coated 81 MG Tablet PO SCH (08:25)
[2017-07-01] MEDS: Diltiazem CD (24hr) 180 MG CAPSULE PO SCH (08:25)
[2017-07-01] MEDS: Sennosides/Docusate Sodium TABLET PO SCH (08:25)
[2017-07-01] MEDS: *HR* Rivaroxaban 10 MG TABLET PO SCH (16:36)
--- NOTE | 2017-07-01 17:00 | Electrocardiograph Report ---
[place] [id number] Test Date: 2017-06-29 Pat Name: Meagan Francisco Department: 102 Room: 3B46 Gender: F Chiropractic Care: : 1950 Requested By: Jim Reyes Order Number: [id number] Reading MD: Deidre Cullen Measurements Intervals [place] Rate: 121 P: CT: 0 QRS: 12 QRSD: 84 T: -55 QT: 338 QTc: 410 Interpretive Statements ATRIAL FLUTTER/TACHYCARDIA WITH RAPID VENTRICULAR RESPONSE LOW QRS VOLTAGE IN PRECORDIAL LEADS [QRS DEFLECTION < 1.0 mV IN CHEST LEADS] Electronically Signed On 07-01-2017 16:58:32 EDT by Deidre Cullen
--- NOTE | 2017-07-01 17:22 | Internal Med Progress Note ---
Date of Encounter: 07/01/17 Time of Encounter: 10:15 - Assessment and plan (1) Atrial fibrillation with rapid ventricular response Current Visit: Yes Status: Acute Assessment and plan: Prior history of A. fib. She was recently admitted for A. fib with RVR and was started on amiodarone 200 mg twice daily for 1 week, it was to be decreased to 200 mg daily and continue her normal dose of oral Cardizem. Patient states that [facility] and was [facility] here for reevaluation. She was found to be A. fib RVR on arrival. A Cardizem drip was started in the emergency department. Agents blood pressure was not able to tolerate Cardizem drip today, it was stopped and we did continue by mouth Cardizem CD. Blood pressure has been all over the place, currently is 117/64. Patient denies any chest pain, palpitations, shortness of breath. Monitor appears to be a flutter. Continue telemetry Continue current medications and monitor patient. Consult cardiology as needed. (2) IDDM (insulin dependent diabetes mellitus) Current Visit: Yes Status: Acute Assessment and plan: Chronic. Continue sliding scale insulin, Accu-Cheks before meals at bedtime, diabetic diet. A1c 7.0% approximately 1 year. We will redraw in the morning. (3) Morbid obesity Current Visit: No Status: Acute Assessment and plan: Chronic. Try to encourage lifestyle modifications. (4) Parkinson disease Current Visit: Yes Status: Chronic Assessment and plan: Chronic. Continue home dose of carbidopa/levodopa. Monitor for safety and falls. (5) CAD (coronary artery disease) Current Visit: Yes Status: Chronic Assessment and plan: Chronic. She denies any chest pain. Continue home medications. Last LHC showed diagonal 30%, circumflex 80%, 2 patent NIESHA. Negative stress test February,. Last echocardiogram 09/2016 showed normal EF of 60-65%, moderate TR, and moderate to severe pulmonary hypertension. Continue telemetry Qualifiers: Coronary Disease-Associated Artery/Lesion type: [place] artery [place] vs. transplanted heart: [place] heart Associated angina: angina presence unspecified Qualified Code(s): I25.10 - Atherosclerotic heart disease of [place] coronary artery without angina pectoris (6) DVT prophylaxis Current Visit: Yes Status: Acute Assessment and plan: Patient is on Xarelto (7) Acute on chronic diastolic (congestive) heart failure Current Visit: Yes Status: Acute Assessment and plan: Known chronic diastolic dysfunction. Chest x-ray shows pulmonary edema and right pleural effusion. Patient is continues to be fluid overloaded with shortness of breath and lower extremity edema. Continue telemetry Continue strict I and O, as well as daily weights. Continue Lasix 40 mg IV daily. There does not appear to be chest CT ordered or pending, will order now. (8) Cellulitis Current Visit: Yes Status: Acute Assessment and plan: Continue doxycycline. Qualifiers: Site of cellulitis: extremity Site of cellulitis of extremity: lower extremity Laterality: left Qualified Code(s): L03.116 - Cellulitis of left lower limb (9) Acute metabolic encephalopathy Current Visit: Yes Status: Acute Assessment and plan: Head CT negative. Patient is alert and oriented, answers questions appropriately. Patient reports she has been given the wrong medication at the jail and states that she is confused due to this. Urine is not indicative of UTI. She was positive for opiates in her urine on admission. Labs and vital signs are within normal limits. Patient has mild leukocytosis, we will continue to monitor. r Chest X-Ray 06/29/17 08:17 IMPRESSION: 1. Findings are suggestive of component of pulmonary edema. Persistent marked enlargement of the cardiomediastinal silhouette. 2. Right pleural effusion, with or without associated right basilar pulmonary opacity. Recommend radiographic follow-up to complete resolution. D/ / Des Coronado MD / Des Coronado MD Interpreting Provider: Des Coronado MD Head CT 06/29/17 08:17 IMPRESSION: Minimal sequela of chronic small vessel ischemic change. No acute intracranial abnormality is seen. D/ / 06/29/2017 09:23:19 Higinio Wild MD / gary Interpreting Provider: Higinio Wild MD - Time Spent With Patient Total time spent is greater than 50% in coordination of care (as documented) at patient's floor/unit and/or counseling patient: less than 15 minutes - Subjective Interval history: Patient was seen and assessed at bedside at 10:15 AM. Patient denies any chest pain. She states that she feels fine. She states that she is aware that her blood pressure dropped too low and the Cardizem and be stopped. She denies any palpitations or chest pain, no increased shortness of breath. 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 She states to stop the drip and continue to monitor. Blood pressure has been all over the place, currently seems to be holding well at 117/64. - Constitutional Vitals: Temp Pulse Resp BP Pulse Ox 97.8 F 80 16 117/64 91 07/01/17 15:05 07/01/17 16:15 07/01/17 15:05 07/01/17 16:15 07/01/17 16:15 General appearance: Present: cooperative, A&O X 3, morbidly obese, pleasant, no acute distress, answers questions appropriately - Head Head exam: Present: atraumatic, normal inspection, normocephalic - Eye Eye exam: Present: normal appearance, conjuntiva pink, sclera anicteric - Neck Neck exam general surgery: Present: normal inspection, supple, trachea midline. Absent: lymphadenopathy, tenderness - Respiratory Respiratory exam: Present: CTAB. Absent: accessory muscle use, rales, respiratory distress, rhonchi, wheezes - Cardiovascular Cardiovascular exam: Present: RRR, +S1, +S2. Absent: diastolic murmur, gallop, rubs, systolic murmur - GI/Abdominal GI/Abdominal exam: Present: normal bowel sounds, soft. Absent: distended, hepatomegaly, tenderness - Extremities Exam Extremities exam: Present: normal capillary refill, normal inspection, warm, radial pulses palpable and symmetrical. Absent: calf tenderness, cyanotic, pedal edema, tenderness - Neurological Exam Neurological exam: Present: alert, oriented X3, no focal deficits. Absent: facial droop, speech deficit - Skin Skin exam: Present: dry, intact, normal color, warm. Absent: rash Internal Medicine: Result - Labs CBC & Chem 7: 06/30/17 01:02 06/30/17 01:02 - ABG Interpretation ABG results: ABG ABG pH 7.32 pH Units (7.32-7.45) 06/29/17 08:31 ABG pCO2 52 mmHg (35-45) H 06/29/17 08:31 ABG pO2 93 mmHg (85-104) 06/29/17 08:31 ABG O2 Saturation 96 % (95-98) 06/29/17 08:31 PT/INR, D-dimer PT 22.8 Seconds (9.4-12.1) H 06/30/17 01:02 Consult Discharge Plan - Plan Referrals: Gustavo Alcantara Jr, MD [Primary Care Provider] -
[2017-07-01] MEDS: Carbidopa/Levodopa 25/100 TABLET PO SCH (20:03)
[2017-07-01] MEDS: rOPINIRole 0.25 MG TABLET PO SCH (20:04)
[2017-07-02 07:00] LABS: Basophils % 0.3 %; Eosinophils # 0.4 K/mcL (0.0-0.6); Eosinophils % 3.2 %; Hematocrit 32.7 % (35.3-44.9); Hemoglobin 10.6 g/dL (11.5-15.4); Immature Granulocytes % 0.7 % (0-4); Lymphocytes # 1.6 K/mcL (0.6-4.6); Mean Corpuscular HGB Conc 32.4 g/dL (31.6-35.5); Mean Corpuscular Hemoglobin 28.1 pg (28.0-33.3); Mean Corpuscular Volume 86.7 fL (83.0-100.0); Mean Platelet Volume 9.3 fL (9.4-12.4); Monocytes # 0.4 K/mcL (0.0-1.3); Monocytes % 3.6 %; Neutrophils # 8.3 K/mcL (1.6-8.9); Platelet Count 243 K/mcL (140-400); Red Blood Count 3.77 M/mcL (3.82-4.97); Segmented Neutrophils % 77.2 %
[2017-07-02 07:12] LABS: BUN/Creatinine Ratio 25 (6-26); Blood Urea Nitrogen 28 mg/dL (8-23); Calcium 9.4 mg/dL (8.6-10.3); Carbon Dioxide 27 mEq/L (23-29); Chloride 103 mEq/L (98-107); Glucose 147 mg/dL (70-105); Osmolality,Calculated 294 (280-300); Potassium 4.6 mEq/L (3.5-5.1); Sodium 138 mEq/L (136-145); eGFR For African Americans > 60 (> 60); eGFR For Non-African Americans 50 (> 60)
[2017-07-02] MEDS: Insulin DETEMIR 100 UNIT/ML X5UNITS SQ SCH ×2 (08:31→21:55)
[2017-07-02] MEDS: Furosemide 40 MG/4 ML VIAL IVP SCH (08:31)
[2017-07-02] MEDS: Insulin LISPRO 300 UNITS/3 ML VIAL SQ SCH ×4 (08:32→21:52)
[2017-07-02] MEDS: Sennosides/Docusate Sodium TABLET PO SCH (08:33)
[2017-07-02] MEDS: Aspirin Enteric Coated 81 MG Tablet PO SCH (08:33)
[2017-07-02] MEDS: Isosorbide MONOnitrate (24 HR) 60 MG TAB.ER.24H PO SCH (08:34)
[2017-07-02] MEDS: metOLazone 2.5 MG TABLET PO SCH (08:34)
[2017-07-02] MEDS: Diltiazem CD (24hr) 180 MG CAPSULE PO SCH (08:34)
[2017-07-02] MEDS: *HR* Amiodarone 200 MG TABLET PO SCH (08:34)
[2017-07-02 10:21] LABS: Estimated Average Glucose 143 mg/dl; Hemoglobin A1C 6.6 %
--- NOTE | 2017-07-02 12:36 | Discharge Summary ---
- NOTES TO OUTPATIENT PROVIDER Notes to Outpatient Provider: Pt was admitted for drowsiness and palpitations at [facility]. Medication changed and Amiodarone 200mg po daily and Cardizem 360mg po daily will be continued. Rate controlled afib noted, she has no chest pain, SOB , or palpitations. Date of Encounter: 07/02/17 Time of Encounter: 10:05 - Discharge Diagnosis (1) Atrial fibrillation with rapid ventricular response Priority: Primary Status: Acute Assessment and Plan: Prior history of A. fib. Rate controlled currently in the 90s. Patient denies any chest pain, palpitations, shortness of breath. Monitor appears to be afib today. Average pulse for last 12 hours in the 90s. (2) IDDM (insulin dependent diabetes mellitus) Priority: Secondary Status: Chronic Assessment and Plan: Chronic. Continue home medications. A1c 6.6%. (3) Morbid obesity Priority: Secondary Status: Chronic Assessment and Plan: Chronic. Lifestyle modifications. (4) Parkinson disease Priority: Secondary Status: Chronic Assessment and Plan: Chronic. Continue home dose of Carbidopa/Levidopa. Monitor for falls and safety. (5) CAD (coronary artery disease) Priority: Secondary Status: Chronic Assessment and Plan: Chronic. She denies any chest pain, palpitations, or SOB. Continue home medications. Qualifiers: Coronary Disease-Associated Artery/Lesion type: [place] artery [place] vs. transplanted heart: [place] heart Associated angina: angina presence unspecified Qualified Code(s): I25.10 - Atherosclerotic heart disease of [place] coronary artery without angina pectoris (6) Acute on chronic diastolic (congestive) heart failure Priority: Secondary Status: Acute Assessment and Plan: Known chronic diastolic dysfunction. Chest x-ray shows pulmonary edema and right pleural effusion. Edema is improving to BLE, lungs clear and diminished, no rales noted. Fluid volume diuresis: -1.7 liters Continue Lasix IV Chest CTA showed small to moderate right pleural effusion with compressive atelectasis right lung base, ground glass appearance of the lung duran consistent with pulmonary vascular congestion/interstitial edema. Will continue IV Lasix here and hold discharge for now. (7) Cellulitis Priority: Secondary Status: Acute Assessment and Plan: Continue doxycycline. Cellulitis improving, pt denies pain. Qualifiers: Site of cellulitis: extremity Site of cellulitis of extremity: lower extremity Laterality: left Qualified Code(s): L03.116 - Cellulitis of left lower limb (8) Acute metabolic encephalopathy Priority: Secondary Status: Resolved Assessment and Plan: Resolved. Patient is alert and oriented, answers questions appropriately. Chest X-Ray 06/29/17 08:17 IMPRESSION: 1. Findings are suggestive of component of pulmonary edema. Persistent marked enlargement of the cardiomediastinal silhouette. 2. Right pleural effusion, with or without associated right basilar pulmonary opacity. Recommend radiographic follow-up to complete resolution. D/ / Des Coronado MD / Des Coronado MD Interpreting Provider: Des Coronado MD Head CT 06/29/17 08:17 IMPRESSION: Minimal sequela of chronic small vessel ischemic change. No acute intracranial abnormality is seen. D/ / 06/29/2017 09:23:19 Higinio Wild MD / gary Interpreting Provider: Higinio Wild MD (9) DVT prophylaxis Priority: Secondary Status: Acute Assessment and Plan: Patient is on Xarelto, continue at [facility]. Hospital course: Ms. Francisco is a 67 year old female who resides in an F temporarily. Pt with PMH including A. fib RVR, chronic A. fib, diabetes, morbid obesity, Parkinson's, coronary artery disease, a flutter, diastolic CHF,. Patient presented to the emergency department with A. fib RVR, palpitations. She was admitted, Cardizem drip started, her blood pressure was unable to handle the drip, her normal home medications were resumed. Patient has flipped in and out of A. fib and a flutter. Currently rate-controlled A. fib with resumption of home medications. Patient was to be discharged, chest CTA was reviewed patient was found to have [id number] pleural effusions groundglass appearance of the lung duran consistent with pulmonary vascular congestion. We will continue to diurese with IV Lasix twice a day, continue to monitor daily weights, strict I and O, fluid restriction. She will also continue diabetic diet. Patient is also being treated for lower extremity cellulitis with doxycycline. Will continue that, she will be sent home on by mouth dose. Sailors appears to be improving. She denies pain. Currently labs and vitals are stable and within normal limits. We will continue to treat for pleural effusion and continued diuresis. Patient will be discharged when appropriate. - Time Spent with Patient Total time spent providing and/or coordinating discharge services: - Discharge Medications Home Medications: Ascorbic Acid [Vitamin C] 500 mg PO BID 06/13/15 [History] Aspirin [Adult Low Dose Aspirin EC] 81 mg PO DAILY 06/13/15 [History] Insulin ASPART [NovoLOG] 2 - 12 unit SQ QID PRN #0 06/13/15 [History] Metformin HCl [Glucophage] 1,000 mg PO BID 06/13/15 [History] Rivaroxaban [Xarelto] 20 mg PO HS 06/13/15 [History] Ropinirole HCl [Requip] 0.5 mg PO HS 06/13/15 [History] Sennosides/Docusate Sodium [Senna Plus] 1 tab PO DAILY 06/13/15 [History] Simvastatin [Zocor] 40 mg PO DAILY #0 06/13/15 [History] SitaGLIPtin [Januvia] 100 mg PO DAILY 06/13/15 [History] Zinc Sulfate 220 mg PO BID 06/13/15 [History] Carbidopa/Levodopa [Carbidopa-Levodopa 25-100 Tab] 1 tab PO HS 03/16/16 [History ] Insulin DETEMIR [Levemir Flextouch] 14 unit SQ HS 03/16/16 [History] Nitroglycerin 0.4 mg SL Q5MIN PRN 09/27/16 [History] Isosorbide MONOnitrate [Isosorbide Mononitrate ER] 120 mg PO DAILY 06/20/17 [ History] Menthol/Zinc Oxide [Calmoseptine Ointment Packet] 1 appl TP BID 06/20/17 [ History] Nystatin POWDER [Nystop] 1 appl TP BID 06/20/17 [History] Potassium Chloride [Klor-Con 10] 10 meq PO BID 06/20/17 [History] Sertraline [Zoloft] 100 mg PO DAILY 06/20/17 [History] Spironolactone [Aldactone] 50 mg PO BID 06/20/17 [History] metOLazone [Zaroxolyn] 2.5 mg PO DAILY 06/20/17 [History] Diltiazem CD (24hr) [Cardizem CD] 360 mg PO DAILY #60 cap.er.24h 06/26/17 [Rx] Amiodarone [Cordarone] 200 mg PO DAILY #40 tablet 06/27/17 [Rx] Oxycodone HCl/Acetaminophen [Percocet 5-325 mg Tablet] 1 tab PO Q4H PRN 5 Days # 10 tablet 06/27/17 [Rx] Insulin DETEMIR [Levemir] 70 unit SQ QAM 06/29/17 [History] LORazepam [Ativan] 0.5 mg PO Q8H PRN 06/29/17 [History] Allergies/Adverse Reactions: 3 Allergy/AdvReac Type Severity Reaction Status Date / Time Sulfa (Sulfonamide Allergy See Verified 06/12/15 20:58 Antibiotics) Comments tramadol AdvReac Nausea Verified 06/12/15 20:58 Date of admission: 06/29/17 12:03 Primary care physician: Gustavo Alcantara Jr, MD Discharging clinician: Therese Watkins Anticipated date of discharge: 07/02/17 - Constitutional Vitals: Temp Pulse Resp BP Pulse Ox 97.4 F L 117 20 135/73 99 07/02/17 11:15 07/02/17 11:15 07/02/17 11:15 07/02/17 11:15 07/02/17 11:15 General appearance: Present: cooperative, A&O X 3, morbidly obese, pleasant, no acute distress, answers questions appropriately - Head Head exam: Present: atraumatic, normal inspection, normocephalic - Eye Eye exam: Present: normal appearance, conjuntiva pink, sclera anicteric - Neck Neck exam general surgery: Present: supple, trachea midline. Absent: lymphadenopathy, tenderness - Respiratory Respiratory exam: Present: decreased breath sounds, CTAB. Absent: accessory muscle use, chest wall tenderness, rales, respiratory distress, rhonchi, wheezes - Cardiovascular Cardiovascular exam: Present: RRR, +S1, +S2. Absent: diastolic murmur, gallop, rubs, systolic murmur - GI/Abdominal GI/Abdominal exam: Present: normal bowel sounds, soft, no peritoneal signs. Absent: distended, hepatomegaly, tenderness - Extremities Exam Extremities exam: Present: tenderness, warm, radial pulses palpable and symmetrical. Absent: calf tenderness, cyanotic, normal capillary refill, normal inspection, pedal edema - Neurological Exam Neurological exam: Present: alert, oriented X3, no focal deficits. Absent: facial droop, speech deficit - Skin Skin exam: Present: dry, intact, normal color, warm. Absent: rash - Patient Status Disposition: Transfer SNF Condition: Good Functional capacity at discharge: uses cane/walker Overall status at discharge: patient is progressing back to baseline - Discharge Instructions Follow Up With: Gustavo Alcantara Jr, MD [Primary Care Provider] - - Diet and Activity Activity: increase activity as tolerated Diet: diabetic diet, low fat, low cholesterol
[2017-07-02] MEDS: *HR* Rivaroxaban 10 MG TABLET PO SCH (16:38)
[2017-07-02] MEDS: rOPINIRole 0.25 MG TABLET PO SCH (20:08)
[2017-07-02] MEDS: Carbidopa/Levodopa 25/100 TABLET PO SCH (20:08)
[2017-07-03 06:35] LABS: Basophils % 0.3 %; Eosinophils # 0.3 K/mcL (0.0-0.6); Hematocrit 34.1 % (35.3-44.9); Hemoglobin 10.7 g/dL (11.5-15.4); Immature Granulocytes % 0.9 % (0-4); Lymphocytes # 1.6 K/mcL (0.6-4.6); Lymphocytes % 13.8 %; Mean Corpuscular HGB Conc 31.4 g/dL (31.6-35.5); Mean Corpuscular Hemoglobin 27.2 pg (28.0-33.3); Mean Corpuscular Volume 86.8 fL (83.0-100.0); Mean Platelet Volume 9.6 fL (9.4-12.4); Monocytes # 0.4 K/mcL (0.0-1.3); Monocytes % 3.5 %; Neutrophils # 9.1 K/mcL (1.6-8.9); Platelet Count 250 K/mcL (140-400); Red Blood Count 3.93 M/mcL (3.82-4.97); Segmented Neutrophils % 78.5 %
[2017-07-03 06:48] LABS: Calcium 9.2 mg/dL (8.6-10.3); Potassium 4.9 mEq/L (3.5-5.1)
[2017-07-03] MEDS: Isosorbide MONOnitrate (24 HR) 60 MG TAB.ER.24H PO SCH (08:25)
[2017-07-03] MEDS: Sennosides/Docusate Sodium TABLET PO SCH (08:25)
[2017-07-03] MEDS: Aspirin Enteric Coated 81 MG Tablet PO SCH (08:25)
[2017-07-03] MEDS: Diltiazem CD (24hr) 180 MG CAPSULE PO SCH (08:25)
[2017-07-03] MEDS: metOLazone 2.5 MG TABLET PO SCH (08:25)
[2017-07-03] MEDS: *HR* Amiodarone 200 MG TABLET PO SCH (08:25)
[2017-07-03] MEDS: Furosemide 40 MG/4 ML VIAL IVP SCH (08:26)
[2017-07-03] MEDS: Insulin LISPRO 300 UNITS/3 ML VIAL SQ SCH ×2 (08:30→12:24)
[2017-07-03] MEDS: Insulin DETEMIR 100 UNIT/ML X5UNITS SQ SCH (08:34)
[2017-07-03 11:28] VITALS: BP 103/63
--- NOTE | 2017-07-03 12:24 | Internal Med Progress Note ---
Date of Encounter: 07/03/17 Time of Encounter: 10:55 - Assessment and plan (1) Atrial fibrillation with rapid ventricular response Current Visit: Yes Status: Acute Assessment and plan: Prior history of A. fib. Rate controlled currently in the 90s. Patient denies any chest pain, palpitations, shortness of breath. Monitor remains afib (2) IDDM (insulin dependent diabetes mellitus) Current Visit: Yes Status: Chronic Assessment and plan: Chronic. Continue home medications and accucheck regimen. A1c 6.6%. (3) Morbid obesity Current Visit: No Status: Chronic Assessment and plan: Chronic. Encourage lifestyle modifications. (4) Parkinson disease Current Visit: Yes Status: Chronic Assessment and plan: Chronic. Continue home dose of Carbidopa/Levidopa. (5) CAD (coronary artery disease) Current Visit: Yes Status: Chronic Assessment and plan: Chronic. She denies any chest pain, palpitations, or SOB. Continue Amiodarone, ASA, Cardizem, Imdur, Xarelto, Zocor. Qualifiers: Coronary Disease-Associated Artery/Lesion type: [place] artery [place] vs. transplanted heart: [place] heart Associated angina: angina presence unspecified Qualified Code(s): I25.10 - Atherosclerotic heart disease of [place] coronary artery without angina pectoris (6) Acute on chronic diastolic (congestive) heart failure Current Visit: Yes Status: Acute Assessment and plan: Known chronic diastolic dysfunction. Chest x-ray shows pulmonary edema and right pleural effusion. Edema is improving to BLE, lungs clear and diminished, no rales or ronchi noted. Fluid volume diuresis: -1.7 liters Continue Lasix po at ECF. Chest CTA showed small to moderate right pleural effusion with compressive atelectasis right lung base, ground glass appearance of the lung duran consistent with pulmonary vascular congestion/interstitial edema. Discussed with pulmonology, he states that it is a small effusion and requires no treatment. (7) Cellulitis Current Visit: Yes Status: Acute Assessment and plan: Continue doxycycline. Cellulitis improving, pt denies pain. BLE edema improving. Qualifiers: Site of cellulitis: extremity Site of cellulitis of extremity: lower extremity Laterality: left Qualified Code(s): L03.116 - Cellulitis of left lower limb (8) Acute metabolic encephalopathy Current Visit: Yes Status: Resolved Assessment and plan: Resolved. (9) DVT prophylaxis Current Visit: Yes Status: Acute Assessment and plan: Continue Xarelto. (10) Pleural effusion Current Visit: Yes Status: Acute Assessment and plan: Discussed pleural effusion with pulmonology, states that it is just a small effusion and requires no other treatment at this time. Continue Lasix at home. Chest X-Ray 06/29/17 08:17 IMPRESSION: 1. Findings are suggestive of component of pulmonary edema. Persistent marked enlargement of the cardiomediastinal silhouette. 2. Right pleural effusion, with or without associated right basilar pulmonary opacity. Recommend radiographic follow-up to complete resolution. D/ / Des Coronado MD / Des Coronado MD Interpreting Provider: Des Coronado MD Chest CT 07/01/17 17:32 IMPRESSION: 1. Small to moderate right pleural effusion with compressive atelectasis right lung base. 2. Borderline cardiomegaly. 3. Ground-glass appearance of the lung duran consistent with pulmonary vascular congestion/interstitial edema. D/ / 07/01/2017 20:51:33 Ashley Bhakta MD / lillie Interpreting Provider: Ashley Bhakta MD - Time Spent With Patient Total time spent is greater than 50% in coordination of care (as documented) at patient's floor/unit and/or counseling patient: less than 15 minutes - Subjective Interval history: Patient was seen and assessed at bedside at 10:55 AM. Patient denies any chest pain. She states that she feels fine and has returned to her baseline. She denies any palpitations or chest pain, no increased shortness of breath, today states that her legs look better. Denies abdominal pain, n/v, diaphoresis, chest pain, SOB, dizziness, or vision changes. - Constitutional Vitals: Temp Pulse Resp BP Pulse Ox 98.2 F 74 16 103/63 94 07/03/17 11:26 07/03/17 11:26 07/03/17 11:26 07/03/17 11:26 07/03/17 11:26 General appearance: Present: cooperative, A&O X 3, morbidly obese, pleasant, no acute distress, answers questions appropriately - Head Head exam: Present: atraumatic, normal inspection, normocephalic - Eye Eye exam: Present: normal appearance, conjuntiva pink, sclera anicteric - Neck Neck exam general surgery: Present: supple, trachea midline. Absent: lymphadenopathy, tenderness - Respiratory Respiratory exam: Present: CTAB. Absent: accessory muscle use, rales, respiratory distress, rhonchi, wheezes - Cardiovascular Cardiovascular exam: Present: RRR, +S1, +S2. Absent: diastolic murmur, gallop, rubs, systolic murmur - GI/Abdominal GI/Abdominal exam: Present: normal bowel sounds, soft. Absent: distended, hepatomegaly, tenderness - Extremities Exam Extremities exam: Present: pedal edema, warm, radial pulses palpable and symmetrical. Absent: calf tenderness, cyanotic, tenderness - Neurological Exam Neurological exam: Present: alert, oriented X3, no focal deficits. Absent: facial droop, speech deficit - Skin Skin exam: Present: dry, intact, normal color, warm. Absent: rash Internal Medicine: Result - Labs CBC & Chem 7: 07/03/17 05:52 07/03/17 05:52 Labs: Short CBC 07/03/17 Range/Units 05:52 WBC 11.5 H (4.3-11.1) K/mcL Hgb 10.7 L (11.5-15.4) g/dL Hct 34.1 L (35.3-44.9) % Plt Count 250 (140-400) K/mcL Neutrophils # 9.1 H (1.6-8.9) K/mcL BMP 07/03/17 05:52 Sodium 139 Potassium 4.9 Chloride 103 Carbon Dioxide 25 BUN 30 H Creatinine 1.12 Glucose 139 H Calcium 9.2 - ABG Interpretation ABG results: ABG ABG pH 7.32 pH Units (7.32-7.45) 06/29/17 08:31 ABG pCO2 52 mmHg (35-45) H 06/29/17 08:31 ABG pO2 93 mmHg (85-104) 06/29/17 08:31 ABG O2 Saturation 96 % (95-98) 06/29/17 08:31 PT/INR, D-dimer PT 22.8 Seconds (9.4-12.1) H 06/30/17 01:02 Consult Discharge Plan - Plan Instructions: Heart Failure (DC), Atrial Flutter (DC), Atrial Fibrillation (DC) , Chest Pain (DC), Cellulitis (DC), Pneumonia (DC) Referrals: Gustavo Alcantara Jr, MD [Primary Care Provider] -
--- NOTE | 2017-07-03 15:02 | Physician Discharge Referral ---
ExtendedCare Referral Info Transfer To: [facility] Provider in Charge after Transfer: PCP Institutional Level of Care: Intermediate - Diagnosis (1) Atrial fibrillation with rapid ventricular response Priority: Primary Status: Chronic (2) IDDM (insulin dependent diabetes mellitus) Priority: Secondary Status: Chronic (3) Morbid obesity Priority: Secondary Status: Chronic (4) Parkinson disease Priority: Secondary Status: Chronic (5) CAD (coronary artery disease) Priority: Secondary Status: Chronic (6) Acute on chronic diastolic (congestive) heart failure Priority: Primary Status: Acute (7) Cellulitis Priority: Secondary Status: Acute (8) Acute metabolic encephalopathy Priority: Secondary Status: Resolved (9) DVT prophylaxis Priority: Secondary Status: Acute (10) Pleural effusion Priority: Secondary Status: Acute Prognosis: Fair Aware of Diagnosis: Patient - Transfer Medications Prescriptions: Doxycycline 100 mg PO BID #14 capsule Home Medications: Ascorbic Acid [Vitamin C] 500 mg PO BID 06/13/15 [History] Aspirin [Adult Low Dose Aspirin EC] 81 mg PO DAILY 06/13/15 [History] Insulin ASPART [NovoLOG] 2 - 12 unit SQ QID PRN #0 06/13/15 [History] Metformin HCl [Glucophage] 1,000 mg PO BID 06/13/15 [History] Rivaroxaban [Xarelto] 20 mg PO HS 06/13/15 [History] Ropinirole HCl [Requip] 0.5 mg PO HS 06/13/15 [History] Sennosides/Docusate Sodium [Senna Plus] 1 tab PO DAILY 06/13/15 [History] Simvastatin [Zocor] 40 mg PO DAILY #0 06/13/15 [History] SitaGLIPtin [Januvia] 100 mg PO DAILY 06/13/15 [History] Zinc Sulfate 220 mg PO BID 06/13/15 [History] Carbidopa/Levodopa [Carbidopa-Levodopa 25-100 Tab] 1 tab PO HS 03/16/16 [History ] Insulin DETEMIR [Levemir Flextouch] 14 unit SQ HS 03/16/16 [History] Nitroglycerin 0.4 mg SL Q5MIN PRN 09/27/16 [History] Isosorbide MONOnitrate [Isosorbide Mononitrate ER] 120 mg PO DAILY 06/20/17 [ History] Menthol/Zinc Oxide [Calmoseptine Ointment Packet] 1 appl TP BID 06/20/17 [ History] Nystatin POWDER [Nystop] 1 appl TP BID 06/20/17 [History] Potassium Chloride [Klor-Con 10] 10 meq PO BID 06/20/17 [History] Sertraline [Zoloft] 100 mg PO DAILY 06/20/17 [History] Spironolactone [Aldactone] 50 mg PO BID 06/20/17 [History] metOLazone [Zaroxolyn] 2.5 mg PO DAILY 06/20/17 [History] Diltiazem CD (24hr) [Cardizem CD] 360 mg PO DAILY #60 cap.er.24h 06/26/17 [Rx] Amiodarone [Cordarone] 200 mg PO DAILY #40 tablet 06/27/17 [Rx] Oxycodone HCl/Acetaminophen [Percocet 5-325 mg Tablet] 1 tab PO Q4H PRN 5 Days # 10 tablet 06/27/17 [Rx] Insulin DETEMIR [Levemir] 70 unit SQ QAM 06/29/17 [History] LORazepam [Ativan] 0.5 mg PO Q8H PRN 06/29/17 [History] Doxycycline 100 mg PO BID #14 capsule 07/03/17 [Rx] Allergies/Adverse Reactions: 3 Allergy/AdvReac Type Severity Reaction Status Date / Time Sulfa (Sulfonamide Allergy See Verified 06/12/15 20:58 Antibiotics) Comments tramadol AdvReac Nausea Verified 06/12/15 20:58 - Respiratory Orders Oxygen / L per min (Titrate as needed to maintain sats > 92%) Smoking Cessation: Smoking cessation has been advised. For more information, call the [place] Tobacco Quit Line at 1-591-DQKE-NOW. - Lab Orders Lab Orders: 2 Step Mantoux Test per State regulation, CBC, U/A, Luis 17 - Ancillary Orders May use pressure relief devices daily prn, May consult with Dentist, Customer Account Technician, Cloth Brushing And Sueding Supervisor PRN - Advance Directives Code Status: Full Code - Mobility Orders Ambulate - Rehabiliation Orders Rehab Potential: Fair Rehab Orders: ROM Exercises, Evaluation for Physical Therapy, Evaluation for Occupational Therapy - Treatments Skin tear care topically daily PRN per policy, May check for fecal impaction rectally daily PRN, Fleet enema rectally every other day PRN cleansing purposes - Diet Orders No Added Salt (ENRIQUE), Renal, Cardiac CERTIFICATION: I certify that the transfer of the above named patient to an Extended Care Facility is necessary for the continuing treatment of the diagnosis listed. The above information is true and accurate reflection of patient's current condition. Confidential - Redisclosure prohibited without a patient's written consent.
== END 2017-07-03 16:36 | DRG 308 ==
LOC: EMEROO 08:13 → 3BNU 08:13
PROVIDERS: ADMIT Internal Medicine; ATTEND Internal Medicine

== ENCOUNTER 2017-07-14 11:08 | Inpatient (IN) ==
--- NOTE | 2017-07-14 11:19 | Emergency Department Note ---
Disposition Clinical Impression: Hyperkalemia Chest pain Qualifiers: Chest pain type: unspecified Qualified Code(s): R07.9 - Chest pain, unspecified CHF exacerbation Qualifiers: Heart failure type: unspecified Qualified Code(s): I50.9 - Heart failure, unspecified Atrial fibrillation Qualifiers: Atrial fibrillation type: chronic Qualified Code(s): I48.2 - Chronic atrial fibrillation Disposition: Admitted As Inpatient Condition: Good Chest Pain HPI - General Chief Complaint: ED Chest Pain Stated Complaint: chest pain Time Seen by Provider: 07/14/17 11:10 Source: patient, EMS Mode of arrival: EMS Limitations: no limitations Vital Signs Reviewed: Yes Nursing Notes Reviewed: Yes - History of Present Illness HPI Narrative: 67-year-old female history of CAD s/p stents and CHF on 2 L at night as needed presents an emergency department via EMS from [facility] for chest pain and difficulty breathing. Patient states she is been having intermittent chest pain in the right upper chest on and off for the past several days. Most recent was at 730 this morning. This occurred while at rest. The nurses at the nursing facility stated that she got diaphoretic and short of breath. It lasted only 3 to 5 seconds. It was sharp in nature and nonradiating. She denies any nausea or vomiting. Over the past several days she is also been progressively more short of breath especially with exertion. She is noticed that she has gained weight 5 pounds overnight. She has had increased swelling to bilateral lower extremities. She denies a cough or fever. Denies any abdominal pain. States her last stent was placed in 2014. History of atrial fibrillation on Xarelto. Patient was given aspirin by EMS. She is currently chest pain free. Pt complaint: chest pain - Related Data Home Medications Medication Instructions Recorded Confirmed Ascorbic Acid [Vitamin C] 500 mg PO BID 06/13/15 07/14/17 Aspirin [Adult Low Dose Aspirin EC] 81 mg PO DAILY 06/13/15 07/14/17 Insulin ASPART [NovoLOG] 7 unit SQ TID #0 06/13/15 07/14/17 Metformin HCl [Glucophage] 1,000 mg PO BID 06/13/15 07/14/17 Rivaroxaban [Xarelto] 20 mg PO HS 06/13/15 07/14/17 Ropinirole HCl [Requip] 0.5 mg PO HS 06/13/15 07/14/17 Sennosides/Docusate Sodium [Senna 1 tab PO DAILY 06/13/15 07/14/17 Plus] Simvastatin [Zocor] 40 mg PO DAILY #0 06/13/15 07/14/17 SitaGLIPtin [Januvia] 100 mg PO DAILY 06/13/15 07/14/17 Zinc Sulfate 220 mg PO BID 06/13/15 07/14/17 Carbidopa/Levodopa 1 tab PO HS 03/16/16 07/14/17 [Carbidopa-Levodopa 25-100 Tab] Insulin DETEMIR [Levemir Flextouch] 14 unit SQ HS 03/16/16 07/14/17 Nitroglycerin 0.4 mg SL Q5MIN PRN 09/27/16 07/14/17 Isosorbide MONOnitrate [Isosorbide 120 mg PO DAILY 06/20/17 07/14/17 Mononitrate ER] Nystatin POWDER [Nystop] 1 appl TP BID 06/20/17 07/14/17 Potassium Chloride [Klor-Con 10] 10 meq PO BID 06/20/17 07/14/17 Sertraline [Zoloft] 100 mg PO DAILY 06/20/17 07/14/17 Spironolactone [Aldactone] 50 mg PO BID 06/20/17 07/14/17 metOLazone [Zaroxolyn] 2.5 mg PO DAILY 06/20/17 07/14/17 Insulin DETEMIR [Levemir] 70 unit SQ QAM 06/29/17 07/14/17 Previous Rx's Medication Instructions Recorded Diltiazem CD (24hr) [Cardizem CD] 360 mg PO DAILY #60 cap.er.24h 06/26/17 Amiodarone [Cordarone] 200 mg PO DAILY #40 tablet 06/27/17 Doxycycline 100 mg PO BID #14 capsule 07/03/17 LORazepam [Ativan] 0.5 mg PO Q8H PRN 1 Days #3 tablet 07/03/17 Oxycodone HCl/Acetaminophen 1 tab PO Q4H PRN 5 Days #4 tablet 07/03/17 [Percocet 5-325 mg Tablet] Allergies Allergy/AdvReac Type Severity Reaction Status Date / Time Sulfa (Sulfonamide Allergy See Verified 06/12/15 20:58 Antibiotics) Comments tramadol AdvReac Nausea Verified 06/12/15 20:58 All systems ED: reviewed and negative except as stated. Review of Systems: As Per HPI Constitutional: Denies: fever ENT ED: Denies: congestion Cardiovascular: Reports: chest pain Respiratory: Reports: dyspnea. Denies: cough Gastrointestinal: Denies: abdominal pain, nausea, vomiting Neurological: Denies: headache Chest Pain PMH - Past Medical History Medical history: Reports: CHF, coronary artery disease, diabetes, hyperlipidemia , myocardial infarction Surgical history: Reports: angioplasty/stent, , cholecystectomy, orthopedic, other Psychiatric history: Reports: anxiety, depression - Social History Smoking Status: Never smoker Alcohol use: Reports: none Drug use: Reports: none Physical Exam - General Limitations: no limitations General appearance: alert, in no apparent distress, obese - Head Head exam: atraumatic, normocephalic, normal inspection - Eye Eye exam: Present: normal appearance, PERRL, EOMI - ENT ENT exam: normal exam, normal oropharynx, mucous membranes moist - Neck Neck exam: Present: normal inspection, full ROM, trachea midline - Chest Chest inspection: Present: normal inspection, symmetric chest wall rise. Absent : tenderness, rash - Respiratory Respiratory exam: Present: respiratory distress (mild). Absent: wheezes, stridor - Expanded Respiratory Exam Location: rales: Lower - Cardiovascular Cardiovascular exam: Present: regular rate, irregular rhythm, normal heart sounds. Absent: systolic murmur, diastolic murmur - Abdominal Exam Abdominal exam: Present: soft (obese), Non-Tender, normal bowel sounds. Absent : tenderness, distention, guarding, rebound, rigidity - Extremities Exam Extremities exam: Present: pedal edema (bilateral, symmetrical). Absent: calf tenderness - Neurological Exam Neurological exam: Present: alert, oriented X3 - Skin Skin exam: Present: warm, dry, intact, erythema (slight erythema to the lower extremity). Absent: rash Course Course Narrative: Patient appears fluid overloaded on examination. Her lungs are congested. Chest x-ray confirms congestive heart failure with vascular congestion and cardiomegaly. She has baseline atrial fibrillation rate controlled at this time. No acute ischemic changes. Chest pain workup was initiated. She has an elevated potassium 7.1 without any renal insufficiency. Does not require emergent dialysis at this time. She does take supplements per her MAR. will treat her with calcium, albuterol, bicarb, dextrose and insulin. EKG does not show prolonged QRS is 101. No peak T waves. Troponin less than 0.03. BNP is 50. Sodium is slightly lower 130. She has some baseline anemia that is not worsened. Labs or otherwise unremarkable. Patient will require admission for congestive heart failure exacerbation and hyperkalemia with chest pain workup given her history of CAD. is in agreement with this plan. She has also been given Lasix that will help with the hyperkalemia. Patient otherwise stable at this time. - Consultations Consultation #1: Spoke with on-call hospitalist edy Santoyo to admit for CHF exacerbation, chest pain, dyspnea, hyperkalemia. Requests to order Kayexlate at this time. Time: 13:37 Vital Signs Temperature 98.5 F 07/14/17 11:12 Pulse Rate 68 07/14/17 11:12 Respiratory Rate 18 07/14/17 11:12 Blood Pressure 109/72 07/14/17 11:12 O2 Sat by Pulse Oximetry 99 07/14/17 11:12 Temperature 98.5 F 07/14/17 11:12 Pulse Rate 82 07/14/17 12:06 Respiratory Rate 18 07/14/17 14:16 Blood Pressure 122/79 07/14/17 14:16 O2 Sat by Pulse Oximetry 96 07/14/17 12:06 Oxygen Delivery Oxygen Delivery Nasal Cannula Chest Pain - MDM Narrative Medical decision making narrative: Patient was discussed with my attending physician who agrees with ED management and final disposition. They independently evaluated the patient. Please refer to their attestation to this encounter for additional information. This note was generated by [employer] voice recognition software and as a result grammatical or spelling errors may occur using this program. - Medical Records Medical records reviewed: Yes I reviewed the patient's medical records. - Lab Data Lab results reviewed: Yes I reviewed the patient's lab results. Result diagrams: 07/14/17 11:24 07/14/17 11:24 Lab Results 07/14/17 07/14/17 07/14/17 Range/Units 11:24 11:24 11:24 WBC 11.1 (4.3-11.1) K/mcL RBC 4.01 (3.82-4.97) M/mcL Hgb 11.4 L (11.5-15.4) g/dL Hct 35.2 L (35.3-44.9) % MCV 87.8 (83.0-100.0) fL MCH 28.4 (28.0-33.3) pg MCHC 32.4 (31.6-35.5) g/dL RDW 16.0 H (11.5-14.5) % Plt Count 257 (140-400) K/mcL MPV 9.5 (9.4-12.4) fL Immature Gran % 0.9 (0-4) % Seg Neutrophils % 80.9 % Lymphocytes % 11.5 % Monocytes % 4.0 % Eosinophils % 2.4 % Basophils % 0.3 % Neutrophils # 9.0 H (1.6-8.9) K/mcL Lymphocytes # 1.3 (0.6-4.6) K/mcL Monocytes # 0.4 (0.0-1.3) K/mcL Eosinophils # 0.3 (0.0-0.6) K/mcL Basophils # 0.0 (0.0-0.2) K/mcL Sodium 130 L (136-145) mEq/L Potassium 7.1 H* (3.5-5.1) mEq/L Chloride 104 (98-107) mEq/L Carbon Dioxide 19 L (23-29) mEq/L BUN 24 H (8-23) mg/dL Creatinine 1.19 (0.60-1.20) mg/dL Est GFR ( Amer) 55 L (> 60) Est GFR (Non-Af Amer) 45 L (> 60) BUN/Creatinine Ratio 20 (6-26) Glucose 161 H (70-105) mg/dL Calculated Osmolality 278 L (280-300) Calcium 9.2 (8.6-10.3) mg/dL Troponin I < 0.03 (< 0.04) ng/mL B-Natriuretic Peptide 78 (Less than 100) pg/mL - Radiology Data Radiology results reviewed: Yes I reviewed the patient's radiology results. Chest X-Ray 07/14/17 11:13 IMPRESSION: 1. Cardiomegaly with vascular congestion and interstitial infiltrates likely representing edema and congestive failure. D/ / Tony Carson MD / Tony Carson MD Interpreting Provider: Tony Carson MD - EKG Data EKG attestation: Yes I reviewed and interpreted this EKG. EKG results narrative: EKG performed 1109 atrial fibrillation 67 beats per minute, QRS 101, no ST elevation or depression, no T wave inversion, no peak T waves. Compared to prior EKG performed 06/29/2017 which shows findings more consistent with atrial flutter 121 beats per minute with similar consistent findings. Heart Score - Score History: Slightly Suspicious EKG: Non Specific repolarisation Disturbance Age: Greater than 65 Risk Factors: Equal/Greater than 3 risk factor or history of atherosclerotic disease Troponin: Less than normal limit HEART Score Total: 5
[2017-07-14 11:42] LABS: Basophils % 0.3 %; Eosinophils # 0.3 K/mcL (0.0-0.6); Eosinophils % 2.4 %; Hematocrit 35.2 % (35.3-44.9); Hemoglobin 11.4 g/dL (11.5-15.4); Immature Granulocytes % 0.9 % (0-4); Lymphocytes # 1.3 K/mcL (0.6-4.6); Lymphocytes % 11.5 %; Mean Corpuscular HGB Conc 32.4 g/dL (31.6-35.5); Mean Corpuscular Hemoglobin 28.4 pg (28.0-33.3); Mean Corpuscular Volume 87.8 fL (83.0-100.0); Mean Platelet Volume 9.5 fL (9.4-12.4); Monocytes # 0.4 K/mcL (0.0-1.3); Platelet Count 257 K/mcL (140-400); Red Blood Count 4.01 M/mcL (3.82-4.97); Segmented Neutrophils % 80.9 %
[2017-07-14 12:06] LABS: Troponin I < 0.03 ng/mL (< 0.04)
[2017-07-14] MEDS ORDERED: Furosemide 40 MG/4 ML VIAL IVP ONE (12:32)
[2017-07-14 12:39] LABS: BUN/Creatinine Ratio 20 (6-26); Blood Urea Nitrogen 24 mg/dL (8-23); Calcium 9.2 mg/dL (8.6-10.3); Carbon Dioxide 19 mEq/L (23-29); Chloride 104 mEq/L (98-107); Glucose 161 mg/dL (70-105); Osmolality,Calculated 278 (280-300); Potassium 7.1 mEq/L (3.5-5.1); Sodium 130 mEq/L (136-145); eGFR For African Americans 55 (> 60); eGFR For Non-African Americans 45 (> 60)
[2017-07-14] MEDS ORDERED: *HR* Dextrose 50 % in Water (Syg) 50 ML SYRINGE IVP ONE (12:43)
[2017-07-14] MEDS ORDERED: Insulin Human Regular 10 UNIT in 0.9 % Sodium Chloride 10 ML IV ONE ×2 (12:43→19:05)
[2017-07-14] MEDS ORDERED: Sodium Bicarbonate 50 MEQ/50 ML VIAL IVP ONE (12:43)
[2017-07-14] MEDS ORDERED: Albuterol 2.5 MG/3 ML NEBULIZER IH ONE (12:44)
--- NOTE | 2017-07-14 13:50 | Emergency Department Note ---
Disposition Clinical Impression: Hyperkalemia Chest pain Qualifiers: Chest pain type: unspecified Qualified Code(s): R07.9 - Chest pain, unspecified CHF exacerbation Qualifiers: Heart failure type: unspecified Qualified Code(s): I50.9 - Heart failure, unspecified Atrial fibrillation Qualifiers: Atrial fibrillation type: unspecified Qualified Code(s): I48.91 - Unspecified atrial fibrillation Disposition: Admitted As Inpatient Condition: Good Referrals: Gustavo Alcantara Jr, MD [Primary Care Provider] - Chest Pain HPI - General Chief Complaint: ED Chest Pain Stated Complaint: chest pain Time Seen by Provider: 07/14/17 11:10 Source: patient, EMS Mode of arrival: EMS Limitations: no limitations Vital Signs Reviewed: Yes Nursing Notes Reviewed: Yes - History of Present Illness Severity scale (1-10): 0 - Related Data Home Medications Medication Instructions Recorded Confirmed Ascorbic Acid [Vitamin C] 500 mg PO BID 06/13/15 06/29/17 Aspirin [Adult Low Dose Aspirin EC] 81 mg PO DAILY 06/13/15 06/29/17 Insulin ASPART [NovoLOG] 2 - 12 unit SQ QID PRN #0 06/13/15 06/29/17 Metformin HCl [Glucophage] 1,000 mg PO BID 06/13/15 06/29/17 Rivaroxaban [Xarelto] 20 mg PO HS 06/13/15 06/29/17 Ropinirole HCl [Requip] 0.5 mg PO HS 06/13/15 06/29/17 Sennosides/Docusate Sodium [Senna 1 tab PO DAILY 06/13/15 06/29/17 Plus] Simvastatin [Zocor] 40 mg PO DAILY #0 06/13/15 06/29/17 SitaGLIPtin [Januvia] 100 mg PO DAILY 06/13/15 06/29/17 Zinc Sulfate 220 mg PO BID 06/13/15 06/29/17 Carbidopa/Levodopa 1 tab PO HS 03/16/16 06/29/17 [Carbidopa-Levodopa 25-100 Tab] Insulin DETEMIR [Levemir Flextouch] 14 unit SQ HS 03/16/16 06/29/17 Nitroglycerin 0.4 mg SL Q5MIN PRN 09/27/16 06/29/17 Isosorbide MONOnitrate [Isosorbide 120 mg PO DAILY 06/20/17 06/29/17 Mononitrate ER] Nystatin POWDER [Nystop] 1 appl TP BID 06/20/17 06/29/17 Potassium Chloride [Klor-Con 10] 10 meq PO BID 06/20/17 06/29/17 Sertraline [Zoloft] 100 mg PO DAILY 06/20/17 06/29/17 Spironolactone [Aldactone] 50 mg PO BID 06/20/17 06/29/17 metOLazone [Zaroxolyn] 2.5 mg PO DAILY 06/20/17 06/29/17 Insulin DETEMIR [Levemir] 70 unit SQ QAM 06/29/17 06/29/17 Previous Rx's Medication Instructions Recorded Diltiazem CD (24hr) [Cardizem CD] 360 mg PO DAILY #60 cap.er.24h 06/26/17 Amiodarone [Cordarone] 200 mg PO DAILY #40 tablet 06/27/17 Doxycycline 100 mg PO BID #14 capsule 07/03/17 LORazepam [Ativan] 0.5 mg PO Q8H PRN 1 Days #3 tablet 07/03/17 Oxycodone HCl/Acetaminophen 1 tab PO Q4H PRN 5 Days #4 tablet 07/03/17 [Percocet 5-325 mg Tablet] Allergies Allergy/AdvReac Type Severity Reaction Status Date / Time Sulfa (Sulfonamide Allergy See Verified 06/12/15 20:58 Antibiotics) Comments tramadol AdvReac Nausea Verified 06/12/15 20:58 Constitutional: Denies: fever ENT ED: Denies: congestion Cardiovascular: Reports: chest pain Respiratory: Reports: dyspnea. Denies: cough Gastrointestinal: Denies: abdominal pain, nausea, vomiting Neurological: Denies: headache Chest Pain PMH - Past Medical History Medical history: Reports: CHF, coronary artery disease, diabetes, hyperlipidemia , myocardial infarction Surgical history: Reports: angioplasty/stent, , cholecystectomy, orthopedic, other Psychiatric history: Reports: anxiety, depression - Social History Smoking Status: Never smoker Alcohol use: Reports: none Drug use: Reports: none Physical Exam - General Limitations: no limitations General appearance: alert, in no apparent distress, obese Course Vital Signs Temperature 98.5 F 07/14/17 11:12 Pulse Rate 68 07/14/17 11:12 Respiratory Rate 18 07/14/17 11:12 Blood Pressure 109/72 07/14/17 11:12 O2 Sat by Pulse Oximetry 99 07/14/17 11:12 Temperature 98.5 F 07/14/17 11:12 Pulse Rate 82 07/14/17 12:06 Respiratory Rate 18 07/14/17 12:06 Blood Pressure 139/60 07/14/17 12:06 O2 Sat by Pulse Oximetry 96 07/14/17 12:06 Oxygen Delivery Oxygen Delivery Nasal Cannula Chest Pain - Lab Data Result diagrams: 07/14/17 11:24 07/14/17 11:24 Lab Results 07/14/17 07/14/17 07/14/17 Range/Units 11:24 11:24 11:24 WBC 11.1 (4.3-11.1) K/mcL RBC 4.01 (3.82-4.97) M/mcL Hgb 11.4 L (11.5-15.4) g/dL Hct 35.2 L (35.3-44.9) % MCV 87.8 (83.0-100.0) fL MCH 28.4 (28.0-33.3) pg MCHC 32.4 (31.6-35.5) g/dL RDW 16.0 H (11.5-14.5) % Plt Count 257 (140-400) K/mcL MPV 9.5 (9.4-12.4) fL Immature Gran % 0.9 (0-4) % Seg Neutrophils % 80.9 % Lymphocytes % 11.5 % Monocytes % 4.0 % Eosinophils % 2.4 % Basophils % 0.3 % Neutrophils # 9.0 H (1.6-8.9) K/mcL Lymphocytes # 1.3 (0.6-4.6) K/mcL Monocytes # 0.4 (0.0-1.3) K/mcL Eosinophils # 0.3 (0.0-0.6) K/mcL Basophils # 0.0 (0.0-0.2) K/mcL Sodium 130 L (136-145) mEq/L Potassium 7.1 H* (3.5-5.1) mEq/L Chloride 104 (98-107) mEq/L Carbon Dioxide 19 L (23-29) mEq/L BUN 24 H (8-23) mg/dL Creatinine 1.19 (0.60-1.20) mg/dL Est GFR ( Amer) 55 L (> 60) Est GFR (Non-Af Amer) 45 L (> 60) BUN/Creatinine Ratio 20 (6-26) Glucose 161 H (70-105) mg/dL Calculated Osmolality 278 L (280-300) Calcium 9.2 (8.6-10.3) mg/dL Troponin I < 0.03 (< 0.04) ng/mL B-Natriuretic Peptide 78 (Less than 100) pg/mL Attestation Statement - Attestation Attestation: I, Enrique Najera, examined this patient and my medical decision-making was reviewed with the INCIDENT RESPONSE LEAD/PA/Advanced Practice Nurse/Resident Physician. I agree with the documented findings, disposition and treatment plan as described except to the extent set forth below. 67-year-old female presents emergency Department with concerns of increased swelling in bilateral lower extremities. Patient states she has had increased difficulty in breathing with exertion that has worsened over the past few days from her baseline. Patient does report intermittent chest pain however she states that this occurred 3 seconds at a time was sharp and stabbing center chest and did not radiate. There is no associated diaphoresis or nausea or vomiting. Patient has not syncopized. Patient has significantly edematous look bilateral lower extremities on exam. She has a history congestive heart failure. Chest x-ray shows venous congestion however BNP is not significantly elevated. Patient still likely has acute congestive heart failure with her symptoms. Initial EKG did not show evidence of STEMI. Initial potassium returned elevated at 7.1, she was given calcium gluconate, bicarbonate, insulin and glucose. She was given Lasix in the emergency department she will be admitted to the hospitalist for further care and evaluation. The high probability of a clinically significant, sudden or life threatening deterioration of the cardiovascular system(s) required my full and direct attention, intervention and personal management. The aggregate critical care time was 32 minutes. This time is in addition to time spent performing reported procedures but includes the following: x Data Review and interpretation x Patient assessment and monitoring of vital signs x Documentation x Medication orders and management
[2017-07-14] MEDS ORDERED: Nitroglycerin 0.4 MG TAB.SUBL SL PRN (14:33)
[2017-07-14] MEDS ORDERED: Ondansetron 4 MG/2 ML VIAL IVP PRN (14:33)
[2017-07-14] MEDS ORDERED: *HR* OxyCODONE/APAP 5/325 TABLET PO PRN (14:38)
[2017-07-14] MEDS ORDERED: *HR* LORazepam 0.5 MG TABLET PO PRN (14:48)
--- NOTE | 2017-07-14 15:06 | Internal Med History&Physical ---
Date of Encounter: 07/14/17 Time of Encounter: 14:51 Internal Medicine - H&P: HPI Chief complaint: Chest pain Admitted From: Long-term Nursing Facility Plans for Post Hospital Care: Transfer Director Of Clinical Trials Care History of present illness: Ms. Francisco is a 67 year old female with history of DM, afib, CAD, diastolic heart failure, Lymphadema and Parkinson's. The patient was here in the facilty last on 06/30/[address] was performed that showed small vessel disease/no acute hemorrhage. The previous hospitalization was on 06/20/2017. The patient indicated chest pain at that time. The patient was in atrial fibrillation with RVR. The patient had a Echo that showed LVEF 50%, mod. pulm htn, mid to tricuspid regurg and mild mitral regurg. The patient is here to day due to intermittent CP that only lasted a few seconds today. She indicated that the pain started 2 days ago and she described the pain as sharp, RUQ, rates pain 20/ 10. She denied diaphoresis. She also reported a recent 5 pound weight gain. He legs are severely swollen, 2-3 + bilat, with erythema. She indicated that her legs have been swollen for more than 1 year with erythema. She indicated that they look better today than most. Dorsalis pedis and posterior tibia pulses are 1-2+. She lives in a NH and typically will take nitro, however she thought this pain was different, so she did not request any today. The ED determined the patient to have hyperkalemia @ 7.1. The patient takes a potassium supplement due to diuretic use. The ED administered calcium gluconate, dextrose 50%, furosemide, sodium bicarb, kayexalate, and 10 units of regular insulin. The patient EKG showed Afib rate 67, possible anterior infarct age undetermined. The trop was <0.03. Last echo was 06/23 as mentioned above. Will get cardiac serial enzymes. Apparently her chest pain resolved on it's own. Last stress was 02/2016. Consulted cardiology. Will hold xarelto tonight and get stress in am. Patient indicated that she has been in a NH for 4.5 years, as a result of a fall , where she laid on the floor for 7 days. She has been at her current one for the past 3 years, where she indicated she receives PT. She indicated that she ambulates with a walker. She states that she is incontinent of bowel but not bladder, wears a depend. Past Med Surg Social Fam HX - Past Medical History Medical history: CHF, coronary artery disease, diabetes, hyperlipidemia, myocardial infarction Psychiatric history: anxiety, depression - Past Surgical History Surgical History: angioplasty/stent, , cholecystectomy, orthopedic, other - Social History Smoking Status: Never smoker Smokeless Tobacco Status: No Alcohol use: none Drug use: none - Family History Father Family Member Ethnicity: Non- Living Status: Hx Family Cardiac Disorders: Yes Hx Family Respiratory Disorders: Yes Hx Family Cancer: No Brother Family Member Ethnicity: Non- Living Status: Hx Family Cardiac Disorders: No Hx Family Respiratory Disorders: No Hx Family Cancer: Yes Sister Family Member Ethnicity: Non- Living Status: Hx Family Cardiac Disorders: Yes Hx Family Respiratory Disorders: No Mother Adopted: No Family Member Ethnicity: Non- Living Status: Hx Family Cardiac Disorders: Yes Hx Family Respiratory Disorders: Yes Hx Family Cancer: No Hx Family GI Disorders: No Hx Family Endocrine Disorder: No Hx Family Neuromuscular Disorders: No Hx Family Neurologic Disorders: No Hx Family HEENT Disorders: Yes Hx Family Autoimmune Disorders: No Internal Medicine - H&P: Meds Ascorbic Acid [Vitamin C] 500 mg PO BID 06/13/15 [History] Aspirin [Adult Low Dose Aspirin EC] 81 mg PO DAILY 06/13/15 [History] Insulin ASPART [NovoLOG] 7 unit SQ TID #0 06/13/15 [History] Metformin HCl [Glucophage] 1,000 mg PO BID 06/13/15 [History] Rivaroxaban [Xarelto] 20 mg PO HS 06/13/15 [History] Ropinirole HCl [Requip] 0.5 mg PO HS 06/13/15 [History] Sennosides/Docusate Sodium [Senna Plus] 1 tab PO DAILY 06/13/15 [History] Simvastatin [Zocor] 40 mg PO DAILY #0 06/13/15 [History] SitaGLIPtin [Januvia] 100 mg PO DAILY 06/13/15 [History] Zinc Sulfate 220 mg PO BID 06/13/15 [History] Carbidopa/Levodopa [Carbidopa-Levodopa 25-100 Tab] 1 tab PO HS 03/16/16 [History ] Insulin DETEMIR [Levemir Flextouch] 14 unit SQ HS 03/16/16 [History] Nitroglycerin 0.4 mg SL Q5MIN PRN 09/27/16 [History] Isosorbide MONOnitrate [Isosorbide Mononitrate ER] 120 mg PO DAILY 06/20/17 [ History] Nystatin POWDER [Nystop] 1 appl TP BID 06/20/17 [History] Potassium Chloride [Klor-Con 10] 10 meq PO BID 06/20/17 [History] Sertraline [Zoloft] 100 mg PO DAILY 06/20/17 [History] Spironolactone [Aldactone] 50 mg PO BID 06/20/17 [History] metOLazone [Zaroxolyn] 2.5 mg PO DAILY 06/20/17 [History] Diltiazem CD (24hr) [Cardizem CD] 360 mg PO DAILY #60 cap.er.24h 06/26/17 [Rx] Amiodarone [Cordarone] 200 mg PO DAILY #40 tablet 06/27/17 [Rx] Insulin DETEMIR [Levemir] 70 unit SQ QAM 06/29/17 [History] Doxycycline 100 mg PO BID #14 capsule 07/03/17 [Rx] LORazepam [Ativan] 0.5 mg PO Q8H PRN 1 Days #3 tablet 07/03/17 [Rx] Oxycodone HCl/Acetaminophen [Percocet 5-325 mg Tablet] 1 tab PO Q4H PRN 5 Days # 4 tablet 07/03/17 [Rx] 3 Allergy/AdvReac Type Severity Reaction Status Date / Time Sulfa (Sulfonamide Allergy See Verified 06/12/15 20:58 Antibiotics) Comments tramadol AdvReac Nausea Verified 06/12/15 20:58 All Systems PM: A 10-system review of systems was performed and is negative for pertinent findings except as documented above in the HPI. - Constitutional Constitutional: no chills, no fever(s), no night sweats - EENT Eyes: no change in vision, no discharge, no pain, no photophobia Ears: no ear discharge, no ear pain, no tinnitus Nose, mouth and throat: no dysphagia, no nasal discharge, no neck pain, no sore throat - Cardiovascular Cardiovascular ROS IM: chest pain, dyspnea, no diaphoresis, no lightheadedness, no palpitations, no syncope - Respiratory Respiratory: dyspnea ( ), no cough, no wheezing, no excessive phlegm production - Gastrointestinal Gastrointestinal: fecal incontinence, no abdominal pain, no diarrhea, no hematemesis, no hematochezia, no melena, no nausea, no vomiting - Genitourinary Genitourinary: no change in urinary stream, no dysuria, no flank pain, no hematuria - Musculoskeletal Musculoskeletal ROS IM: no numbness, no tingling - Integumentary Integumentary IM: no rash, no unusual bruising - Neurological Neurological ROS: no confusion, no convulsions, no focal weakness, no numbness, no tingling, no tremor(s) - Hematologic/Lymphatic Hematologic/Lymphatic: no easy bruising - Constitutional Vitals: Temp Pulse Resp BP Pulse Ox 98.5 F 82 18 122/79 96 07/14/17 11:12 07/14/17 12:06 07/14/17 14:16 07/14/17 14:16 07/14/17 12:06 General appearance: Present: A&O X 3 - Head Head exam: Present: atraumatic, normocephalic - Eye Eye exam: Present: PERRL, conjuntiva pink, sclera anicteric Pupils: Present: PERRL - Neck Neck exam general surgery: Present: supple, trachea midline. Absent: lymphadenopathy - Respiratory Respiratory exam: Present: CTAB. Absent: accessory muscle use, rales, rhonchi, wheezes - Cardiovascular Cardiovascular exam: Present: irregular rhythm (Afib), +S1, +S2. Absent: diastolic murmur, gallop, rubs, systolic murmur - GI/Abdominal GI/Abdominal exam: Present: normal bowel sounds, soft, no peritoneal signs. Absent: distended, tenderness - Extremities Exam Extremities exam: Present: pedal edema (2-3+ lower ext edema with erythema), warm, radial pulses palpable and symmetrical. Absent: calf tenderness, cyanotic - Neurological Exam Neurological exam: Present: CN II-XII intact, oriented X3, no focal deficits. Absent: pronater drift, facial droop, speech deficit - Skin Skin exam: Present: dry, erythema (Bilat lower extremities), intact Internal Med - H&P Results - Labs CBC & Chem 7: 07/14/17 11:24 07/14/17 17:49 - Assessment and plan (1) Chest pain Current Visit: No Status: Acute Assessment and plan: cardiac enzymes x 2 q 8 hr - ASA - Metoprolol 12.5 mg PO BID, hold for HR lower than 55 bpm - O2 by NC to keep SpO2 greater than 92% - UA - CBC, BMP in AM - Fasting lipids last done 06/30/2017 - Nitroglycerin PRN chest pain - Tylenol 650 mg PO q 4-6 hr PRN pain - Home meds - Continue home Xarelto dosing - 2D Echo-completed 06/23/2017 Qualifiers: Chest pain type: unspecified Qualified Code(s): R07.9 - Chest pain, unspecified (2) Hyperkalemia Current Visit: Yes Status: Acute Assessment and plan: Treated with calcium gluconate, insulin, sod. bicarb, and 10 units reg insulin Daily serum k Cardiac monitoring (3) Acute exacerbation of CHF (congestive heart failure) Current Visit: Yes Status: Acute Assessment and plan: Cardiac consult Continue furosemide home dosing Cardiac monitoring Qualifiers: Heart failure type: diastolic Qualified Code(s): I50.33 - Acute on chronic diastolic (congestive) heart failure (4) Atrial fibrillation Current Visit: Yes Status: Acute Assessment and plan: Cardiac monitoring DVT prophylaxis -home Xarelto dosing Qualifiers: Atrial fibrillation type: chronic Qualified Code(s): I48.2 - Chronic atrial fibrillation (5) CAD (coronary artery disease) Current Visit: No Status: Chronic Assessment and plan: Continue cardiac medications Cardiology consult Qualifiers: Coronary Disease-Associated Artery/Lesion type: unspecified vessel or lesion type [place] vs. transplanted heart: [place] heart Associated angina: angina presence unspecified Qualified Code(s): I25.10 - Atherosclerotic heart disease of [place] coronary artery without angina pectoris (6) IDDM (insulin dependent diabetes mellitus) Current Visit: No Status: Chronic Assessment and plan: DM uncontrolled. ac/hs blood sugar continue scheduled levimir and sliding scale dosing HGA1C in am (7) Morbid obesity Current Visit: No Status: Chronic Assessment and plan: nutrition consult (8) Parkinson disease Current Visit: No Status: Chronic Assessment and plan: Continue the patient home med of sinemet Consult PT/OT (9) Cellulitis Current Visit: No Status: Chronic Assessment and plan: Chronic cellulitis bilat lower ext. Monitor vital signs Monitor cbc and bmp Qualifiers: Site of cellulitis: extremity Site of cellulitis of extremity: lower extremity Laterality: unspecified laterality Qualified Code(s): L03.119 - Cellulitis of unspecified part of limb - Time Spent With Patient Total time spent is greater than 50% in coordination of care (as documented) at patient's floor/unit and/or counseling patient: 25 - 35 minutes
[2017-07-14] MEDS ORDERED: Insulin Human Regular 10 UNIT in 0.9 % Sodium Chloride 10 ML IV STA (15:53)
[2017-07-14] MEDS ORDERED: Furosemide 20 MG TABLET PO PRN (16:03)
[2017-07-14] MEDS: Insulin LISPRO 300 UNITS/3 ML VIAL SQ SCH (17:00)
[2017-07-14] MEDS ORDERED: Ketorolac 30 MG/ML VIAL IVP PRN (17:00)
[2017-07-14 18:42] LABS: Bilirubin,Urine Negative (Negative); Blood,Urine Negative (Negative); Clarity,Urine Clear (Clear); Color,Urine Yellow (Yellow); Glucose,Urine (UA) Normal (Normal); Ketones,Urine Negative (Negative); Leukocyte Esterase,Urine Negative (Negative); Nitrite,Urine Negative (Negative); PH,Urine 5.5 pH Units (5.0-8.0); Protein,Urine Negative (Neg-Trace); Specific Gravity,Urine 1.016 (1.010-1.025); Urobilinogen,Urine Normal (Normal)
[2017-07-14] MEDS ORDERED: *HR* Dextrose 50 % in Water (Syg) 50 ML SYRINGE ONE (19:44)
[2017-07-14] MEDS: Zinc Sulfate 220 MG CAPSULE PO SCH (20:59)
[2017-07-14] MEDS: Carbidopa/Levodopa 25/100 TABLET PO SCH (20:59)
[2017-07-14] MEDS: Insulin DETEMIR 100 UNIT/ML X5UNITS SQ SCH (20:59)
[2017-07-14] MEDS: rOPINIRole 0.25 MG TABLET PO SCH (20:59)
[2017-07-14] MEDS: Ascorbic Acid 500 MG TABLET PO SCH (20:59)
[2017-07-14] MEDS ORDERED: INSULIN DETEMIR 14 UNIT SQ SCH (21:00)
[2017-07-14] MEDS ORDERED: *HR* Rivaroxaban 10 MG TABLET PO SCH (21:00)
[2017-07-14] MEDS: Nystatin POWDER 30 GM BOTTLE TP SCH (21:07)
[2017-07-15 01:19] LABS: Basophils % 0.3 %; Eosinophils # 0.3 K/mcL (0.0-0.6); Eosinophils % 2.4 %; Hematocrit 32.1 % (35.3-44.9); Hemoglobin 10.5 g/dL (11.5-15.4); Immature Granulocytes % 1.1 % (0-4); Lymphocytes # 1.7 K/mcL (0.6-4.6); Lymphocytes % 14.4 %; Mean Corpuscular HGB Conc 32.7 g/dL (31.6-35.5); Mean Corpuscular Hemoglobin 28.2 pg (28.0-33.3); Mean Corpuscular Volume 86.1 fL (83.0-100.0); Mean Platelet Volume 9.2 fL (9.4-12.4); Monocytes # 0.5 K/mcL (0.0-1.3); Monocytes % 4.3 %; Neutrophils # 9.3 K/mcL (1.6-8.9); Platelet Count 236 K/mcL (140-400); Red Blood Count 3.73 M/mcL (3.82-4.97); Segmented Neutrophils % 77.5 %
[2017-07-15 01:27] LABS: INR 1.3; Prothrombin Time 13.8 Seconds (9.4-12.1)
[2017-07-15 01:38] LABS: Alanine Aminotransferase < 3 Units/L (7-52); Albumin 3.9 g/dL (3.5-5.7); Albumin/Globulin Ratio 1.6 (1.1-2.2); Alkaline Phosphatase 116 Units/L (34-104); Aspartate Amino Transferase 13 Units/L (13-39); BUN/Creatinine Ratio 21 (6-26); Bilirubin,Total 0.4 mg/dL (0.3-1.0); Blood Urea Nitrogen 23 mg/dL (8-23); Calcium 9.2 mg/dL (8.6-10.3); Carbon Dioxide 22 mEq/L (23-29); Chloride 106 mEq/L (98-107); Globulin 2.5 g/dL (2.4-3.5); Glucose 88 mg/dL (70-105); Magnesium 1.7 mg/dL (1.6-2.6); Osmolality,Calculated 281 (280-300); Sodium 134 mEq/L (136-145); Total Protein 6.4 g/dL (6.4-8.9); eGFR For African Americans > 60 (> 60); eGFR For Non-African Americans 50 (> 60)
[2017-07-15] MEDS ORDERED: *HR* Dextrose 50 % in Water (Syg) 50 ML SYRINGE IVP PRN (08:05)
[2017-07-15] MEDS ORDERED: D5% in Water 1,000 ML IVC PRN (08:05)
[2017-07-15] MEDS ORDERED: Dextrose Gel 15 GM/37.5 ML TUBE PO PRN ×2 (08:05)
[2017-07-15] MEDS ORDERED: Furosemide 40 MG TABLET PO SCH (09:00)
[2017-07-15] MEDS: *HR* SitaGLIPtin 100 MG TABLET PO SCH (09:03)
[2017-07-15] MEDS: Ascorbic Acid 500 MG TABLET PO SCH ×2 (09:03→21:12)
[2017-07-15] MEDS: *HR* Amiodarone 200 MG TABLET PO SCH (09:03)
[2017-07-15] MEDS: Aspirin 81 MG TAB.CHEW PO SCH (09:03)
[2017-07-15] MEDS: Isosorbide MONOnitrate (24 HR) 60 MG TAB.ER.24H PO SCH (09:03)
[2017-07-15] MEDS: metOLazone 2.5 MG TABLET PO SCH (09:03)
[2017-07-15] MEDS: Zinc Sulfate 220 MG CAPSULE PO SCH ×2 (09:03→21:12)
[2017-07-15] MEDS: Diltiazem CD (24hr) 180 MG CAPSULE PO SCH (09:04)
[2017-07-15] MEDS: Nystatin POWDER 30 GM BOTTLE TP SCH ×2 (09:04→22:29)
[2017-07-15] MEDS: Insulin LISPRO 300 UNITS/3 ML VIAL SQ SCH ×6 (09:04→21:11)
[2017-07-15] MEDS: Sennosides/Docusate Sodium TABLET PO SCH (09:04)
[2017-07-15 09:26] LABS: Estimated Average Glucose 137 mg/dl; Hemoglobin A1C 6.4 %
--- NOTE | 2017-07-15 09:36 | Electrocardiograph Report ---
[facility] Test Date: 2017-07-14 Pat Name: Meagan Francisco Department: 102 Room: 2A43 Gender: F [employer]: : 1950 Requested By: Subhash Ponce Order Number: [id number] Reading MD: Jasper Leyva Measurements Intervals [place] Rate: 67 P: [place]: 0 QRS: 79 QRSD: 101 T: 25 QT: 417 QTc: 433 Interpretive Statements ATRIAL FIBRILLATION LOW QRS VOLTAGE IN PRECORDIAL LEADS [QRS DEFLECTION < 1.0 mV IN CHEST LEADS] POSSIBLE ANTERIOR MYOCARDIAL INFARCTION [30 ms Q WAVE IN V3/V4, OR R < 0.2 mV IN V4], PROBABLY OLD ABNORMAL RHYTHM ECG Electronically Signed On 07-15-2017 7:18:20 EDT by Jasper Leyva
[2017-07-15] MEDS ORDERED: *HR* Dextrose 50 % in Water (Syg) 50 ML SYRINGE IVP ONE (13:05)
[2017-07-15] MEDS ORDERED: Insulin Human Regular 10 UNIT in 0.9 % Sodium Chloride 10 ML IV ONE (13:05)
[2017-07-15] MEDS ORDERED: Albuterol 2.5 MG/3 ML NEBULIZER IH ONE (13:07)
--- NOTE | 2017-07-15 14:04 | Cardiology Consult Note ---
Date of Encounter: 07/15/17 Time of Encounter: 13:30 Assessment and Plan (1) Diastolic CHF Current Visit: Yes Status: Acute Per cardiology: -Known diastolic CHF. -Presented with worsening edema, worsening shortness of breath. -Was given one time dose of IV lasix. -Net negative 980ml. -Remains volume overloaded on exam. -Chest x-ray with vascular congestion, interstitial infiltrates likely representing edema and CHF. -On aldactone and metalazone. -TTE 06/23/17 LVEF 50%, indeterminate diastolic function, RV dilated with normal function, mild MR, mild-moderate TR, moderate PH, no segmental wall motion abnormalities. -Will start IV lasix daily. -Strict i/os, lfuid restriction, daily weights. Qualifiers: Heart failure chronicity: acute on chronic Qualified Code(s): I50.33 - Acute on chronic diastolic (congestive) heart failure (2) Hyperkalemia Current Visit: Yes Status: Acute Per cardiology: -K 7.1 on admission. Now 6. -Being treated per primary service. -OF note was on aldactone in outpatient setting. -Will stop aldactone, -Management per primary service. (3) CAD (coronary artery disease) Current Visit: No Status: Chronic Per cardiology: -Known history of CAD with PCI circumflex 2014, otherwise non-obstructive CAD. -Denies chest pain. -No acute ischemic ECG changes. -On asa, statin. -Will add BB. Qualifiers: Coronary Disease-Associated Artery/Lesion type: [place] artery [place] vs. transplanted heart: [place] heart Associated angina: without angina Qualified Code(s): I25.10 - Atherosclerotic heart disease of [place] coronary artery without angina pectoris (4) Atrial flutter Current Visit: No Status: Chronic Per cardiology: -Known a.flutter. -ON cardizem CD 360mg daily and amiodarone 200mg daily. -Average HR previous 12 hours noted to be 110, a.flutter. -Currently 90-100s -On xarelto 20mg daily. Unsure if has missed doses in the past 30 days. -Will add BB. Of note, has been difficult to rate control previously. -Will continue to monitor. Qualifiers: Atrial flutter type: unspecified Qualified Code(s): I48.92 - Unspecified atrial flutter Discussion w patient/family: The assessment and plan as outlined above was discussed with the patient who expressed understanding and agreement. All questions were answered. Thank you for involving us in the care of your patient. Please call with any questions. Discussed and reviewed with . History of Present Illness Consult date: 07/14/17 Requesting physician: Ying Jara Consult reason: CHF Chief complaint: swelling, shortness of breath History of present illness: Ms. Francisco is a 67 year old female with a relevant past medical history of diastolic CHF, a.flutter, DM, CAD with PCI 2014 who presented to [facility] with complaints of increased shortness of breath, increased swelling. Patient denies chest pain. Reports intermittent palpitations, states about her baseline. Patient reports breathing today is somewhat improved since admission. Reports swelling is still worse than baseline. Past Med Surg Social Fam HX - Past Medical History Attestation: Yes The following information was validated with the patient. Source: patient, old records reviewed Medical history: CHF, coronary artery disease, diabetes, hyperlipidemia, myocardial infarction Psychiatric history: anxiety, depression - Past Surgical History Surgical History: angioplasty/stent, , cholecystectomy, orthopedic, other - Social History Smoking Status: Never smoker Smokeless Tobacco Status: No Alcohol use: none Drug use: none - Family History Father Family Member Ethnicity: Non- Living Status: Hx Family Cardiac Disorders: Yes Hx Family Respiratory Disorders: Yes Hx Family Cancer: No Brother Family Member Ethnicity: Non- Living Status: Hx Family Cardiac Disorders: No Hx Family Respiratory Disorders: No Hx Family Cancer: Yes Sister Family Member Ethnicity: Non- Living Status: Hx Family Cardiac Disorders: Yes Hx Family Respiratory Disorders: No Mother Adopted: No Family Member Ethnicity: Non- Living Status: Hx Family Cardiac Disorders: Yes Hx Family Respiratory Disorders: Yes Hx Family Cancer: No Hx Family GI Disorders: No Hx Family Endocrine Disorder: No Hx Family Neuromuscular Disorders: No Hx Family Neurologic Disorders: No Hx Family HEENT Disorders: Yes Hx Family Autoimmune Disorders: No Medications and Allergies Ascorbic Acid [Vitamin C] 500 mg PO BID 06/13/15 [History] Aspirin [Adult Low Dose Aspirin EC] 81 mg PO DAILY 06/13/15 [History] Insulin ASPART [NovoLOG] 7 unit SQ TID #0 06/13/15 [History] Metformin HCl [Glucophage] 1,000 mg PO BID 06/13/15 [History] Rivaroxaban [Xarelto] 20 mg PO HS 06/13/15 [History] Ropinirole HCl [Requip] 0.5 mg PO HS 06/13/15 [History] Sennosides/Docusate Sodium [Senna Plus] 1 tab PO DAILY 06/13/15 [History] Simvastatin [Zocor] 40 mg PO DAILY #0 06/13/15 [History] SitaGLIPtin [Januvia] 100 mg PO DAILY 06/13/15 [History] Zinc Sulfate 220 mg PO BID 06/13/15 [History] Carbidopa/Levodopa [Carbidopa-Levodopa 25-100 Tab] 1 tab PO HS 03/16/16 [History ] Insulin DETEMIR [Levemir Flextouch] 14 unit SQ HS 03/16/16 [History] Nitroglycerin 0.4 mg SL Q5MIN PRN 09/27/16 [History] Isosorbide MONOnitrate [Isosorbide Mononitrate ER] 120 mg PO DAILY 06/20/17 [ History] Nystatin POWDER [Nystop] 1 appl TP BID 06/20/17 [History] Potassium Chloride [Klor-Con 10] 10 meq PO BID 06/20/17 [History] Sertraline [Zoloft] 100 mg PO DAILY 06/20/17 [History] Spironolactone [Aldactone] 50 mg PO BID 06/20/17 [History] metOLazone [Zaroxolyn] 2.5 mg PO DAILY 06/20/17 [History] Diltiazem CD (24hr) [Cardizem CD] 360 mg PO DAILY #60 cap.er.24h 06/26/17 [Rx] Amiodarone [Cordarone] 200 mg PO DAILY #40 tablet 06/27/17 [Rx] Insulin DETEMIR [Levemir] 70 unit SQ QAM 06/29/17 [History] Doxycycline 100 mg PO BID #14 capsule 07/03/17 [Rx] LORazepam [Ativan] 0.5 mg PO Q8H PRN 1 Days #3 tablet 07/03/17 [Rx] Oxycodone HCl/Acetaminophen [Percocet 5-325 mg Tablet] 1 tab PO Q4H PRN 5 Days # 4 tablet 07/03/17 [Rx] 3 Allergy/AdvReac Type Severity Reaction Status Date / Time Sulfa (Sulfonamide Allergy See Verified 06/12/15 20:58 Antibiotics) Comments tramadol AdvReac Nausea Verified 06/12/15 20:58 All Systems Review: The remainder of the systems were reviewed and are negative - Cardiovascular Cardiovascular: as per HPI, dyspnea at rest, dyspnea on exertion, leg edema Physical Examination Vital Signs, Last 4 Hours Temp Pulse Resp BP Pulse Ox 07/15/17 10:30 98.8 F 118 16 119/71 94 General: Conversant, No Apparent Distress HEENT: Atraumatic, Normocephaly, Mucus Membranes Moist Neck: No JVD, Normal carotid pulses Cardiac: Normal S1 and S2, No Murmur, Other (Irregularly irregular ) Lungs: Other (Lung sounds diminished throughout. ) Neuro: Alert and responsive, No focal deficits noted Abdomen: Soft, Non-Tender Skin: No rashes noted on visualized skin Musculoskeletal: No Chest Wall Tenderness Extremities: No Clubbing, No Cyanosis, Normal Pulses, Other (Increased edema noted to lower extremities. ) Results 07/15/17 00:58 07/15/17 00:58 Active Medications Amiodarone HCl (Cordarone) 200 mg PO DAILY [facility] Stop: 01/14/18 09:01 Last Admin: 07/15/17 09:03 Dose: 200 mg Ascorbic Acid (Vitamin C) 500 mg PO BID [facility] Stop: 01/13/18 21:01 Last Admin: 07/15/17 09:03 Dose: 500 mg Aspirin (Aspirin) 81 mg PO DAILY [facility] Stop: 01/14/18 09:01 Last Admin: 07/15/17 09:03 Dose: 81 mg Carbidopa/Levodopa (Sinemet) 1 each PO HS [facility] Stop: 01/13/18 21:01 Last Admin: 07/14/17 20:59 Dose: 1 each Dextrose/Water (Dextrose 50% (Syg)) 25 ml IVP AD PRN PRN Reason: Hypoglycemia Stop: 01/14/18 08:06 Diltiazem HCl (Cardizem Cd) 360 mg PO DAILY [facility] Stop: 01/14/18 09:01 Last Admin: 07/15/17 09:04 Dose: 360 mg Furosemide (Lasix) 40 mg IVP DAILY [facility] Stop: 01/14/18 14:01 Glucagon (Glucagen) 1 mg IM ONCE PRN PRN Reason: Hypoglycemia Stop: 01/14/18 08:06 Glucose (Gluctose) 15 gm PO ONCE PRN PRN Reason: Hypoglycemia Stop: 01/14/18 08:06 Glucose (Gluctose) 30 gm PO ONCE PRN PRN Reason: Hypoglycemia Stop: 01/14/18 08:06 Dextrose (Dextrose 5%) 1,000 mls @ 100 mls/hr IVC .Q10H PRN PRN Reason: HYPOGLYCEMIA Stop: 01/14/18 08:06 Insulin Detemir (Levemir) 14 unit SQ HS [facility] Stop: 01/13/18 21:01 Last Admin: 07/14/17 20:59 Dose: 14 unit Insulin Human Lispro (Humalog) 7 units SQ TIDWM [facility] Stop: 01/13/18 17:01 Last Admin: 07/15/17 11:49 Dose: 7 units Insulin Human Lispro (Humalog) 0 units SQ HS [facility] PRN Reason: Protocol Stop: 01/14/18 21:01 Insulin Human Lispro (Humalog) 0 units SQ TIDAC [facility] PRN Reason: Protocol Stop: 01/14/18 11:31 Last Admin: 07/15/17 11:33 Dose: Not Given Isosorbide Mononitrate (Imdur) 120 mg PO DAILY [facility] Stop: 01/14/18 09:01 Last Admin: 07/15/17 09:03 Dose: 120 mg Lorazepam (Ativan) 0.5 mg PO Q8H PRN PRN Reason: Anxiety Stop: 01/13/18 14:49 Metolazone (Zaroxolyn) 2.5 mg PO DAILY [facility] Stop: 01/14/18 09:01 Last Admin: 07/15/17 09:03 Dose: 2.5 mg Metoprolol Succinate (Toprol Xl) 12.5 mg PO DAILY [facility] Stop: 01/14/18 14:01 Nitroglycerin (Nitroglycerin) 0.4 mg SL Q5MIN PRN PRN Reason: Chest Pain Stop: 01/13/18 14:34 Nystatin (Nystop) 1 appl TP BID [facility] Stop: 01/13/18 21:01 Last Admin: 07/15/17 09:04 Dose: 1 appl Omeprazole (Prilosec) 20 mg PO DAILY@0630 [facility] PRN Reason: Protocol Stop: 01/14/18 06:31 Last Admin: 07/15/17 05:53 Dose: 20 mg Ondansetron HCl (Zofran) 4 mg IVP Q6HR PRN; Protocol PRN Reason: Nausea Stop: 01/13/18 14:34 Oxycodone/Acetaminophen (Percocet 5/325) 1 each PO Q4H PRN PRN Reason: Moderate Pain Rivaroxaban (Xarelto) 20 mg PO QPM [facility] Stop: 01/14/18 18:01 Ropinirole HCl (Requip) 0.5 mg PO HS [facility] Stop: 01/13/18 21:01 Last Admin: 07/14/17 20:59 Dose: 0.5 mg Senna/Docusate Sodium (Senna Plus) 1 each PO DAILY [facility] PRN Reason: Protocol Stop: 01/14/18 09:01 Last Admin: 07/15/17 09:04 Dose: 1 each Sertraline HCl (Zoloft) 100 mg PO DAILY [facility] Stop: 01/14/18 09:01 Last Admin: 07/15/17 09:03 Dose: 100 mg Simvastatin (Zocor) 40 mg PO DAILY [facility] PRN Reason: Protocol Stop: 01/14/18 09:01 Last Admin: 07/15/17 09:04 Dose: 40 mg Sitagliptin Phosphate (Januvia) 100 mg PO DAILY [facility] Stop: 01/14/18 09:01 Last Admin: 07/15/17 09:03 Dose: 100 mg Zinc Sulfate (Zinc Sulfate) 220 mg PO BID [facility] Stop: 01/13/18 21:01 Last Admin: 07/15/17 09:03 Dose: 220 mg Laboratory Tests 07/14/17 07/14/17 07/14/17 11:24 11:24 17:49 WBC Hgb Potassium 7.1 H* Creatinine Troponin I < 0.03 < 0.03 B-Natriuretic Peptide 78 07/15/17 07/15/17 07/15/17 00:58 00:58 00:58 WBC 12.0 H Hgb 10.5 L Potassium 6.0 H Creatinine 1.10 Troponin I < 0.03 B-Natriuretic Peptide - Imaging and Cardiology Chest Xray: report reviewed Echo: report reviewed - EKG Interpretation EKG results cardiology: personally reviewed (ECG with fabrizio, HR 74.), other (Telemetry reviewed with average HR previous 12 hours noted to be 110, a.flutter. Currently 90-100s per telemetry.) Consult Discharge Plan - Plan Referrals: Gustavo Alcantara Jr, MD [Primary Care Provider] -
[2017-07-15] MEDS: Furosemide 40 MG/4 ML VIAL IVP SCH (14:32)
[2017-07-15] MEDS: Metoprolol XL (24 HR) Succ 25 MG TAB.ER.24H PO SCH (14:32)
[2017-07-15] MEDS: *HR* Rivaroxaban 10 MG TABLET PO SCH (17:36)
--- NOTE | 2017-07-15 17:39 | Internal Med Progress Note ---
Date of Encounter: 07/15/17 Time of Encounter: 11:00 - Assessment and plan (1) Hyperkalemia Current Visit: Yes Status: Acute Assessment and plan: Patient with potassium of 7.1 on admission and now 6.0 this morning She was on Aldactone as an outpatient which has been discontinued Will give patient Kayexalate in addition to another round of insulin with glucose and albuterol nebulizer Will continue to monitor (2) Acute on chronic diastolic (congestive) heart failure Current Visit: No Status: Acute Assessment and plan: Echocardiogram on 05/2017 showed LVEF of 50% with indeterminate diastolic function in addition to right ventricular dilation with normal function Cardiology consulted with recommendations to start IV diuresis with Lasix (3) Atrial flutter Current Visit: No Status: Chronic Assessment and plan: Continue home dose of Cardizem and amiodarone with anticoagulation on Xarelto Qualifiers: Atrial flutter type: unspecified Qualified Code(s): I48.92 - Unspecified atrial flutter (4) CAD (coronary artery disease) Current Visit: No Status: Chronic Assessment and plan: Stable; PCI circumflex 2014 Continue to [place], aspirin and statin Qualifiers: Coronary Disease-Associated Artery/Lesion type: [place] artery [place] vs. transplanted heart: [place] heart Associated angina: without angina Qualified Code(s): I25.10 - Atherosclerotic heart disease of [place] coronary artery without angina pectoris (5) IDDM (insulin dependent diabetes mellitus) Current Visit: No Status: Chronic Assessment and plan: Continue coverage with sliding-scale (6) Morbid obesity Current Visit: No Status: Chronic Assessment and plan: BMI 56 (7) DVT prophylaxis Current Visit: No Status: Acute Assessment and plan: On Xarelto - Time Spent With Patient Total time spent is greater than 50% in coordination of care (as documented) at patient's floor/unit and/or counseling patient: - Subjective Interval history: No acute events overnight and patient resting currently this morning Patient continues to have hyperkalemia in addition to volume overloaded on exam and her to heart failure - Constitutional Vitals: Temp Pulse Resp BP Pulse Ox 98.4 F 115 18 127/74 95 07/15/17 16:12 07/15/17 16:12 07/15/17 16:12 07/15/17 16:12 07/15/17 16:12 General appearance: Present: A&O X 3, no acute distress - Respiratory Respiratory exam: Present: CTAB. Absent: accessory muscle use, rales, rhonchi, wheezes - Cardiovascular Cardiovascular exam: Present: RRR, +S1, +S2. Absent: diastolic murmur, gallop, rubs, systolic murmur Internal Medicine: Result - Labs CBC & Chem 7: 07/15/17 00:58 07/15/17 00:58 - ABG Interpretation ABG results: PT/INR, D-dimer PT 13.8 Seconds (9.4-12.1) H 07/15/17 00:58 Consult Discharge Plan - Plan Referrals: Gustavo Alcantara Jr, MD [Primary Care Provider] -
[2017-07-15] MEDS: Insulin DETEMIR 100 UNIT/ML X5UNITS SQ SCH (21:12)
[2017-07-15] MEDS: Carbidopa/Levodopa 25/100 TABLET PO SCH (21:12)
[2017-07-15] MEDS: rOPINIRole 0.25 MG TABLET PO SCH (21:12)
[2017-07-16 06:19] LABS: Basophils % 0.4 %; Eosinophils # 0.3 K/mcL (0.0-0.6); Eosinophils % 2.5 %; Hematocrit 32.4 % (35.3-44.9); Hemoglobin 10.4 g/dL (11.5-15.4); Immature Granulocytes % 0.9 % (0-4); Lymphocytes # 1.7 K/mcL (0.6-4.6); Lymphocytes % 17.3 %; Mean Corpuscular HGB Conc 32.1 g/dL (31.6-35.5); Mean Corpuscular Hemoglobin 26.9 pg (28.0-33.3); Mean Corpuscular Volume 83.9 fL (83.0-100.0); Mean Platelet Volume 9.3 fL (9.4-12.4); Monocytes # 0.5 K/mcL (0.0-1.3); Monocytes % 4.9 %; Neutrophils # 7.4 K/mcL (1.6-8.9); Platelet Count 214 K/mcL (140-400); Red Blood Count 3.86 M/mcL (3.82-4.97); Red Cell Distribution Width 16.3 % (11.5-14.5)
[2017-07-16 06:36] LABS: Albumin 3.8 g/dL (3.5-5.7); Albumin/Globulin Ratio 1.4 (1.1-2.2); Bilirubin,Total 0.3 mg/dL (0.3-1.0); Calcium 8.9 mg/dL (8.6-10.3); Globulin 2.7 g/dL (2.4-3.5); Potassium 4.9 mEq/L (3.5-5.1); Total Protein 6.5 g/dL (6.4-8.9)
[2017-07-16] MEDS: Diltiazem CD (24hr) 180 MG CAPSULE PO SCH (08:40)
[2017-07-16] MEDS: Aspirin 81 MG TAB.CHEW PO SCH (08:41)
[2017-07-16] MEDS: *HR* Amiodarone 200 MG TABLET PO SCH (08:41)
[2017-07-16] MEDS: Furosemide 40 MG/4 ML VIAL IVP SCH ×3 (08:41→17:30)
[2017-07-16] MEDS: Isosorbide MONOnitrate (24 HR) 60 MG TAB.ER.24H PO SCH (08:41)
[2017-07-16] MEDS: metOLazone 2.5 MG TABLET PO SCH (08:41)
[2017-07-16] MEDS: Sennosides/Docusate Sodium TABLET PO SCH (08:41)
[2017-07-16] MEDS: *HR* SitaGLIPtin 100 MG TABLET PO SCH (08:41)
[2017-07-16] MEDS: Zinc Sulfate 220 MG CAPSULE PO SCH ×2 (08:41→20:29)
[2017-07-16] MEDS: Metoprolol XL (24 HR) Succ 25 MG TAB.ER.24H PO SCH (08:41)
[2017-07-16] MEDS: Ascorbic Acid 500 MG TABLET PO SCH ×2 (08:41→20:29)
[2017-07-16] MEDS: Nystatin POWDER 30 GM BOTTLE TP SCH ×2 (08:42→20:33)
[2017-07-16] MEDS: Insulin LISPRO 300 UNITS/3 ML VIAL SQ SCH ×7 (08:42→20:32)
[2017-07-16] MEDS ORDERED: *HR* Metoprolol 5 MG/5 ML VIAL IVP ONE (10:19)
--- NOTE | 2017-07-16 11:03 | Cardiology Progress Note ---
Date of Encounter: 07/16/17 Time of Encounter: 08:45 Assessment and Plan (1) Diastolic CHF Current Visit: Yes Status: Acute Per cardiology: -Known diastolic CHF. -Presented with worsening edema, worsening shortness of breath. -On IV lasix -Net negative 2500ml. -Remains volume overloaded on exam. -Chest x-ray with vascular congestion, interstitial infiltrates likely representing edema and CHF. -On metalazone. Aldactone has been stopped due to hyperkalemia. -TTE 06/23/17 LVEF 50%, indeterminate diastolic function, RV dilated with normal function, mild MR, mild-moderate TR, moderate PH, no segmental wall motion abnormalities. -Strict i/os, fluid restriction, daily weights -Will continue to monitor. Qualifiers: Heart failure chronicity: acute on chronic Qualified Code(s): I50.33 - Acute on chronic diastolic (congestive) heart failure (2) Hyperkalemia Current Visit: Yes Status: Acute Per cardiology: -K 7.1 on admission. Now 4.9. -Being treated per primary service. -OF note was on aldactone in outpatient setting. Has been stopped. -Management per primary service. (3) CAD (coronary artery disease) Current Visit: No Status: Chronic Per cardiology: -Known history of CAD with PCI circumflex 2014, otherwise non-obstructive CAD. -Denies chest pain. -No acute ischemic ECG changes. -On asa, statin, BB. Qualifiers: Coronary Disease-Associated Artery/Lesion type: [place] artery [place] vs. transplanted heart: [place] heart Associated angina: without angina Qualified Code(s): I25.10 - Atherosclerotic heart disease of [place] coronary artery without angina pectoris (4) Atrial flutter Current Visit: No Status: Chronic Per cardiology: -Known a.flutter. -ON cardizem CD 360mg daily, toprol 12.5mg, and amiodarone 200mg daily. -Average HR previous 12 hours noted to be 124, a.flutter. -On xarelto 20mg daily. Unsure if has missed doses in the past 30 days. -Will give IV lopressor. -Will continue to monitor. May need to consider cardizem drip. Qualifiers: Atrial flutter type: unspecified Qualified Code(s): I48.92 - Unspecified atrial flutter Discussion w patient/family: The assessment and plan as outlined above was discussed with the patient who expressed understanding and agreement. All questions were answered. Thank you for involving us in the care of your patient. Please call with any questions. Discussed and reviewed with . Subjective Principal diagnosis: CHF, a.flutter Interval history: Patient sitting up in chair this morning. Report she feels mildly improved from yesterday. Objective Vital Signs, Last 4 Hours Temp Pulse Resp BP Pulse Ox 07/16/17 07:31 98.3 F 125 20 111/74 93 General: Conversant, No Apparent Distress HEENT: Atraumatic, Normocephaly, Mucus Membranes Moist Neck: No JVD, Normal carotid pulses Cardiac: Normal S1 and S2, No Murmur, Other (Irregularly irregular) Lungs: Normal Breath Sounds, No Wheeze, Rales, Rhonchi Neuro: Alert and responsive, No focal deficits noted Abdomen: Soft, Non-Tender Skin: No rashes noted on visualized skin Musculoskeletal: No Chest Wall Tenderness Extremities: No Clubbing, No Cyanosis, Normal Pulses, Other (Bilateral lower extremity edema noted. ) Results 07/16/17 06:00 07/16/17 06:00 Lab Results Active Medications Amiodarone HCl (Cordarone) 200 mg PO DAILY [facility] Stop: 01/14/18 09:01 Last Admin: 07/16/17 08:41 Dose: 200 mg Ascorbic Acid (Vitamin C) 500 mg PO BID [facility] Stop: 01/13/18 21:01 Last Admin: 07/16/17 08:41 Dose: 500 mg Aspirin (Aspirin) 81 mg PO DAILY [facility] Stop: 01/14/18 09:01 Last Admin: 07/16/17 08:41 Dose: 81 mg Carbidopa/Levodopa (Sinemet) 1 each PO HS [facility] Stop: 01/13/18 21:01 Last Admin: 07/15/17 21:12 Dose: 1 each Dextrose/Water (Dextrose 50% (Syg)) 25 ml IVP AD PRN PRN Reason: Hypoglycemia Stop: 01/14/18 08:06 Diltiazem HCl (Cardizem Cd) 360 mg PO DAILY [facility] Stop: 01/14/18 09:01 Last Admin: 07/16/17 08:40 Dose: 360 mg Furosemide (Lasix) 40 mg IVP DAILY [facility] Stop: 01/14/18 14:01 Last Admin: 07/16/17 08:41 Dose: 40 mg Glucagon (Glucagen) 1 mg IM ONCE PRN PRN Reason: Hypoglycemia Stop: 01/14/18 08:06 Glucose (Gluctose) 15 gm PO ONCE PRN PRN Reason: Hypoglycemia Stop: 01/14/18 08:06 Glucose (Gluctose) 30 gm PO ONCE PRN PRN Reason: Hypoglycemia Stop: 01/14/18 08:06 Dextrose (Dextrose 5%) 1,000 mls @ 100 mls/hr IVC .Q10H PRN PRN Reason: HYPOGLYCEMIA Stop: 01/14/18 08:06 Insulin Detemir (Levemir) 14 unit SQ HS [facility] Stop: 01/13/18 21:01 Last Admin: 07/15/17 21:12 Dose: 14 unit Insulin Human Lispro (Humalog) 7 units SQ TIDWM [facility] Stop: 01/13/18 17:01 Last Admin: 07/16/17 08:42 Dose: 7 units Insulin Human Lispro (Humalog) 0 units SQ HS [facility] PRN Reason: Protocol Stop: 01/14/18 21:01 Last Admin: 07/15/17 21:11 Dose: Not Given Insulin Human Lispro (Humalog) 0 units SQ TIDAC [facility] PRN Reason: Protocol Stop: 01/14/18 11:31 Last Admin: 07/16/17 08:42 Dose: 4 units Isosorbide Mononitrate (Imdur) 120 mg PO DAILY [facility] Stop: 01/14/18 09:01 Last Admin: 07/16/17 08:41 Dose: 120 mg Lorazepam (Ativan) 0.5 mg PO Q8H PRN PRN Reason: Anxiety Stop: 01/13/18 14:49 Metolazone (Zaroxolyn) 2.5 mg PO DAILY [facility] Stop: 01/14/18 09:01 Last Admin: 07/16/17 08:41 Dose: 2.5 mg Metoprolol Succinate (Toprol Xl) 12.5 mg PO DAILY [facility] Stop: 01/14/18 14:01 Last Admin: 07/16/17 08:41 Dose: 12.5 mg Nitroglycerin (Nitroglycerin) 0.4 mg SL Q5MIN PRN PRN Reason: Chest Pain Stop: 01/13/18 14:34 Nystatin (Nystop) 1 appl TP BID [facility] Stop: 01/13/18 21:01 Last Admin: 07/16/17 08:42 Dose: 1 appl Omeprazole (Prilosec) 20 mg PO DAILY@0630 [facility] PRN Reason: Protocol Stop: 01/14/18 06:31 Last Admin: 07/16/17 05:47 Dose: 20 mg Ondansetron HCl (Zofran) 4 mg IVP Q6HR PRN; Protocol PRN Reason: Nausea Stop: 01/13/18 14:34 Oxycodone/Acetaminophen (Percocet 5/325) 1 each PO Q4H PRN PRN Reason: Moderate Pain Last Admin: 07/16/17 00:35 Dose: 1 each Rivaroxaban (Xarelto) 20 mg PO QPM [facility] Stop: 01/14/18 18:01 Last Admin: 07/15/17 17:36 Dose: 20 mg Ropinirole HCl (Requip) 0.5 mg PO HS [facility] Stop: 01/13/18 21:01 Last Admin: 07/15/17 21:12 Dose: 0.5 mg Senna/Docusate Sodium (Senna Plus) 1 each PO DAILY [facility] PRN Reason: Protocol Stop: 01/14/18 09:01 Last Admin: 07/16/17 08:41 Dose: 1 each Sertraline HCl (Zoloft) 100 mg PO DAILY [facility] Stop: 01/14/18 09:01 Last Admin: 07/16/17 08:41 Dose: 100 mg Simvastatin (Zocor) 40 mg PO DAILY [facility] PRN Reason: Protocol Stop: 01/14/18 09:01 Last Admin: 07/16/17 08:40 Dose: 40 mg Sitagliptin Phosphate (Januvia) 100 mg PO DAILY [facility] Stop: 01/14/18 09:01 Last Admin: 07/16/17 08:41 Dose: 100 mg Zinc Sulfate (Zinc Sulfate) 220 mg PO BID [facility] Stop: 01/13/18 21:01 Last Admin: 07/16/17 08:41 Dose: 220 mg Laboratory Tests 07/16/17 07/16/17 06:00 06:00 Hgb 10.4 L Potassium 4.9 Creatinine 1.11 - Imaging and Cardiology Chest Xray: report reviewed Echo: report reviewed - EKG Interpretation EKG results cardiology: other (Telemetry reviewed with average HR previous 12 hours noted to be 124, atrial flutter. PVCs noted.) - VTE Documentation of Mechanical Device: Intermittent pneumatic compression device Consult Discharge Plan - Plan Referrals: Gustavo Alcantara Jr, MD [Primary Care Provider] -
[2017-07-16] MEDS ORDERED: Furosemide 40 MG TABLET PO ONE (12:56)
[2017-07-16] MEDS: *HR* Rivaroxaban 10 MG TABLET PO SCH (17:30)
--- NOTE | 2017-07-16 19:14 | Internal Med Progress Note ---
Date of Encounter: 07/16/17 Time of Encounter: 11:00 - Assessment and plan (1) Hyperkalemia Current Visit: Yes Status: Acute Assessment and plan: Resolved; patient with potassium of 7.1 on admission and now 4.9 this morning Will continue to monitor (2) Acute on chronic diastolic (congestive) heart failure Current Visit: No Status: Acute Assessment and plan: Echocardiogram on 05/2017 showed LVEF of 50% with indeterminate diastolic function in addition to right ventricular dilation with normal function Patient still clinically volume overloaded Cardiology consulted with recommendations to start IV diuresis with Lasix (3) Atrial flutter Current Visit: No Status: Chronic Assessment and plan: Continue home dose of Cardizem and amiodarone with anticoagulation on Xarelto Qualifiers: Atrial flutter type: unspecified Qualified Code(s): I48.92 - Unspecified atrial flutter (4) CAD (coronary artery disease) Current Visit: No Status: Chronic Assessment and plan: Stable; PCI circumflex 2014 Continue to [place], aspirin and statin Qualifiers: Coronary Disease-Associated Artery/Lesion type: [place] artery [place] vs. transplanted heart: [place] heart Associated angina: without angina Qualified Code(s): I25.10 - Atherosclerotic heart disease of [place] coronary artery without angina pectoris (5) IDDM (insulin dependent diabetes mellitus) Current Visit: No Status: Chronic Assessment and plan: Continue coverage with sliding-scale (6) Morbid obesity Current Visit: No Status: Chronic Assessment and plan: BMI 56 (7) DVT prophylaxis Current Visit: No Status: Acute Assessment and plan: On Xarelto - Time Spent With Patient Total time spent is greater than 50% in coordination of care (as documented) at patient's floor/unit and/or counseling patient: - Subjective Interval history: Patient's hyperkalemia has resolved but still volume overloaded on exam secondary to heart failure exacerbation - Constitutional Vitals: Temp Pulse Resp BP Pulse Ox 97.8 F 62 18 113/59 98 07/16/17 15:08 07/16/17 15:08 07/16/17 15:08 07/16/17 15:08 07/16/17 15:08 General appearance: Present: A&O X 3, no acute distress - Respiratory Respiratory exam: Present: CTAB. Absent: accessory muscle use, rales, rhonchi, wheezes - Cardiovascular Cardiovascular exam: Present: RRR, +S1, +S2. Absent: diastolic murmur, gallop, rubs, systolic murmur - Expanded Lower Extremities Exam Ankle exam: Present: swelling Internal Medicine: Result - Labs CBC & Chem 7: 07/16/17 06:00 07/16/17 06:00 Labs: Short CBC 07/16/17 Range/Units 06:00 WBC 10.0 (4.3-11.1) K/mcL Hgb 10.4 L (11.5-15.4) g/dL Hct 32.4 L (35.3-44.9) % Plt Count 214 (140-400) K/mcL Neutrophils # 7.4 (1.6-8.9) K/mcL BMP 07/16/17 06:00 Sodium 133 L Potassium 4.9 Chloride 102 Carbon Dioxide 24 BUN 20 Creatinine 1.11 Glucose 129 H Calcium 8.9 Liver Function 07/16/17 Range/Units 06:00 Total Bilirubin 0.3 (0.3-1.0) mg/dL AST 11 L (13-39) Units/L ALT 4 L (7-52) Units/L Alkaline Phosphatase 113 H (34-104) Units/L Albumin 3.8 (3.5-5.7) g/dL - ABG Interpretation ABG results: PT/INR, D-dimer PT 13.8 Seconds (9.4-12.1) H 07/15/17 00:58 - VTE Documentation of Mechanical Device: Intermittent pneumatic compression device Consult Discharge Plan - Plan Referrals: Gustavo Alcantara Jr, MD [Primary Care Provider] -
--- NOTE | 2017-07-16 20:13 | Electrocardiograph Report ---
[address] [address] Test Date: 2017-07-14 Pat Name: Meagan Francisco Department: 112 Room: 2A43 Gender: Community Assistant: : [id number] Requested By: Ying Jara Order Number: [id number] Reading MD: Ronny Santillan Measurements Intervals [place] Rate: 74 P: FL: 0 QRS: 18 QRSD: 105 T: 42 QT: 397 QTc: 424 Interpretive Statements SINUS RHYTHM W PACS LOW QRS VOLTAGE IN PRECORDIAL LEADS BASELINE ARTIFACT COMPLICATES ACCURATE INTERPRETATION Electronically Signed On 07-16-2017 20:12:38 EDT by Ronny Santillan
[2017-07-16] MEDS: Insulin DETEMIR 100 UNIT/ML X5UNITS SQ SCH (20:27)
[2017-07-16] MEDS: rOPINIRole 0.25 MG TABLET PO SCH (20:28)
[2017-07-16] MEDS: Carbidopa/Levodopa 25/100 TABLET PO SCH (20:29)
[2017-07-17] MEDS: Metoprolol XL (24 HR) Succ 25 MG TAB.ER.24H PO SCH (06:27)
[2017-07-17] MEDS: Diltiazem CD (24hr) 180 MG CAPSULE PO SCH (06:27)
[2017-07-17] MEDS: Sennosides/Docusate Sodium TABLET PO SCH (07:34)
[2017-07-17] MEDS: metOLazone 2.5 MG TABLET PO SCH (07:34)
[2017-07-17] MEDS: Isosorbide MONOnitrate (24 HR) 60 MG TAB.ER.24H PO SCH (07:34)
[2017-07-17] MEDS: *HR* Amiodarone 200 MG TABLET PO SCH (07:35)
[2017-07-17] MEDS: Ascorbic Acid 500 MG TABLET PO SCH (07:35)
[2017-07-17] MEDS: Zinc Sulfate 220 MG CAPSULE PO SCH (07:36)
[2017-07-17] MEDS: Furosemide 40 MG/4 ML VIAL IVP SCH ×2 (07:36→17:32)
[2017-07-17] MEDS: *HR* SitaGLIPtin 100 MG TABLET PO SCH (07:36)
[2017-07-17] MEDS: Insulin LISPRO 300 UNITS/3 ML VIAL SQ SCH ×6 (08:04→17:08)
[2017-07-17] MEDS: Aspirin 81 MG TAB.CHEW PO SCH (08:05)
--- NOTE | 2017-07-17 10:46 | Cardiology Progress Note ---
Date of Encounter: 07/17/17 Time of Encounter: 09:30 Assessment and Plan (1) Diastolic CHF Current Visit: Yes Status: Acute Per cardiology: -Known diastolic CHF. -Presented with worsening edema, worsening shortness of breath. -On IV lasix -Net negative 3755ml -Has lower extremity edema, chronic. Currently patient states edema is back to baseline. -Chest x-ray with vascular congestion, interstitial infiltrates likely representing edema and CHF. -On metalazone. Aldactone has been stopped due to hyperkalemia. -TTE 06/23/17 LVEF 50%, indeterminate diastolic function, RV dilated with normal function, mild MR, mild-moderate TR, moderate PH, no segmental wall motion abnormalities. -Strict i/os, fluid restriction, daily weights -Will switch lasix to po. -Cardiology will sign off and will follow in outpatient setting. Close follow up set. Qualifiers: Heart failure chronicity: acute on chronic Qualified Code(s): I50.33 - Acute on chronic diastolic (congestive) heart failure (2) Hyperkalemia Current Visit: Yes Status: Acute Per cardiology: -K 7.1 on admission. Now 4.9 as of yesterday -Being treated per primary service. -OF note was on aldactone in outpatient setting. Has been stopped. -Management per primary service. (3) CAD (coronary artery disease) Current Visit: No Status: Chronic Per cardiology: -Known history of CAD with PCI circumflex 2014, otherwise non-obstructive CAD. -Denies chest pain. -No acute ischemic ECG changes. -On asa, statin, BB. Qualifiers: Coronary Disease-Associated Artery/Lesion type: [place] artery [place] vs. transplanted heart: [place] heart Associated angina: without angina Qualified Code(s): I25.10 - Atherosclerotic heart disease of [place] coronary artery without angina pectoris (4) Atrial flutter Current Visit: No Status: Chronic Per cardiology: -Known a.flutter. -ON cardizem CD 360mg daily, toprol 12.5mg, and amiodarone 200mg daily. -Average HR previous 12 hours noted to be 113, a.flutter. Currenlty HRs 60-70 BPM. -On xarelto 20mg daily. Unsure if has missed doses in the past 30 days. -Can consider addition of toprol 12.5mg at bedtime also, if remains tachycardic at night. -Will continue to monitor in outpatient setting. Qualifiers: Atrial flutter type: unspecified Qualified Code(s): I48.92 - Unspecified atrial flutter Discussion w patient/family: The assessment and plan as outlined above was discussed with the patient who expressed understanding and agreement. All questions were answered. Thank you for involving us in the care of your patient. Please call with any questions. Discussed and reviewed with . Subjective Principal diagnosis: CHF, a.flutter Interval history: Patient sitting up in chair this morning. Reports breathing and edema are back to baseline. Patient reports she is unsure if custodial is giving her her correct medications. Objective Vital Signs, Last 4 Hours Temp Pulse Resp BP Pulse Ox 07/17/17 07:03 98.0 F 133 18 96/64 96 General: Conversant, No Apparent Distress HEENT: Atraumatic, Normocephaly, Mucus Membranes Moist Neck: No JVD, Normal carotid pulses Cardiac: Normal S1 and S2, No Murmur, Other (Irregularly irregular ) Lungs: Normal Breath Sounds, No Wheeze, Rales, Rhonchi Neuro: Alert and responsive, No focal deficits noted Abdomen: Soft, Non-Tender Skin: No rashes noted on visualized skin Musculoskeletal: No Chest Wall Tenderness Extremities: No Clubbing, No Cyanosis, Normal Pulses, Other (Bilateral lower extremity edema noted. ) Results 07/16/17 06:00 07/16/17 06:00 Active Medications Amiodarone HCl (Cordarone) 200 mg PO DAILY [facility] Stop: 01/14/18 09:01 Last Admin: 07/17/17 07:35 Dose: 200 mg Ascorbic Acid (Vitamin C) 500 mg PO BID CEM Stop: 01/13/18 21:01 Last Admin: 07/17/17 07:35 Dose: 500 mg Aspirin (Aspirin) 81 mg PO DAILY CEM Stop: 01/14/18 09:01 Last Admin: 07/17/17 08:05 Dose: 81 mg Carbidopa/Levodopa (Sinemet) 1 each PO HS CEM Stop: 01/13/18 21:01 Last Admin: 07/16/17 20:29 Dose: 1 each Dextrose/Water (Dextrose 50% (Syg)) 25 ml IVP AD PRN PRN Reason: Hypoglycemia Stop: 11/21/18 08:06 Diltiazem HCl (Cardizem Cd) 360 mg PO DAILY [facility] Stop: 01/14/18 09:01 Last Admin: 07/17/17 06:27 Dose: 360 mg Furosemide (Lasix) 40 mg IVP BIDDIURETIC CEM Stop: 01/15/18 17:01 Last Admin: 07/17/17 07:36 Dose: 40 mg Glucagon (Glucagen) 1 mg IM ONCE PRN PRN Reason: Hypoglycemia Stop: 01/14/18 08:06 Glucose (Gluctose) 15 gm PO ONCE PRN PRN Reason: Hypoglycemia Stop: 01/14/18 08:06 Glucose (Gluctose) 30 gm PO ONCE PRN PRN Reason: Hypoglycemia Stop: 01/14/18 08:06 Dextrose (Dextrose 5%) 1,000 mls @ 100 mls/hr IVC .Q10H PRN PRN Reason: HYPOGLYCEMIA Stop: 01/14/18 08:06 Insulin Detemir (Levemir) 14 unit SQ HS [facility] Stop: 01/13/18 21:01 Last Admin: 07/16/17 20:27 Dose: 14 unit Insulin Human Lispro (Humalog) 7 units SQ TIDWM [facility] Stop: 01/13/18 17:01 Last Admin: 07/17/17 08:07 Dose: 7 units Insulin Human Lispro (Humalog) 0 units SQ HS [facility] PRN Reason: Protocol Stop: 01/14/18 21:01 Last Admin: 07/16/17 20:32 Dose: Not Given Insulin Human Lispro (Humalog) 0 units SQ TIDAC [facility] PRN Reason: Protocol Stop: 01/14/18 11:31 Last Admin: 07/17/17 08:04 Dose: Not Given Isosorbide Mononitrate (Imdur) 120 mg PO DAILY [facility] Stop: 01/14/18 09:01 Last Admin: 07/17/17 07:34 Dose: 120 mg Lorazepam (Ativan) 0.5 mg PO Q8H PRN PRN Reason: Anxiety Stop: 01/13/18 14:49 Metolazone (Zaroxolyn) 2.5 mg PO DAILY [facility] Stop: 01/14/18 09:01 Last Admin: 07/17/17 07:34 Dose: 2.5 mg Metoprolol Succinate (Toprol Xl) 12.5 mg PO DAILY [facility] Stop: 01/14/18 14:01 Last Admin: 07/17/17 06:27 Dose: 12.5 mg Nitroglycerin (Nitroglycerin) 0.4 mg SL Q5MIN PRN PRN Reason: Chest Pain Stop: 01/13/18 14:34 Nystatin (Nystop) 1 appl TP BID CEM Stop: 01/13/18 21:01 Last Admin: 07/16/17 20:33 Dose: 1 appl Omeprazole (Prilosec) 20 mg PO DAILY@0630 CEM PRN Reason: Protocol Stop: 01/14/18 06:31 Last Admin: 07/17/17 06:19 Dose: 20 mg Ondansetron HCl (Zofran) 4 mg IVP Q6HR PRN; Protocol PRN Reason: Nausea Stop: 01/13/18 14:34 Oxycodone/Acetaminophen (Percocet 5/325) 1 each PO Q4H PRN PRN Reason: Moderate Pain Last Admin: 07/16/17 00:35 Dose: 1 each Rivaroxaban (Xarelto) 20 mg PO QPM CEM Stop: 01/14/18 18:01 Last Admin: 07/16/17 17:30 Dose: 20 mg Ropinirole HCl (Requip) 0.5 mg PO HS CEM Stop: 01/13/18 21:01 Last Admin: 07/16/17 20:28 Dose: 0.5 mg Senna/Docusate Sodium (Senna Plus) 1 each PO DAILY CEM PRN Reason: Protocol Stop: 01/14/18 09:01 Last Admin: 07/17/17 07:34 Dose: 1 each Sertraline HCl (Zoloft) 100 mg PO DAILY CEM Stop: 01/14/18 09:01 Last Admin: 07/17/17 07:35 Dose: 100 mg Simvastatin (Zocor) 40 mg PO DAILY CEM PRN Reason: Protocol Stop: 01/14/18 09:01 Last Admin: 07/17/17 07:35 Dose: 40 mg Sitagliptin Phosphate (Januvia) 100 mg PO DAILY CEM Stop: 01/14/18 09:01 Last Admin: 07/17/17 07:36 Dose: 100 mg Zinc Sulfate (Zinc Sulfate) 220 mg PO BID CEM Stop: 01/13/18 21:01 Last Admin: 07/17/17 07:36 Dose: 220 mg Laboratory Tests 05/23/18 05/23/18 06:00 06:00 Hgb 10.4 L Potassium 4.9 Creatinine 1.11 - Imaging and Cardiology Chest Xray: report reviewed Echo: report reviewed - EKG Interpretation EKG results cardiology: other (Telemetry reviewed with average HR previous 12 hours noted to be 113, atrial flutter. Currently 60-70s.) - VTE Documentation of Mechanical Device: Intermittent pneumatic compression device Consult Discharge Plan - Plan Referrals: Gustavo Alcantara Jr, MD [Primary Care Provider] -
[2017-07-17 11:59] LABS: Calcium 9.6 mg/dL (8.6-10.3); Potassium 4.3 mEq/L (3.5-5.1)
--- NOTE | 2017-07-17 16:20 | Discharge Summary ---
- NOTES TO OUTPATIENT PROVIDER Notes to Outpatient Provider: After potassium due to hyperkalemia Date of Encounter: 07/17/17 Time of Encounter: 11:00 - Discharge Diagnosis (1) Hyperkalemia Priority: Secondary Status: Acute (2) Acute on chronic diastolic (congestive) heart failure Priority: Secondary Status: Acute (3) Atrial flutter Priority: Secondary Status: Chronic Qualifiers: Atrial flutter type: unspecified Qualified Code(s): I48.92 - Unspecified atrial flutter (4) CAD (coronary artery disease) Priority: Secondary Status: Chronic Qualifiers: Coronary Disease-Associated Artery/Lesion type: [place] artery [place] vs. transplanted heart: [place] heart Associated angina: without angina Qualified Code(s): I25.10 - Atherosclerotic heart disease of [place] coronary artery without angina pectoris (5) IDDM (insulin dependent diabetes mellitus) Priority: Secondary Status: Chronic (6) Morbid obesity Priority: Secondary Status: Chronic Hospital course: Patient is a 67-year-old female with past medical history significant for DM, afib, CAD, diastolic heart failure, Lymphadema and Parkinson's reasons to the ER on 07/15/17 due to chest pain. The patient reported a one-day history of intermittent CP that only lasted a few seconds. She described the pain as sharp, RUQ, rates pain 20/10. She denied diaphoresis. She also reported a recent 5 pound weight gain. He legs are severely swollen, 2-3 + bilat, with erythema. In the ER, patient was found to have hyperkalemia with potassium 7.1. In the ER , she was administered calcium gluconate, dextrose 50%, furosemide, sodium bicarb, kayexalate, and 10 units of regular insulin. The patient EKG showed Afib rate 67, possible anterior infarct age undetermined. The trop was <0.03. Last echo was 06/23 as mentioned above. Patient was admitted to medical surgical floor for further evaluation. During patients hospital stay cardiology was consulted with recommendations for IV diuresis. Patients symptoms resolved and cardiology recommends to discharge on oral Lasix. Patients hyperkalemia also resolved and her spironolactone will be held. Patient will follow-up with primary care provider. Time spent discussing smoking cessation with patient: 3 to 10 minutes - Time Spent with Patient Total time spent providing and/or coordinating discharge services: - Discharge Medications Prescriptions: Furosemide [Lasix] 40 mg PO DAILY #30 tablet Oxycodone HCl/Acetaminophen [Percocet 5-325 mg Tablet] 1 tab PO Q4H PRN 5 Days # 4 tablet PRN Reason: Moderate Pain Home Medications: Ascorbic Acid [Vitamin C] 500 mg PO BID 06/13/15 [History] Aspirin [Adult Low Dose Aspirin EC] 81 mg PO DAILY 06/13/15 [History] Insulin ASPART [NovoLOG] 7 unit SQ TID #0 06/13/15 [History] Metformin HCl [Glucophage] 1,000 mg PO BID 06/13/15 [History] Rivaroxaban [Xarelto] 20 mg PO HS 06/13/15 [History] Ropinirole HCl [Requip] 0.5 mg PO HS 06/13/15 [History] Sennosides/Docusate Sodium [Senna Plus] 1 tab PO DAILY 06/13/15 [History] Simvastatin [Zocor] 40 mg PO DAILY #0 06/13/15 [History] SitaGLIPtin [Januvia] 100 mg PO DAILY 06/13/15 [History] Zinc Sulfate 220 mg PO BID 06/13/15 [History] Carbidopa/Levodopa [Carbidopa-Levodopa 25-100 Tab] 1 tab PO HS 03/16/16 [History ] Insulin DETEMIR [Levemir Flextouch] 14 unit SQ HS 03/16/16 [History] Nitroglycerin 0.4 mg SL Q5MIN PRN 09/27/16 [History] Isosorbide MONOnitrate [Isosorbide Mononitrate ER] 120 mg PO DAILY 06/20/17 [ History] Nystatin POWDER [Nystop] 1 appl TP BID 06/20/17 [History] Potassium Chloride [Klor-Con 10] 10 meq PO BID 06/20/17 [History] Sertraline [Zoloft] 100 mg PO DAILY 06/20/17 [History] metOLazone [Zaroxolyn] 2.5 mg PO DAILY 06/20/17 [History] Diltiazem CD (24hr) [Cardizem CD] 360 mg PO DAILY #60 cap.er.24h 06/26/17 [Rx] Amiodarone [Cordarone] 200 mg PO DAILY #40 tablet 06/27/17 [Rx] Insulin DETEMIR [Levemir] 70 unit SQ QAM 06/29/17 [History] LORazepam [Ativan] 0.5 mg PO Q8H PRN 1 Days #3 tablet 07/03/17 [Rx] Furosemide [Lasix] 40 mg PO DAILY #30 tablet 07/17/17 [Rx] Metoprolol XL (24 HR) Succ [Toprol Xl] 12.5 mg PO DAILY tab.er.24h 07/17/17 [Rx ] Oxycodone HCl/Acetaminophen [Percocet 5-325 mg Tablet] 1 tab PO Q4H PRN 5 Days # 4 tablet 07/17/17 [Rx] Allergies/Adverse Reactions: 3 Allergy/AdvReac Type Severity Reaction Status Date / Time Sulfa (Sulfonamide Allergy See Verified 06/12/15 20:58 Antibiotics) Comments tramadol AdvReac Nausea Verified 06/12/15 20:58 Date of admission: 07/15/17 09:10 Primary care physician: Gustavo Alcantara Jr, MD - Constitutional Vitals: Temp Pulse Resp BP Pulse Ox 98.3 F 64 17 98/60 95 07/17/17 11:02 07/17/17 11:02 07/17/17 11:02 07/17/17 11:02 07/17/17 11:02 General appearance: Present: A&O X 3, no acute distress - Respiratory Respiratory exam: Present: CTAB. Absent: accessory muscle use, rales, rhonchi, wheezes - Cardiovascular Cardiovascular exam: Present: RRR, +S1, +S2. Absent: diastolic murmur, gallop, rubs, systolic murmur - Patient Status Disposition: Transfer SNF Condition: Good - Discharge Instructions Follow Up With: Gustavo Alcantara Jr, MD [Primary Care Provider] - Forms: ED Satisfaction Letter - VTE Documentation of Mechanical Device: Intermittent pneumatic compression device
--- NOTE | 2017-07-17 16:21 | Physician Discharge Referral ---
ExtendedCare Referral Info Institutional Level of Care: Skilled - Diagnosis (1) Hyperkalemia Status: Acute (2) Acute on chronic diastolic (congestive) heart failure Status: Acute (3) Atrial flutter Status: Chronic (4) CAD (coronary artery disease) Status: Chronic (5) IDDM (insulin dependent diabetes mellitus) Status: Chronic (6) Morbid obesity Status: Chronic (7) DVT prophylaxis Status: Acute - Transfer Medications Prescriptions: Furosemide [Lasix] 40 mg PO DAILY #30 tablet Oxycodone HCl/Acetaminophen [Percocet 5-325 mg Tablet] 1 tab PO Q4H PRN 5 Days # 4 tablet PRN Reason: Moderate Pain Home Medications: Ascorbic Acid [Vitamin C] 500 mg PO BID 06/13/15 [History] Aspirin [Adult Low Dose Aspirin EC] 81 mg PO DAILY 06/13/15 [History] Insulin ASPART [NovoLOG] 7 unit SQ TID #0 06/13/15 [History] Metformin HCl [Glucophage] 1,000 mg PO BID 06/13/15 [History] Rivaroxaban [Xarelto] 20 mg PO HS 06/13/15 [History] Ropinirole HCl [Requip] 0.5 mg PO HS 06/13/15 [History] Sennosides/Docusate Sodium [Senna Plus] 1 tab PO DAILY 06/13/15 [History] Simvastatin [Zocor] 40 mg PO DAILY #0 06/13/15 [History] SitaGLIPtin [Januvia] 100 mg PO DAILY 06/13/15 [History] Zinc Sulfate 220 mg PO BID 06/13/15 [History] Carbidopa/Levodopa [Carbidopa-Levodopa 25-100 Tab] 1 tab PO HS 03/16/16 [History ] Insulin DETEMIR [Levemir Flextouch] 14 unit SQ HS 03/16/16 [History] Nitroglycerin 0.4 mg SL Q5MIN PRN 09/27/16 [History] Isosorbide MONOnitrate [Isosorbide Mononitrate ER] 120 mg PO DAILY 06/20/17 [ History] Nystatin POWDER [Nystop] 1 appl TP BID 06/20/17 [History] Potassium Chloride [Klor-Con 10] 10 meq PO BID 06/20/17 [History] Sertraline [Zoloft] 100 mg PO DAILY 06/20/17 [History] metOLazone [Zaroxolyn] 2.5 mg PO DAILY 06/20/17 [History] Diltiazem CD (24hr) [Cardizem CD] 360 mg PO DAILY #60 cap.er.24h 06/26/17 [Rx] Amiodarone [Cordarone] 200 mg PO DAILY #40 tablet 06/27/17 [Rx] Insulin DETEMIR [Levemir] 70 unit SQ QAM 06/29/17 [History] LORazepam [Ativan] 0.5 mg PO Q8H PRN 1 Days #3 tablet 07/03/17 [Rx] Furosemide [Lasix] 40 mg PO DAILY #30 tablet 07/17/17 [Rx] Metoprolol XL (24 HR) Succ [Toprol Xl] 12.5 mg PO DAILY tab.er.24h 07/17/17 [Rx ] Oxycodone HCl/Acetaminophen [Percocet 5-325 mg Tablet] 1 tab PO Q4H PRN 5 Days # 4 tablet 07/17/17 [Rx] Allergies/Adverse Reactions: 3 Allergy/AdvReac Type Severity Reaction Status Date / Time Sulfa (Sulfonamide Allergy See Verified 06/12/15 20:58 Antibiotics) Comments tramadol AdvReac Nausea Verified 06/12/15 20:58 - Respiratory Orders Smoking Cessation: Smoking cessation has been advised. For more information, call the [place] Tobacco Quit Line at 6-697-WRFW-NOW. CERTIFICATION: I certify that the transfer of the above named patient to an Extended Care Facility is necessary for the continuing treatment of the diagnosis listed. The above information is true and accurate reflection of patient's current condition. Confidential - Redisclosure prohibited without a patient's written consent.
[2017-07-17 16:52] VITALS: BP 122/88
[2017-07-17] MEDS: Nystatin POWDER 30 GM BOTTLE TP SCH (17:09)
[2017-07-17] MEDS: *HR* Rivaroxaban 10 MG TABLET PO SCH (17:32)
== END 2017-07-17 17:52 | DRG 292 ==
LOC: EMEROO 11:08 → 2ANU 11:08 → SUATTDRO 13:44 → 2ANU 14:59
PROVIDERS: ADMIT Internal Medicine; ATTEND Hospitalist

== ENCOUNTER 2017-08-09 13:19 | Inpatient (IN) ==
[2017-08-09 14:21] LABS: Basophils % 0.1 %; Eosinophils # 0.3 K/mcL (0.0-0.6); Eosinophils % 1.7 %; Hematocrit 35.3 % (35.3-44.9); Immature Granulocytes % 0.5 % (0-4); Lymphocytes # 1.2 K/mcL (0.6-4.6); Lymphocytes % 8.4 %; Mean Corpuscular HGB Conc 31.2 g/dL (31.6-35.5); Mean Corpuscular Hemoglobin 27.1 pg (28.0-33.3); Mean Corpuscular Volume 86.9 fL (83.0-100.0); Mean Platelet Volume 9.5 fL (9.4-12.4); Monocytes # 0.6 K/mcL (0.0-1.3); Monocytes % 4.1 %; Neutrophils # 12.4 K/mcL (1.6-8.9); Platelet Count 247 K/mcL (140-400); Red Blood Count 4.06 M/mcL (3.82-4.97); Red Cell Distribution Width 15.3 % (11.5-14.5); Segmented Neutrophils % 85.2 %
[2017-08-09] MEDS ORDERED: 0.9 % Sodium Chloride 1,000 ML IVC ONE (14:29)
--- NOTE | 2017-08-09 14:30 | Emergency Department Note ---
Disposition Clinical Impression: Lower extremity edema Disposition: Admitted As Inpatient Condition: Fair Referrals: Lynne Brooks MD [Primary Care Provider] - Forms: ED Satisfaction Letter Time of Disposition: 18:38 Extremity Problem HPI - General Stated complaint: LLE swelling worse from WMP Time Seen by Provider: 08/09/17 13:39 Source: patient, EMS Limitations: no limitations - History of Present Illness HPI Narrative: 67 yoF here for BLE edema and unobtainable BP at her ECF (BP here in ED is 109/ 51). She has h/o a-fib, atrial flutter, CHF. Swelling has been worsening over the past several days. She also c/o intermittent moderate substernal chest pain but none today. She has no other health complaints today besides the swelling. No dyspnea, no urinary sx Pain Scale: 0 - Related Data Home Medications Medication Instructions Recorded Confirmed Ascorbic Acid [Vitamin C] 500 mg PO BID 06/13/15 07/14/17 Aspirin [Adult Low Dose Aspirin EC] 81 mg PO DAILY 06/13/15 07/14/17 Insulin ASPART [NovoLOG] 7 unit SQ TID #0 06/13/15 07/14/17 Metformin HCl [Glucophage] 1,000 mg PO BID 06/13/15 07/14/17 Rivaroxaban [Xarelto] 20 mg PO HS 06/13/15 07/14/17 Ropinirole HCl [Requip] 0.5 mg PO HS 06/13/15 07/14/17 Sennosides/Docusate Sodium [Senna 1 tab PO DAILY 06/13/15 07/14/17 Plus] Simvastatin [Zocor] 40 mg PO DAILY #0 06/13/15 07/14/17 SitaGLIPtin [Januvia] 100 mg PO DAILY 06/13/15 07/14/17 Zinc Sulfate 220 mg PO BID 06/13/15 07/14/17 Carbidopa/Levodopa 1 tab PO HS 03/16/16 07/14/17 [Carbidopa-Levodopa 25-100 Tab] Insulin DETEMIR [Levemir Flextouch] 14 unit SQ HS 03/16/16 07/14/17 Nitroglycerin 0.4 mg SL Q5MIN PRN 09/27/16 07/14/17 Isosorbide MONOnitrate [Isosorbide 120 mg PO DAILY 06/20/17 07/14/17 Mononitrate ER] Nystatin POWDER [Nystop] 1 appl TP BID 06/20/17 07/14/17 Potassium Chloride [Klor-Con 10] 10 meq PO BID 06/20/17 07/14/17 Sertraline [Zoloft] 100 mg PO DAILY 06/20/17 07/14/17 Insulin DETEMIR [Levemir] 70 unit SQ QAM 06/29/17 07/14/17 Fluconazole [Diflucan] 100 mg PO DAILY 08/09/17 08/09/17 Metoprolol [Lopressor] 50 mg PO BID 08/09/17 08/09/17 Torsemide [Demadex] 40 mg PO BID 08/09/17 08/09/17 metOLazone [Zaroxolyn] 5 mg PO DAILY 08/09/17 08/09/17 Previous Rx's Medication Instructions Recorded Diltiazem CD (24hr) [Cardizem CD] 360 mg PO DAILY #60 cap.er.24h 06/26/17 Amiodarone [Cordarone] 200 mg PO DAILY #40 tablet 06/27/17 LORazepam [Ativan] 0.5 mg PO Q8H PRN 1 Days #3 tablet 07/03/17 Oxycodone HCl/Acetaminophen 1 tab PO Q4H PRN 5 Days #4 tablet 07/17/17 [Percocet 5-325 mg Tablet] Allergies Allergy/AdvReac Type Severity Reaction Status Date / Time Sulfa (Sulfonamide Allergy See Verified 08/09/17 13:37 Antibiotics) Comments tramadol AdvReac Nausea Verified 08/09/17 13:37 Constitutional: Denies: fever, chills, weakness, weight change Eyes: Denies: eye pain, eye discharge, vision change Cardiovascular: Denies: chest pain, palpitations, dyspnea on exertion, syncope Respiratory: Denies: cough, dyspnea, wheezes, hemoptysis, stridor Gastrointestinal: Denies: abdominal pain, nausea, vomiting, diarrhea, constipation, hematemesis, melena, hematochezia Genitourinary: Denies: dysuria, frequency, hematuria, discharge Neurological: Denies: headache, weakness, numbness, paresthesias, confusion, abnormal gait, vertigo Psychiatric: Denies: anxiety, depression Past Medical History - Past Medical History Medical history: Reports: atrial fibrillation, CHF, coronary artery disease, diabetes, hyperlipidemia, hypertension, myocardial infarction Surgical history: Reports: angioplasty/stent, , cholecystectomy, orthopedic, other Psychiatric history: Reports: anxiety, depression - Social History Smoking Status: Never smoker Smokeless Tobacco Status: No Alcohol use: Reports: none Drug use: Reports: none Physical Exam - General Limitations: no limitations General appearance: alert - Head Head exam: atraumatic, normocephalic, normal inspection - Eye Eye exam: Present: normal appearance, PERRL, EOMI - ENT ENT exam: normal exam, normal oropharynx, mucous membranes moist - Neck Neck exam: Present: normal inspection, full ROM, trachea midline - Chest Chest inspection: Present: normal inspection, symmetric chest wall rise - Respiratory Respiratory exam: Present: normal lung sounds bilaterally - Cardiovascular Cardiovascular exam: Present: regular rate, irregular rhythm, normal heart sounds - Abdominal Exam Abdominal exam: Present: soft, Non-Tender. Absent: tenderness, distention, guarding, rebound, rigidity - Extremities Exam Extremities exam: Present: pedal edema (3+ bilaterally) - Expanded Lower Extremity Exam Lower leg exam: Present: other (faint pedal pulses b/l) - Neurological Exam Neurological exam: Present: alert, oriented X3 Course Course Narrative: Patient was seen and evaluated at bedside, she is in no acute distress Vital Signs Temperature 98.5 F 08/09/17 13:39 Pulse Rate 65 08/09/17 13:39 Respiratory Rate 24 08/09/17 13:39 Blood Pressure 109/51 08/09/17 13:39 O2 Sat by Pulse Oximetry 98 08/09/17 13:39 Temperature 98.5 F 08/09/17 13:39 Pulse Rate 53 08/09/17 17:30 Respiratory Rate 20 08/09/17 17:30 Blood Pressure 96/42 08/09/17 17:30 O2 Sat by Pulse Oximetry 100 08/09/17 17:30 Oxygen Delivery Oxygen Delivery Nasal Cannula Extremity Problem, [place] [facility] Narrative Medical decision making narrative: No crackles on lung exam. Creatinine elevated at 3.5. Her baseline is high-end normal and this is new. CXR showed Cardiomegaly, Pulmonary vascular congestion, Pulmonary edema without effusion, No focal airspace disease. CT abdomen checked for concerns leukocytosis and consideration of intraluminal pathology and showed Hepatomegaly with possible cirrhosis, Mild ascites, and Small right pleural effusion with adjacent atelectasis. Patient with difficulty providing urine sample, BNP mildly elevated at 147, urinalysis pending Spoke with nephrology Dr. Luke regarding case who will see patient for her COLIN if admitted . We will start with gentle IVF @80 cc/hr . Discussed case with Dr. Campo who will accept the patient Lab Results 08/09/17 08/09/17 08/09/17 Range/Units 14:13 14:13 14:13 WBC 14.6 H (4.3-11.1) K/mcL RBC 4.06 (3.82-4.97) M/mcL Hgb 11.0 L (11.5-15.4) g/dL Hct 35.3 (35.3-44.9) % MCV 86.9 (83.0-100.0) fL MCH 27.1 L (28.0-33.3) pg MCHC 31.2 L (31.6-35.5) g/dL RDW 15.3 H (11.5-14.5) % Plt Count 247 (140-400) K/mcL MPV 9.5 (9.4-12.4) fL Immature Gran % 0.5 (0-4) % Seg Neutrophils % 85.2 % Lymphocytes % 8.4 % Monocytes % 4.1 % Eosinophils % 1.7 % Basophils % 0.1 % Neutrophils # 12.4 H (1.6-8.9) K/mcL Lymphocytes # 1.2 (0.6-4.6) K/mcL Monocytes # 0.6 (0.0-1.3) K/mcL Eosinophils # 0.3 (0.0-0.6) K/mcL Basophils # 0.0 (0.0-0.2) K/mcL Sodium 135 L (136-145) mEq/L Potassium 4.6 (3.5-5.1) mEq/L Chloride 96 L (98-107) mEq/L Carbon Dioxide 25 (23-29) mEq/L BUN 69 H (8-23) mg/dL Creatinine 3.50 H (0.60-1.20) mg/dL Est GFR ( Amer) 16 L (> 60) Est GFR (Non-Af Amer) 13 L (> 60) BUN/Creatinine Ratio 20 (6-26) Glucose 72 (70-105) mg/dL Calculated Osmolality 299 (280-300) Lactic Acid (0.5-2.2) mmol/L Calcium 8.7 (8.6-10.3) mg/dL Total Bilirubin 0.3 (0.3-1.0) mg/dL AST 28 (13-39) Units/L ALT 19 (7-52) Units/L Alkaline Phosphatase 125 H (34-104) Units/L Troponin I < 0.03 (< 0.04) ng/mL B-Natriuretic Peptide 143 H (Less than 100) pg/mL Serum Total Protein 6.2 L (6.4-8.9) g/dL Albumin 3.7 (3.5-5.7) g/dL Globulin 2.5 (2.4-3.5) g/dL Albumin/Globulin Ratio 1.5 (1.1-2.2) // Range/Units 16:11 WBC (4.3-11.1) K/mcL RBC (3.82-4.97) M/mcL Hgb (11.5-15.4) g/dL Hct (35.3-44.9) % MCV (83.0-100.0) fL MCH (28.0-33.3) pg MCHC (31.6-35.5) g/dL RDW (11.5-14.5) % Plt Count (140-400) K/mcL MPV (9.4-12.4) fL Immature Gran % (0-4) % Seg Neutrophils % % Lymphocytes % % Monocytes % % Eosinophils % % Basophils % % Neutrophils # (1.6-8.9) K/mcL Lymphocytes # (0.6-4.6) K/mcL Monocytes # (0.0-1.3) K/mcL Eosinophils # (0.0-0.6) K/mcL Basophils # (0.0-0.2) K/mcL Sodium (136-145) mEq/L Potassium (3.5-5.1) mEq/L Chloride (98-107) mEq/L Carbon Dioxide (23-29) mEq/L BUN (8-23) mg/dL Creatinine (0.60-1.20) mg/dL Est GFR ( Amer) (> 60) Est GFR (Non-Af Amer) (> 60) BUN/Creatinine Ratio (6-26) Glucose (70-105) mg/dL Calculated Osmolality (280-300) Lactic Acid 3.7 H (0.5-2.2) mmol/L Calcium (8.6-10.3) mg/dL Total Bilirubin (0.3-1.0) mg/dL AST (13-39) Units/L ALT (7-52) Units/L Alkaline Phosphatase (34-104) Units/L Troponin I (< 0.04) ng/mL B-Natriuretic Peptide (Less than 100) pg/mL Serum Total Protein (6.4-8.9) g/dL Albumin (3.5-5.7) g/dL Globulin (2.4-3.5) g/dL Albumin/Globulin Ratio (1.1-2.2) Chest X-Ray 08/09/17 14:02 IMPRESSION: Findings suggest congestive heart failure D/ / Milad Morgan MD / Milad Morgan MD Interpreting Provider: Milad Morgan MD Abdomen/Pelvis CT 08/09/17 15:21 IMPRESSION: 1. Minimal colonic diverticulosis without evidence for acute diverticulitis. Nonspecific mild rectosigmoid wall thickening. 2. Nonspecific mild bladder wall thickening. Please coronary with urinalysis. 3. Hepatomegaly with possible cirrhosis. Mild ascites. 4. Nonspecific mildly enlarged left common iliac lymph nodes and small retroperitoneal lymph nodes. Consider six-month follow-up. 5. Small right pleural effusion with adjacent atelectasis. D/ / Valdemar Leon MD / Valdemar Leon MD Interpreting Provider: Valdemar Leon MD - Lab Data Lab results reviewed: Yes I reviewed the patient's lab results. Result diagrams: 08/09/17 14:13 08/09/17 14:13 Lab Results 06/16/18 06/16/18 06/16/18 Range/Units 14:13 14:13 14:13 WBC 14.6 H (4.3-11.1) K/mcL RBC 4.06 (3.82-4.97) M/mcL Hgb 11.0 L (11.5-15.4) g/dL Hct 35.3 (35.3-44.9) % MCV 86.9 (83.0-100.0) fL MCH 27.1 L (28.0-33.3) pg MCHC 31.2 L (31.6-35.5) g/dL RDW 15.3 H (11.5-14.5) % Plt Count 247 (140-400) K/mcL MPV 9.5 (9.4-12.4) fL Immature Gran % 0.5 (0-4) % Seg Neutrophils % 85.2 % Lymphocytes % 8.4 % Monocytes % 4.1 % Eosinophils % 1.7 % Basophils % 0.1 % Neutrophils # 12.4 H (1.6-8.9) K/mcL Lymphocytes # 1.2 (0.6-4.6) K/mcL Monocytes # 0.6 (0.0-1.3) K/mcL Eosinophils # 0.3 (0.0-0.6) K/mcL Basophils # 0.0 (0.0-0.2) K/mcL Sodium 135 L (136-145) mEq/L Potassium 4.6 (3.5-5.1) mEq/L Chloride 96 L (98-107) mEq/L Carbon Dioxide 25 (23-29) mEq/L BUN 69 H (8-23) mg/dL Creatinine 3.50 H (0.60-1.20) mg/dL Est GFR ( Amer) 16 L (> 60) Est GFR (Non-Af Amer) 13 L (> 60) BUN/Creatinine Ratio 20 (6-26) Glucose 72 (70-105) mg/dL Calculated Osmolality 299 (280-300) Lactic Acid (0.5-2.2) mmol/L Calcium 8.7 (8.6-10.3) mg/dL Total Bilirubin 0.3 (0.3-1.0) mg/dL AST 28 (13-39) Units/L ALT 19 (7-52) Units/L Alkaline Phosphatase 125 H (34-104) Units/L Troponin I < 0.03 (< 0.04) ng/mL B-Natriuretic Peptide 143 H (Less than 100) pg/mL Serum Total Protein 6.2 L (6.4-8.9) g/dL Albumin 3.7 (3.5-5.7) g/dL Globulin 2.5 (2.4-3.5) g/dL Albumin/Globulin Ratio 1.5 (1.1-2.2) Urine Color (Yellow) Urine Clarity (Clear) Urine pH (5.0-8.0) pH Units Ur Specific [place] (1.010-1.025) Urine Protein (Neg-Trace) mg/dL Urine Glucose (UA) (Normal) mg/dL Urine Ketones (Negative) mg/dL Urine Blood (Negative) Urine Nitrite (Negative) Urine Bilirubin (Negative) Urine Urobilinogen (Normal) mg/dL Ur Leukocyte Esterase (Negative) Urine Microscopic RBC (0-3) per hpf Urine Microscopic WBC (0-3) per hpf Ur Squamous Epith Cells (None-Few) per lpf Urine Bacteria (None-Few) per hpf Hyaline Casts (None-Few) per lpf Ur Culture Indicated? (NO) 08/09/17 08/09/17 Range/Units 16:11 17:01 WBC (4.3-11.1) K/mcL RBC (3.82-4.97) M/mcL Hgb (11.5-15.4) g/dL Hct (35.3-44.9) % MCV (83.0-100.0) fL MCH (28.0-33.3) pg MCHC (31.6-35.5) g/dL RDW (11.5-14.5) % Plt Count (140-400) K/mcL MPV (9.4-12.4) fL Immature Gran % (0-4) % Seg Neutrophils % % Lymphocytes % % Monocytes % % Eosinophils % % Basophils % % Neutrophils # (1.6-8.9) K/mcL Lymphocytes # (0.6-4.6) K/mcL Monocytes # (0.0-1.3) K/mcL Eosinophils # (0.0-0.6) K/mcL Basophils # (0.0-0.2) K/mcL Sodium (136-145) mEq/L Potassium (3.5-5.1) mEq/L Chloride (98-107) mEq/L Carbon Dioxide (23-29) mEq/L BUN (8-23) mg/dL Creatinine (0.60-1.20) mg/dL Est GFR ( Amer) (> 60) Est GFR (Non-Af Amer) (> 60) BUN/Creatinine Ratio (6-26) Glucose (70-105) mg/dL Calculated Osmolality (280-300) Lactic Acid 3.7 H (0.5-2.2) mmol/L Calcium (8.6-10.3) mg/dL Total Bilirubin (0.3-1.0) mg/dL AST (13-39) Units/L ALT (7-52) Units/L Alkaline Phosphatase (34-104) Units/L Troponin I (< 0.04) ng/mL B-Natriuretic Peptide (Less than 100) pg/mL Serum Total Protein (6.4-8.9) g/dL Albumin (3.5-5.7) g/dL Globulin (2.4-3.5) g/dL Albumin/Globulin Ratio (1.1-2.2) Urine Color Yellow (Yellow) Urine Clarity Cloudy A (Clear) Urine pH 5.0 (5.0-8.0) pH Units Ur Specific [place] 1.028 H (1.010-1.025) Urine Protein Negative (Neg-Trace) mg/dL Urine Glucose (UA) Normal (Normal) mg/dL Urine Ketones Trace H (Negative) mg/dL Urine Blood Negative (Negative) Urine Nitrite Negative (Negative) Urine Bilirubin Negative (Negative) Urine Urobilinogen Normal (Normal) mg/dL Ur Leukocyte Esterase Negative (Negative) Urine Microscopic RBC 0-3 (0-3) per hpf Urine Microscopic WBC 0-3 (0-3) per hpf Ur Squamous Epith Cells Many H (None-Few) per lpf Urine Bacteria None Seen (None-Few) per hpf Hyaline Casts None Seen (None-Few) per lpf Ur Culture Indicated? NO (NO) - Radiology Data Radiology results reviewed: Yes I reviewed the patient's radiology results. - EKG Data EKG attestation: Yes I reviewed and interpreted this EKG. EKG results narrative: EKG reviewed: Atrial fibrillation with average ventricular rate of 60 bpm. SD interval 157 ms, QRS duration 93 ms, QT 516 ms, QTC 517 ms, no ST elevations or depressions, no T-wave abnormalities Attestation Statement - Attestation Attestation: I, Agustin Sanders DO, examined this patient [id number] and my medical decision-making was reviewed with Manish Carmen PGY-1, Resident Physician. I agree with the documented findings, disposition and treatment plan as described except to the extent set forth below. Please see my progress notes for details.
[2017-08-09 14:43] LABS: Alanine Aminotransferase 19 Units/L (7-52); Albumin 3.7 g/dL (3.5-5.7); Albumin/Globulin Ratio 1.5 (1.1-2.2); Alkaline Phosphatase 125 Units/L (34-104); Aspartate Amino Transferase 28 Units/L (13-39); BUN/Creatinine Ratio 20 (6-26); Bilirubin,Total 0.3 mg/dL (0.3-1.0); Blood Urea Nitrogen 69 mg/dL (8-23); Calcium 8.7 mg/dL (8.6-10.3); Carbon Dioxide 25 mEq/L (23-29); Chloride 96 mEq/L (98-107); Globulin 2.5 g/dL (2.4-3.5); Glucose 72 mg/dL (70-105); Osmolality,Calculated 299 (280-300); Potassium 4.6 mEq/L (3.5-5.1); Sodium 135 mEq/L (136-145); Total Protein 6.2 g/dL (6.4-8.9); eGFR For African Americans 16 (> 60); eGFR For Non-African Americans 13 (> 60)
[2017-08-09 14:45] LABS: Troponin I < 0.03 ng/mL (< 0.04)
--- NOTE | 2017-08-09 14:53 | Emergency Department Note ---
Disposition Clinical Impression: Lower extremity edema, Acute kidney injury, Pulmonary congestion Disposition: Admitted As Inpatient Condition: Fair Time of Disposition: 18:51 General Adult HPI - General Chief complaint: ED Extremity Problem,Nontraumatic Stated complaint: LLE swelling worse from WMP Time Seen by Provider: 08/09/17 13:39 Source: patient, EMS Limitations: no limitations - History of Present Illness Pain Scale: 0 - Related Data Home Medications Medication Instructions Recorded Confirmed Ascorbic Acid [Vitamin C] 500 mg PO BID 06/13/15 07/14/17 Aspirin [Adult Low Dose Aspirin EC] 81 mg PO DAILY 06/13/15 07/14/17 Insulin ASPART [NovoLOG] 7 unit SQ TID #0 06/13/15 07/14/17 Metformin HCl [Glucophage] 1,000 mg PO BID 06/13/15 07/14/17 Rivaroxaban [Xarelto] 20 mg PO HS 06/13/15 07/14/17 Ropinirole HCl [Requip] 0.5 mg PO HS 06/13/15 07/14/17 Sennosides/Docusate Sodium [Senna 1 tab PO DAILY 06/13/15 07/14/17 Plus] Simvastatin [Zocor] 40 mg PO DAILY #0 06/13/15 07/14/17 SitaGLIPtin [Januvia] 100 mg PO DAILY 06/13/15 07/14/17 Zinc Sulfate 220 mg PO BID 06/13/15 07/14/17 Carbidopa/Levodopa 1 tab PO HS 03/16/16 07/14/17 [Carbidopa-Levodopa 25-100 Tab] Insulin DETEMIR [Levemir Flextouch] 14 unit SQ HS 03/16/16 07/14/17 Nitroglycerin 0.4 mg SL Q5MIN PRN 09/27/16 07/14/17 Isosorbide MONOnitrate [Isosorbide 120 mg PO DAILY 06/20/17 07/14/17 Mononitrate ER] Nystatin POWDER [Nystop] 1 appl TP BID 06/20/17 07/14/17 Potassium Chloride [Klor-Con 10] 10 meq PO BID 06/20/17 07/14/17 Sertraline [Zoloft] 100 mg PO DAILY 06/20/17 07/14/17 Insulin DETEMIR [Levemir] 70 unit SQ QA 06/29/17 07/14/17 Fluconazole [Diflucan] 100 mg PO DAILY 08/09/17 08/09/17 Metoprolol [Lopressor] 50 mg PO BID 08/09/17 08/09/17 Torsemide [Demadex] 40 mg PO BID 08/09/17 08/09/17 metOLazone [Zaroxolyn] 5 mg PO DAILY 08/09/17 08/09/17 Previous Rx's Medication Instructions Recorded Diltiazem CD (24hr) [Cardizem CD] 360 mg PO DAILY #60 cap.er.24h 06/26/17 Amiodarone [Cordarone] 200 mg PO DAILY #40 tablet 06/27/17 LORazepam [Ativan] 0.5 mg PO Q8H PRN 1 Days #3 tablet 07/03/17 Oxycodone HCl/Acetaminophen 1 tab PO Q4H PRN 5 Days #4 tablet 07/17/17 [Percocet 5-325 mg Tablet] Allergies Allergy/AdvReac Type Severity Reaction Status Date / Time Sulfa (Sulfonamide Allergy See Verified 08/09/17 13:37 Antibiotics) Comments tramadol AdvReac Nausea Verified 08/09/17 13:37 Past Medical History - Past Medical History Medical history: Reports: atrial fibrillation, CHF, coronary artery disease, diabetes, hyperlipidemia, hypertension, myocardial infarction Surgical history: Reports: angioplasty/stent, , cholecystectomy, orthopedic, other Psychiatric history: Reports: anxiety, depression - Social History Smoking Status: Never smoker Smokeless Tobacco Status: No Alcohol use: Reports: none Drug use: Reports: none Physical Exam - General Limitations: no limitations General appearance: alert Course Vital Signs Temperature 98.5 F 08/09/17 13:39 Pulse Rate 65 08/09/17 13:39 Respiratory Rate 24 08/09/17 13:39 Blood Pressure 109/51 08/09/17 13:39 O2 Sat by Pulse Oximetry 98 08/09/17 13:39 Temperature 98.5 F 08/09/17 13:39 Pulse Rate 59 08/09/17 18:34 Respiratory Rate 20 08/09/17 18:34 Blood Pressure 99/54 08/09/17 18:34 O2 Sat by Pulse Oximetry 100 08/09/17 18:34 Oxygen Delivery Oxygen Delivery Nasal Cannula Medical Decision Making - Lab Data Result diagrams: 08/09/17 14:13 08/09/17 14:13 Lab Results 08/09/17 08/09/17 08/09/17 Range/Units 14:13 14:13 14:13 WBC 14.6 H (4.3-11.1) K/mcL RBC 4.06 (3.82-4.97) M/mcL Hgb 11.0 L (11.5-15.4) g/dL Hct 35.3 (35.3-44.9) % MCV 86.9 (83.0-100.0) fL MCH 27.1 L (28.0-33.3) pg MCHC 31.2 L (31.6-35.5) g/dL RDW 15.3 H (11.5-14.5) % Plt Count 247 (140-400) K/mcL MPV 9.5 (9.4-12.4) fL Immature Gran % 0.5 (0-4) % Seg Neutrophils % 85.2 % Lymphocytes % 8.4 % Monocytes % 4.1 % Eosinophils % 1.7 % Basophils % 0.1 % Neutrophils # 12.4 H (1.6-8.9) K/mcL Lymphocytes # 1.2 (0.6-4.6) K/mcL Monocytes # 0.6 (0.0-1.3) K/mcL Eosinophils # 0.3 (0.0-0.6) K/mcL Basophils # 0.0 (0.0-0.2) K/mcL Sodium 135 L (136-145) mEq/L Potassium 4.6 (3.5-5.1) mEq/L Chloride 96 L (98-107) mEq/L Carbon Dioxide 25 (23-29) mEq/L BUN 69 H (8-23) mg/dL Creatinine 3.50 H (0.60-1.20) mg/dL Est GFR ( Amer) 16 L (> 60) Est GFR (Non-Af Amer) 13 L (> 60) BUN/Creatinine Ratio 20 (6-26) Glucose 72 (70-105) mg/dL Calculated Osmolality 299 (280-300) Lactic Acid (0.5-2.2) mmol/L Calcium 8.7 (8.6-10.3) mg/dL Total Bilirubin 0.3 (0.3-1.0) mg/dL AST 28 (13-39) Units/L ALT 19 (7-52) Units/L Alkaline Phosphatase 125 H (34-104) Units/L Troponin I < 0.03 (< 0.04) ng/mL B-Natriuretic Peptide 143 H (Less than 100) pg/mL Serum Total Protein 6.2 L (6.4-8.9) g/dL Albumin 3.7 (3.5-5.7) g/dL Globulin 2.5 (2.4-3.5) g/dL Albumin/Globulin Ratio 1.5 (1.1-2.2) Urine Color (Yellow) Urine Clarity (Clear) Urine pH (5.0-8.0) pH Units Ur Specific [place] (1.010-1.025) Urine Protein (Neg-Trace) mg/dL Urine Glucose (UA) (Normal) mg/dL Urine Ketones (Negative) mg/dL Urine Blood (Negative) Urine Nitrite (Negative) Urine Bilirubin (Negative) Urine Urobilinogen (Normal) mg/dL Ur Leukocyte Esterase (Negative) Urine Microscopic RBC (0-3) per hpf Urine Microscopic WBC (0-3) per hpf Ur Squamous Epith Cells (None-Few) per lpf Urine Bacteria (None-Few) per hpf Hyaline Casts (None-Few) per lpf Ur Culture Indicated? (NO) 08/09/17 08/09/17 Range/Units 16:11 17:01 WBC (4.3-11.1) K/mcL RBC (3.82-4.97) M/mcL Hgb (11.5-15.4) g/dL Hct (35.3-44.9) % MCV (83.0-100.0) fL MCH (28.0-33.3) pg MCHC (31.6-35.5) g/dL RDW (11.5-14.5) % Plt Count (140-400) K/mcL MPV (9.4-12.4) fL Immature Gran % (0-4) % Seg Neutrophils % % Lymphocytes % % Monocytes % % Eosinophils % % Basophils % % Neutrophils # (1.6-8.9) K/mcL Lymphocytes # (0.6-4.6) K/mcL Monocytes # (0.0-1.3) K/mcL Eosinophils # (0.0-0.6) K/mcL Basophils # (0.0-0.2) K/mcL Sodium (136-145) mEq/L Potassium (3.5-5.1) mEq/L Chloride (98-107) mEq/L Carbon Dioxide (23-29) mEq/L BUN (8-23) mg/dL Creatinine (0.60-1.20) mg/dL Est GFR ( Amer) (> 60) Est GFR (Non-Af Amer) (> 60) BUN/Creatinine Ratio (6-26) Glucose (70-105) mg/dL Calculated Osmolality (280-300) Lactic Acid 3.7 H (0.5-2.2) mmol/L Calcium (8.6-10.3) mg/dL Total Bilirubin (0.3-1.0) mg/dL AST (13-39) Units/L ALT (7-52) Units/L Alkaline Phosphatase (34-104) Units/L Troponin I (< 0.04) ng/mL B-Natriuretic Peptide (Less than 100) pg/mL Serum Total Protein (6.4-8.9) g/dL Albumin (3.5-5.7) g/dL Globulin (2.4-3.5) g/dL Albumin/Globulin Ratio (1.1-2.2) Urine Color Yellow (Yellow) Urine Clarity Cloudy A (Clear) Urine pH 5.0 (5.0-8.0) pH Units Ur Specific [place] 1.028 H (1.010-1.025) Urine Protein Negative (Neg-Trace) mg/dL Urine Glucose (UA) Normal (Normal) mg/dL Urine Ketones Trace H (Negative) mg/dL Urine Blood Negative (Negative) Urine Nitrite Negative (Negative) Urine Bilirubin Negative (Negative) Urine Urobilinogen Normal (Normal) mg/dL Ur Leukocyte Esterase Negative (Negative) Urine Microscopic RBC 0-3 (0-3) per hpf Urine Microscopic WBC 0-3 (0-3) per hpf Ur Squamous Epith Cells Many H (None-Few) per lpf Urine Bacteria None Seen (None-Few) per hpf Hyaline Casts None Seen (None-Few) per lpf Ur Culture Indicated? NO (NO) Attestation Statement - Attestation Attestation: I, Agustin Sanders DO, examined this patient [id number] and my medical decision-making was reviewed with Manish Carmen PGY-1, Resident Physician. I agree with the documented findings, disposition and treatment plan as described except to the extent set forth below. Please see my progress notes for details. 67-year-old female [facility] of her abnormal vital signs. cooler room worker check her vital signs this morning and were unable to get her blood pressure and her pulse. They were concerned decided to send her to the emergency room. Patient denies any symptoms. Currently denying any fevers chills nausea vomiting or diarrhea. Denies any headache vision changes chest pain or shortness of breath. She has had intermittent twinges of chest discomfort but none today. Currently denying any other complaints or issues. She does have chronic lymphedema as well as atrial fibrillation/flutter. Vital signs reviewed on presentation patient's initial blood pressure stable. Her heart rate is normal. Patient does not have any complaints on exam. Physical exam she does have some diminished breath sounds bilaterally with no coarse crackles noted. Heart is regular. Abdomen is soft nontender nondistended with no specific guarding rigidity or peritoneal symptoms. She does have gross lower extremity edema consistent with her lymphedema-like presentation. She has disclosed that there is some slight increase in swelling here today. She denies any falls trauma or injury at this point. Her pulses appear to be intact patient is mentating appropriately. She denies any changes in her urinary habits she has not had any change in bowel or bladder function. Patient was screening labs ordered here today with CBC chemistry liver function testing along with urinalysis. The remainder the workup including EKG chest x-ray troponin will be completed. Disposition pending the full workup and treatment course. Etiology to the presentation is difficult to ascertain from the patient this point will look for any other potential medical issues and discuss disposition. See detailed documentation of physical exam, medical intervention, medical decision-making and disposition in the resident physician's note. No critical care provider this patient's treatment course at this time 1525 Patient is found to have a significantly elevated creatinine today at 3.50. She has never had one is high in the past. Patient urine is still pending at this point. CT imaging the abdomen will be added on considering the patient had changes in her presentation with concern for possible intraluminal pathology as well as an elevated white blood cell count neutrophilia. No other acute infectious etiology is noted. Disposition will most likely be admission the hospital once nephrology is contacted. 1815 Hospitalist is been paged approximately 25 minutes. Waiting for admission for what appears to be potential pulmonary congestion along with a new acute renal insufficiency. Patient has not been given a diuretic in the emergency room because of the kidney injury but has had passive fluids running. We will continue to monitor for any signs of respiratory distress of decompensation. Her blood pressure is also been marginal wall here. She continues to mentate fall commands wakes up easily and converses with the staff without any problem. Otherwise patient is in no distress requires admission for what appears to be stabilization of acute kidney injury with possible pulmonary congestion and my suspicion is that the patient chronically has primary congestion secondary to her lymphedema and nonambulatory state along with morbid obesity. Patient is still pending admission of this time. 183 Patient was accepted by the hospice without any complication. No other recommendations at this time. They will follow closely. Patient will be observed in emergency room until admission process is completed
[2017-08-09 17:16] LABS: Bilirubin,Urine Negative (Negative); Blood,Urine Negative (Negative); Clarity,Urine Cloudy (Clear); Color,Urine Yellow (Yellow); Glucose,Urine (UA) Normal (Normal); Ketones,Urine Trace mg/dL (Negative); Leukocyte Esterase,Urine Negative (Negative); Nitrite,Urine Negative (Negative); Protein,Urine Negative (Neg-Trace); Specific Gravity,Urine 1.028 (1.010-1.025); Urobilinogen,Urine Normal (Normal)
[2017-08-09 17:17] LABS: Bacteria,Urine None Seen per hpf (None-Few); Hyaline Casts,Urine None Seen per lpf (None-Few); RBC,Urine 0-3 per hpf (0-3); Squamous Epithelial Cell,Urine Many per lpf (None-Few); WBC,Urine 0-3 per hpf (0-3)
[2017-08-09] MEDS: 0.9 % Sodium Chloride 1,000 ML IVC SCH (18:33)
[2017-08-09] MEDS ORDERED: Naloxone 0.4 MG/ML INJ IVP PRN (19:00)
[2017-08-09] MEDS ORDERED: Nitroglycerin 0.4 MG TAB.SUBL SL PRN (19:10)
[2017-08-09] MEDS ORDERED: *HR* OxyCODONE/APAP 5/325 TABLET PO PRN (19:10)
[2017-08-09] MEDS ORDERED: *HR* LORazepam 0.5 MG TABLET PO PRN (19:10)
[2017-08-09] MEDS ORDERED: NON-FORMULARY MEDICATION 1 EACH EACH (Insulin Aspart 0 UNIT) SQ PRN (19:10)
--- NOTE | 2017-08-09 19:46 | Internal Med History&Physical ---
<Ying Jara Dominic - Last Filed: 08/09/17 21:32> Date of Encounter: 08/09/17 Time of Encounter: 19:42 Internal Medicine - H&P: HPI Chief complaint: Lower extremity edema, and COLIN Admitted From: Long-term Nursing Facility Plans for Post Hospital Care: Transfer [facility] History of present illness: Ms. Francisco is a 67 year old female with hx of afib with RVR, leukocytosis, parkinson's, CAD, a-flutter, diastolic HF, PNA and DM. The patient indicated that she was at the retirement ambulating from the dining room and began to have dyspnea due to the ambulation. The patient NH attempted to get a o2 saturation and was unable to. The NH called the squad, the patient reported that she remembers being 97% on 4 L, when they were able to get result. She also indicated that she was having an increase in her leg swelling. ED found the patient to be in acute renal failure. Creat was 3.5 and BUN was 65. [address] Luke was consulted in the ED. Gentle hydration will be given. BNP is 143. CXR suggested CHF. Patient wears home O2 3l @ hs. Bilat lower ext with 3-4+ pitting edema. She lives at [facility]. The patient also had a CT of the abd/pelvis done that showed: diverticulosis without evidence for acute diverticulitis. Nonspecific mild rectosigmoid wall thickening. Nonspecific mild bladder wall thickening, Hepatomegaly with possible cirrhosis. Mild ascites. Nonspecific mildly enlarged left common iliac lymph nodes and small retroperitoneal lymph nodes. Consider six-month follow-up. Small right pleural effusion with adjacent atelectasis. The patient did deny abdominal pain during my assessment. She also denied reports of melena. Past Med Surg Social Fam HX - Past Medical History Medical history: atrial fibrillation, CHF, coronary artery disease, diabetes, hyperlipidemia, hypertension, myocardial infarction Additional medical history: A. flutter Psychiatric history: anxiety, depression - Past Surgical History Surgical History: angioplasty/stent, , cholecystectomy, orthopedic, other Additional surgical history: cardiac stents x 2. back surgery. left ankle surgery - Social History Smoking Status: Never smoker Smokeless Tobacco Status: No Alcohol use: none Drug use: none - Family History Father Family Member Ethnicity: Non- Living Status: Hx Family Cardiac Disorders: Yes Hx Family Respiratory Disorders: Yes Hx Family Cancer: No Brother Family Member Ethnicity: Non- Living Status: Hx Family Cardiac Disorders: No Hx Family Respiratory Disorders: No Hx Family Cancer: Yes Sister Family Member Ethnicity: Non- Living Status: Hx Family Cardiac Disorders: Yes Hx Family Respiratory Disorders: No Mother Adopted: No Family Member Ethnicity: Non- Living Status: Hx Family Cardiac Disorders: Yes Hx Family Respiratory Disorders: Yes Hx Family Cancer: No Hx Family GI Disorders: No Hx Family Endocrine Disorder: No Hx Family Neuromuscular Disorders: No Hx Family Neurologic Disorders: No Hx Family HEENT Disorders: Yes Hx Family Autoimmune Disorders: No Internal Medicine - H&P: Meds Ascorbic Acid [Vitamin C] 500 mg PO BID 06/13/15 [History] Aspirin [Adult Low Dose Aspirin EC] 81 mg PO DAILY 06/13/15 [History] Insulin ASPART [NovoLOG] 2 - 12 unit SQ TID PRN #0 06/13/15 [History] Metformin HCl [Glucophage] 1,000 mg PO BID 06/13/15 [History] Rivaroxaban [Xarelto] 20 mg PO HS 06/13/15 [History] Ropinirole HCl [Requip] 0.5 mg PO HS 06/13/15 [History] Sennosides/Docusate Sodium [Senna Plus] 1 tab PO DAILY 06/13/15 [History] Simvastatin [Zocor] 40 mg PO DAILY #0 06/13/15 [History] SitaGLIPtin [Januvia] 100 mg PO DAILY 06/13/15 [History] Zinc Sulfate 220 mg PO BID 06/13/15 [History] Carbidopa/Levodopa [Carbidopa-Levodopa 25-100 Tab] 1 tab PO HS 03/16/16 [History ] Insulin DETEMIR [Levemir Flextouch] 14 unit SQ HS 03/16/16 [History] Nitroglycerin 0.4 mg SL Q5MIN PRN 09/27/16 [History] Isosorbide MONOnitrate [Isosorbide Mononitrate ER] 120 mg PO DAILY 06/20/17 [ History] Nystatin POWDER [Nystop] 1 appl TP BID 06/20/17 [History] Potassium Chloride [Klor-Con 10] 10 meq PO BID 06/20/17 [History] Sertraline [Zoloft] 100 mg PO DAILY 06/20/17 [History] Diltiazem CD (24hr) [Cardizem CD] 360 mg PO DAILY #60 cap.er.24h 06/26/17 [Rx] Amiodarone [Cordarone] 200 mg PO DAILY #40 tablet 06/27/17 [Rx] Insulin DETEMIR [Levemir] 70 unit SQ QAM 06/29/17 [History] LORazepam [Ativan] 0.5 mg PO Q8H PRN 1 Days #3 tablet 07/03/17 [Rx] Oxycodone HCl/Acetaminophen [Percocet 5-325 mg Tablet] 1 tab PO Q4H PRN 5 Days # 4 tablet 07/17/17 [Rx] Fluconazole [Diflucan] 100 mg PO DAILY 08/09/17 [History] Metoprolol [Lopressor] 50 mg PO BID 08/09/17 [History] Torsemide [Demadex] 40 mg PO BID 08/09/17 [History] metOLazone [Zaroxolyn] 5 mg PO DAILY 08/09/17 [History] 3 Allergy/AdvReac Type Severity Reaction Status Date / Time Sulfa (Sulfonamide Allergy See Verified 08/09/17 13:37 Antibiotics) Comments tramadol AdvReac Nausea Verified 08/09/17 13:37 All Systems PM: A 10-system review of systems was performed and is negative for pertinent findings except as documented above in the HPI. - Constitutional Constitutional: no chills, no fever(s), no night sweats - EENT Eyes: no change in vision, no discharge, no pain, no photophobia Ears: no ear discharge, no ear pain, no tinnitus Nose, mouth and throat: no dysphagia, no nasal discharge, no neck pain, no sore throat - Cardiovascular Cardiovascular ROS IM: no chest pain, no diaphoresis, no dyspnea, no lightheadedness, no palpitations, no syncope - Respiratory Respiratory: cough, dyspnea on exertion, no wheezing, no excessive phlegm production - Gastrointestinal Gastrointestinal: no abdominal pain, no diarrhea, no hematemesis, no hematochezia, no melena, no nausea, no vomiting - Genitourinary Genitourinary: no change in urinary stream, no dysuria, no flank pain, no hematuria - Musculoskeletal Musculoskeletal ROS IM: no numbness, no tingling - Integumentary Integumentary IM: no rash, no unusual bruising - Neurological Neurological ROS: no confusion, no convulsions, no focal weakness, no numbness, no tingling, no tremor(s) - Hematologic/Lymphatic Hematologic/Lymphatic: no easy bruising - Constitutional Vitals: Temp Pulse Resp BP Pulse Ox 98.5 F 59 20 96/57 100 08/09/17 13:39 08/09/17 18:34 08/09/17 19:09 08/09/17 19:09 08/09/17 18:34 General appearance: Present: A&O X 3, morbidly obese - Head Head exam: Present: atraumatic, normocephalic - Eye Eye exam: Present: PERRL, conjuntiva pink, sclera anicteric Pupils: Present: PERRL - Neck Neck exam general surgery: Present: supple, trachea midline. Absent: lymphadenopathy - Respiratory Respiratory exam: Present: decreased breath sounds. Absent: accessory muscle use, rales, rhonchi, wheezes - Cardiovascular Cardiovascular exam: Present: RRR, +S1, +S2. Absent: diastolic murmur, gallop, rubs, systolic murmur - GI/Abdominal GI/Abdominal exam: Present: normal bowel sounds, soft, no peritoneal signs. Absent: distended, tenderness - Extremities Exam Extremities exam: Present: pedal edema, warm, radial pulses palpable and symmetrical. Absent: calf tenderness, cyanotic - Neurological Exam Neurological exam: Present: CN II-XII intact, oriented X3, no focal deficits. Absent: pronater drift, facial droop, speech deficit - Skin Skin exam: Present: dry, erythema (bilat lower ext.), intact Internal Med - H&P Results - Labs CBC & Chem 7: 08/09/17 14:13 08/09/17 14:13 - Assessment and plan (1) Diastolic CHF Current Visit: No Status: Acute Assessment and plan: Continue home dosing of Zaroxylyn Oxygen to keep sat's gt 92%, the patient wears home o2 3L Keep lower extremities elevated Qualifiers: Heart failure chronicity: acute on chronic Qualified Code(s): I50.33 - Acute on chronic diastolic (congestive) heart failure (2) Acute kidney injury Current Visit: Yes Status: Acute Assessment and plan: Consulted Nephrology for COLIN Gentle IVF's Monitor cbc and bmp daily (3) Lower extremity edema Current Visit: Yes Status: Acute Assessment and plan: Keep feet elevated this could be related to SHEIKH Monitor cbc and bmp daily (4) Atrial flutter Current Visit: Yes Status: Acute Assessment and plan: The patient has chronic arrhythymias aflutter vs afib Cardiac monitoring Continue home dose of Xarelto Qualifiers: Atrial flutter type: unspecified Qualified Code(s): I48.92 - Unspecified atrial flutter (5) Morbid obesity Current Visit: No Status: Chronic (6) Pleural effusion Current Visit: No Status: Acute Assessment and plan: Incentive spirometry Oxygen to keep sats gt 92% (7) Cellulitis Current Visit: Yes Status: Chronic Assessment and plan: Patient with history of chronic cellulitis. Qualifiers: Site of cellulitis: extremity Site of cellulitis of extremity: lower extremity Laterality: unspecified laterality Qualified Code(s): L03.119 - Cellulitis of unspecified part of limb (8) Hepatopathy Current Visit: Yes Status: Acute Assessment and plan: Ct of abd showed hepatopathy, and ascites this coud be related to SHEIKH Patient follow up outpatient. - Time Spent With Patient Total time spent is greater than 50% in coordination of care (as documented) at patient's floor/unit and/or counseling patient: 25 - 35 minutes <Adrián Loredo - Last Filed: 08/09/17 21:43> Date of Encounter: 08/09/17 Internal Medicine - H&P: HPI History of present illness: Ms. Francisco is a 67 year old female All Systems PM: A 10-system review of systems was performed and is negative for pertinent findings except as documented above in the HPI. - Constitutional Vitals: Temp Pulse Resp BP Pulse Ox 97.6 F 86 16 93/61 99 08/09/17 20:05 08/09/17 20:05 08/09/17 20:05 08/09/17 20:05 08/09/17 20:05 Internal Med - H&P Results - Labs CBC & Chem 7: 08/09/17 14:13 08/09/17 14:13 - Attending Attestation I have personally performed a face to face evaluation on this patient. I have reviewed and agree with the care plan. History and Exam by me shows: She patient is a 67-year-old female with history of atrial fibrillation who apparently presented from SNF home due to being unable to record vitals - pulse ox, BP and etc. However, this was found to be stable on admission to the ED. Blood work however, found COLIN. It appears that patient has been treated for CHF with aggressive diuretic (demadex 40BID, metolazone 5) at the retirement with resultant prerenal history of present illness. She is morbidly obese and she has venous stasis of lower extremity with lower extremity swelling and venous stasis changes. Her last LVEF on 06/23/17 was wnl and her BNP today was low CT/CT abd pelvis wo no iv no oral IMPRESSION: 1. Minimal colonic diverticulosis without evidence for acute diverticulitis. Nonspecific mild rectosigmoid wall thickening. 2. Nonspecific mild bladder wall thickening. Please coronary with urinalysis. 3. Hepatomegaly with possible cirrhosis. Mild ascites. 4. Nonspecific mildly enlarged left common iliac lymph nodes and small retroperitoneal lymph nodes. Consider six-month follow-up. 5. Small right pleural effusion with adjacent atelectasis. XR/XR chest 1V portable IMPRESSION: Findings suggest congestive heart failure A/P I am unconvinced on initial eval that she has CHF given low BNP which has a good negative PPD for CHF. Her recent TTE demonstrated intact systolic function. We will place gustafson, start IVF, stop lasix, demadex. Stop amiodarone due to risk of lung tox and maintain on rate control agents. She is on xarelto which we will continue I believe her LE swelling is 2/2 mixed venous stasis changes, 3rd spacing with fungal growth along joint creases. Her symptoms may be 2/2 cirrhosis - Time Spent With Patient Total time spent is greater than 50% in coordination of care (as documented) at patient's floor/unit and/or counseling patient:
[2017-08-09] MEDS ORDERED: NON-FORMULARY MEDICATION 1 EACH EACH (Metformin Hcl [Glucophage] 1,000 MG) PO SCH (21:00)
[2017-08-09] MEDS: Carbidopa/Levodopa 25/100 TABLET PO SCH (21:32)
[2017-08-09] MEDS: rOPINIRole 0.25 MG TABLET PO SCH (21:32)
[2017-08-09] MEDS: Nystatin POWDER 30 GM BOTTLE TP SCH (21:33)
[2017-08-09] MEDS: Insulin DETEMIR 100 UNIT/ML X5UNITS SQ SCH (21:33)
[2017-08-09] MEDS: Zinc Sulfate 220 MG CAPSULE PO SCH (21:33)
[2017-08-09] MEDS: Ascorbic Acid 500 MG TABLET PO SCH (21:33)
[2017-08-09] MEDS: *HR* Rivaroxaban 15 MG TABLET PO SCH (21:36)
[2017-08-10 00:16] LABS: Protein/Creatinine Ratio,Urine 0.24 mg/mg (0.00-0.20); Sodium, Urine 18.2 mEq/L
[2017-08-10 04:49] LABS: Calcium 8.4 mg/dL (8.6-10.3); Potassium 4.6 mEq/L (3.5-5.1)
[2017-08-10] MEDS ORDERED: Dextrose Gel 15 GM/37.5 ML TUBE PO PRN ×2 (05:00)
[2017-08-10] MEDS ORDERED: *HR* Dextrose 50 % in Water (Syg) 50 ML SYRINGE IVP PRN (05:00)
[2017-08-10] MEDS ORDERED: D5% in Water 1,000 ML IVC PRN (05:00)
[2017-08-10] MEDS: 0.9 % Sodium Chloride 1,000 ML IVC SCH (07:29)
[2017-08-10] MEDS: Diltiazem CD (24hr) 180 MG CAPSULE PO SCH (08:17)
[2017-08-10] MEDS: Ascorbic Acid 500 MG TABLET PO SCH ×2 (08:17→22:27)
[2017-08-10] MEDS: Isosorbide MONOnitrate (24 HR) 60 MG TAB.ER.24H PO SCH (08:17)
[2017-08-10] MEDS: Insulin LISPRO 300 UNITS/3 ML VIAL SQ SCH ×4 (08:17→22:22)
[2017-08-10] MEDS: *HR* SitaGLIPtin 25 MG TABLET PO SCH (08:17)
[2017-08-10] MEDS: Sennosides/Docusate Sodium TABLET PO SCH (08:17)
[2017-08-10] MEDS: Zinc Sulfate 220 MG CAPSULE PO SCH ×2 (08:17→22:23)
[2017-08-10] MEDS: Aspirin Enteric Coated 81 MG Tablet PO SCH (08:17)
[2017-08-10] MEDS: Nystatin POWDER 30 GM BOTTLE TP SCH ×2 (08:18→22:27)
[2017-08-10] MEDS: Insulin DETEMIR 100 UNIT/ML X5UNITS SQ SCH ×2 (08:21→22:23)
[2017-08-10] MEDS ORDERED: metOLazone 5 MG TABLET PO SCH (09:00)
--- NOTE | 2017-08-10 12:33 | Nephrology Consult Note ---
Date of Encounter: 08/10/17 Time of Encounter: 12:00 Assessment and Plan (1) Acute kidney injury Current Visit: Yes Status: Acute Elevated SCr in the setting of heavy diuretic use on chronic lymphedema Agree with holding all diuretics No acute indication for MOSQUITO SPRAYER at this time Urine studies consistent with intravascular volume depletion Will stop IVF today and encourage po fluids given CXR findings of CHF Will check uric acid level and cpk CT a/p showed no hydronephrosis or calculi (2) CKD (chronic kidney disease) stage 3, GFR 30-59 ml/min Current Visit: Yes Status: Acute GFR has fluctuated from 30-50s but unclear what true baseline is off diuretics History of Present Illness - Reason for Consult Consult date: 08/10/17 Acute Kidney Injury, Chronic Kidney Disease Requesting physician: Kathy Flor - History of Present Illness 67 y o female with PMH of DM, morbid obeisty with chronic LE lymphedema, daistolic CHFand Afib admitted from [facility] with SOB and found with elevated SCr from baseline at 3.5, GFR 13 with IVF started overnight. Renal consulted for management of renal dysfxn. Scr improved this am at 3.01, GFR 16. Diuretics held overnight as of of torsemide 40mg bid and zaroxylyn 5mg daily. Previous SCr noted at 11.39, GFR 38 as of last month. of note, her GFr has fluctuated from 30s to 50s since mid last year. She denies any NSAIS use Past Med Surg Social Fam HX - Past Medical History Medical history: atrial fibrillation, CHF, coronary artery disease, diabetes, hyperlipidemia, hypertension, myocardial infarction Additional medical history: A. flutter Psychiatric history: anxiety, depression - Past Surgical History Surgical History: angioplasty/stent, , cholecystectomy, orthopedic, other Additional surgical history: cardiac stents x 2. back surgery. left ankle surgery - Social History Smoking Status: Never smoker Smokeless Tobacco Status: No Alcohol use: none Drug use: none - Family History Father Family Member Ethnicity: Non- Living Status: Hx Family Cardiac Disorders: Yes Hx Family Respiratory Disorders: Yes Hx Family Cancer: No Brother Family Member Ethnicity: Non- Living Status: Hx Family Cardiac Disorders: No Hx Family Respiratory Disorders: No Hx Family Cancer: Yes Hx Family GI Disorders: No Hx Family Genitourinary Disorders: No Hx Family Endocrine Disorder: No Hx Family Musculoskeletal Disorders: No Hx Family Neuromuscular Disorders: No Hx Family Neurologic Disorders: No Hx Family HEENT Disorders: No Hx Family Autoimmune Disorders: No Hx Family Reproductive Disorders: No Hx Family Psychosocial Disorders: No Hx Family Medical Disorders: No Sister Family Member Ethnicity: Non- Living Status: Hx Family Cardiac Disorders: Yes Hx Family Respiratory Disorders: No Hx Family Cancer: No Hx Family GI Disorders: No Hx Family Genitourinary Disorders: No Hx Family Endocrine Disorder: No Hx Family Musculoskeletal Disorders: No Hx Family Neuromuscular Disorders: No Hx Family Neurologic Disorders: No Hx Family HEENT Disorders: No Hx Family Autoimmune Disorders: No Hx Family Reproductive Disorders: No Hx Family Psychosocial Disorders: No Hx Family Medical Disorders: No Mother Adopted: No Family Member Ethnicity: Non- Living Status: Hx Family Cardiac Disorders: Yes Hx Family Respiratory Disorders: Yes Hx Family Cancer: No Hx Family GI Disorders: No Hx Family Endocrine Disorder: No Hx Family Neuromuscular Disorders: No Hx Family Neurologic Disorders: No Hx Family HEENT Disorders: Yes Hx Family Autoimmune Disorders: No Medications and Allergies Ascorbic Acid [Vitamin C] 500 mg PO BID 06/13/15 [History] Aspirin [Adult Low Dose Aspirin EC] 81 mg PO DAILY 06/13/15 [History] Insulin ASPART [NovoLOG] 2 - 12 unit SQ TID PRN #0 06/13/15 [History] Metformin HCl [Glucophage] 1,000 mg PO BID 06/13/15 [History] Rivaroxaban [Xarelto] 20 mg PO HS 06/13/15 [History] Ropinirole HCl [Requip] 0.5 mg PO HS 06/13/15 [History] Sennosides/Docusate Sodium [Senna Plus] 1 tab PO DAILY 06/13/15 [History] Simvastatin [Zocor] 40 mg PO DAILY #0 06/13/15 [History] SitaGLIPtin [Januvia] 100 mg PO DAILY 06/13/15 [History] Zinc Sulfate 220 mg PO BID 06/13/15 [History] Carbidopa/Levodopa [Carbidopa-Levodopa 25-100 Tab] 1 tab PO HS 03/16/16 [History ] Insulin DETEMIR [Levemir Flextouch] 14 unit SQ HS 03/16/16 [History] Nitroglycerin 0.4 mg SL Q5MIN PRN 09/27/16 [History] Isosorbide MONOnitrate [Isosorbide Mononitrate ER] 120 mg PO DAILY 06/20/17 [ History] Nystatin POWDER [Nystop] 1 appl TP BID 06/20/17 [History] Potassium Chloride [Klor-Con 10] 10 meq PO BID 06/20/17 [History] Sertraline [Zoloft] 100 mg PO DAILY 06/20/17 [History] Diltiazem CD (24hr) [Cardizem CD] 360 mg PO DAILY #60 cap.er.24h 06/26/17 [Rx] Amiodarone [Cordarone] 200 mg PO DAILY #40 tablet 06/27/17 [Rx] Insulin DETEMIR [Levemir] 70 unit SQ QAM 06/29/17 [History] LORazepam [Ativan] 0.5 mg PO Q8H PRN 1 Days #3 tablet 07/03/17 [Rx] Oxycodone HCl/Acetaminophen [Percocet 5-325 mg Tablet] 1 tab PO Q4H PRN 5 Days # 4 tablet 07/17/17 [Rx] Fluconazole [Diflucan] 100 mg PO DAILY 08/09/17 [History] Metoprolol [Lopressor] 50 mg PO BID 08/09/17 [History] Torsemide [Demadex] 40 mg PO BID 08/09/17 [History] metOLazone [Zaroxolyn] 5 mg PO DAILY 08/09/17 [History] 3 Allergy/AdvReac Type Severity Reaction Status Date / Time Sulfa (Sulfonamide Allergy See Verified 08/09/17 13:37 Antibiotics) Comments tramadol AdvReac Nausea Verified 08/09/17 13:37 Review of Systems All Systems: reviewed and no additional remarkable complaints except as stated ( 10 systems reviewed and noted in HPI) Exam - Vital Signs Vital signs: Initial Vital Signs Temp Pulse Resp BP Pulse Ox 98.5 F 65 24 109/51 98 08/09/17 13:39 08/09/17 13:39 08/09/17 13:39 08/09/17 13:39 08/09/17 13:39 Vital Signs - Last 8 Hours Temp Pulse Resp BP Pulse Ox 08/10/17 11:52 97.8 F 87 17 101/63 97 08/10/17 08:33 97.7 F 98 15 122/77 98 08/10/17 07:36 97.7 F 98 15 122/77 98 Intake and Output 08/09/17 08/10/17 08/10/17 23:59 07:59 15:59 Intake Total 0 / 1000 1000 / 1000 0 / 0 Output Total 600 / 600 1180 / 1180 Balance 0 / 1000 400 / 400 -1180 / -1180 Intake: IV Fluids 1000 / 1000 0.9 % Sodium Chloride 1,000 ML 1000 / 1000 @ 80 mls/hr IVC .[id number] [facility] Rx #:[id number] Oral 0 / 0 0 / 0 Output: Urine 480 / 480 Catheter 600 / 600 700 / 700 Other: Meal Sandwhich Weight 121.2 kg Blood Glucose* 119 120 126 - General Appearance General appearance: chronically ill (NAD) EENT: ATNC, mucous membranes moist Neck: no JVD, supple Additional Comments: good areation ant bilat Cardiology: edema (nonpitting with chronic changes with erythema), normal S1, normal S2 Gastrointestinal: no tenderness, no guarding, obese Integumentary: warm and dry Neurologic: no focal deficit Musculoskeletal: no deformities Psychiatric: mood/affect appropriate, cooperative Results - Lab Results 08/09/17 14:13 08/10/17 03:50 Most recent lab results Calcium 8.4 mg/dL (8.6-10.3) L 08/10/17 03:50 Urine Creatinine 108 mg/dL 08/09/17 23:32 Urine Sodium 18.2 mEq/L 08/09/17 23:32 Urine Total Protein 26 mg/dL (1-14) H 08/09/17 23:32 Consult Discharge Plan - Plan Referrals: Lynne Brooks MD [Primary Care Provider] -
[2017-08-10 12:55] LABS: Uric Acid 12.3 mg/dL (2.3-7.6)
--- NOTE | 2017-08-10 16:18 | Internal Med Progress Note ---
Date of Encounter: 08/10/17 Time of Encounter: 09:10 - Assessment and plan (1) Acute kidney injury Current Visit: Yes Status: Acute Assessment and plan: Serum creatinine slightly improved to 3.01 today. Likely prerenal due to excessive diuretic use. Lasix and Zaroxolyn on hold. Patient has been on IV hydration. Nephrology consult appreciated-we will hold IV fluids and encourage by mouth hydration to avoid acute CHF. Monitor urine output closely. Follow- up urine studies. CT abdomen showed no hydronephrosis or renal stones. (2) Anxiety and depression Current Visit: Yes Status: Chronic Assessment and plan: Resume home meds. (3) Cellulitis Current Visit: Yes Status: Acute Assessment and plan: Bilateral anterior leg erythema and warmth with underlying stasis dermatitis and chronic lymphedema. We will try by mouth Keflex. Does not meet sepsis criteria. Lower extremity elevation. Qualifiers: Site of cellulitis: extremity Site of cellulitis of extremity: lower extremity Laterality: unspecified laterality Qualified Code(s): L03.119 - Cellulitis of unspecified part of limb (4) Atrial fibrillation Current Visit: Yes Status: Chronic Assessment and plan: Continue telemetry monitoring. Continue beta raad and calcium channel raad for rate control. Long-term anticoagulation with Xarelto. Qualifiers: Atrial fibrillation type: chronic Qualified Code(s): I48.2 - Chronic atrial fibrillation (5) Diastolic CHF Current Visit: Yes Status: Chronic Assessment and plan: Echocardiogram from May 2017 shows low normal EF around 50%, moderate pulmonary hypertension. Hold diuretics. Continue beta raad and telemetry monitoring. Qualifiers: Heart failure chronicity: chronic Qualified Code(s): I50.32 - Chronic diastolic (congestive) heart failure (6) CAD (coronary artery disease) Current Visit: Yes Status: Chronic Qualifiers: Coronary Disease-Associated Artery/Lesion type: [place] artery [place] vs. transplanted heart: [place] heart Associated angina: without angina Qualified Code(s): I25.10 - Atherosclerotic heart disease of [place] coronary artery without angina pectoris (7) Diabetes mellitus Current Visit: Yes Status: Chronic Assessment and plan: Blood sugars noted to be well controlled. Continue current regimen of basal bolus insulin. Accu-Chek blood glucose monitoring. Diabetic diet. Qualifiers: Diabetes mellitus type: type 2 Diabetes mellitus senior living insulin use: with senior living use Diabetes mellitus complication status: with circulatory complication Diabetes mellitus complication detail: with other circulatory complications Qualified Code(s): E11.59 - Type 2 diabetes mellitus with other circulatory complications; Z79.4 - met[place] (current) use of insulin (8) Morbid obesity Current Visit: Yes Status: Chronic (9) Parkinson disease Current Visit: Yes Status: Chronic (10) Chronic respiratory failure Current Visit: Yes Status: Chronic Assessment and plan: Due to CHF. Patient is noted to be on nocturnal oxygen. Qualifiers: Respiratory failure complication: hypoxia Qualified Code(s): J96.11 - Chronic respiratory failure with hypoxia - Time Spent With Patient Total time spent is greater than 50% in coordination of care (as documented) at patient's floor/unit and/or counseling patient: - Subjective Interval history: Reports feeling well; has generalized weakness and leg swelling, that is slightly worse now; no chest pain, shortness of breath; - Constitutional Vitals: Temp Pulse Resp BP Pulse Ox 98.5 F 80 16 117/72 93 08/10/17 14:57 08/10/17 14:57 08/10/17 14:57 08/10/17 14:57 08/10/17 14:57 General appearance: Present: A&O X 3, morbidly obese, answers questions appropriately - Respiratory Respiratory exam: Present: CTAB. Absent: accessory muscle use, rales, rhonchi, wheezes - Cardiovascular Cardiovascular exam: Present: RRR, +S1, +S2, systolic murmur. Absent: diastolic murmur, gallop, rubs - GI/Abdominal GI/Abdominal exam: Present: normal bowel sounds, soft (obese), no peritoneal signs. Absent: distended, tenderness - Extremities Exam Extremities exam: Present: pedal edema (non-pitting, like stasis dermatitis with anterior erythema and warmth), warm, radial pulses palpable and symmetrical. Absent: calf tenderness, cyanotic - Neurological Exam Neurological exam: Present: CN II-XII intact, oriented X3, no focal deficits. Absent: pronater drift, facial droop, speech deficit Internal Medicine: Result - Labs CBC & Chem 7: 08/09/17 14:13 08/10/17 03:50 Labs: BMP 08/10/17 03:50 Sodium 137 Potassium 4.6 Chloride 101 Carbon Dioxide 27 BUN 71 H Creatinine 3.01 H Glucose 119 H Calcium 8.4 L Consult Discharge Plan - Plan Referrals: Lynne Brooks MD [Primary Care Provider] -
[2017-08-10] MEDS: *HR* Rivaroxaban 15 MG TABLET PO SCH (16:51)
[2017-08-10] MEDS: rOPINIRole 0.25 MG TABLET PO SCH (22:23)
[2017-08-10] MEDS: Carbidopa/Levodopa 25/100 TABLET PO SCH (22:23)
[2017-08-10] MEDS: cephALEXin 500 MG CAPSULE PO SCH (22:27)
[2017-08-11 04:36] LABS: Hematocrit 33.8 % (35.3-44.9); Hemoglobin 10.9 g/dL (11.5-15.4)
[2017-08-11 05:01] LABS: Calcium 8.6 mg/dL (8.6-10.3); Magnesium 2.5 mg/dL (1.6-2.6); Potassium 4.4 mEq/L (3.5-5.1)
--- NOTE | 2017-08-11 06:52 | Event Note ---
Date of Encounter: 08/11/17 Time of Encounter: 01:30 Received page from patient's nurse that she was having bleeding unsure if vaginal or urethral. Patient had a Gustafson due to 24 hour urine collection and had just finished collecting when patient told the nurse that he she had a bowel movement. The nurse went to clean her up and stated that she did not stool but did have blood clots that were thin and thready about size of a pen near her vaginal area and had saturated the pad but blood was not near rectum. I examined the patient and did notice bright red blood present in that area and the gustafson did contain dark brown red urine but no blood clots present. Gustafson was discontinued. Hemoglobin and hematocrit were ordered stat. Hemoglobin was 10.9, previous 11. Patient's vitals remained stable and no other incidence of blood clots were noted the rest of the night and her vitals remained wnl.
[2017-08-11] MEDS: Insulin LISPRO 300 UNITS/3 ML VIAL SQ SCH ×4 (07:48→21:55)
[2017-08-11] MEDS: Ascorbic Acid 500 MG TABLET PO SCH ×2 (09:20→22:00)
[2017-08-11] MEDS: cephALEXin 500 MG CAPSULE PO SCH ×2 (09:20→21:59)
[2017-08-11] MEDS: Sennosides/Docusate Sodium TABLET PO SCH (09:20)
[2017-08-11] MEDS: Diltiazem CD (24hr) 180 MG CAPSULE PO SCH (09:20)
[2017-08-11] MEDS: Aspirin Enteric Coated 81 MG Tablet PO SCH (09:21)
[2017-08-11] MEDS: Insulin DETEMIR 100 UNIT/ML X5UNITS SQ SCH ×2 (09:21→21:59)
[2017-08-11] MEDS: Zinc Sulfate 220 MG CAPSULE PO SCH ×2 (09:21→22:00)
[2017-08-11] MEDS: Nystatin POWDER 30 GM BOTTLE TP SCH ×2 (09:21→22:00)
[2017-08-11] MEDS: *HR* SitaGLIPtin 25 MG TABLET PO SCH (09:21)
[2017-08-11] MEDS: Isosorbide MONOnitrate (24 HR) 60 MG TAB.ER.24H PO SCH (09:21)
--- NOTE | 2017-08-11 09:54 | Electrocardiograph Report ---
[address] [place], [place] [address] Test Date: 2017-08-09 Pat Name: Meagan Francisco Department: 103 Room: 2A37 Gender: F Community Planner: ALFREDO : 1950 Requested By: Agustin Sanders Order Number: [id number] Reading MD: Ronny Santillan Measurements Intervals [place] Rate: 60 P: -78 NM: 157 QRS: 66 QRSD: 93 T: 37 QT: 516 QTc: 517 Interpretive Statements ATRIAL FIB/FLUTTER WITH CONTROLLED RESPONSE LOW QRS VOLTAGE IN PRECORDIAL LEADS INCOMPLETE RIGHT BUNDLE BRANCH BLOCK Electronically Signed On 08-11-2017 9:52:18 EDT by Ronny Santillan
--- NOTE | 2017-08-11 10:02 | Nephrology Progress Note ---
Date of Encounter: 08/11/17 Time of Encounter: 11:00 - Assessment and Plan (1) Acute kidney injury Current Visit: Yes Status: Acute (2) CKD (chronic kidney disease) stage 3, GFR 30-59 ml/min Current Visit: Yes Status: Acute Objective - Vital Signs Vital signs: Vital Signs Temp Pulse Resp BP Pulse Ox 08/11/17 07:27 97.7 F 69 16 113/72 95 08/11/17 03:36 97.5 F L 69 18 124/81 100 08/11/17 00:25 97.5 F L 73 16 103/66 98 08/10/17 18:56 97.9 F 89 18 107/66 97 08/10/17 14:57 98.5 F 80 16 117/72 93 08/10/17 11:52 97.8 F 87 17 101/63 97 Intake and Output 08/10/17 08/11/17 08/11/17 23:59 07:59 15:59 Intake Total 240 / 240 520 / 520 360 / 360 Output Total 250 / 250 525 / 525 Balance -10 / -10 -5 / -5 360 / 360 Intake: Oral 240 / 240 520 / 520 360 / 360 Output: Urine 250 / 250 Catheter 525 / 525 Other: Meal crackers and gold fish Breakfast Percent of Meal Consumed 100% 100% Stool Size Copious Stool Consistency formed Stool Color Brown # Bowel Movements 1 Weight 122.9 kg Blood Glucose* 188 103 Patient Weight 08/11/17 23:59 Weight 122.9 kg - Lab 08/11/17 03:54 08/11/17 03:54 Most recent lab results Calcium 8.6 mg/dL (8.6-10.3) 08/11/17 03:54 Magnesium 2.5 mg/dL (1.6-2.6) 08/11/17 03:54 Urine Creatinine 108 mg/dL 08/09/17 23:32 Urine Sodium 18.2 mEq/L 08/09/17 23:32 Urine Total Protein 26 mg/dL (1-14) H 08/09/17 23:32 Consult Discharge Plan - Plan Referrals: Lynne Brooks MD [Primary Care Provider] -
[2017-08-11 10:06] LABS: Total Volume 24 Hour,Urine 1.96 Liters (0.60-1.60)
[2017-08-11 10:09] LABS: Total Volume 24 Hour,Urine 1.96 Liters (0.60-1.60)
[2017-08-11 10:11] LABS: Protein/Creatinine Ratio,Urine 1.08 mg/mg (0.00-0.20)
--- NOTE | 2017-08-11 15:54 | Internal Med Progress Note ---
Date of Encounter: 08/11/17 Time of Encounter: 11:15 - Assessment and plan (1) Acute kidney injury Current Visit: Yes Status: Acute Assessment and plan: Baseline serum creatinine noted to be around 1.1. Serum creatinine improved to 2.24 today. Likely prerenal due to excessive diuretic use. Lasix and Zaroxolyn on hold. Nephrology on board-we will hold IV fluids and encourage by mouth hydration to avoid acute CHF. Noted to have around 2600 mL urine output in the last 24 hours. 24 hour urine protein was only 79. CT abdomen showed no hydronephrosis or renal stones. (2) Anxiety and depression Current Visit: Yes Status: Chronic Assessment and plan: Resume home meds. (3) Cellulitis Current Visit: Yes Status: Acute Assessment and plan: Bilateral anterior leg erythema and warmth with underlying stasis dermatitis and chronic lymphedema. Improving; On by mouth Keflex. Does not meet sepsis criteria. Lower extremity elevation. Qualifiers: Site of cellulitis: extremity Site of cellulitis of extremity: lower extremity Laterality: unspecified laterality Qualified Code(s): L03.119 - Cellulitis of unspecified part of limb (4) Atrial fibrillation Current Visit: Yes Status: Chronic Assessment and plan: Continue telemetry monitoring. Continue beta raad and calcium channel raad for rate control. Long-term anticoagulation with Xarelto. Qualifiers: Atrial fibrillation type: chronic Qualified Code(s): I48.2 - Chronic atrial fibrillation (5) Diastolic CHF Current Visit: Yes Status: Chronic Assessment and plan: Echocardiogram from May 2017 shows low normal EF around 50%, moderate pulmonary hypertension. Hold diuretics. Continue beta raad and telemetry monitoring. Qualifiers: Heart failure chronicity: chronic Qualified Code(s): I50.32 - Chronic diastolic (congestive) heart failure (6) CAD (coronary artery disease) Current Visit: Yes Status: Chronic Qualifiers: Coronary Disease-Associated Artery/Lesion type: [place] artery [place] vs. transplanted heart: [place] heart Associated angina: without angina Qualified Code(s): I25.10 - Atherosclerotic heart disease of [place] coronary artery without angina pectoris (7) Diabetes mellitus Current Visit: Yes Status: Chronic Assessment and plan: Blood sugars noted to be well controlled. Continue current regimen of basal bolus insulin. Accu-Chek blood glucose monitoring. Diabetic diet. Qualifiers: Diabetes mellitus type: type 2 Diabetes mellitus mcc insulin use: with mcc use Diabetes mellitus complication status: with circulatory complication Diabetes mellitus complication detail: with other circulatory complications Qualified Code(s): E11.59 - Type 2 diabetes mellitus with other circulatory complications; Z79.4 - manager intermediate (current) use of insulin (8) Morbid obesity Current Visit: Yes Status: Chronic (9) Parkinson disease Current Visit: Yes Status: Chronic (10) Chronic respiratory failure Current Visit: Yes Status: Chronic Qualifiers: Respiratory failure complication: hypoxia Qualified Code(s): J96.11 - Chronic respiratory failure with hypoxia - Time Spent With Patient Total time spent is greater than 50% in coordination of care (as documented) at patient's floor/unit and/or counseling patient: - Subjective Interval history: Feels better today, sitting up in a chair. No chest pain, shortness of breath, nausea, vomiting. Improving leg swelling. - Constitutional Vitals: Temp Pulse Resp BP Pulse Ox 97.9 F 96 18 113/72 100 08/11/17 11:16 08/11/17 11:16 08/11/17 11:16 08/11/17 11:16 08/11/17 11:16 General appearance: Present: A&O X 3, morbidly obese, answers questions appropriately - Respiratory Respiratory exam: Present: CTAB. Absent: accessory muscle use, rales, rhonchi, wheezes - Cardiovascular Cardiovascular exam: Present: RRR, +S1, +S2. Absent: diastolic murmur, gallop, rubs, systolic murmur - GI/Abdominal GI/Abdominal exam: Present: normal bowel sounds, soft (obese), no peritoneal signs. Absent: distended, tenderness - Extremities Exam Extremities exam: Present: full ROM, pedal edema (2+ edema, improving), warm, radial pulses palpable and symmetrical. Absent: calf tenderness, cyanotic - Neurological Exam Neurological exam: Present: CN II-XII intact, oriented X3, no focal deficits. Absent: pronater drift, facial droop, speech deficit Internal Medicine: Result - Labs CBC & Chem 7: 08/11/17 03:54 08/11/17 03:54 Labs: Short CBC 08/11/17 Range/Units 03:54 Hgb 10.9 L (11.5-15.4) g/dL Hct 33.8 L (35.3-44.9) % BMP 08/11/17 03:54 Sodium 136 Potassium 4.4 Chloride 103 Carbon Dioxide 26 BUN 69 H Creatinine 2.24 H Glucose 132 H Calcium 8.6 - VTE Documentation of Mechanical Device: Graduated compression elastic hosiery Consult Discharge Plan - Plan Referrals: Lynne Brooks MD [Primary Care Provider] -
[2017-08-11] MEDS: *HR* Rivaroxaban 15 MG TABLET PO SCH (17:19)
--- NOTE | 2017-08-11 18:26 | Electrocardiograph Report ---
[address] [place], [place] [address] Test Date: 2017-08-10 Pat Name: Meagan Francisco Department: 112 Room: 2A37 Gender: F Telecom Analyst: REZA : 1950 Requested By: Merna Flor Order Number: [id number] Reading MD: Deidre Cullen Measurements Intervals [place] Rate: 106 P: [place]: 0 QRS: 59 QRSD: 102 T: 36 QT: 372 QTc: 434 Interpretive Statements ATRIAL FLUTTER/TACHYCARDIA WITH RAPID VENTRICULAR RESPONSE LOW QRS VOLTAGE IN PRECORDIAL LEADS ABNORMAL RHYTHM ECG Electronically Signed On 08-11-2017 18:24:29 EDT by Deidre Cullen
[2017-08-11] MEDS: Carbidopa/Levodopa 25/100 TABLET PO SCH (21:59)
[2017-08-11] MEDS: rOPINIRole 0.25 MG TABLET PO SCH (22:00)
[2017-08-12] MEDS: cephALEXin 500 MG CAPSULE PO SCH ×2 (02:08→07:52)
[2017-08-12] MEDS: Insulin LISPRO 300 UNITS/3 ML VIAL SQ SCH ×4 (07:25→22:07)
[2017-08-12 07:34] LABS: Calcium 8.7 mg/dL (8.6-10.3); Potassium 4.1 mEq/L (3.5-5.1)
[2017-08-12] MEDS: Aspirin Enteric Coated 81 MG Tablet PO SCH (07:52)
[2017-08-12] MEDS: Ascorbic Acid 500 MG TABLET PO SCH ×2 (07:52→22:30)
[2017-08-12] MEDS: Zinc Sulfate 220 MG CAPSULE PO SCH ×2 (07:52→22:30)
[2017-08-12] MEDS: Isosorbide MONOnitrate (24 HR) 60 MG TAB.ER.24H PO SCH (07:52)
[2017-08-12] MEDS: Diltiazem CD (24hr) 180 MG CAPSULE PO SCH (07:52)
[2017-08-12] MEDS: Sennosides/Docusate Sodium TABLET PO SCH (07:52)
[2017-08-12] MEDS: Insulin DETEMIR 100 UNIT/ML X5UNITS SQ SCH ×2 (07:52→22:30)
[2017-08-12] MEDS: Nystatin POWDER 30 GM BOTTLE TP SCH ×2 (07:53→22:30)
--- NOTE | 2017-08-12 12:12 | Nephrology Progress Note ---
Date of Encounter: 08/12/17 Time of Encounter: 11:00 - Assessment and Plan (1) Acute kidney injury Current Visit: Yes Status: Acute SCr continues to improve at 1.42, GFR 37 off diuretics UOP documented at 525cc in the past 24hrs which is significantly lower than previous unsure if accurate Continue to avoid nephrotoxins if possible Po fluids only at this point (2) CKD (chronic kidney disease) stage 3, GFR 30-59 ml/min Current Visit: Yes Status: Acute Baseline GFR typically around 40-50s Subjective Interval history: Pt seen and examined with no new complaints. Feels better overall. Objective - Vital Signs Vital signs: Vital Signs Temp Pulse Resp BP Pulse Ox 08/12/17 10:51 97.9 F 80 18 104/58 100 08/12/17 07:56 100 08/12/17 06:45 97 F L 65 19 126/77 100 08/12/17 03:30 97.6 F 58 16 112/65 96 08/11/17 23:10 97.5 F L 67 16 103/65 100 08/11/17 19:37 97.8 F 77 16 110/51 90 08/11/17 15:57 98.0 F 65 15 100/65 99 Intake and Output 08/11/17 08/12/17 08/12/17 23:59 07:59 15:59 Intake Total 360 / 360 240 / 240 Output Total 300 / 300 Balance 360 / 360 -60 / -60 Intake: Oral 360 / 360 240 / 240 Output: Urine 300 / 300 Other: Meal Dinner Breakfast Percent of Meal Consumed 100% 100% # Voids 1 Weight 123.6 kg Blood Glucose* 186 76 177 - General Appearance General appearance: Present: obese, chronically ill EENT: Present: ATNC, mucous membranes moist Neck: Present: no JVD, supple Respiratory: Present: clear (ant bilat) Cardiology: Present: edema (LE bilat with wrapping) Gastrointestinal: Present: no tenderness, no guarding, obese Integumentary: Present: warm and dry Neurologic: Present: no focal deficit Musculoskeletal: Present: no deformities Psychiatric: Present: mood/affect appropriate, cooperative - Lab 08/11/17 03:54 08/12/17 06:10 Most recent lab results Calcium 8.7 mg/dL (8.6-10.3) 06/19/18 06:10 Magnesium 0.7 mg/dL (1.6-2.6) L 08/12/17 06:10 Urine Creatinine 73 mg/dL 08/11/17 00:16 Ur Total Protein 24 Hr 1548 mg/day (50-80) H 08/11/17 00:16 Urine Sodium 18.2 mEq/L 08/09/17 23:32 Urine Total Protein 79 mg/dL (1-14) H 08/11/17 00:16 - VTE Documentation of Mechanical Device: Graduated compression elastic hosiery Consult Discharge Plan - Plan Referrals: Lynne Brooks MD [Primary Care Provider] -
[2017-08-12] MEDS: *HR* Rivaroxaban 15 MG TABLET PO SCH (16:44)
--- NOTE | 2017-08-12 20:47 | Internal Med Progress Note ---
Date of Encounter: 08/12/17 Time of Encounter: 20:47 - Assessment and plan (1) Acute kidney injury Current Visit: Yes Status: Acute (2) Chronic diastolic heart failure Current Visit: Yes Status: Acute (3) Cellulitis Current Visit: Yes Status: Acute Qualifiers: Site of cellulitis: extremity Site of cellulitis of extremity: lower extremity Laterality: unspecified laterality Qualified Code(s): L03.119 - Cellulitis of unspecified part of limb (4) Atrial fibrillation Current Visit: Yes Status: Chronic Qualifiers: Atrial fibrillation type: chronic Qualified Code(s): I48.2 - Chronic atrial fibrillation (5) CAD (coronary artery disease) Current Visit: Yes Status: Chronic Qualifiers: Coronary Disease-Associated Artery/Lesion type: [place] artery [place] vs. transplanted heart: [place] heart Associated angina: without angina Qualified Code(s): I25.10 - Atherosclerotic heart disease of [place] coronary artery without angina pectoris (6) T2DM (type 2 diabetes mellitus) Current Visit: Yes Status: Acute Qualifiers: Diabetes mellitus nursing home insulin use: with recovery coordinator use Diabetes mellitus complication status: without complication Qualified Code(s): E11.9 - Type 2 diabetes mellitus without complications; Z79.4 - [facility] (current) use of insulin - Time Spent With Patient Total time spent is greater than 50% in coordination of care (as documented) at patient's floor/unit and/or counseling patient: - Constitutional Vitals: Temp Pulse Resp BP Pulse Ox 98.2 F 80 16 114/63 98 08/12/17 19:59 08/12/17 19:59 08/12/17 19:59 08/12/17 19:59 08/12/17 19:59 General appearance: Present: A&O X 3, morbidly obese, answers questions appropriately Internal Medicine: Result - Labs CBC & Chem 7: 08/11/17 03:54 08/13/17 04:39 Labs: BMP 08/12/17 06:10 Sodium 141 Potassium 4.1 Chloride 105 Carbon Dioxide 28 BUN 55 H Creatinine 1.42 H Glucose 71 Calcium 8.7 - VTE Documentation of Mechanical Device: Graduated compression elastic hosiery Consult Discharge Plan - Plan Referrals: Lynne Brooks MD [Primary Care Provider] -
[2017-08-12] MEDS: rOPINIRole 0.25 MG TABLET PO SCH (22:30)
[2017-08-12] MEDS: Carbidopa/Levodopa 25/100 TABLET PO SCH (22:30)
[2017-08-13 05:14] LABS: Calcium 8.9 mg/dL (8.6-10.3); Potassium 4.1 mEq/L (3.5-5.1)
[2017-08-13] MEDS ORDERED: Ondansetron 4 MG/2 ML VIAL IVP PRN (05:54)
[2017-08-13] MEDS: Insulin LISPRO 300 UNITS/3 ML VIAL SQ SCH ×3 (09:41→17:35)
[2017-08-13] MEDS: Insulin DETEMIR 100 UNIT/ML X5UNITS SQ SCH (09:49)
[2017-08-13] MEDS ORDERED: *HR* Promethazine 25 MG/ML VIAL IVP ONE (09:56)
[2017-08-13] MEDS: Isosorbide MONOnitrate (24 HR) 60 MG TAB.ER.24H PO SCH (10:40)
[2017-08-13] MEDS: Sennosides/Docusate Sodium TABLET PO SCH (10:40)
[2017-08-13] MEDS: Zinc Sulfate 220 MG CAPSULE PO SCH (10:40)
[2017-08-13] MEDS: Aspirin Enteric Coated 81 MG Tablet PO SCH (10:40)
[2017-08-13] MEDS: cephALEXin 500 MG CAPSULE PO SCH (10:40)
[2017-08-13] MEDS: Diltiazem CD (24hr) 180 MG CAPSULE PO SCH (10:40)
[2017-08-13] MEDS: Ascorbic Acid 500 MG TABLET PO SCH (10:40)
[2017-08-13] MEDS: Nystatin POWDER 30 GM BOTTLE TP SCH (10:41)
[2017-08-13 11:35] VITALS: BP 123/59
--- NOTE | 2017-08-13 13:00 | Nephrology Progress Note ---
Date of Encounter: 08/13/17 Time of Encounter: 12:00 - Assessment and Plan (1) Acute kidney injury Current Visit: Yes Status: Acute SCr continues to improve at 1.42, GFR 37 off diuretics UOP documented at 525cc in the past 24hrs which is significantly lower than previous unsure if accurate Continue to avoid nephrotoxins if possible Po fluids only at this point (2) CKD (chronic kidney disease) stage 3, GFR 30-59 ml/min Current Visit: Yes Status: Acute Baseline GFR typically around 40-50s Subjective Interval history: Pt seen and examined with no new complaints. Feels better overall. Objective - Vital Signs Vital signs: Vital Signs Temp Pulse Resp BP Pulse Ox 08/13/17 11:34 98.3 F 93 17 123/59 99 08/13/17 07:56 97.7 F 87 17 145/85 95 08/13/17 03:26 98.6 F 77 17 124/72 99 08/12/17 23:38 97.8 F 80 16 113/65 96 08/12/17 19:59 98.2 F 80 16 114/63 98 08/12/17 15:20 98.8 F 77 18 108/61 98 Intake and Output 08/12/17 08/13/17 08/13/17 23:59 07:59 15:59 Intake Total 0 / 0 Output Total 150 / 150 Balance -150 / -150 Intake: Oral 0 / 0 Output: Emesis 150 / 150 Other: Meal Breakfast Percent of Meal Consumed 0% Stool Size Small Stool Consistency liquid Stool Color Bright Red Blood # Bowel Movements 1 Weight 124.4 kg Blood Glucose* 165 156 151 - Lab 08/11/17 03:54 08/13/17 04:39 Most recent lab results Calcium 8.9 mg/dL (8.6-10.3) 08/13/17 04:39 Magnesium 0.7 mg/dL (1.6-2.6) L 08/12/17 06:10 Urine Creatinine 73 mg/dL 08/11/17 00:16 Ur Total Protein 24 Hr 1548 mg/day (50-80) H 08/11/17 00:16 Urine Sodium 18.2 mEq/L 08/09/17 23:32 Urine Total Protein 79 mg/dL (1-14) H 08/11/17 00:16 - VTE Documentation of Mechanical Device: Graduated compression elastic hosiery Consult Discharge Plan - Plan Referrals: Lynne Brooks MD [Primary Care Provider] -
--- NOTE | 2017-08-13 16:12 | Discharge Summary ---
- NOTES TO OUTPATIENT PROVIDER Notes to Outpatient Provider: The patient was admitted with difficulty breathing. With found her to have acute kidney injury. She received mild IV hydration; has underlying diastolic heart failure. Her creatinine today is 1.16. It was sent 3.50 at admission. Her pulse oximetry is 99% on FiO2 of 28% . She needs have physical therapy and occupational therapy at the extended care facility. Date of Encounter: 08/13/17 Time of Encounter: 16:07 - Discharge Diagnosis (1) Acute kidney injury Priority: Primary Status: Acute (2) Chronic diastolic heart failure Priority: Secondary Status: Acute (3) Cellulitis Priority: Secondary Status: Acute Qualifiers: Site of cellulitis: extremity Site of cellulitis of extremity: lower extremity Laterality: unspecified laterality Qualified Code(s): L03.119 - Cellulitis of unspecified part of limb (4) Atrial fibrillation Priority: Secondary Status: Chronic Qualifiers: Atrial fibrillation type: chronic Qualified Code(s): I48.2 - Chronic atrial fibrillation (5) CAD (coronary artery disease) Priority: Secondary Status: Chronic Qualifiers: Coronary Disease-Associated Artery/Lesion type: [place] artery [place] vs. transplanted heart: [place] heart Associated angina: without angina Qualified Code(s): I25.10 - Atherosclerotic heart disease of [place] coronary artery without angina pectoris (6) T2DM (type 2 diabetes mellitus) Priority: Secondary Status: Acute Qualifiers: Diabetes mellitus senior care insulin use: with senior care use Diabetes mellitus complication status: without complication Qualified Code(s): E11.9 - Type 2 diabetes mellitus without complications; Z79.4 - nursing home (current) use of insulin Hospital course: Ms. Francisco is a 67 year old female Discharge discussed with: patient, case management - Time Spent with Patient Total time spent providing and/or coordinating discharge services: Greater than 30 minutes (40 MINUTES) - Discharge Medications Prescriptions: Ondansetron ODT [Zofran ODT] 4 mg PO Q6HR PRN #10 tab.rapdis PRN Reason: Nausea And Vomiting cephALEXin [Keflex] 500 mg PO BID #14 capsule Home Medications: Ascorbic Acid [Vitamin C] 500 mg PO BID 06/13/15 [History] Aspirin [Adult Low Dose Aspirin EC] 81 mg PO DAILY 06/13/15 [History] Insulin ASPART [NovoLOG] 2 - 12 unit SQ TID PRN #0 06/13/15 [History] Metformin HCl [Glucophage] 1,000 mg PO BID 06/13/15 [History] Rivaroxaban [Xarelto] 20 mg PO HS 06/13/15 [History] Ropinirole HCl [Requip] 0.5 mg PO HS 06/13/15 [History] Sennosides/Docusate Sodium [Senna Plus] 1 tab PO DAILY 06/13/15 [History] Simvastatin [Zocor] 40 mg PO DAILY #0 06/13/15 [History] SitaGLIPtin [Januvia] 100 mg PO DAILY 06/13/15 [History] Zinc Sulfate 220 mg PO BID 06/13/15 [History] Carbidopa/Levodopa [Carbidopa-Levodopa 25-100 Tab] 1 tab PO HS 03/16/16 [History ] Insulin DETEMIR [Levemir Flextouch] 14 unit SQ HS 03/16/16 [History] Nitroglycerin 0.4 mg SL Q5MIN PRN 09/27/16 [History] Isosorbide MONOnitrate [Isosorbide Mononitrate ER] 120 mg PO DAILY 06/20/17 [ History] Nystatin POWDER [Nystop] 1 appl TP BID 06/20/17 [History] Potassium Chloride [Klor-Con 10] 10 meq PO BID 06/20/17 [History] Sertraline [Zoloft] 100 mg PO DAILY 06/20/17 [History] Diltiazem CD (24hr) [Cardizem CD] 360 mg PO DAILY #60 cap.er.24h 06/26/17 [Rx] Amiodarone [Cordarone] 200 mg PO DAILY #40 tablet 06/27/17 [Rx] Insulin DETEMIR [Levemir] 70 unit SQ QAM 06/29/17 [History] LORazepam [Ativan] 0.5 mg PO Q8H PRN 1 Days #3 tablet 07/03/17 [Rx] Oxycodone HCl/Acetaminophen [Percocet 5-325 mg Tablet] 1 tab PO Q4H PRN 5 Days # 4 tablet 07/17/17 [Rx] Fluconazole [Diflucan] 100 mg PO DAILY 08/09/17 [History] Metoprolol [Lopressor] 50 mg PO BID 08/09/17 [History] Torsemide [Demadex] 40 mg PO BID 08/09/17 [History] metOLazone [Zaroxolyn] 5 mg PO DAILY 08/09/17 [History] Ondansetron ODT [Zofran ODT] 4 mg PO Q6HR PRN #10 tab.rapdis 08/13/17 [Rx] cephALEXin [Keflex] 500 mg PO BID #14 capsule 08/13/17 [Rx] cephALEXin [Keflex] 500 mg PO BID #14 capsule 08/13/17 [Rx] Allergies/Adverse Reactions: 3 Allergy/AdvReac Type Severity Reaction Status Date / Time Sulfa (Sulfonamide Allergy See Verified 08/09/17 13:37 Antibiotics) Comments tramadol AdvReac Nausea Verified 08/09/17 13:37 Date of admission: 08/09/17 19:00 Primary care physician: Lynne Brooks MD Consults: 08/10/17 07:36 Consult to Nephrology [CONS] Routine Consulting Provider: Kidney Ness/JONATHAN/RAMA/ELIGIO Reason for Consult: COLIN and swelling Call Completed: Yes 08/11/17 07:58 Consult to Manager Telemetry [CONS] Routine Reason for SW Consult: rtn wmp - Constitutional Vitals: Temp Pulse Resp BP Pulse Ox 98.3 F 93 17 123/59 99 08/13/17 11:34 08/13/17 11:34 08/13/17 11:34 08/13/17 11:34 08/13/17 11:34 General appearance: Present: A&O X 3, morbidly obese, answers questions appropriately - Respiratory Respiratory exam: Present: CTAB. Absent: accessory muscle use, rales, rhonchi, wheezes - Cardiovascular Cardiovascular exam: Present: RRR, +S1, +S2. Absent: diastolic murmur, gallop, rubs, systolic murmur - GI/Abdominal GI/Abdominal exam: Present: normal bowel sounds, soft, no peritoneal signs. Absent: distended, tenderness - Patient Status Disposition: Transfer SNF Condition: Fair Functional capacity at discharge: bed bound Overall status at discharge: patient is not back to baseline - Discharge Instructions Follow Up With: Lynne Brooks MD [Primary Care Provider] - - Diet and Activity Activity: as per physical therapy - VTE Documentation of Mechanical Device: Graduated compression elastic hosiery Deep Vein Thrombosis/Pulmonary Embolism Present on Admission: No
--- NOTE | 2017-08-13 16:31 | Physician Discharge Referral ---
ExtendedCare Referral Info Transfer To: [facility] Provider in Charge: Orly TURK Provider in Charge after Transfer: Other Institutional Level of Care: Skilled - Diagnosis (1) Acute kidney injury Status: Acute (2) Chronic diastolic heart failure Status: Acute (3) Cellulitis Status: Acute (4) Atrial fibrillation Status: Chronic (5) CAD (coronary artery disease) Status: Chronic (6) T2DM (type 2 diabetes mellitus) Status: Acute - Transfer Medications Prescriptions: Ondansetron ODT [Zofran ODT] 4 mg PO Q6HR PRN #10 tab.rapdis PRN Reason: Nausea And Vomiting cephALEXin [Keflex] 500 mg PO BID #14 capsule Home Medications: Ascorbic Acid [Vitamin C] 500 mg PO BID 06/13/15 [History] Aspirin [Adult Low Dose Aspirin EC] 81 mg PO DAILY 06/13/15 [History] Insulin ASPART [NovoLOG] 2 - 12 unit SQ TID PRN #0 06/13/15 [History] Metformin HCl [Glucophage] 1,000 mg PO BID 06/13/15 [History] Rivaroxaban [Xarelto] 20 mg PO HS 06/13/15 [History] Ropinirole HCl [Requip] 0.5 mg PO HS 06/13/15 [History] Sennosides/Docusate Sodium [Senna Plus] 1 tab PO DAILY 06/13/15 [History] Simvastatin [Zocor] 40 mg PO DAILY #0 06/13/15 [History] SitaGLIPtin [Januvia] 100 mg PO DAILY 06/13/15 [History] Zinc Sulfate 220 mg PO BID 06/13/15 [History] Carbidopa/Levodopa [Carbidopa-Levodopa 25-100 Tab] 1 tab PO HS 03/16/16 [History ] Insulin DETEMIR [Levemir Flextouch] 14 unit SQ HS 03/16/16 [History] Nitroglycerin 0.4 mg SL Q5MIN PRN 09/27/16 [History] Isosorbide MONOnitrate [Isosorbide Mononitrate ER] 120 mg PO DAILY 06/20/17 [ History] Nystatin POWDER [Nystop] 1 appl TP BID 06/20/17 [History] Potassium Chloride [Klor-Con 10] 10 meq PO BID 06/20/17 [History] Sertraline [Zoloft] 100 mg PO DAILY 06/20/17 [History] Diltiazem CD (24hr) [Cardizem CD] 360 mg PO DAILY #60 cap.er.24h 06/26/17 [Rx] Amiodarone [Cordarone] 200 mg PO DAILY #40 tablet 06/27/17 [Rx] Insulin DETEMIR [Levemir] 70 unit SQ QAM 06/29/17 [History] LORazepam [Ativan] 0.5 mg PO Q8H PRN 1 Days #3 tablet 07/03/17 [Rx] Oxycodone HCl/Acetaminophen [Percocet 5-325 mg Tablet] 1 tab PO Q4H PRN 5 Days # 4 tablet 07/17/17 [Rx] Fluconazole [Diflucan] 100 mg PO DAILY 08/09/17 [History] Metoprolol [Lopressor] 50 mg PO BID 08/09/17 [History] Torsemide [Demadex] 40 mg PO BID 08/09/17 [History] metOLazone [Zaroxolyn] 5 mg PO DAILY 08/09/17 [History] Ondansetron ODT [Zofran ODT] 4 mg PO Q6HR PRN #10 tab.rapdis 08/13/17 [Rx] cephALEXin [Keflex] 500 mg PO BID #14 capsule 08/13/17 [Rx] cephALEXin [Keflex] 500 mg PO BID #14 capsule 08/13/17 [Rx] Allergies/Adverse Reactions: 3 Allergy/AdvReac Type Severity Reaction Status Date / Time Sulfa (Sulfonamide Allergy See Verified 08/09/17 13:37 Antibiotics) Comments tramadol AdvReac Nausea Verified 08/09/17 13:37 - Respiratory Orders Other (2 L/M AT BEDTIME..) Smoking Cessation: Smoking cessation has been advised. For more information, call the [place] Tobacco Quit Line at 5-637-MUVX-NOW. - Advance Directives Code Status: Full Code - Treatments Skin tear care topically daily PRN per policy CERTIFICATION: I certify that the transfer of the above named patient to an Extended Care Facility is necessary for the continuing treatment of the diagnosis listed. The above information is true and accurate reflection of patient's current condition. Confidential - Redisclosure prohibited without a patient's written consent.
[2017-08-13] MEDS: *HR* Rivaroxaban 15 MG TABLET PO SCH (17:47)
== END 2017-08-13 18:10 | DRG 291 ==
LOC: 2ANU 13:19 → EMEROO 13:19 → SUATTDRO 19:00 → 2ANU 19:50
PROVIDERS: ADMIT Internal Medicine Hematology & Oncology; ATTEND Internal Medicine

== ENCOUNTER 2017-10-30 11:26 | Inpatient (IN) ==
--- NOTE | 2017-10-30 11:32 | Emergency Department Note ---
Disposition Clinical Impression: Acute exacerbation of CHF (congestive heart failure) Disposition: Admitted As Inpatient Condition: Fair General Adult HPI - General Stated complaint: fluid overload Time Seen by Provider: 10/30/17 11:27 - Related Data Home Medications Medication Instructions Recorded Confirmed Ascorbic Acid [Vitamin C] 500 mg PO BID 06/13/15 10/30/17 Aspirin [Adult Low Dose Aspirin EC] 81 mg PO DAILY 06/13/15 10/30/17 Insulin ASPART [NovoLOG] 2 - 12 unit SQ TID PRN #0 06/13/15 10/30/17 Rivaroxaban [Xarelto] 20 mg PO HS 06/13/15 10/30/17 Ropinirole HCl [Requip] 0.5 mg PO HS 06/13/15 10/30/17 Sennosides/Docusate Sodium [Senna 1 tab PO DAILY 06/13/15 10/30/17 Plus] Simvastatin [Zocor] 40 mg PO DAILY #0 06/13/15 10/30/17 SitaGLIPtin [Januvia] 100 mg PO DAILY 06/13/15 10/30/17 Zinc Sulfate 220 mg PO BID 06/13/15 10/30/17 Nitroglycerin 0.4 mg SL Q5MIN PRN 09/27/16 10/30/17 Isosorbide MONOnitrate [Isosorbide 120 mg PO DAILY 06/20/17 10/30/17 Mononitrate ER] Nystatin POWDER [Nystop] 1 appl TP BID 06/20/17 10/30/17 Potassium Chloride [Klor-Con 10] 10 meq PO BID 06/20/17 10/30/17 Sertraline [Zoloft] 100 mg PO DAILY 06/20/17 10/30/17 Insulin DETEMIR [Levemir] 40 unit SQ QAM 06/29/17 10/30/17 Metoprolol [Lopressor] 50 mg PO BID 08/09/17 10/30/17 Torsemide [Demadex] 40 mg PO BID 08/09/17 10/30/17 Latanoprost [Xalatan] 1 drop BOTH EYES HS 10/30/17 10/30/17 Oxycodone HCl/Acetaminophen 1 tab PO BID PRN 10/30/17 10/30/17 [Percocet 5-325 mg Tablet] metOLazone [Zaroxolyn] 2.5 mg PO DAILY 10/30/17 10/30/17 Previous Rx's Medication Instructions Recorded Diltiazem CD (24hr) [Cardizem CD] 360 mg PO DAILY #60 cap.er.24h 06/26/17 Amiodarone [Cordarone] 200 mg PO DAILY #40 tablet 06/27/17 LORazepam [Ativan] 0.5 mg PO Q8H PRN 1 Days #3 tablet 07/03/17 Ondansetron ODT [Zofran ODT] 4 mg PO Q6HR PRN #10 tab.rapdis 08/13/17 Allergies Allergy/AdvReac Type Severity Reaction Status Date / Time Sulfa (Sulfonamide Allergy See Verified 08/09/17 13:37 Antibiotics) Comments tramadol AdvReac Nausea Verified 08/09/17 13:37 Past Medical History - Past Medical History Medical history: Reports: atrial fibrillation, CHF, coronary artery disease, diabetes, hyperlipidemia, hypertension, myocardial infarction Surgical history: Reports: angioplasty/stent, , cholecystectomy, orthopedic, other Psychiatric history: Reports: anxiety, depression - Social History Smoking Status: Never smoker Smokeless Tobacco Status: No Alcohol use: Reports: none Drug use: Reports: none Course Vital Signs Temperature 98.8 F 10/30/17 11:32 Pulse Rate 85 10/30/17 11:32 Respiratory Rate 18 10/30/17 11:32 Blood Pressure 108/71 10/30/17 11:32 O2 Sat by Pulse Oximetry 98 10/30/17 11:32 Temperature 97.7 F 10/30/17 15:51 Pulse Rate 75 10/30/17 15:51 Respiratory Rate 18 10/30/17 15:51 Blood Pressure 101/64 10/30/17 15:51 O2 Sat by Pulse Oximetry 98 10/30/17 15:51 Oxygen Delivery Oxygen Delivery Nasal Cannula Medical Decision Making - Lab Data Result diagrams: 10/30/17 13:17 10/30/17 11:49 Lab Results 10/30/17 10/30/17 10/30/17 Range/Units 11:49 11:49 11:49 WBC (4.3-11.1) K/mcL RBC (3.82-4.97) M/mcL Hgb (11.5-15.4) g/dL Hct (35.3-44.9) % MCV (83.0-100.0) fL MCH (28.0-33.3) pg MCHC (31.6-35.5) g/dL RDW (11.5-14.5) % Plt Count (140-400) K/mcL MPV (9.4-12.4) fL Immature Gran % (0-4) % Seg Neutrophils % % Lymphocytes % % Monocytes % % Eosinophils % % Basophils % % Neutrophils # (1.6-8.9) K/mcL Lymphocytes # (0.6-4.6) K/mcL Monocytes # (0.0-1.3) K/mcL Eosinophils # (0.0-0.6) K/mcL Basophils # (0.0-0.2) K/mcL PT 17.3 H (9.4-12.1) Seconds INR 1.5 Sodium 142 (136-145) mEq/L Potassium 3.5 (3.5-5.1) mEq/L Chloride 102 (98-107) mEq/L Carbon Dioxide 35 H (23-29) mEq/L BUN 37 H (8-23) mg/dL Creatinine 1.33 H (0.60-1.20) mg/dL Est GFR ( Amer) 48 L (> 60) Est GFR (Non-Af Amer) 40 L (> 60) BUN/Creatinine Ratio 28 H (6-26) Glucose 124 H (70-105) mg/dL Calculated Osmolality 304 H (280-300) Calcium 8.8 (8.6-10.3) mg/dL Total Bilirubin 0.4 (0.3-1.0) mg/dL AST 20 (13-39) Units/L ALT 17 (7-52) Units/L Alkaline Phosphatase 131 H (34-104) Units/L Troponin I < 0.03 (< 0.04) ng/mL B-Natriuretic Peptide 288 H (Less than 100) pg/mL Serum Total Protein 6.5 (6.4-8.9) g/dL Albumin 3.7 (3.5-5.7) g/dL Globulin 2.8 (2.4-3.5) g/dL Albumin/Globulin Ratio 1.3 (1.1-2.2) 10/30/17 Range/Units 13:17 WBC 9.0 (4.3-11.1) K/mcL RBC 3.83 (3.82-4.97) M/mcL Hgb 9.6 L (11.5-15.4) g/dL Hct 32.8 L (35.3-44.9) % MCV 85.6 (83.0-100.0) fL MCH 25.1 L (28.0-33.3) pg MCHC 29.3 L (31.6-35.5) g/dL RDW 16.3 H (11.5-14.5) % Plt Count 164 (140-400) K/mcL MPV 9.8 (9.4-12.4) fL Immature Gran % 0.4 (0-4) % Seg Neutrophils % 75.4 % Lymphocytes % 14.1 % Monocytes % 6.1 % Eosinophils % 3.8 % Basophils % 0.2 % Neutrophils # 6.7 (1.6-8.9) K/mcL Lymphocytes # 1.3 (0.6-4.6) K/mcL Monocytes # 0.6 (0.0-1.3) K/mcL Eosinophils # 0.3 (0.0-0.6) K/mcL Basophils # 0.0 (0.0-0.2) K/mcL PT (9.4-12.1) Seconds INR Sodium (136-145) mEq/L Potassium (3.5-5.1) mEq/L Chloride (98-107) mEq/L Carbon Dioxide (23-29) mEq/L BUN (8-23) mg/dL Creatinine (0.60-1.20) mg/dL Est GFR ( Amer) (> 60) Est GFR (Non-Af Amer) (> 60) BUN/Creatinine Ratio (6-26) Glucose (70-105) mg/dL Calculated Osmolality (280-300) Calcium (8.6-10.3) mg/dL Total Bilirubin (0.3-1.0) mg/dL AST (13-39) Units/L ALT (7-52) Units/L Alkaline Phosphatase (34-104) Units/L Troponin I (< 0.04) ng/mL B-Natriuretic Peptide (Less than 100) pg/mL Serum Total Protein (6.4-8.9) g/dL Albumin (3.5-5.7) g/dL Globulin (2.4-3.5) g/dL Albumin/Globulin Ratio (1.1-2.2) Attestation Statement - Attestation Attestation: I examined this patient and my medical decision-making was reviewed with the Resident Physician. I agree with the documented findings, disposition and treatment plan as described except to the extent set forth below. [id number] time provided Patient arrives from the extended care facility by EMS complaining of unintentional water weight gain and peripheral edema. She has edematous lower extremities on exam but does not appear acutely dyspneic.
--- NOTE | 2017-10-30 11:42 | Emergency Department Note ---
Disposition Clinical Impression: Acute exacerbation of CHF (congestive heart failure) Disposition: Admitted As Inpatient Condition: Fair Time of Disposition: 14:30 General Adult HPI - General Chief complaint: ED Chest Pain Stated complaint: fluid overload Time Seen by Provider: 10/30/17 11:27 Source: patient, EMS Limitations: no limitations Nursing Notes Reviewed: Yes Vital Signs Reviewed: Yes - History of Present Illness HPI Narrative: 67-year-old female presents from extended care facility via EMS for evaluation of dyspnea, weight gain, or extremity edema. Patient is prescribed torsemide which is not on pharmacy at her facility. She states she has not been receiving it. Patient notes that she has otherwise been compliant with her medications. [facility] informed EMS patient has a history of noncompliance. Regardless, patient has had a 20 pound weight gain the past 14 days, 3, again overnight. She has increasing swelling of her bilateral lower extremities. Dyspnea at rest when laying in a reclined position. She has orthopnea. PMH: Atrial fibrillation on aspirin and Xarelto rate controlled on metoprolol. Diastolic CHF on Zaroxolyn. Chronic respiratory failure requiring to liter home oxygen continuous. Morbid obesity. History of pleural effusion. History of cellulitis. History of Iglesias with ascites. Pain Scale: 10 - Related Data Home Medications Medication Instructions Recorded Confirmed Ascorbic Acid [Vitamin C] 500 mg PO BID 06/13/15 10/30/17 Aspirin [Adult Low Dose Aspirin EC] 81 mg PO DAILY 06/13/15 10/30/17 Insulin ASPART [NovoLOG] 2 - 12 unit SQ TID PRN #0 06/13/15 10/30/17 Rivaroxaban [Xarelto] 20 mg PO HS 06/13/15 10/30/17 Ropinirole HCl [Requip] 0.5 mg PO HS 06/13/15 10/30/17 Sennosides/Docusate Sodium [Senna 1 tab PO DAILY 06/13/15 10/30/17 Plus] Simvastatin [Zocor] 40 mg PO DAILY #0 06/13/15 10/30/17 SitaGLIPtin [Januvia] 100 mg PO DAILY 06/13/15 10/30/17 Zinc Sulfate 220 mg PO BID 06/13/15 10/30/17 Nitroglycerin 0.4 mg SL Q5MIN PRN 09/27/16 10/30/17 Isosorbide MONOnitrate [Isosorbide 120 mg PO DAILY 06/20/17 10/30/17 Mononitrate ER] Nystatin POWDER [Nystop] 1 appl TP BID 06/20/17 10/30/17 Potassium Chloride [Klor-Con 10] 10 meq PO BID 06/20/17 10/30/17 Sertraline [Zoloft] 100 mg PO DAILY 06/20/17 10/30/17 Insulin DETEMIR [Levemir] 40 unit SQ QAM 06/29/17 10/30/17 Metoprolol [Lopressor] 50 mg PO BID 08/09/17 10/30/17 Torsemide [Demadex] 40 mg PO BID 08/09/17 10/30/17 Latanoprost [Xalatan] 1 drop BOTH EYES HS 10/30/17 10/30/17 Oxycodone HCl/Acetaminophen 1 tab PO BID PRN 10/30/17 10/30/17 [Percocet 5-325 mg Tablet] metOLazone [Zaroxolyn] 2.5 mg PO DAILY 10/30/17 10/30/17 Previous Rx's Medication Instructions Recorded Diltiazem CD (24hr) [Cardizem CD] 360 mg PO DAILY #60 cap.er.24h 06/26/17 Amiodarone [Cordarone] 200 mg PO DAILY #40 tablet 06/27/17 LORazepam [Ativan] 0.5 mg PO Q8H PRN 1 Days #3 tablet 07/03/17 Ondansetron ODT [Zofran ODT] 4 mg PO Q6HR PRN #10 tab.rapdis 08/13/17 Allergies Allergy/AdvReac Type Severity Reaction Status Date / Time Sulfa (Sulfonamide Allergy See Verified 08/09/17 13:37 Antibiotics) Comments tramadol AdvReac Nausea Verified 08/09/17 13:37 All systems ED: reviewed and negative except as stated. Review of Systems: As Per HPI Past Medical History - Past Medical History Medical history: Reports: atrial fibrillation, CHF, coronary artery disease, diabetes, hyperlipidemia, hypertension, myocardial infarction Surgical history: Reports: angioplasty/stent, , cholecystectomy, orthopedic, other Psychiatric history: Reports: anxiety, depression - Social History Smoking Status: Never smoker Smokeless Tobacco Status: No Alcohol use: Reports: none Drug use: Reports: none Physical Exam Vital Signs Reviewed General: Patient is alert, oriented, and in moderate respiratory distress- forward conversational dyspnea on her baseline 2 L. Head: atraumatic, normocephalic Eye: normal appearance, no scleral icterus, no conjunctival injection ENT: mucous membranes moist, normal external ear exam Neck: normal inspection, trachea midline, full ROM Chest: normal inspection, symmetric chest rise Respiratory: Good respiratory effort. Bilateral breath sounds are clear without wheezing, crackles, or rhonchi. Cardiovascular: Regular rate and rhythm. No clicks, rubs, gallops, or murmors. Normal heart sounds. Abdomen: Bowel sounds present normoactive x-4 quadrants. Abdomen is soft, nondistended, and nontender. No guarding or rebound. No organomegaly noted. Musculoskeletal: Spontaneously moving all extremities. Skin: warm, dry, intact. Neuro: Alert and oriented x4. Sensation light touch intact. Psych: Patient's affect is appropriate for situation. - General Limitations: no limitations General appearance: alert, in no apparent distress Course Course Narrative: Physical exam is consistent with acute exacerbation of congestive heart failure. Patient's blood pressures in the low 100s; will hold on nitroglycerin at this time. Will provide 40 mg IV Lasix. Chest x-ray is concerning for pulmonary edema. BNP is slightly elevated to 288 however, patient is morbidly obese. I discussed the above with the accepting physician, Dr. Braun, who agrees to accept the patient for acute exacerbation of diastolic congestive heart failure. Chest X-Ray 10/30/17 11:29 IMPRESSION: Findings are suggestive of mild congestive heart failure with small right pleural effusion with adjacent atelectasis. D/ / 10/30/2017 12:24:01 Larissa Coronado MD / margarita Interpreting Provider: Larissa Coronado MD Vital Signs Temperature 98.8 F 10/30/17 11:32 Pulse Rate 85 10/30/17 11:32 Respiratory Rate 18 10/30/17 11:32 Blood Pressure 108/71 10/30/17 11:32 O2 Sat by Pulse Oximetry 98 10/30/17 11:32 Temperature 98.8 F 10/30/17 11:32 Pulse Rate 73 10/30/17 14:14 Respiratory Rate 10/30/17 14:14 Blood Pressure 92/53 10/30/17 14:14 O2 Sat by Pulse Oximetry 100 10/30/17 14:14 Oxygen Delivery Oxygen Delivery Nasal Cannula Medical Decision Making - Lab Data Result diagrams: 10/30/17 13:17 10/30/17 11:49 Lab Results 10/30/17 10/30/17 10/30/17 Range/Units 11:49 11:49 11:49 WBC (4.3-11.1) K/mcL RBC (3.82-4.97) M/mcL Hgb (11.5-15.4) g/dL Hct (35.3-44.9) % MCV (83.0-100.0) fL MCH (28.0-33.3) pg MCHC (31.6-35.5) g/dL RDW (11.5-14.5) % Plt Count (140-400) K/mcL MPV (9.4-12.4) fL Immature Gran % (0-4) % Seg Neutrophils % % Lymphocytes % % Monocytes % % Eosinophils % % Basophils % % Neutrophils # (1.6-8.9) K/mcL Lymphocytes # (0.6-4.6) K/mcL Monocytes # (0.0-1.3) K/mcL Eosinophils # (0.0-0.6) K/mcL Basophils # (0.0-0.2) K/mcL PT 17.3 H (9.4-12.1) Seconds INR 1.5 Sodium 142 (136-145) mEq/L Potassium 3.5 (3.5-5.1) mEq/L Chloride 102 (98-107) mEq/L Carbon Dioxide 35 H (23-29) mEq/L BUN 37 H (8-23) mg/dL Creatinine 1.33 H (0.60-1.20) mg/dL Est GFR ( Amer) 48 L (> 60) Est GFR (Non-Af Amer) 40 L (> 60) BUN/Creatinine Ratio 28 H (6-26) Glucose 124 H (70-105) mg/dL Calculated Osmolality 304 H (280-300) Calcium 8.8 (8.6-10.3) mg/dL Total Bilirubin 0.4 (0.3-1.0) mg/dL AST 20 (13-39) Units/L ALT 17 (7-52) Units/L Alkaline Phosphatase 131 H (34-104) Units/L Troponin I < 0.03 (< 0.04) ng/mL B-Natriuretic Peptide 288 H (Less than 100) pg/mL Serum Total Protein 6.5 (6.4-8.9) g/dL Albumin 3.7 (3.5-5.7) g/dL Globulin 2.8 (2.4-3.5) g/dL Albumin/Globulin Ratio 1.3 (1.1-2.2) 10/30/17 Range/Units 13:17 WBC 9.0 (4.3-11.1) K/mcL RBC 3.83 (3.82-4.97) M/mcL Hgb 9.6 L (11.5-15.4) g/dL Hct 32.8 L (35.3-44.9) % MCV 85.6 (83.0-100.0) fL MCH 25.1 L (28.0-33.3) pg MCHC 29.3 L (31.6-35.5) g/dL RDW 16.3 H (11.5-14.5) % Plt Count 164 (140-400) K/mcL MPV 9.8 (9.4-12.4) fL Immature Gran % 0.4 (0-4) % Seg Neutrophils % 75.4 % Lymphocytes % 14.1 % Monocytes % 6.1 % Eosinophils % 3.8 % Basophils % 0.2 % Neutrophils # 6.7 (1.6-8.9) K/mcL Lymphocytes # 1.3 (0.6-4.6) K/mcL Monocytes # 0.6 (0.0-1.3) K/mcL Eosinophils # 0.3 (0.0-0.6) K/mcL Basophils # 0.0 (0.0-0.2) K/mcL PT (9.4-12.1) Seconds INR Sodium (136-145) mEq/L Potassium (3.5-5.1) mEq/L Chloride (98-107) mEq/L Carbon Dioxide (23-29) mEq/L BUN (8-23) mg/dL Creatinine (0.60-1.20) mg/dL Est GFR ( Amer) (> 60) Est GFR (Non-Af Amer) (> 60) BUN/Creatinine Ratio (6-26) Glucose (70-105) mg/dL Calculated Osmolality (280-300) Calcium (8.6-10.3) mg/dL Total Bilirubin (0.3-1.0) mg/dL AST (13-39) Units/L ALT (7-52) Units/L Alkaline Phosphatase (34-104) Units/L Troponin I (< 0.04) ng/mL B-Natriuretic Peptide (Less than 100) pg/mL Serum Total Protein (6.4-8.9) g/dL Albumin (3.5-5.7) g/dL Globulin (2.4-3.5) g/dL Albumin/Globulin Ratio (1.1-2.2)
[2017-10-30 12:26] LABS: Alanine Aminotransferase 17 Units/L (7-52); Albumin 3.7 g/dL (3.5-5.7); Albumin/Globulin Ratio 1.3 (1.1-2.2); Alkaline Phosphatase 131 Units/L (34-104); Aspartate Amino Transferase 20 Units/L (13-39); BUN/Creatinine Ratio 28 (6-26); Bilirubin,Total 0.4 mg/dL (0.3-1.0); Blood Urea Nitrogen 37 mg/dL (8-23); Calcium 8.8 mg/dL (8.6-10.3); Carbon Dioxide 35 mEq/L (23-29); Chloride 102 mEq/L (98-107); Globulin 2.8 g/dL (2.4-3.5); Glucose 124 mg/dL (70-105); Osmolality,Calculated 304 (280-300); Potassium 3.5 mEq/L (3.5-5.1); Sodium 142 mEq/L (136-145); Total Protein 6.5 g/dL (6.4-8.9); Troponin I < 0.03 ng/mL (< 0.04); eGFR For Non-African Americans 40 (> 60)
[2017-10-30 13:31] LABS: Basophils % 0.2 %; Eosinophils # 0.3 K/mcL (0.0-0.6); Eosinophils % 3.8 %; Hematocrit 32.8 % (35.3-44.9); Hemoglobin 9.6 g/dL (11.5-15.4); Immature Granulocytes % 0.4 % (0-4); Lymphocytes # 1.3 K/mcL (0.6-4.6); Lymphocytes % 14.1 %; Mean Corpuscular HGB Conc 29.3 g/dL (31.6-35.5); Mean Corpuscular Hemoglobin 25.1 pg (28.0-33.3); Mean Corpuscular Volume 85.6 fL (83.0-100.0); Mean Platelet Volume 9.8 fL (9.4-12.4); Monocytes # 0.6 K/mcL (0.0-1.3); Monocytes % 6.1 %; Neutrophils # 6.7 K/mcL (1.6-8.9); Platelet Count 164 K/mcL (140-400); Red Blood Count 3.83 M/mcL (3.82-4.97); Red Cell Distribution Width 16.3 % (11.5-14.5); Segmented Neutrophils % 75.4 %
[2017-10-30 13:42] LABS: INR 1.5; Prothrombin Time 17.3 Seconds (9.4-12.1)
[2017-10-30] MEDS ORDERED: Furosemide 40 MG/4 ML VIAL IVP ONE (13:48)
[2017-10-30] MEDS ORDERED: Naloxone 0.4 MG/ML INJ IVP PRN (14:26)
[2017-10-30] MEDS ORDERED: Dextrose Gel 15 GM/37.5 ML TUBE PO PRN ×2 (17:55)
[2017-10-30] MEDS ORDERED: *HR* Dextrose 50 % in Water (Syg) 50 ML SYRINGE IVP PRN (17:55)
[2017-10-30] MEDS ORDERED: D5% in Water 1,000 ML IVC PRN (17:55)
--- NOTE | 2017-10-30 18:02 | Internal Med History&Physical ---
Date of Encounter: 10/30/17 Time of Encounter: 18:00 Internal Medicine - H&P: HPI Chief complaint: shortness of breath and lower extermity edema Admitted From: Home Plans for Post Hospital Care: Home History of present illness: Ms. Francisco is a 67 year old female with a past medical history of atrial fibrillation, diastolic CHF, coronary artery disease, diabetes, hyperlipidemia, hypertension. Patient presented to the emergency room due to shortness of breath, associated with lower extremity edema off 1 day duration. Patient denies chest pain, nausea, palpitation, lightheadedness. Patient reports that for the past 2 weeks she has been putting up weights, and reports that she normally weights herself and for the past 2 weeks have put up about 20 pounds. Denies increasing water intake, or salt intake. Also reports being compliant with her home medication. Today while she was seated at home, watching television she started feeling short of breath, and decided to come to the emergency room. Past Med Surg Social Fam HX - Past Medical History Medical history: atrial fibrillation, CHF, coronary artery disease, diabetes, hyperlipidemia, hypertension, myocardial infarction Additional medical history: James bustillo Psychiatric history: anxiety, depression - Past Surgical History Surgical History: angioplasty/stent, , cholecystectomy, orthopedic, other Additional surgical history: cardiac stents x 2. back surgery. left ankle surgery - Social History Smoking Status: Never smoker Smokeless Tobacco Status: No Alcohol use: none Drug use: none - Family History Father Family Member Ethnicity: Non- Living Status: Hx Family Cardiac Disorders: Yes Hx Family Respiratory Disorders: Yes Hx Family Cancer: No Brother Family Member Ethnicity: Non- Living Status: Hx Family Cardiac Disorders: No Hx Family Respiratory Disorders: No Hx Family Cancer: Yes Hx Family GI Disorders: No Hx Family Endocrine Disorder: No Hx Family Neuromuscular Disorders: No Hx Family Neurologic Disorders: No Hx Family HEENT Disorders: No Hx Family Autoimmune Disorders: No Sister Family Member Ethnicity: Non- Living Status: Hx Family Cardiac Disorders: Yes Hx Family Respiratory Disorders: No Hx Family Cancer: No Hx Family GI Disorders: No Hx Family Endocrine Disorder: No Hx Family Neuromuscular Disorders: No Hx Family Neurologic Disorders: No Hx Family HEENT Disorders: No Hx Family Autoimmune Disorders: No Mother Adopted: No Family Member Ethnicity: Non- Living Status: Hx Family Cardiac Disorders: Yes Hx Family Respiratory Disorders: Yes Hx Family Cancer: No Hx Family GI Disorders: No Hx Family Endocrine Disorder: No Hx Family Neuromuscular Disorders: No Hx Family Neurologic Disorders: No Hx Family HEENT Disorders: Yes Hx Family Autoimmune Disorders: No Internal Medicine - H&P: Meds Ascorbic Acid [Vitamin C] 500 mg PO BID 06/13/15 [History] Aspirin [Adult Low Dose Aspirin EC] 81 mg PO DAILY 06/13/15 [History] Insulin ASPART [NovoLOG] 2 - 12 unit SQ TID PRN #0 06/13/15 [History] Rivaroxaban [Xarelto] 20 mg PO HS 06/13/15 [History] Ropinirole HCl [Requip] 0.5 mg PO HS 06/13/15 [History] Sennosides/Docusate Sodium [Senna Plus] 1 tab PO DAILY 06/13/15 [History] Simvastatin [Zocor] 40 mg PO DAILY #0 06/13/15 [History] SitaGLIPtin [Januvia] 100 mg PO DAILY 06/13/15 [History] Zinc Sulfate 220 mg PO BID 06/13/15 [History] Nitroglycerin 0.4 mg SL Q5MIN PRN 09/27/16 [History] Isosorbide MONOnitrate [Isosorbide Mononitrate ER] 120 mg PO DAILY 06/20/17 [ History] Nystatin POWDER [Nystop] 1 appl TP BID 06/20/17 [History] Potassium Chloride [Klor-Con 10] 10 meq PO BID 06/20/17 [History] Sertraline [Zoloft] 100 mg PO DAILY 06/20/17 [History] Diltiazem CD (24hr) [Cardizem CD] 360 mg PO DAILY #60 cap.er.24h 06/26/17 [Rx] Amiodarone [Cordarone] 200 mg PO DAILY #40 tablet 06/27/17 [Rx] Insulin DETEMIR [Levemir] 40 unit SQ QAM 06/29/17 [History] LORazepam [Ativan] 0.5 mg PO Q8H PRN 1 Days #3 tablet 07/03/17 [Rx] Metoprolol [Lopressor] 50 mg PO BID 08/09/17 [History] Torsemide [Demadex] 40 mg PO BID 08/09/17 [History] Ondansetron ODT [Zofran ODT] 4 mg PO Q6HR PRN #10 tab.rapdis 08/13/17 [Rx] Latanoprost [Xalatan] 1 drop BOTH EYES HS 10/30/17 [History] Oxycodone HCl/Acetaminophen [Percocet 5-325 mg Tablet] 1 tab PO BID PRN [History] metOLazone [Zaroxolyn] 2.5 mg PO DAILY 10/30/17 [History] 3 Allergy/AdvReac Type Severity Reaction Status Date / Time Sulfa (Sulfonamide Allergy See Verified 08/09/17 13:37 Antibiotics) Comments tramadol AdvReac Nausea Verified 08/09/17 13:37 All Systems PM: A 10-system review of systems was performed and is negative for pertinent findings except as documented above in the HPI. - Constitutional Constitutional: weight gain, no chills, no lethargy, no weakness - EENT Eyes: no change in vision, no irritation Nose, mouth and throat: no dysphagia, no mouth pain, no sinus pain - Cardiovascular Cardiovascular ROS IM: dyspnea (with mild excertion ), edema (lower extremities ), no chest pain, no diaphoresis, no irregular heart rhythm, no lightheadedness , no palpitations, no paroxysmal nocturnal dyspnea - Respiratory Respiratory: dyspnea on exertion, no cough, no snoring, no pain on inspiration - Gastrointestinal Gastrointestinal: no abdominal pain, no bloating, no coffee ground emesis, no nausea - Genitourinary Genitourinary: no change in urinary stream, no hematuria, no urinary incontinence, no urinary urgency - Musculoskeletal Musculoskeletal ROS IM: no joint swelling, no limited range of motion, no neck pain - Integumentary Integumentary IM: no rash - Neurological Neurological ROS: no abnormal hearing, no disequilibrium, no dizziness - Psychiatric Psychiatric: no auditory hallucinations, no behavioral changes - Endocrine Endocrine IM: no cold intolerance, no deeping of the voice, no fatigue, no flushing, no polyphagia, no polyuria - Constitutional Vitals: Temp Pulse Resp BP Pulse Ox 97.7 F 75 18 101/64 98 10/30/17 15:51 10/30/17 15:51 10/30/17 15:51 10/30/17 15:51 10/30/17 15:51 Exam: General: Alert and oriented 3. No acute distress Skin:Normal color, no rash, no lesions. Cardiovascular: Irregularly irregular, Normal S1 & S2, no rubs, murmurs or gallops. JVD unable to assess due to short neck. Lungs: Scattered crackles at the bases bilaterally, no wheezes or rales . Abdomen: Obese, Soft, non-tender, no rigidity. NABS Extremities: No deformity, 3+ edema, no tenderness. Neurological: CN II-XII intact Rest of the physical exam is non contributory Internal Med - H&P Results - Labs CBC & Chem 7: 10/30/17 13:17 10/30/17 11:49 - Assessment and plan (1) Congestive heart failure (CHF) Current Visit: Yes Status: Acute Assessment and plan: Scattered crackles at the bases. Plan: - Water restriction to 1.5 litters a day - Furosemide 40mg/IV BID - Serial trops - D-dimer - O2 by nasal cannula - Morphine 2mg/IV for pain control - Qualifiers: Heart failure type: diastolic Heart failure chronicity: acute Qualified Code(s): I50.31 - Acute diastolic (congestive) heart failure (2) Acute kidney injury Current Visit: No Status: Acute Assessment and plan: Likley due to decompensated CHF> Plan: - Started on furosemide - F/U kidney function closely - Avoid nephrotoxic medications (3) DVT prophylaxis Current Visit: No Status: Acute Assessment and plan: ON xarelto for A. fib (4) T2DM (type 2 diabetes mellitus) Current Visit: No Status: Acute Assessment and plan: Plan: - Started on levemir 10 units BID - Lispro sliding scale and ac - diabetic diet Qualifiers: Diabetes mellitus space planner insulin use: with space planner use Diabetes mellitus complication status: without complication Qualified Code(s): E11.9 - Type 2 diabetes mellitus without complications; Z79.4 - nursing home (current) use of insulin (5) Anxiety and depression Current Visit: No Status: Chronic Assessment and plan: On a SSRIS as out patient. Plan: - Will continue outpatient medication (6) Atrial fibrillation Current Visit: No Status: Chronic Assessment and plan: Plan: - Continue amidorone - On a Beta raad will continue medication - Anticoagulated on Xarelto due to high CHDSVASC score Qualifiers: Atrial fibrillation type: chronic Qualified Code(s): I48.2 - Chronic atrial fibrillation (7) CAD (coronary artery disease) Current Visit: No Status: Chronic Assessment and plan: Plan: - started on aspirin 81mg po daily - continue statin Qualifiers: Coronary Disease-Associated Artery/Lesion type: [place] artery [place] vs. transplanted heart: [place] heart Associated angina: without angina Qualified Code(s): I25.10 - Atherosclerotic heart disease of [place] coronary artery without angina pectoris (8) Morbid obesity Current Visit: No Status: Chronic - Time Spent With Patient Total time spent is greater than 50% in coordination of care (as documented) at patient's floor/unit and/or counseling patient:
[2017-10-30] MEDS ORDERED: Furosemide 40 MG/4 ML VIAL IVP SCH (21:00)
[2017-10-30] MEDS: Insulin DETEMIR 100 UNIT/ML X5UNITS SQ SCH (21:18)
[2017-10-30] MEDS: Benzocaine/Menthol 56 GM AEROSOL SPRAY TP PRN (21:34)
[2017-10-30] MEDS: *HR* Rivaroxaban 10 MG TABLET PO SCH (22:07)
[2017-10-31 05:40] LABS: Red Cell Distribution Width 16.7 % (11.5-14.5)
[2017-10-31 05:41] LABS: Hematocrit 32.8 % (35.3-44.9); Hemoglobin 9.7 g/dL (11.5-15.4); Mean Corpuscular HGB Conc 29.6 g/dL (31.6-35.5); Mean Corpuscular Hemoglobin 25.1 pg (28.0-33.3); Mean Platelet Volume 10.2 fL (9.4-12.4); Platelet Count 177 K/mcL (140-400); Red Blood Count 3.86 M/mcL (3.82-4.97)
[2017-10-31 05:53] LABS: Calcium 8.6 mg/dL (8.6-10.3); Magnesium 2.2 mg/dL (1.6-2.6); Phosphorous 3.8 mg/dL (2.7-4.5); Potassium 3.5 mEq/L (3.5-5.1)
[2017-10-31] MEDS: Insulin DETEMIR 100 UNIT/ML X5UNITS SQ SCH ×2 (09:19→21:22)
[2017-10-31] MEDS: Insulin LISPRO 300 UNITS/3 ML VIAL SQ SCH ×6 (09:19→17:45)
[2017-10-31] MEDS: Furosemide 40 MG/4 ML VIAL IVP SCH (09:20)
[2017-10-31] MEDS: *HR* Amiodarone 200 MG TABLET PO SCH (09:20)
[2017-10-31] MEDS: Aspirin 81 MG TAB.CHEW PO SCH (09:20)
--- NOTE | 2017-10-31 16:24 | Internal Med Progress Note ---
Hospitalist Progress Note - Encounter Date of Encounter: 10/31/17 Time of Encounter: 16:22 - Subjective Interval History: Patient seen and evaluated at bedside, report feeling better, her breathing has improved. Denies shortness of breath or ches pain. No nausea or vomiting. No overnight events. - Exam Vitals: Temp Pulse Resp BP Pulse Ox 97.7 F 99 18 116/71 97 10/31/17 16:01 10/31/17 16:01 10/31/17 16:01 10/31/17 16:01 10/31/17 16:01 Exam: General: Alert and oriented 3. No acute distress Cardiovascular: Irregularly irregular, Normal S1 & S2, no rubs, murmurs or gallops. JVD unable to assess due to short neck. Lungs: clear to auscultation bilaterally, no wheezes or rales . Abdomen: Obese, Soft, non-tender, no rigidity. NABS Extremities: No deformity, 3+ edema, no tenderness. Neurological: CN II-XII intact Rest of the physical exam is non contributory - Assessment and Plan (1) Congestive heart failure (CHF) Current Visit: Yes Status: Acute Assessment and Plan: Overall negative 1.6 litters. continue diuresis with furosemide 40mg/IV daily. Water restriction to 1.5 litters a day. Will start metolazone, one of her home medications. (2) Acute kidney injury Current Visit: No Status: Acute Assessment and Plan: Creatinine stable. Continue with diuresis. (3) DVT prophylaxis Current Visit: No Status: Acute Assessment and Plan: On xaelto for atrila fibrillation with high CHADSVASD score (4) T2DM (type 2 diabetes mellitus) Current Visit: No Status: Acute Assessment and Plan: Blood sugar well controlled. Continue Levemir 10 units BID and Lispro sliding scale AC. (5) Atrial fibrillation Current Visit: No Status: Chronic Assessment and Plan: Rate controlled with Metoprolol, diltiazem on hold as BP in the low 100s. On amiodarone 200mg PO daily (6) CAD (coronary artery disease) Current Visit: No Status: Chronic Assessment and Plan: To continue aspirin and statin. (7) Morbid obesity Current Visit: No Status: Chronic (8) Anemia Current Visit: Yes Status: Acute Assessment and Plan: Unclear etiology. Plan: - No intervention needed at this time. - Continue with monitoring - Summary of Assessment and Plan Summary of Assessment and Plan: Patient needs to remain in the hospital for IV diuretics. - Time Spent with Patient Total time spent is greater than 50% in coordination of care (as documented) at patient's floor/unit and/or counseling patient: 25 - 35 minutes Plan of Care Discussed with: patient Internal Medicine: Result - Labs CBC & Chem 7: 10/31/17 04:18 10/31/17 04:18 Labs: Short CBC 10/31/17 Range/Units 04:18 WBC 9.2 (4.3-11.1) K/mcL Hgb 9.7 L (11.5-15.4) g/dL Hct 32.8 L (35.3-44.9) % Plt Count 177 (140-400) K/mcL BMP 10/31/17 04:18 Sodium 141 Potassium 3.5 Chloride 101 Carbon Dioxide 31 H BUN 34 H Creatinine 1.31 H Glucose 115 H Calcium 8.6 Cardiac Enzymes 10/30/17 Range/Units 18:20 Troponin I < 0.03 (< 0.04) ng/mL Liver Function 10/31/17 Range/Units 04:18 GGT 39 H (1-24) Units/L - ABG Interpretation ABG results: PT/INR, D-dimer PT 17.3 Seconds (9.4-12.1) H 10/30/17 11:49 D-Dimer 1587 ng/mLFEU (0-500) H 10/30/17 18:20 - Impressions Impressions Pulmonary Perfusion Imaging 10/31/17 06:45 IMPRESSION: Intermediate probability for pulmonary embolism. D/ / Vel Leger MD / Vel Leger MD Interpreting Provider: Vel Leger MD Consult Discharge Plan - Plan Referrals: Lynne Brooks MD [Primary Care Provider] - (1) Congestive heart failure (CHF) Qualifiers: Heart failure type: diastolic Heart failure chronicity: acute Qualified Code (s): I50.31 - Acute diastolic (congestive) heart failure (4) T2DM (type 2 diabetes mellitus) Qualifiers: Diabetes mellitus termite inspector insulin use: with jail use Diabetes mellitus complication status: without complication Qualified Code(s): E11.9 - Type 2 diabetes mellitus without complications; Z79.4 - terminal supervisor (current) use of insulin (5) Atrial fibrillation Qualifiers: Atrial fibrillation type: chronic Qualified Code(s): I48.2 - Chronic atrial fibrillation (6) CAD (coronary artery disease) Qualifiers: Coronary Disease-Associated Artery/Lesion type: [place] artery [place] vs. transplanted heart: [place] heart Associated angina: without angina Qualified Code(s): I25.10 - Atherosclerotic heart disease of [place] coronary artery without angina pectoris (8) Anemia Qualifiers: Anemia type: unspecified type Qualified Code(s): D64.9 - Anemia, unspecified
[2017-10-31] MEDS ORDERED: *HR* Rivaroxaban 10 MG TABLET PO SCH (17:00)
--- NOTE | 2017-10-31 18:10 | Electrocardiograph Report ---
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
[2017-10-31] MEDS: *HR* Rivaroxaban 10 MG TABLET PO SCH (21:23)
[2017-10-31] MEDS: *HR* OxyCODONE Immed Rel 5 MG TABLET PO PRN (21:39)
[2017-11-01] MEDS: Benzocaine/Menthol 56 GM AEROSOL SPRAY TP PRN (03:25)
[2017-11-01 03:47] LABS: Basophils % 0.1 %; Eosinophils # 0.2 K/mcL (0.0-0.6); Eosinophils % 2.7 %; Hematocrit 31.7 % (35.3-44.9); Hemoglobin 9.2 g/dL (11.5-15.4); Immature Granulocytes % 0.3 % (0-4); Lymphocytes % 11.5 %; Mean Corpuscular Hemoglobin 24.4 pg (28.0-33.3); Mean Corpuscular Volume 84.1 fL (83.0-100.0); Mean Platelet Volume 9.3 fL (9.4-12.4); Monocytes # 0.5 K/mcL (0.0-1.3); Neutrophils # 7.2 K/mcL (1.6-8.9); Platelet Count 156 K/mcL (140-400); Red Blood Count 3.77 M/mcL (3.82-4.97); Red Cell Distribution Width 16.6 % (11.5-14.5); Segmented Neutrophils % 80.4 %
[2017-11-01 04:07] LABS: Calcium 8.6 mg/dL (8.6-10.3); Magnesium 2.2 mg/dL (1.6-2.6); Potassium 3.4 mEq/L (3.5-5.1)
[2017-11-01] MEDS: Insulin LISPRO 300 UNITS/3 ML VIAL SQ SCH ×6 (07:55→16:53)
[2017-11-01] MEDS ORDERED: Potassium Chloride Elixir 20 MEQ/15 ML UDC PO ONE (08:09)
[2017-11-01] MEDS: *HR* Amiodarone 200 MG TABLET PO SCH (09:13)
[2017-11-01] MEDS: metOLazone 2.5 MG TABLET PO SCH (09:13)
[2017-11-01] MEDS: Aspirin 81 MG TAB.CHEW PO SCH (09:13)
[2017-11-01] MEDS: Insulin DETEMIR 100 UNIT/ML X5UNITS SQ SCH ×2 (09:17→21:56)
[2017-11-01] MEDS: Furosemide 40 MG/4 ML VIAL IVP SCH (09:19)
[2017-11-01] MEDS ORDERED: Diltiazem CD (24hr) 180 MG CAPSULE PO SCH (11:30)
--- NOTE | 2017-11-01 12:18 | Internal Med Progress Note ---
Hospitalist Progress Note - Encounter Date of Encounter: 11/01/17 Time of Encounter: 12:17 - Subjective Interval History: Patient seen and evaluated at bedside, Patient reports doing well, denies chest pain, shortness breath, nausea or vomiting. No event overnight. - Exam Vitals: Temp Pulse Resp BP Pulse Ox 99.0 F 110 20 113/77 99 11/01/17 11:41 11/01/17 11:41 11/01/17 11:41 11/01/17 11:41 11/01/17 11:41 Exam: General: Alert and oriented 3. No acute distress Cardiovascular: Irregularly irregular, Normal S1 & S2, no rubs, murmurs or gallops. JVD unable to assess due to short neck. Lungs: clear to auscultation bilaterally, no wheezes or rales . Abdomen: Obese, Soft, non-tender, no rigidity. NABS Extremities: No deformity, 2+ edema, no tenderness. Neurological: CN II-XII intact Rest of the physical exam is non contributory - Assessment and Plan (1) Congestive heart failure (CHF) Current Visit: Yes Status: Acute Assessment and Plan: Plan: - Continue IV diuresis with furosemide 40mg/IV daily for 24 more hours - Metolazone 2.5mg/PO to be given 30 minutes before furosemide - Strict intake and output - Water restriction to 1.5 litters. - On a beta raad - Will start an Kev inhibitor at a low dose - D/C tomorrow morning (2) T2DM (type 2 diabetes mellitus) Current Visit: No Status: Acute Assessment and Plan: Blood sugar well controlled. Plan: - Continue Levemir 10 units twice a day. And lispro 3 units before meals, and sliding scale high-dose. - Diabetic diet. (3) Atrial fibrillation Current Visit: No Status: Chronic Assessment and Plan: Plan: - Metoprolol increased to 50mg/ PO BID - On amiodarone 200mg PO daily - Anticoagulated with Xarelto due to high ChadsVasc score. (4) CAD (coronary artery disease) Current Visit: No Status: Chronic Assessment and Plan: To continue aspirin and statin. (5) Morbid obesity Current Visit: No Status: Chronic (6) Anemia Current Visit: Yes Status: Acute Assessment and Plan: Unclear etiology. Plan: - Continue with monitoring (7) DVT prophylaxis Current Visit: No Status: Acute Assessment and Plan: On xarelto due to A. Fib with High chadsVASC score. - Summary of Assessment and Plan Summary of Assessment and Plan: Continue IV Lasix for 24 more hours. Potential discharge tomorrow - Time Spent with Patient Total time spent is greater than 50% in coordination of care (as documented) at patient's floor/unit and/or counseling patient: 25 - 35 minutes Plan of Care Discussed with: patient Internal Medicine: Result - Labs CBC & Chem 7: 11/01/17 03:30 11/01/17 03:30 Labs: Short CBC 11/01/17 Range/Units 03:30 WBC 9.0 (4.3-11.1) K/mcL Hgb 9.2 L (11.5-15.4) g/dL Hct 31.7 L (35.3-44.9) % Plt Count 156 (140-400) K/mcL Neutrophils # 7.2 (1.6-8.9) K/mcL BMP 11/01/17 03:30 Sodium 141 Potassium 3.4 L Chloride 102 Carbon Dioxide 34 H BUN 28 H Creatinine 1.12 Glucose 133 H Calcium 8.6 - ABG Interpretation ABG results: PT/INR, D-dimer PT 17.3 Seconds (9.4-12.1) H 10/30/17 11:49 D-Dimer 1587 ng/mLFEU (0-500) H 10/30/17 18:20 Consult Discharge Plan - Plan Referrals: Lynne Brooks MD [Primary Care Provider] - (1) Congestive heart failure (CHF) Qualifiers: Heart failure type: diastolic Heart failure chronicity: acute Qualified Code (s): I50.31 - Acute diastolic (congestive) heart failure (2) T2DM (type 2 diabetes mellitus) Qualifiers: Diabetes mellitus mcc insulin use: with mcc use Diabetes mellitus complication status: without complication Qualified Code(s): E11.9 - Type 2 diabetes mellitus without complications; Z79.4 - [facility] (current) use of insulin (3) Atrial fibrillation Qualifiers: Atrial fibrillation type: chronic Qualified Code(s): I48.2 - Chronic atrial fibrillation (4) CAD (coronary artery disease) Qualifiers: Coronary Disease-Associated Artery/Lesion type: [place] artery [place] vs. transplanted heart: [place] heart Associated angina: without angina Qualified Code(s): I25.10 - Atherosclerotic heart disease of [place] coronary artery without angina pectoris (6) Anemia Qualifiers: Anemia type: unspecified type Qualified Code(s): D64.9 - Anemia, unspecified
[2017-11-01] MEDS: *HR* OxyCODONE Immed Rel 5 MG TABLET PO PRN (21:52)
[2017-11-01] MEDS: *HR* Rivaroxaban 10 MG TABLET PO SCH (21:53)
[2017-11-02] MEDS: Benzocaine/Menthol 56 GM AEROSOL SPRAY TP PRN ×2 (04:30→09:11)
[2017-11-02 05:02] LABS: BUN/Creatinine Ratio 25 (6-26); Blood Urea Nitrogen 23 mg/dL (8-23); Carbon Dioxide 36 mEq/L (23-29); Chloride 102 mEq/L (98-107); Glucose 136 mg/dL (70-105); Osmolality,Calculated 300 (280-300); Potassium 3.8 mEq/L (3.5-5.1); Sodium 142 mEq/L (136-145); eGFR For Non-African Americans > 60 (> 60)
[2017-11-02] MEDS: Insulin DETEMIR 100 UNIT/ML X5UNITS SQ SCH ×2 (09:00→21:36)
[2017-11-02] MEDS ORDERED: Diltiazem CD (24hr) 180 MG CAPSULE PO SCH (09:00)
[2017-11-02] MEDS: Furosemide 40 MG/4 ML VIAL IVP SCH ×2 (09:00→16:29)
[2017-11-02] MEDS: Insulin LISPRO 300 UNITS/3 ML VIAL SQ SCH ×6 (09:01→16:24)
[2017-11-02] MEDS: *HR* Amiodarone 200 MG TABLET PO SCH (09:01)
[2017-11-02] MEDS: metOLazone 2.5 MG TABLET PO SCH (09:01)
[2017-11-02] MEDS: Aspirin 81 MG TAB.CHEW PO SCH (09:01)
[2017-11-02] MEDS: Diltiazem CD (24hr) 180 MG CAPSULE PO SCH (09:12)
[2017-11-02] MEDS ORDERED: Levalbuterol Neb 1.25 MG/3 ML IH SCH (12:15)
--- NOTE | 2017-11-02 12:16 | Internal Med Progress Note ---
Hospitalist Progress Note - Encounter Date of Encounter: 11/02/17 Time of Encounter: 12:13 - Subjective Interval History: Evaluated at bedside. Patient reports feeling short of breath, denies chest pain or palpitation. Denies nausea, vomiting or abdominal pain. - Exam Vitals: Temp Pulse Resp BP Pulse Ox 98.5 F 115 21 114/66 98 11/02/17 11:37 11/02/17 11:37 11/02/17 11:37 11/02/17 11:37 11/02/17 11:37 Exam: General: Alert and oriented 3. Mild distress due to shortness of breath. Cardiovascular: Irregularly irregular, Normal S1 & S2, no rubs, murmurs or gallops. JVD unable to assess due to short neck. Lungs: Poor air entry, Mild expiratory wheezing, minimal crackles at the base b/ l no rales. Abdomen: Obese, Soft, non-tender, no rigidity. NABS Extremities: No deformity, 2+ edema, no tenderness. Neurological: CN II-XII intact Rest of the physical exam is non contributory - Assessment and Plan (1) Atrial fibrillation Current Visit: No Status: Chronic Assessment and Plan: Not rate controlled. Plan: - Re-started on her home medications - Cardizem 360mg PO daily - Amiodarone 200mg PO daily - Continue metoprolol 50mg BID - Will monitor if rate not controlled on current medications will consider cardiology consult. - On xarelto for anticoagulation due to high CHADSVACS score (2) Congestive heart failure (CHF) Current Visit: Yes Status: Acute Assessment and Plan: Negative balance of 5 litter of fluids. Patient complaining of some respiratory distress Plan: - Levalbuterol Nebs - ABG - Lasix increased to 40mg/IV BID - Kev at a low dose - continue strict intake and output - 2 gram sodium diet - Continue Metoprolol 50mg PO BID. (3) T2DM (type 2 diabetes mellitus) Current Visit: No Status: Acute Assessment and Plan: Blood sugar well controlled. Plan - continue levemir 10 units BID and Lispro AC and sliding scale - Diabetic and 2gram sodium diet (4) CAD (coronary artery disease) Current Visit: No Status: Chronic Assessment and Plan: Continue Aspirin 81mg daily. (5) Anemia Current Visit: Yes Status: Acute Assessment and Plan: H&H stable. Possible anemia due to AOCD Plan: - Continue to monitor (6) Morbid obesity Current Visit: No Status: Chronic (7) DVT prophylaxis Current Visit: No Status: Acute Assessment and Plan: Anticoagulated on Xarelto for A.fib - Summary of Assessment and Plan Summary of Assessment and Plan: Patient needs to remain in the hospital for Rate control and IV diuresis. - Time Spent with Patient Total time spent is greater than 50% in coordination of care (as documented) at patient's floor/unit and/or counseling patient: Greater than 35 minutes Plan of Care Discussed with: patient (and the nurse.) Internal Medicine: Result - Labs CBC & Chem 7: 11/01/17 03:30 11/02/17 04:23 Labs: BMP 11/02/17 04:23 Sodium 142 Potassium 3.8 Chloride 102 Carbon Dioxide 36 H BUN 23 Creatinine 0.93 Glucose 136 H Calcium 9.0 - ABG Interpretation ABG results: PT/INR, D-dimer PT 17.3 Seconds (9.4-12.1) H 10/30/17 11:49 D-Dimer 1587 ng/mLFEU (0-500) H 10/30/17 18:20 Consult Discharge Plan - Plan Referrals: Lynne Brooks MD [Primary Care Provider] - (1) Atrial fibrillation Qualifiers: Atrial fibrillation type: chronic Qualified Code(s): I48.2 - Chronic atrial fibrillation (2) Congestive heart failure (CHF) Qualifiers: Heart failure type: diastolic Heart failure chronicity: acute Qualified Code (s): I50.31 - Acute diastolic (congestive) heart failure (3) T2DM (type 2 diabetes mellitus) Qualifiers: Diabetes mellitus nursing home insulin use: with nursing home use Diabetes mellitus complication status: without complication Qualified Code(s): E11.9 - Type 2 diabetes mellitus without complications; Z79.4 - assisted (current) use of insulin (4) CAD (coronary artery disease) Qualifiers: Coronary Disease-Associated Artery/Lesion type: [place] artery [place] vs. transplanted heart: [place] heart Associated angina: without angina Qualified Code(s): I25.10 - Atherosclerotic heart disease of [place] coronary artery without angina pectoris (5) Anemia Qualifiers: Anemia type: unspecified type Qualified Code(s): D64.9 - Anemia, unspecified
[2017-11-02] MEDS: Levalbuterol Neb 0.63 MG/3 ML IH SCH ×3 (12:59→21:50)
[2017-11-02 13:12] LABS: ABG Base Excess 11 mEq/L (-2 to 3); ABG HCO3 38 mEq/L (21-27); ABG Oxygen Saturation 93 % (95-98); ABG PCO2 63 mmHg (35-45); ABG PH 7.39 pH Units (7.32-7.45); ABG PO2 69 mmHg (85-104); ABG TCO2 40 mEq/L (20-26)
[2017-11-02] MEDS: *HR* Rivaroxaban 10 MG TABLET PO SCH (21:36)
[2017-11-03] MEDS: Levalbuterol Neb 0.63 MG/3 ML IH SCH ×4 (03:40→22:06)
[2017-11-03 06:34] LABS: BUN/Creatinine Ratio 25 (6-26); Blood Urea Nitrogen 23 mg/dL (8-23); Calcium 9.1 mg/dL (8.6-10.3); Carbon Dioxide 37 mEq/L (23-29); Chloride 100 mEq/L (98-107); Glucose 142 mg/dL (70-105); Magnesium 2.2 mg/dL (1.6-2.6); Osmolality,Calculated 302 (280-300); Potassium 3.4 mEq/L (3.5-5.1); Sodium 143 mEq/L (136-145); eGFR For Non-African Americans > 60 (> 60)
[2017-11-03] MEDS: metOLazone 2.5 MG TABLET PO SCH (08:37)
[2017-11-03] MEDS: *HR* Amiodarone 200 MG TABLET PO SCH (08:37)
[2017-11-03] MEDS: Aspirin 81 MG TAB.CHEW PO SCH (08:38)
[2017-11-03] MEDS: Diltiazem CD (24hr) 180 MG CAPSULE PO SCH (08:38)
[2017-11-03] MEDS ORDERED: MethylPREDNISolone 40 MG/ML VIAL IVP ONE ×2 (08:39→18:07)
[2017-11-03] MEDS: Furosemide 40 MG/4 ML VIAL IVP SCH ×2 (08:39→17:19)
--- NOTE | 2017-11-03 08:43 | Internal Med Progress Note ---
Hospitalist Progress Note - Encounter Date of Encounter: 11/03/17 Time of Encounter: 08:41 - Subjective Interval History: Evaluated at bedside. patient denies shortness of breath but during my evaluation she appeared to be in distress and could not speak in full sentences due to labor breathing. She denied chest pain, nausea or vomiting. - Exam Vitals: Temp Pulse Resp BP Pulse Ox 97.5 F L 109 20 106/74 93 11/03/17 07:05 11/03/17 07:05 11/03/17 07:05 11/03/17 07:05 11/03/17 07:05 Exam: General: Alert and oriented 3. Mild distress due to shortness of breath. Unable to speak in full sentences. Cardiovascular: Irregularly irregular, Normal S1 & S2, no rubs, murmurs or gallops. JVD unable to assess due to short neck. Lungs: expiratory wheezing, crackles at the base b/l no rales. Abdomen: Obese, Soft, non-tender, no rigidity. NABS Extremities: No deformity, 2+ edema, no tenderness. Neurological: CN II-XII intact Rest of the physical exam is non contributory - Assessment and Plan (1) Congestive heart failure (CHF) Current Visit: Yes Status: Acute Assessment and Plan: 6 litters negative. But still short of breath. Plan: Fluid restriction to 1.5 litters a day daily weight continue furosemide 40mg/IV BID Lisinopril 2.5mg PO daily Nebs with Levalbuterol Q6HR scheduled Solu-Medrol 40mg/IV x1 Nocturnal BiPap 2gram sodium diet continue metolazone (to be given 30 minutes before furosemide) (2) Atrial fibrillation Current Visit: No Status: Chronic Assessment and Plan: Rate controlled. Plan: Continue Cardizem 360mg/PO daily and Metoprolol 50mg PO BID On xarelto Telemetry monitoring (3) T2DM (type 2 diabetes mellitus) Current Visit: No Status: Acute Assessment and Plan: Blood sugar well controlled Plan: On levemir 1o units HS, Lispro ac and sliding scale (4) CAD (coronary artery disease) Current Visit: No Status: Chronic Assessment and Plan: Continue aspirin and statin (5) Anemia Current Visit: Yes Status: Acute Assessment and Plan: H&H stable. Plan: Continue monitoring Will consider transfusing if Hb<7 Hct <23 or patient becomes symptomatic (6) Morbid obesity Current Visit: No Status: Chronic (7) DVT prophylaxis Current Visit: No Status: Acute Assessment and Plan: Anticoagulated on Xarelto for A.Fib (8) Chronic respiratory failure Current Visit: No Status: Chronic Assessment and Plan: On 3 1/2 litters of home O2. Plan: Nocturnal BiPap Continue O2 by nasal cannula, titrate for O2Sat >92%. (9) Hypokalemia Current Visit: Yes Status: Acute Assessment and Plan: Possible secondary to Diruresis Plan: electrolyte replacement am BMP - Summary of Assessment and Plan Summary of Assessment and Plan: Patient needs to continue in the hospital for a day or tow to optimize her breathing and for continue IV diuresis. - Time Spent with Patient Total time spent is greater than 50% in coordination of care (as documented) at patient's floor/unit and/or counseling patient: Greater than 35 minutes Plan of Care Discussed with: patient (and the nurse.) Internal Medicine: Result - Labs CBC & Chem 7: 11/01/17 03:30 11/03/17 05:20 Labs: BMP 11/03/17 05:20 Sodium 143 Potassium 3.4 L Chloride 100 Carbon Dioxide 37 H BUN 23 Creatinine 0.93 Glucose 142 H Calcium 9.1 - ABG Interpretation ABG results: ABG ABG pH 7.39 pH Units (7.32-7.45) 11/02/17 13:08 ABG pCO2 63 mmHg (35-45) H 11/02/17 13:08 ABG pO2 69 mmHg (85-104) L 11/02/17 13:08 ABG O2 Saturation 93 % (95-98) L 11/02/17 13:08 PT/INR, D-dimer PT 17.3 Seconds (9.4-12.1) H 10/30/17 11:49 D-Dimer 1587 ng/mLFEU (0-500) H 10/30/17 18:20 Consult Discharge Plan - Plan Referrals: Lynne Brooks MD [Primary Care Provider] - (1) Congestive heart failure (CHF) Qualifiers: Heart failure type: diastolic Heart failure chronicity: acute Qualified Code (s): I50.31 - Acute diastolic (congestive) heart failure (2) Atrial fibrillation Qualifiers: Atrial fibrillation type: chronic Qualified Code(s): I48.2 - Chronic atrial fibrillation (3) T2DM (type 2 diabetes mellitus) Qualifiers: Diabetes mellitus longterm insulin use: with longterm use Diabetes mellitus complication status: without complication Qualified Code(s): E11.9 - Type 2 diabetes mellitus without complications; Z79.4 - [facility] (current) use of insulin (4) CAD (coronary artery disease) Qualifiers: Coronary Disease-Associated Artery/Lesion type: [place] artery [place] vs. transplanted heart: [place] heart Associated angina: without angina Qualified Code(s): I25.10 - Atherosclerotic heart disease of [place] coronary artery without angina pectoris (5) Anemia Qualifiers: Anemia type: unspecified type Qualified Code(s): D64.9 - Anemia, unspecified (8) Chronic respiratory failure Qualifiers: Respiratory failure complication: hypoxia and hypercapnia Qualified Code(s): J96.11 - Chronic respiratory failure with hypoxia; J96.12 - Chronic respiratory failure with hypercapnia
[2017-11-03] MEDS: Insulin LISPRO 300 UNITS/3 ML VIAL SQ SCH ×6 (08:48→17:18)
[2017-11-03] MEDS: Insulin DETEMIR 100 UNIT/ML X5UNITS SQ SCH ×2 (08:52→21:26)
[2017-11-03] MEDS ORDERED: MethylPREDNISolone 40 MG/ML VIAL ONE (18:40)
[2017-11-03] MEDS: *HR* Rivaroxaban 10 MG TABLET PO SCH (21:26)
[2017-11-03] MEDS: Benzocaine/Menthol 56 GM AEROSOL SPRAY TP PRN (23:34)
[2017-11-04] MEDS: *HR* OxyCODONE Immed Rel 5 MG TABLET PO PRN (02:42)
[2017-11-04] MEDS: Levalbuterol Neb 0.63 MG/3 ML IH SCH ×4 (03:40→22:10)
[2017-11-04 04:05] LABS: BUN/Creatinine Ratio 30 (6-26); Blood Urea Nitrogen 29 mg/dL (8-23); Calcium 9.4 mg/dL (8.6-10.3); Carbon Dioxide 36 mEq/L (23-29); Chloride 100 mEq/L (98-107); Glucose 187 mg/dL (70-105); Magnesium 2.1 mg/dL (1.6-2.6); Osmolality,Calculated 305 (280-300); Potassium 4.1 mEq/L (3.5-5.1); Sodium 142 mEq/L (136-145); eGFR For Non-African Americans 58 (> 60)
[2017-11-04 06:49] LABS: Bilirubin,Urine Small (Negative); Blood,Urine Large (Negative); Clarity,Urine Turbid (Clear); Color,Urine Red (Yellow); Glucose,Urine (UA) Normal (Normal); Ketones,Urine Trace mg/dL (Negative); Leukocyte Esterase,Urine Large (Negative); Nitrite,Urine Positive (Negative); Protein,Urine 100 mg/dL (Neg-Trace); Specific Gravity,Urine 1.013 (1.010-1.025); Urobilinogen,Urine Normal (Normal)
[2017-11-04 06:52] LABS: Bacteria,Urine Many per hpf (None-Few); RBC,Urine TNTC per hpf (0-3); Squamous Epithelial Cell,Urine Many per lpf (None-Few); WBC,Urine TNTC per hpf (0-3)
[2017-11-04] MEDS: Aspirin 81 MG TAB.CHEW PO SCH (09:41)
[2017-11-04] MEDS: metOLazone 2.5 MG TABLET PO SCH (09:42)
[2017-11-04] MEDS: Insulin LISPRO 300 UNITS/3 ML VIAL SQ SCH ×6 (09:42→16:36)
[2017-11-04] MEDS: Diltiazem CD (24hr) 180 MG CAPSULE PO SCH (09:42)
[2017-11-04] MEDS: Furosemide 40 MG/4 ML VIAL IVP SCH ×2 (09:42→17:15)
[2017-11-04] MEDS: *HR* Amiodarone 200 MG TABLET PO SCH (09:42)
[2017-11-04] MEDS: Insulin DETEMIR 100 UNIT/ML X5UNITS SQ SCH ×2 (09:43→21:54)
[2017-11-04] MEDS ORDERED: Isovue-370 500 ML INFUS..BTL IV ONE (10:28)
--- NOTE | 2017-11-04 15:34 | Internal Med Progress Note ---
Hospitalist Progress Note - Encounter Date of Encounter: 11/04/17 Time of Encounter: 09:00 - Subjective Interval History: Patient still has mild shortness of breath with bilateral leg edema. No fever or cough. Denies chest pain. - Exam Vitals: Temp Pulse Resp BP Pulse Ox 98.1 F 97 16 138/99 97 11/04/17 07:27 11/04/17 07:27 11/04/17 07:27 11/04/17 07:27 11/04/17 07:27 Exam: General: Alert and oriented 3. Mild distress due to shortness of breath. Cardiovascular: Irregularly irregular, Normal S1 & S2, no rubs, murmurs or gallops. JVD unable to assess due to short neck. Lungs: expiratory wheezing, crackles at the base b/l no rales. Abdomen: Obese, Soft, non-tender, no rigidity. NABS Extremities: No deformity, 2+ edema, no tenderness. Neurological: CN II-XII intact Rest of the physical exam is non contributory - Assessment and Plan (1) Morbid obesity Current Visit: No Status: Chronic Assessment and Plan: Need lifestyle modification as outpatient (2) CAD (coronary artery disease) Current Visit: No Status: Chronic Assessment and Plan: Continue aspirin and statin. No chest pain (3) DVT prophylaxis Current Visit: No Status: Acute Assessment and Plan: Anticoagulated on Xarelto for A.Fib (4) Atrial fibrillation Current Visit: No Status: Chronic Assessment and Plan: Rate controlled. Plan: Continue Cardizem 360mg/PO daily and Metoprolol 50mg PO BID On xarelto Telemetry monitoring (5) Chronic respiratory failure Current Visit: No Status: Chronic Assessment and Plan: On 3 1/2 litters of home O2. Plan: Nocturnal BiPap Continue O2 by nasal cannula, titrate for O2Sat >92%. (6) T2DM (type 2 diabetes mellitus) Current Visit: No Status: Acute Assessment and Plan: Blood sugar well controlled Plan: On levemir 10 units HS, Lispro ac and sliding scale (7) Congestive heart failure (CHF) Current Visit: Yes Status: Acute Assessment and Plan: 6 litters negative. But still short of breath. Plan: Cont Fluid restriction to 1.5 litters a day daily weight continue furosemide 40mg/IV BID Lisinopril 2.5mg PO daily Nebs with Levalbuterol Q6HR scheduled Solu-Medrol 40mg/IV x1 Nocturnal BiPap 2gram sodium diet continue metolazone (to be given 30 minutes before furosemide) (8) Anemia Current Visit: Yes Status: Acute Assessment and Plan: H&H stable. Plan: Continue monitoring Will consider transfusing if Hb<7 Hct <23 or patient becomes symptomatic (9) Hypokalemia Current Visit: Yes Status: Acute Assessment and Plan: Possible secondary to Diruresis Plan: electrolyte replacement am BMP (10) Elevated d-dimer Current Visit: Yes Status: Acute Assessment and Plan: VQ scan shows intermediate probability of PE. As patient's renal function has improved. CTA has been done, no PE identified. Will also order Doppler venous to rule out DVT DVT Prophylaxis: Patient is on xarelto - Time Spent with Patient Total time spent is greater than 50% in coordination of care (as documented) at patient's floor/unit and/or counseling patient: 30 min 25 - 35 minutes Plan of Care Discussed with: patient Internal Medicine: Result - Labs CBC & Chem 7: 11/01/17 03:30 11/04/17 03:36 Labs: BMP 11/04/17 03:36 Sodium 142 Potassium 4.1 Chloride 100 Carbon Dioxide 36 H BUN 29 H Creatinine 0.96 Glucose 187 H Calcium 9.4 Cardiac Enzymes 11/03/17 Range/Units 19:25 Troponin I < 0.03 (< 0.04) ng/mL Urine 11/04/17 Range/Units 06:44 Urine Color Red A (Yellow) Urine Clarity Turbid A (Clear) Urine pH 6.0 (5.0-8.0) pH Units Ur Specific [place] 1.013 (1.010-1.025) Urine Protein 100 H (Neg-Trace) mg/dL Urine Glucose (UA) Normal (Normal) mg/dL - ABG Interpretation ABG results: ABG ABG pH 7.39 pH Units (7.32-7.45) 11/02/17 13:08 ABG pCO2 63 mmHg (35-45) H 11/02/17 13:08 ABG pO2 69 mmHg (85-104) L 11/02/17 13:08 ABG O2 Saturation 93 % (95-98) L 11/02/17 13:08 PT/INR, D-dimer PT 17.3 Seconds (9.4-12.1) H 10/30/17 11:49 D-Dimer 1587 ng/mLFEU (0-500) H 10/30/17 18:20 - Impressions Impressions Chest CTA 11/04/17 10:28 IMPRESSION: Suboptimal examination due to extensive respiratory motion artifact. No convincing evidence for pulmonary embolism within these limitations. Moderate bilateral pleural effusions with adjacent airspace disease, likely atelectasis although infectious/inflammatory process is possible in the proper clinical setting. Ground-glass opacities within the upper lobes bilaterally. Differential considerations include edema, air trapping, etc. D/ / Andrea Santana MD / Andrea Santana MD Interpreting Provider: Andrea Santana MD Consult Discharge Plan - Plan Referrals: Lynne Brooks MD [Primary Care Provider] - (2) CAD (coronary artery disease) Qualifiers: Coronary Disease-Associated Artery/Lesion type: [place] artery [place] vs. 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
[2017-11-04] MEDS: *HR* Rivaroxaban 10 MG TABLET PO SCH (21:54)
[2017-11-05] MEDS: *HR* OxyCODONE Immed Rel 5 MG TABLET PO PRN (01:37)
[2017-11-05] MEDS: Levalbuterol Neb 0.63 MG/3 ML IH SCH ×4 (04:07→21:30)
[2017-11-05 05:21] LABS: Basophils % 0.3 %; Eosinophils # 0.2 K/mcL (0.0-0.6); Hematocrit 35.2 % (35.3-44.9); Hemoglobin 10.3 g/dL (11.5-15.4); Immature Granulocytes % 0.4 % (0-4); Lymphocytes # 1.3 K/mcL (0.6-4.6); Lymphocytes % 11.8 %; Mean Corpuscular HGB Conc 29.3 g/dL (31.6-35.5); Mean Corpuscular Volume 85.4 fL (83.0-100.0); Mean Platelet Volume 9.6 fL (9.4-12.4); Monocytes # 0.5 K/mcL (0.0-1.3); Monocytes % 4.7 %; Neutrophils # 9.1 K/mcL (1.6-8.9); Platelet Count 207 K/mcL (140-400); Red Blood Count 4.12 M/mcL (3.82-4.97); Red Cell Distribution Width 16.6 % (11.5-14.5); Segmented Neutrophils % 80.8 %
[2017-11-05 05:46] LABS: BUN/Creatinine Ratio 36 (6-26); Blood Urea Nitrogen 38 mg/dL (8-23); Calcium 9.2 mg/dL (8.6-10.3); Carbon Dioxide 37 mEq/L (23-29); Chloride 100 mEq/L (98-107); Glucose 142 mg/dL (70-105); Osmolality,Calculated 309 (280-300); Potassium 3.5 mEq/L (3.5-5.1); Sodium 144 mEq/L (136-145); eGFR For Non-African Americans 52 (> 60)
[2017-11-05] MEDS: Furosemide 40 MG/4 ML VIAL IVP SCH (07:59)
[2017-11-05] MEDS: metOLazone 2.5 MG TABLET PO SCH (08:01)
[2017-11-05] MEDS: Aspirin 81 MG TAB.CHEW PO SCH (08:02)
[2017-11-05] MEDS: Diltiazem CD (24hr) 180 MG CAPSULE PO SCH (08:03)
[2017-11-05] MEDS: *HR* Amiodarone 200 MG TABLET PO SCH (08:03)
[2017-11-05] MEDS: Insulin LISPRO 300 UNITS/3 ML VIAL SQ SCH ×6 (08:05→17:12)
[2017-11-05] MEDS: Insulin DETEMIR 100 UNIT/ML X5UNITS SQ SCH ×2 (10:06→20:50)
--- NOTE | 2017-11-05 13:51 | Internal Med Progress Note ---
Hospitalist Progress Note - Encounter Date of Encounter: 11/05/17 Time of Encounter: 09:00 - Subjective Interval History: Patient still has mild shortness of breath with bilateral leg edema, improved. No fever or cough. Denies chest pain. - Exam Vitals: Temp Pulse Resp BP Pulse Ox 97.7 F 99 20 103/50 95 11/05/17 11:29 11/05/17 11:29 11/05/17 11:29 11/05/17 11:29 11/05/17 11:29 Exam: General: Alert and oriented 3. Mild distress due to shortness of breath. Cardiovascular: Irregularly irregular, Normal S1 & S2, no rubs, murmurs or gallops. JVD unable to assess due to short neck. Lungs: CTA b/l Abdomen: Obese, Soft, non-tender, no rigidity. NABS Extremities: No deformity, 2+ edema, more like lymphedema, no tenderness. Neurological: CN II-XII intact Rest of the physical exam is non contributory - Assessment and Plan (1) Morbid obesity Current Visit: No Status: Chronic Assessment and Plan: Need lifestyle modification as outpatient (2) CAD (coronary artery disease) Current Visit: No Status: Chronic Assessment and Plan: Continue aspirin and statin and BB. No chest pain (3) DVT prophylaxis Current Visit: No Status: Acute Assessment and Plan: Anticoagulated on Xarelto for A.Fib (4) Atrial fibrillation Current Visit: No Status: Chronic Assessment and Plan: Rate controlled. Plan: Continue Cardizem 360mg/PO daily and Metoprolol 50mg PO BID On xarelto Telemetry monitoring (5) Chronic respiratory failure Current Visit: No Status: Chronic Assessment and Plan: On 3 1/2 litters of home O2. Plan: Nocturnal BiPap Continue O2 by nasal cannula, titrate for O2Sat >92%. (6) T2DM (type 2 diabetes mellitus) Current Visit: No Status: Acute Assessment and Plan: Blood sugar well controlled Plan: On levemir 10 units BID, Lispro ac and sliding scale (7) Congestive heart failure (CHF) Current Visit: Yes Status: Acute Assessment and Plan: 8 litters negative. Short of breath significantly improved. Plan: Cont Fluid restriction to 1.5 litters a day daily weight Switch back to po torsemide Lisinopril 2.5mg PO daily, on BB Nocturnal BiPap 2gram sodium diet continue metolazone If BP allows will restart home med imdur Recent Echo in Apr shows LVEF 50% (8) Anemia Current Visit: Yes Status: Acute Assessment and Plan: H&H stable. Plan: Continue monitoring Will consider transfusing if Hb<7 Hct <23 or patient becomes symptomatic (9) Hypokalemia Current Visit: Yes Status: Acute Assessment and Plan: Possible secondary to Diruresis Plan: electrolyte replacement am BMP (10) Elevated d-dimer Current Visit: Yes Status: Acute Assessment and Plan: VQ scan shows intermediate probability of PE. As patient's renal function has improved. CTA has been done, no PE identified. Doppler venous done, result is pending. DVT Prophylaxis: Patient is on xarelto - Summary of Assessment and Plan Summary of Assessment and Plan: Patient needs to continue in the hospital for a day or two to optimize her BP med and fluid status. - Time Spent with Patient Total time spent is greater than 50% in coordination of care (as documented) at patient's floor/unit and/or counseling patient: 30 min 25 - 35 minutes Plan of Care Discussed with: patient Internal Medicine: Result - Labs CBC & Chem 7: 11/05/17 05:00 11/05/17 05:00 Labs: Short CBC 11/05/17 Range/Units 05:00 WBC 11.3 H (4.3-11.1) K/mcL Hgb 10.3 L (11.5-15.4) g/dL Hct 35.2 L (35.3-44.9) % Plt Count 207 (140-400) K/mcL Neutrophils # 9.1 H (1.6-8.9) K/mcL BMP 11/05/17 05:00 Sodium 144 Potassium 3.5 Chloride 100 Carbon Dioxide 37 H BUN 38 H Creatinine 1.06 Glucose 142 H Calcium 9.2 - ABG Interpretation ABG results: ABG ABG pH 7.39 pH Units (7.32-7.45) 11/02/17 13:08 ABG pCO2 63 mmHg (35-45) H 11/02/17 13:08 ABG pO2 69 mmHg (85-104) L 11/02/17 13:08 ABG O2 Saturation 93 % (95-98) L 11/02/17 13:08 PT/INR, D-dimer PT 17.3 Seconds (9.4-12.1) H 10/30/17 11:49 D-Dimer 1587 ng/mLFEU (0-500) H 10/30/17 18:20 - Impressions Impressions Chest CTA 11/04/17 10:28 IMPRESSION: Suboptimal examination due to extensive respiratory motion artifact. No convincing evidence for pulmonary embolism within these limitations. Moderate bilateral pleural effusions with adjacent airspace disease, likely atelectasis although infectious/inflammatory process is possible in the proper clinical setting. Ground-glass opacities within the upper lobes bilaterally. Differential considerations include edema, air trapping, etc. D/ / Andrea Santana MD / Andrea Santana MD Interpreting Provider: Andrea Santana MD Consult Discharge Plan - Plan Referrals: Lynne Brooks MD [Primary Care Provider] - (2) CAD (coronary artery disease) Qualifiers: Coronary Disease-Associated Artery/Lesion type: [place] artery [place] vs. 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
[2017-11-05] MEDS: Torsemide 20 MG TABLET PO SCH (17:07)
[2017-11-05] MEDS: *HR* Rivaroxaban 10 MG TABLET PO SCH (20:46)
[2017-11-06] MEDS: Levalbuterol Neb 0.63 MG/3 ML IH SCH ×4 (04:02→22:52)
[2017-11-06] MEDS: metOLazone 2.5 MG TABLET PO SCH (06:41)
[2017-11-06] MEDS ORDERED: Nitroglycerin 0.4 MG TAB.SUBL SL PRN (07:39)
[2017-11-06] MEDS: Insulin LISPRO 300 UNITS/3 ML VIAL SQ SCH ×6 (08:16→17:14)
[2017-11-06] MEDS: Diltiazem CD (24hr) 180 MG CAPSULE PO SCH (08:37)
[2017-11-06] MEDS: Aspirin 81 MG TAB.CHEW PO SCH (08:37)
[2017-11-06] MEDS: *HR* Amiodarone 200 MG TABLET PO SCH (08:38)
[2017-11-06] MEDS: Torsemide 20 MG TABLET PO SCH ×2 (08:38→17:11)
[2017-11-06] MEDS: Insulin DETEMIR 100 UNIT/ML X5UNITS SQ SCH ×2 (08:45→21:28)
--- NOTE | 2017-11-06 12:46 | Internal Med Progress Note ---
Hospitalist Progress Note - Encounter Date of Encounter: 11/06/17 Time of Encounter: 09:00 - Subjective Interval History: Patient feels fine, no SOB, still has bilateral leg edema, improved. No fever or cough. Denies chest pain. - Exam Vitals: Temp Pulse Resp BP Pulse Ox 97.6 F 90 17 97/65 100 11/06/17 07:34 11/06/17 11:43 11/06/17 11:43 11/06/17 11:43 11/06/17 11:43 Exam: General: Alert and oriented 3. Mild distress due to shortness of breath. Cardiovascular: Irregularly irregular, Normal S1 & S2, no rubs, murmurs or gallops. JVD unable to assess due to short neck. Lungs: CTA b/l Abdomen: Obese, Soft, non-tender, no rigidity. NABS Extremities: No deformity, 2+ edema, more like lymphedema, no tenderness. Neurological: CN II-XII intact Rest of the physical exam is non contributory - Assessment and Plan (1) Morbid obesity Current Visit: No Status: Chronic Assessment and Plan: Need lifestyle modification as outpatient (2) CAD (coronary artery disease) Current Visit: No Status: Chronic Assessment and Plan: Continue aspirin and statin and BB. No chest pain (3) DVT prophylaxis Current Visit: No Status: Acute Assessment and Plan: Anticoagulated on Xarelto for A.Fib (4) Atrial fibrillation Current Visit: No Status: Chronic Assessment and Plan: Rate controlled. Plan: Continue Cardizem 360mg/PO daily and Metoprolol 50mg PO BID On xarelto Telemetry monitoring (5) Chronic respiratory failure Current Visit: No Status: Chronic Assessment and Plan: On 3 1/2 litters of home O2. Plan: Nocturnal BiPap Continue O2 by nasal cannula, titrate for O2Sat >92%. (6) T2DM (type 2 diabetes mellitus) Current Visit: No Status: Acute Assessment and Plan: Blood sugar well controlled Plan: On levemir 10 units BID, Lispro ac and sliding scale (7) Congestive heart failure (CHF) Current Visit: Yes Status: Acute Assessment and Plan: 8 litters negative. Short of breath significantly improved. Plan: Cont Fluid restriction to 1.5 litters a day daily weight Switch back to po torsemide Lisinopril 2.5mg PO daily, on BB Nocturnal BiPap 2gram sodium diet continue metolazone If BP allows will restart home med imdur Recent Echo in Apr shows LVEF 50% (8) Anemia Current Visit: Yes Status: Acute Assessment and Plan: H&H stable. Plan: Continue monitoring Will consider transfusing if Hb<7 Hct <23 or patient becomes symptomatic (9) Hypokalemia Current Visit: Yes Status: Acute Assessment and Plan: Possible secondary to Diruresis Plan: electrolyte replacement am BMP (10) Elevated d-dimer Current Visit: Yes Status: Acute Assessment and Plan: VQ scan shows intermediate probability of PE. As patient's renal function has improved. CTA has been done, no PE identified. Doppler venous done shows no DVT but superfacial acute thrombus. (11) Superficial vein thrombosis Current Visit: Yes Status: Acute Assessment and Plan: Doppler venous shows left lesser saphenous vein acute thrombus. Pt isalready on xarelto for A Fib. Will consult vascular for further recommendation. DVT Prophylaxis: On xarelto - Time Spent with Patient Total time spent is greater than 50% in coordination of care (as documented) at patient's floor/unit and/or counseling patient: 30 min 25 - 35 minutes Plan of Care Discussed with: patient Internal Medicine: Result - Labs CBC & Chem 7: 11/05/17 05:00 11/05/17 05:00 - ABG Interpretation ABG results: ABG ABG pH 7.39 pH Units (7.32-7.45) 11/02/17 13:08 ABG pCO2 63 mmHg (35-45) H 11/02/17 13:08 ABG pO2 69 mmHg (85-104) L 11/02/17 13:08 ABG O2 Saturation 93 % (95-98) L 11/02/17 13:08 PT/INR, D-dimer PT 17.3 Seconds (9.4-12.1) H 10/30/17 11:49 D-Dimer 1587 ng/mLFEU (0-500) H 10/30/17 18:20 Consult Discharge Plan - Plan Referrals: Lynne Brooks MD [Primary Care Provider] - (2) CAD (coronary artery disease) Qualifiers: Coronary Disease-Associated Artery/Lesion type: [place] artery [place] vs. transplanted heart: [place] heart Associated angina: without angina Qualified Code(s): I25.10 - Atherosclerotic heart disease of [place] coronary artery without angina pectoris (4) Atrial fibrillation Qualifiers: Atrial fibrillation type: chronic Qualified Code(s): I48.2 - Chronic atrial fibrillation (5) Chronic respiratory failure Qualifiers: Respiratory failure complication: hypoxia and hypercapnia Qualified Code(s): J96.11 - Chronic respiratory failure with hypoxia; J96.12 - Chronic respiratory failure with hypercapnia (6) T2DM (type 2 diabetes mellitus) Qualifiers: Diabetes mellitus fpc insulin use: with electronics manufacturer use Diabetes mellitus complication status: without complication Qualified Code(s): E11.9 - Type 2 diabetes mellitus without complications; Z79.4 - custodial (current) use of insulin (7) Congestive heart failure (CHF) Qualifiers: Heart failure type: diastolic Heart failure chronicity: acute Qualified Code (s): I50.31 - Acute diastolic (congestive) heart failure (8) Anemia Qualifiers: Anemia type: unspecified type Qualified Code(s): D64.9 - Anemia, unspecified
--- NOTE | 2017-11-06 13:37 | Vascular/Endovasc Consult Note ---
Date of Encounter: 11/06/17 Time of Encounter: 12:15 Assessment and Plan (1) Superficial vein thrombosis Current Visit: Yes Status: Acute The pathophysiology and natural history of venous thromboembolism was discussed with the patient and all questions were answered. She has acute left lesser saphenous vein superficial thrombophlebitis. She appears a symptomatic on exam. She has no evidence of deep venous thrombosis. She is currently anticoagulated and takes aspirin. She was instructed to continue with the regimen. Warm compresses may be applied and the patient experiences symptoms. - History of Present Illness History of present illness: Ms. Francisco is a 67 year old female Past Med Surg Social Fam HX - Past Medical History Medical history: atrial fibrillation, CHF, coronary artery disease, diabetes, hyperlipidemia, hypertension, myocardial infarction Additional medical history: A. flutter Psychiatric history: anxiety, depression - Past Surgical History Surgical History: angioplasty/stent, , cholecystectomy, orthopedic, other Additional surgical history: cardiac stents x 2. back surgery. left ankle surgery - Social History Smoking Status: Never smoker Smokeless Tobacco Status: No Alcohol use: none Drug use: none - Family History Father Family Member Ethnicity: Non- Living Status: Hx Family Cardiac Disorders: Yes Hx Family Respiratory Disorders: Yes Hx Family Cancer: No Brother Family Member Ethnicity: Non- Living Status: Hx Family Cardiac Disorders: No Hx Family Respiratory Disorders: No Hx Family Cancer: Yes Hx Family GI Disorders: No Hx Family Endocrine Disorder: No Hx Family Neuromuscular Disorders: No Hx Family Neurologic Disorders: No Hx Family HEENT Disorders: No Hx Family Autoimmune Disorders: No Sister Family Member Ethnicity: Non- Living Status: Hx Family Cardiac Disorders: Yes Hx Family Respiratory Disorders: No Hx Family Cancer: No Hx Family GI Disorders: No Hx Family Endocrine Disorder: No Hx Family Neuromuscular Disorders: No Hx Family Neurologic Disorders: No Hx Family HEENT Disorders: No Hx Family Autoimmune Disorders: No Mother Adopted: No Family Member Ethnicity: Non- Living Status: Hx Family Cardiac Disorders: Yes Hx Family Respiratory Disorders: Yes Hx Family Cancer: No Hx Family GI Disorders: No Hx Family Endocrine Disorder: No Hx Family Neuromuscular Disorders: No Hx Family Neurologic Disorders: No Hx Family HEENT Disorders: Yes Hx Family Autoimmune Disorders: No Medications and Allergies Ascorbic Acid [Vitamin C] 500 mg PO BID 06/13/15 [History] Aspirin [Adult Low Dose Aspirin EC] 81 mg PO DAILY 06/13/15 [History] Insulin ASPART [NovoLOG] 2 - 12 unit SQ TID PRN #0 06/13/15 [History] Rivaroxaban [Xarelto] 20 mg PO HS 06/13/15 [History] Ropinirole HCl [Requip] 0.5 mg PO HS 06/13/15 [History] Sennosides/Docusate Sodium [Senna Plus] 1 tab PO DAILY 06/13/15 [History] Simvastatin [Zocor] 40 mg PO DAILY #0 06/13/15 [History] SitaGLIPtin [Januvia] 100 mg PO DAILY 06/13/15 [History] Zinc Sulfate 220 mg PO BID 06/13/15 [History] Nitroglycerin 0.4 mg SL Q5MIN PRN 09/27/16 [History] Isosorbide MONOnitrate [Isosorbide Mononitrate ER] 120 mg PO DAILY 06/20/17 [ History] Nystatin POWDER [Nystop] 1 appl TP BID 06/20/17 [History] Potassium Chloride [Klor-Con 10] 10 meq PO BID 06/20/17 [History] Sertraline [Zoloft] 100 mg PO DAILY 06/20/17 [History] Diltiazem CD (24hr) [Cardizem CD] 360 mg PO DAILY #60 cap.er.24h 06/26/17 [Rx] Amiodarone [Cordarone] 200 mg PO DAILY #40 tablet 06/27/17 [Rx] Insulin DETEMIR [Levemir] 40 unit SQ QAM 06/29/17 [History] LORazepam [Ativan] 0.5 mg PO Q8H PRN 1 Days #3 tablet 07/03/17 [Rx] Metoprolol [Lopressor] 50 mg PO BID 08/09/17 [History] Torsemide [Demadex] 40 mg PO BID 08/09/17 [History] Ondansetron ODT [Zofran ODT] 4 mg PO Q6HR PRN #10 tab.rapdis 08/13/17 [Rx] Latanoprost [Xalatan] 1 drop BOTH EYES HS 10/30/17 [History] Oxycodone HCl/Acetaminophen [Percocet 5-325 mg Tablet] 1 tab PO BID PRN [History] metOLazone [Zaroxolyn] 2.5 mg PO DAILY 10/30/17 [History] 3 Allergy/AdvReac Type Severity Reaction Status Date / Time Sulfa (Sulfonamide Allergy See Verified 08/09/17 13:37 Antibiotics) Comments tramadol AdvReac Nausea Verified 08/09/17 13:37 All Systems Review: The remainder of the systems were reviewed and are negative Exam Vital Signs, Last 4 Hours Pulse Resp BP Pulse Ox 11/06/17 11:43 90 17 97/65 100 11/06/17 10:43 16 93 Consult Discharge Plan - Plan Referrals: Lynne Brooks MD [Primary Care Provider] -
[2017-11-06] MEDS: *HR* Rivaroxaban 10 MG TABLET PO SCH (21:28)
[2017-11-07] MEDS: Levalbuterol Neb 0.63 MG/3 ML IH SCH ×3 (03:36→15:28)
[2017-11-07] MEDS: metOLazone 2.5 MG TABLET PO SCH (06:16)
[2017-11-07 07:21] VITALS: BP 110/82
[2017-11-07] MEDS: Insulin LISPRO 300 UNITS/3 ML VIAL SQ SCH ×4 (09:13→12:06)
[2017-11-07] MEDS: Diltiazem CD (24hr) 180 MG CAPSULE PO SCH (09:19)
[2017-11-07] MEDS: Torsemide 20 MG TABLET PO SCH (09:19)
[2017-11-07] MEDS: Aspirin 81 MG TAB.CHEW PO SCH (09:19)
[2017-11-07] MEDS: *HR* Amiodarone 200 MG TABLET PO SCH (09:19)
[2017-11-07] MEDS: Insulin DETEMIR 100 UNIT/ML X5UNITS SQ SCH (09:23)
--- NOTE | 2017-11-07 10:28 | Discharge Summary ---
- NOTES TO OUTPATIENT PROVIDER Notes to Outpatient Provider: 1. Will recommend hold home med imdur as pt has no chest pain and BP at lower side, keep NTG PRN. If BP higher in the future may resume imdur. 2. Levemir dose decreased to 20 units daily as pt use 10 units bid when she is in hospital. Monitor glucose and adjust accordingly. Date of Encounter: 11/07/17 Time of Encounter: 09:00 - Discharge Diagnosis (1) Morbid obesity Priority: Secondary Status: Chronic (2) CAD (coronary artery disease) Priority: Secondary Status: Chronic Qualifiers: Coronary Disease-Associated Artery/Lesion type: [place] artery [place] vs. transplanted heart: [place] heart Associated angina: without angina Qualified Code(s): I25.10 - Atherosclerotic heart disease of [place] coronary artery without angina pectoris (3) DVT prophylaxis Priority: Secondary Status: Acute (4) Atrial fibrillation Priority: Secondary Status: Chronic Qualifiers: Atrial fibrillation type: chronic Qualified Code(s): I48.2 - Chronic atrial fibrillation (5) Chronic respiratory failure Priority: Secondary Status: Chronic Qualifiers: Respiratory failure complication: hypoxia and hypercapnia Qualified Code(s) : J96.11 - Chronic respiratory failure with hypoxia; J96.12 - Chronic respiratory failure with hypercapnia (6) T2DM (type 2 diabetes mellitus) Priority: Secondary Status: Acute Qualifiers: 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: with industrial 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 use Diabetes mellitus complication status: without complication Qualified Code(s): E11.9 - Type 2 diabetes mellitus without complications; Z79.4 - residential (current) use of insulin (7) Congestive heart failure (CHF) Priority: Primary Status: Acute Qualifiers: Heart failure type: diastolic Heart failure chronicity: acute Qualified Code(s): I50.31 - Acute diastolic (congestive) heart failure (8) Anemia Priority: Secondary Status: Acute Qualifiers: Anemia type: unspecified type Qualified Code(s): D64.9 - Anemia, unspecified (9) Hypokalemia Priority: Secondary Status: Acute (10) Elevated d-dimer Priority: Primary Status: Acute (11) Superficial vein thrombosis Priority: Primary Status: Acute Hospital course: Ms. Francisco is a 67 year old female admitted for CHF exacerbation. Patient was placed on fluid restriction, IV Lasix, strict I and O and closely monitoring. After treatment, patient's shortness of breath has improved to her baseline. Leg swelling has improved. Patient totally has cumulative negative 9 L fluid and body weight decreased from 130kg to 125kg. Diuretic switched to by mouth. Patient has elevated d-dimer. CTA shows negative for PE. US Doppler legs shows no DVT but superficial vein acute thrombosis at lesser saphenous vein. Vascular surgery saw patient, recommended continue xarelto and aspirin, and apply warm pad if symptomatic. I have seen and examined this patient today. Patient feels fine, no shortness of breath. Patient still have bilateral leg swelling but more like lymphedema. We will discharge patient back to ECF and continue management in the ECF. Patient's vitals are stable for discharge. Discharge discussed with: patient - Time Spent with Patient Total time spent providing and/or coordinating discharge services: 25 minutes Less than 30 minutes - Discharge Medications Home Medications: Ascorbic Acid [Vitamin C] 500 mg PO BID 06/13/15 [History] Aspirin [Adult Low Dose Aspirin EC] 81 mg PO DAILY 06/13/15 [History] Insulin ASPART [NovoLOG] 2 - 12 unit SQ TID PRN #0 06/13/15 [History] Rivaroxaban [Xarelto] 20 mg PO HS 06/13/15 [History] Ropinirole HCl [Requip] 0.5 mg PO HS 06/13/15 [History] Sennosides/Docusate Sodium [Senna Plus] 1 tab PO DAILY 06/13/15 [History] Simvastatin [Zocor] 40 mg PO DAILY #0 06/13/15 [History] SitaGLIPtin [Januvia] 100 mg PO DAILY 06/13/15 [History] Zinc Sulfate 220 mg PO BID 06/13/15 [History] Nitroglycerin 0.4 mg SL Q5MIN PRN 09/27/16 [History] Nystatin POWDER [Nystop] 1 appl TP BID 06/20/17 [History] Potassium Chloride [Klor-Con 10] 10 meq PO BID 06/20/17 [History] Sertraline [Zoloft] 100 mg PO DAILY 06/20/17 [History] Diltiazem CD (24hr) [Cardizem CD] 360 mg PO DAILY #60 cap.er.24h 06/26/17 [Rx] Amiodarone [Cordarone] 200 mg PO DAILY #40 tablet 06/27/17 [Rx] LORazepam [Ativan] 0.5 mg PO Q8H PRN 1 Days #3 tablet 07/03/17 [Rx] Metoprolol [Lopressor] 50 mg PO BID 08/09/17 [History] Torsemide [Demadex] 40 mg PO BID 08/09/17 [History] Ondansetron ODT [Zofran ODT] 4 mg PO Q6HR PRN #10 tab.rapdis 08/13/17 [Rx] Latanoprost [Xalatan] 1 drop BOTH EYES HS 10/30/17 [History] Oxycodone HCl/Acetaminophen [Percocet 5-325 mg Tablet] 1 tab PO BID PRN [History] metOLazone [Zaroxolyn] 2.5 mg PO DAILY 10/30/17 [History] Insulin DETEMIR [Levemir] 20 unit SQ QAM #0 11/07/17 [Rx] Allergies/Adverse Reactions: 3 Allergy/AdvReac Type Severity Reaction Status Date / Time Sulfa (Sulfonamide Allergy See Verified 08/09/17 13:37 Antibiotics) Comments tramadol AdvReac Nausea Verified 08/09/17 13:37 Date of admission: 10/31/17 16:12 Primary care physician: Lynne Brooks MD Consults: 11/03/17 08:44 Consult to Physical Therapy [CONS] Routine Comment: Evaluate, develop and implement POC Reason for Consult: eval and treat. bedridden Does patient have active BEDREST order?: No Is patient medically & hemodynamically stable?: Yes 11/04/17 12:11 Consult to Invasive Line Access Team [CONS] Routine Reason for Consult: Limited Access Line Type: EPIV 11/05/17 10:34 Consult to Wound Care [CONS] Routine Reason for Consult: Wound bilateral back of knees and left upper buttocks Call Completed: No 11/06/17 10:15 Consult to Vascular Surgery [CONS] Routine Consulting Provider: [facility] [place] Reason for Consult: Acute lesser saphanous vein thrombus Call Completed: Yes Discharging clinician: Garth Owens Anticipated date of discharge: 11/07/17 - Constitutional Vitals: Temp Pulse Resp BP Pulse Ox 97.3 F L 91 20 110/82 100 11/07/17 07:02 11/07/17 07:02 09/14/18 07:02 11/07/17 07:02 11/07/17 07:02 General appearance: Present: A&O X 3, pleasant, no acute distress, answers questions appropriately Exam: in NAD - Head Head exam: Present: atraumatic, normocephalic - Eye Eye exam: Present: PERRL, conjuntiva pink, sclera anicteric Pupils: Present: PERRL - Neck Neck exam general surgery: Present: supple, trachea midline. Absent: lymphadenopathy - Respiratory Respiratory exam: Present: CTAB. Absent: accessory muscle use, rales, rhonchi, wheezes - Cardiovascular Cardiovascular exam: Present: irregular rhythm, +S1, +S2. Absent: diastolic murmur, gallop, rubs, systolic murmur - GI/Abdominal GI/Abdominal exam: Present: normal bowel sounds, soft, no peritoneal signs. Absent: distended, tenderness - Extremities Exam Extremities exam: Present: pedal edema (B/L pedal edema likely lymphedema), warm , radial pulses palpable and symmetrical. Absent: calf tenderness, cyanotic - Neurological Exam Neurological exam: Present: CN II-XII intact, oriented X3, no focal deficits. Absent: pronater drift, facial droop, speech deficit - Skin Skin exam: Present: dry, intact - Patient Status Disposition: Transfer SNF Condition: Fair Overall status at discharge: patient is back to baseline - Discharge Instructions Follow Up With: Lynne Brooks MD [Primary Care Provider] - 11/14/17 - Diet and Activity Activity: as per physical therapy Diet: diabetic diet, low fat, low cholesterol, low salt diet
--- NOTE | 2017-11-07 10:48 | Physician Discharge Referral ---
ExtendedCare Referral Info Transfer To: [facility] Provider in Charge after Transfer: PCP - Diagnosis (1) Morbid obesity Status: Chronic (2) CAD (coronary artery disease) Status: Chronic (3) DVT prophylaxis Status: Acute (4) Atrial fibrillation Status: Chronic (5) Chronic respiratory failure Status: Chronic (6) T2DM (type 2 diabetes mellitus) Status: Acute (7) Congestive heart failure (CHF) Status: Acute (8) Anemia Status: Acute (9) Hypokalemia Status: Acute (10) Elevated d-dimer Status: Acute (11) Superficial vein thrombosis Status: Acute - Transfer Medications Home Medications: Ascorbic Acid [Vitamin C] 500 mg PO BID 06/13/15 [History] Aspirin [Adult Low Dose Aspirin EC] 81 mg PO DAILY 06/13/15 [History] Insulin ASPART [NovoLOG] 2 - 12 unit SQ TID PRN #0 06/13/15 [History] Rivaroxaban [Xarelto] 20 mg PO HS 06/13/15 [History] Ropinirole HCl [Requip] 0.5 mg PO HS 06/13/15 [History] Sennosides/Docusate Sodium [Senna Plus] 1 tab PO DAILY 06/13/15 [History] Simvastatin [Zocor] 40 mg PO DAILY #0 06/13/15 [History] SitaGLIPtin [Januvia] 100 mg PO DAILY 06/13/15 [History] Zinc Sulfate 220 mg PO BID 06/13/15 [History] Nitroglycerin 0.4 mg SL Q5MIN PRN 09/27/16 [History] Nystatin POWDER [Nystop] 1 appl TP BID 06/20/17 [History] Potassium Chloride [Klor-Con 10] 10 meq PO BID 06/20/17 [History] Sertraline [Zoloft] 100 mg PO DAILY 06/20/17 [History] Diltiazem CD (24hr) [Cardizem CD] 360 mg PO DAILY #60 cap.er.24h 06/26/17 [Rx] Amiodarone [Cordarone] 200 mg PO DAILY #40 tablet 06/27/17 [Rx] LORazepam [Ativan] 0.5 mg PO Q8H PRN 1 Days #3 tablet 07/03/17 [Rx] Metoprolol [Lopressor] 50 mg PO BID 08/09/17 [History] Torsemide [Demadex] 40 mg PO BID 08/09/17 [History] Ondansetron ODT [Zofran ODT] 4 mg PO Q6HR PRN #10 tab.rapdis 08/13/17 [Rx] Latanoprost [Xalatan] 1 drop BOTH EYES HS 10/30/17 [History] Oxycodone HCl/Acetaminophen [Percocet 5-325 mg Tablet] 1 tab PO BID PRN [History] metOLazone [Zaroxolyn] 2.5 mg PO DAILY 10/30/17 [History] Insulin DETEMIR [Levemir] 20 unit SQ QAM #0 11/07/17 [Rx] Allergies/Adverse Reactions: 3 Allergy/AdvReac Type Severity Reaction Status Date / Time Sulfa (Sulfonamide Allergy See Verified 08/09/17 13:37 Antibiotics) Comments tramadol AdvReac Nausea Verified 08/09/17 13:37 - Respiratory Orders Oxygen / L per min (3) Smoking Cessation: Smoking cessation has been advised. For more information, call the [place] Tobacco Quit Line at 4-998-VSMQ-NOW. - Advance Directives Living Will: Yes Code Status: Full Code - Rehabiliation Orders Rehab Potential: Good Rehab Orders: Evaluation for Physical Therapy, Evaluation for Occupational Therapy - Treatments Skin tear care topically daily PRN per policy - Diet Orders No Added Salt (ENRIQUE), No Concentrated Sweets, Cardiac CERTIFICATION: I certify that the transfer of the above named patient to an Extended Care Facility is necessary for the continuing treatment of the diagnosis listed. The above information is true and accurate reflection of patient's current condition. Confidential - Redisclosure prohibited without a patient's written consent.
== END 2017-11-07 17:10 | DRG 292 ==
LOC: 3BNU 11:26 → EMEROOARM 11:26 → SUATTDRO 14:10 → 3BNU 14:36 → 2NENU 11-01 15:31
PROVIDERS: ADMIT Internal Medicine; ATTEND Internal Medicine

== ENCOUNTER 2018-12-09 18:26 | Inpatient (IN) ==
[2018-12-09] MEDS ORDERED: 0.9 % Sodium Chloride 1,000 ML IVC ONE (20:22)
[2018-12-09 20:33] LABS: Basophils % 0.2 %; Eosinophils # 0.1 K/mcL (0.0-0.6); Eosinophils % 0.6 %; Hematocrit 37.3 % (35.3-44.9); Hemoglobin 11.9 g/dL (11.5-15.4); Immature Granulocytes % 0.6 % (0-4); Lymphocytes # 0.9 K/mcL (0.6-4.6); Lymphocytes % 4.5 %; Mean Corpuscular HGB Conc 31.9 g/dL (31.6-35.5); Mean Corpuscular Hemoglobin 27.9 pg (28.0-33.3); Mean Corpuscular Volume 87.6 fL (83.0-100.0); Mean Platelet Volume 9.7 fL (9.4-12.4); Monocytes # 0.6 K/mcL (0.0-1.3); Monocytes % 2.8 %; Neutrophils # 18.2 K/mcL (1.6-8.9); Platelet Count 198 K/mcL (140-400); Red Blood Count 4.26 M/mcL (3.82-4.97); Red Cell Distribution Width 15.9 % (11.5-14.5); Segmented Neutrophils % 91.3 %; White Blood Count 19.9 K/mcL (4.3-11.1)
[2018-12-09 20:41] LABS: INR 1.5; Prothrombin Time 16.5 Seconds (9.4-12.1)
[2018-12-09 20:56] LABS: Calcium 9.2 mg/dL (8.6-10.3); Potassium 3.8 mEq/L (3.5-5.1)
[2018-12-09 21:53] LABS: Bilirubin,Urine Large (Negative); Blood,Urine Large (Negative); Clarity,Urine Turbid (Clear); Color,Urine Red (Yellow); Glucose,Urine (UA) 500 mg/dL (Normal); Ketones,Urine 15 mg/dL (Negative); Leukocyte Esterase,Urine Large (Negative); Nitrite,Urine Positive (Negative); PH,Urine 8.5 pH Units (5.0-8.0); Protein,Urine >=300 mg/dL (Neg-Trace); Specific Gravity,Urine <= 1.005 (1.010-1.025)
[2018-12-09] MEDS ORDERED: cefTRIAXone 1,000 MG in Water for inj. (sterile) 10 ML IVP ONE (22:10)
[2018-12-10] MEDS ORDERED: Dextrose Gel 15 GM/37.5 ML TUBE PO PRN ×4 (01:15→04:08)
[2018-12-10] MEDS ORDERED: *HR* Dextrose 50 % in Water (Syg) 50 ML SYRINGE IVP PRN ×2 (01:15→04:08)
[2018-12-10] MEDS ORDERED: D5% in Water 1,000 ML IVC PRN ×2 (01:15→04:08)
[2018-12-10] MEDS ORDERED: *HR* Metoprolol 5 MG/5 ML VIAL IVP ONE (02:49)
[2018-12-10] MEDS: *HR* Metoprolol 5 MG/5 ML VIAL IVP SCH ×3 (02:52→04:10)
[2018-12-10] MEDS ORDERED: Amiodarone Premix 150 MG/100 ML BAG IVPB ONE ×2 (04:00→04:08)
[2018-12-10] MEDS ORDERED: Naloxone 0.4 MG/ML INJ IVP PRN (04:13)
[2018-12-10] MEDS ORDERED: Amiodarone Premix 360 MG/200 ML BAG IVC ONE ×2 (04:15)
[2018-12-10] MEDS ORDERED: Acetaminophen 325 MG TABLET PO PRN (04:42)
[2018-12-10 05:36] LABS: Hematocrit 33.9 % (35.3-44.9); Hemoglobin 10.8 g/dL (11.5-15.4); Mean Corpuscular HGB Conc 31.9 g/dL (31.6-35.5); Mean Corpuscular Hemoglobin 27.9 pg (28.0-33.3); Mean Corpuscular Volume 87.6 fL (83.0-100.0); Mean Platelet Volume 9.7 fL (9.4-12.4); Platelet Count 173 K/mcL (140-400); Red Blood Count 3.87 M/mcL (3.82-4.97); Red Cell Distribution Width 15.8 % (11.5-14.5); White Blood Count 13.6 K/mcL (4.3-11.1)
[2018-12-10 07:28] LABS: Calcium 8.9 mg/dL (8.6-10.3); Potassium 3.3 mEq/L (3.5-5.1)
[2018-12-10] MEDS ORDERED: Insulin LISPRO 300 UNITS/3 ML VIAL SQ SCH ×2 (07:30→21:00)
[2018-12-10] MEDS: cefTRIAXone 1,000 MG in Water for inj. (sterile) 10 ML IVP SCH (08:28)
[2018-12-10] MEDS: Insulin LISPRO 300 UNITS/3 ML VIAL SQ SCH ×4 (08:28→22:11)
[2018-12-10] MEDS ORDERED: Amiodarone Premix 360 MG/200 ML BAG IVC SCH (10:15)
[2018-12-10] MEDS: Amiodarone Premix 360 MG/200 ML BAG IVC SCH ×2 (11:40→23:34)
[2018-12-10] MEDS ORDERED: *HR* OxyCODONE/APAP 5/325 TABLET PO PRN (12:39)
[2018-12-10] MEDS ORDERED: Nitroglycerin 0.4 MG TAB.SUBL SL PRN (12:39)
[2018-12-10] MEDS: Metoprolol 100 MG TABLET PO SCH (16:09)
[2018-12-10] MEDS: Torsemide 20 MG TABLET PO SCH (16:09)
[2018-12-10] MEDS: Spironolactone 25 MG TABLET PO SCH (22:01)
[2018-12-10] MEDS: rOPINIRole 0.25 MG TABLET PO SCH (22:02)
[2018-12-10] MEDS: *HR* LORazepam 0.5 MG TABLET PO SCH (22:02)
[2018-12-10] MEDS: *HR* OxyCODONE/APAP 5/325 TABLET PO SCH (22:02)
[2018-12-10] MEDS: Latanoprost 2.5 ML BOTTLE RIGHT EYE SCH (22:12)
[2018-12-10] MEDS: Nystatin POWDER 30 GM BOTTLE TP SCH (22:13)
[2018-12-11 01:18] LABS: Calcium 8.8 mg/dL (8.6-10.3); Potassium 3.4 mEq/L (3.5-5.1)
[2018-12-11 01:21] LABS: Basophils % 0.1 %; Eosinophils # 0.3 K/mcL (0.0-0.6); Eosinophils % 3.2 %; Hematocrit 33.3 % (35.3-44.9); Immature Granulocytes % 0.6 % (0-4); Lymphocytes # 1.1 K/mcL (0.6-4.6); Lymphocytes % 12.7 %; Mean Corpuscular HGB Conc 32.4 g/dL (31.6-35.5); Mean Corpuscular Hemoglobin 28.1 pg (28.0-33.3); Mean Corpuscular Volume 86.5 fL (83.0-100.0); Mean Platelet Volume 9.7 fL (9.4-12.4); Monocytes # 0.4 K/mcL (0.0-1.3); Monocytes % 4.6 %; Neutrophils # 6.8 K/mcL (1.6-8.9); Platelet Count 167 K/mcL (140-400); Red Blood Count 3.85 M/mcL (3.82-4.97); Red Cell Distribution Width 15.9 % (11.5-14.5); Segmented Neutrophils % 78.8 %; White Blood Count 8.6 K/mcL (4.3-11.1)
[2018-12-11 01:24] LABS: Hemoglobin 10.8 g/dL (11.5-15.4)
[2018-12-11] MEDS: Metoprolol 100 MG TABLET PO SCH ×2 (05:09→17:12)
[2018-12-11] MEDS: cefTRIAXone 1,000 MG in Water for inj. (sterile) 10 ML IVP SCH (09:04)
[2018-12-11] MEDS: *HR* OxyCODONE/APAP 5/325 TABLET PO SCH ×2 (09:05→20:38)
[2018-12-11] MEDS: Nystatin POWDER 30 GM BOTTLE TP SCH ×2 (09:05→20:39)
[2018-12-11] MEDS: metOLazone 2.5 MG TABLET PO SCH (09:05)
[2018-12-11] MEDS: Spironolactone 25 MG TABLET PO SCH ×2 (09:05→20:38)
[2018-12-11] MEDS: Sennosides/Docusate Sodium TABLET PO SCH (09:05)
[2018-12-11] MEDS: *HR* LORazepam 0.5 MG TABLET PO SCH ×2 (09:05→20:39)
[2018-12-11] MEDS: Psyllium 1 PACKET POWD.PACK PO SCH (09:06)
[2018-12-11] MEDS: Insulin DETEMIR 100 UNIT/ML X5UNITS SQ SCH (09:06)
[2018-12-11] MEDS: Torsemide 20 MG TABLET PO SCH ×2 (09:06→15:51)
[2018-12-11] MEDS: Insulin LISPRO 300 UNITS/3 ML VIAL SQ SCH ×4 (09:09→20:39)
[2018-12-11] MEDS: Amiodarone Premix 360 MG/200 ML BAG IVC SCH (11:45)
[2018-12-11] MEDS ORDERED: *HR* Digoxin 0.5 MG/2 ML AMPUL IVP ONE (15:02)
[2018-12-11] MEDS: 0.9 % Sodium Chloride 1,000 ML IVC SCH (15:45)
[2018-12-11] MEDS: rOPINIRole 0.25 MG TABLET PO SCH (20:38)
[2018-12-11] MEDS: Latanoprost 2.5 ML BOTTLE RIGHT EYE SCH (20:40)
[2018-12-11] MEDS: *HR* Digoxin 0.5 MG/2 ML AMPUL IVP SCH (23:25)
[2018-12-12 01:32] LABS: Basophils % 0.3 %; Eosinophils # 0.6 K/mcL (0.0-0.6); Eosinophils % 6.6 %; Hemoglobin 10.8 g/dL (11.5-15.4); Immature Granulocytes % 0.5 % (0-4); Lymphocytes # 1.2 K/mcL (0.6-4.6); Lymphocytes % 12.8 %; Mean Corpuscular HGB Conc 32.7 g/dL (31.6-35.5); Mean Corpuscular Hemoglobin 28.1 pg (28.0-33.3); Mean Corpuscular Volume 85.7 fL (83.0-100.0); Monocytes # 0.5 K/mcL (0.0-1.3); Monocytes % 4.8 %; Neutrophils # 7.1 K/mcL (1.6-8.9); Platelet Count 172 K/mcL (140-400); Red Blood Count 3.85 M/mcL (3.82-4.97); Red Cell Distribution Width 15.8 % (11.5-14.5); White Blood Count 9.4 K/mcL (4.3-11.1)
[2018-12-12 01:40] LABS: Calcium 8.9 mg/dL (8.6-10.3); Potassium 3.7 mEq/L (3.5-5.1)
[2018-12-12] MEDS: 0.9 % Sodium Chloride 1,000 ML IVC SCH (04:53)
[2018-12-12] MEDS: *HR* Digoxin 0.5 MG/2 ML AMPUL IVP SCH (04:54)
[2018-12-12] MEDS: Metoprolol 100 MG TABLET PO SCH ×2 (05:56→16:23)
[2018-12-12] MEDS: Insulin LISPRO 300 UNITS/3 ML VIAL SQ SCH ×4 (09:06→20:17)
[2018-12-12] MEDS: *HR* OxyCODONE/APAP 5/325 TABLET PO SCH ×2 (09:07→20:15)
[2018-12-12] MEDS: *HR* LORazepam 0.5 MG TABLET PO SCH ×2 (09:07→20:14)
[2018-12-12] MEDS: Spironolactone 25 MG TABLET PO SCH ×2 (09:07→20:15)
[2018-12-12] MEDS: metOLazone 2.5 MG TABLET PO SCH (09:07)
[2018-12-12] MEDS: Sennosides/Docusate Sodium TABLET PO SCH (09:08)
[2018-12-12] MEDS: Torsemide 20 MG TABLET PO SCH ×2 (09:08→16:23)
[2018-12-12] MEDS: Insulin DETEMIR 100 UNIT/ML X5UNITS SQ SCH (09:08)
[2018-12-12] MEDS: Nystatin POWDER 30 GM BOTTLE TP SCH ×2 (09:08→20:16)
[2018-12-12] MEDS: cefTRIAXone 1,000 MG in Water for inj. (sterile) 10 ML IVP SCH (09:08)
[2018-12-12] MEDS: Psyllium 1 PACKET POWD.PACK PO SCH (09:08)
[2018-12-12] MEDS: rOPINIRole 0.25 MG TABLET PO SCH (20:14)
[2018-12-12] MEDS: Latanoprost 2.5 ML BOTTLE RIGHT EYE SCH (20:16)
[2018-12-13] MEDS: Metoprolol 100 MG TABLET PO SCH ×2 (04:50→16:48)
[2018-12-13 06:53] LABS: Basophils % 0.3 %; Eosinophils # 0.5 K/mcL (0.0-0.6); Eosinophils % 6.2 %; Hematocrit 34.5 % (35.3-44.9); Hemoglobin 10.8 g/dL (11.5-15.4); Immature Granulocytes % 0.8 % (0-4); Lymphocytes # 1.2 K/mcL (0.6-4.6); Lymphocytes % 16.2 %; Mean Corpuscular HGB Conc 31.3 g/dL (31.6-35.5); Mean Corpuscular Hemoglobin 27.6 pg (28.0-33.3); Mean Corpuscular Volume 88.2 fL (83.0-100.0); Mean Platelet Volume 10.1 fL (9.4-12.4); Monocytes # 0.4 K/mcL (0.0-1.3); Monocytes % 4.7 %; Neutrophils # 5.3 K/mcL (1.6-8.9); Platelet Count 172 K/mcL (140-400); Red Blood Count 3.91 M/mcL (3.82-4.97); Red Cell Distribution Width 15.8 % (11.5-14.5); Segmented Neutrophils % 71.8 %; White Blood Count 7.4 K/mcL (4.3-11.1)
[2018-12-13 07:09] LABS: Potassium 3.5 mEq/L (3.5-5.1)
[2018-12-13] MEDS: Torsemide 20 MG TABLET PO SCH ×2 (09:24→16:48)
[2018-12-13] MEDS: Sennosides/Docusate Sodium TABLET PO SCH (09:25)
[2018-12-13] MEDS: *HR* LORazepam 0.5 MG TABLET PO SCH ×2 (09:25→20:05)
[2018-12-13] MEDS: Insulin DETEMIR 100 UNIT/ML X5UNITS SQ SCH (09:25)
[2018-12-13] MEDS: Spironolactone 25 MG TABLET PO SCH ×2 (09:25→20:04)
[2018-12-13] MEDS: *HR* OxyCODONE/APAP 5/325 TABLET PO SCH ×2 (09:25→20:05)
[2018-12-13] MEDS: cefTRIAXone 1,000 MG in Water for inj. (sterile) 10 ML IVP SCH (09:26)
[2018-12-13] MEDS: Psyllium 1 PACKET POWD.PACK PO SCH (09:26)
[2018-12-13] MEDS: Insulin LISPRO 300 UNITS/3 ML VIAL SQ SCH ×4 (09:26→20:07)
[2018-12-13] MEDS: Nystatin POWDER 30 GM BOTTLE TP SCH ×2 (09:26→20:08)
[2018-12-13] MEDS: metOLazone 2.5 MG TABLET PO SCH (09:35)
[2018-12-13] MEDS ORDERED: 0.9 % Sodium Chloride 1,000 ML IVC SCH (12:20)
[2018-12-13] MEDS ORDERED: *HR* Rivaroxaban 15 MG TABLET PO SCH (18:00)
[2018-12-13] MEDS: rOPINIRole 0.25 MG TABLET PO SCH (20:05)
[2018-12-13] MEDS: Latanoprost 2.5 ML BOTTLE RIGHT EYE SCH (20:08)
[2018-12-14] MEDS: Metoprolol 100 MG TABLET PO SCH (08:25)
[2018-12-14] MEDS: *HR* LORazepam 0.5 MG TABLET PO SCH (08:31)
[2018-12-14] MEDS: *HR* OxyCODONE/APAP 5/325 TABLET PO SCH (08:31)
[2018-12-14] MEDS: Spironolactone 25 MG TABLET PO SCH (08:31)
[2018-12-14] MEDS: Torsemide 20 MG TABLET PO SCH (08:31)
[2018-12-14] MEDS: Nystatin POWDER 30 GM BOTTLE TP SCH (08:32)
[2018-12-14] MEDS: Psyllium 1 PACKET POWD.PACK PO SCH (08:32)
[2018-12-14] MEDS: cefTRIAXone 1,000 MG in Water for inj. (sterile) 10 ML IVP SCH (08:32)
[2018-12-14] MEDS: metOLazone 2.5 MG TABLET PO SCH (08:32)
[2018-12-14] MEDS: Sennosides/Docusate Sodium TABLET PO SCH (08:32)
[2018-12-14] MEDS: Insulin DETEMIR 100 UNIT/ML X5UNITS SQ SCH (08:38)
[2018-12-14] MEDS: Insulin LISPRO 300 UNITS/3 ML VIAL SQ SCH ×2 (08:40→11:27)
[2018-12-14] MEDS ORDERED: FLU Vac QV 19-20 (6Month+)/PF 0.5 ML SYRINGE IM ONE (10:40)
[2018-12-14 11:21] VITALS: BP 120/59
== END 2018-12-14 12:41 | DRG 690 ==
LOC: EDBD → EMEROOARM 18:26 → 3ANU 18:26 → MERGE 23:14 → SUATTDRO 23:14 → 3ANU 23:43 → 2NNU 12-10 04:22
PROVIDERS: ADMIT Internal Medicine; ATTEND Internal Medicine

== ENCOUNTER 2019-10-30 14:30 | Inpatient (IN) ==
[2019-10-30 15:11] LABS: Basophils % 0.3 %; Eosinophils # 0.2 K/mcL (0.0-0.6); Eosinophils % 1.4 %; Hematocrit 35.2 % (35.3-44.9); Hemoglobin 11.5 g/dL (11.5-15.4); Immature Granulocytes % 0.6 % (0-4); Lymphocytes # 1.1 K/mcL (0.6-4.6); Lymphocytes % 8.1 %; Mean Corpuscular HGB Conc 32.7 g/dL (31.6-35.5); Mean Corpuscular Hemoglobin 26.9 pg (28.0-33.3); Mean Corpuscular Volume 82.4 fL (83.0-100.0); Mean Platelet Volume 10.2 fL (9.4-12.4); Monocytes # 0.8 K/mcL (0.0-1.3); Monocytes % 5.7 %; Neutrophils # 11.5 K/mcL (1.6-8.9); Platelet Count 215 K/mcL (140-400); Red Blood Count 4.27 M/mcL (3.82-4.97); Red Cell Distribution Width 14.4 % (11.5-14.5); Segmented Neutrophils % 83.9 %; White Blood Count 13.7 K/mcL (4.3-11.1)
[2019-10-30] MEDS ORDERED: Azithromycin 500 MG in D5% in Water 250 ML IVPB ONE (15:24)
[2019-10-30] MEDS ORDERED: cefTRIAXone 1,000 MG in Water for inj. (sterile) 10 ML IVPB ONE (15:24)
[2019-10-30 15:28] LABS: Potassium 4.6 mEq/L (3.5-5.1); Troponin I 0.04 ng/mL (< 0.04)
[2019-10-30] MEDS ORDERED: Naloxone 0.4 MG/ML INJ IVP PRN (15:57)
[2019-10-30] MEDS ORDERED: Ondansetron 4 MG/2 ML VIAL IVP PRN (15:57)
[2019-10-30] MEDS ORDERED: Acetaminophen 325 MG TABLET PO ONE (15:58)
[2019-10-30] MEDS ORDERED: *HR* Dextrose 50 % in Water (Vial) 50 ML VIAL IVP PRN (16:24)
[2019-10-30] MEDS ORDERED: D5% in Water 1,000 ML IVC PRN (16:24)
[2019-10-30] MEDS ORDERED: Dextrose Gel 15 GM/37.5 ML TUBE PO PRN ×2 (16:24)
[2019-10-30 17:03] LABS: Adenovirus Not Detected (Not Detect); Bordetella Pertussis Not Detected (Not Detect); Chlamydophila pneumoniae Not Detected (Not Detect); Coronavirus 229E Not Detected (Not Detect); Coronavirus HKU1 Not Detected (Not Detect); Coronavirus NL63 Not Detected (Not Detect); Coronavirus OC43 Not Detected (Not Detect); Human Metapneumovirus Not Detected (Not Detect); Human Rhinovirus/Enterovirus Not Detected (Not Detect); Influenza A Subtype 2009 H1 Not Detected (Not Detect); Influenza B Not Detected (Not Detect); Mycoplasma pneumoniae Not Detected (Not Detect); Parainfluenza Virus 1 Not Detected (Not Detect); Parainfluenza Virus 2 Not Detected (Not Detect); Parainfluenza Virus 3 Not Detected (Not Detect); Parainfluenza Virus 4 Not Detected (Not Detect); Respiratory Syncytial Virus Not Detected (Not Detect)
[2019-10-30 17:05] LABS: SARS-CoV-2 DETECTED (Not Detect)
[2019-10-30] MEDS ORDERED: Ipratropium/Albuterol Neb 3 ML IH PRN (17:29)
[2019-10-30] MEDS ORDERED: *HR* Rivaroxaban 10 MG TABLET PO SCH (18:30)
[2019-10-30] MEDS: Insulin LISPRO 300 UNITS/3 ML VIAL SQ SCH ×2 (20:19→20:44)
[2019-10-30] MEDS: rOPINIRole 0.25 MG TABLET PO SCH (20:20)
[2019-10-30] MEDS: tiZANidine 4 MG TABLET PO SCH (20:21)
[2019-10-30] MEDS: Nystatin POWDER 30 GM BOTTLE TP SCH (20:30)
[2019-10-30] MEDS: Nystatin Cream 15 GM TUBE TP SCH (20:30)
[2019-10-30 21:57] LABS: Lactate Dehydrogenase 141 Units/L (140-271)
[2019-10-30 22:00] LABS: D-Dimer 1522 ng/mLFEU (0-500)
[2019-10-30 22:02] LABS: Fibrinogen 816 mg/dL (169-393)
[2019-10-30 22:17] LABS: Ferritin 316 ng/mL (10-120)
[2019-10-31] MEDS: Sennosides/Docusate Sodium TABLET PO SCH (08:22)
[2019-10-31] MEDS: tiZANidine 4 MG TABLET PO SCH ×3 (08:22→19:36)
[2019-10-31] MEDS: Psyllium 1 PACKET POWD.PACK PO SCH (08:24)
[2019-10-31] MEDS: Nystatin POWDER 30 GM BOTTLE TP SCH ×2 (08:25→19:37)
[2019-10-31] MEDS: Nystatin Cream 15 GM TUBE TP SCH ×2 (08:25→19:37)
[2019-10-31] MEDS: Insulin LISPRO 300 UNITS/3 ML VIAL SQ SCH ×4 (08:26→19:36)
[2019-10-31 10:18] LABS: Basophils % 0.2 %; Eosinophils # 0.1 K/mcL (0.0-0.6); Eosinophils % 0.5 %; Hematocrit 31.8 % (35.3-44.9); Hemoglobin 10.4 g/dL (11.5-15.4); Immature Granulocytes % 0.8 % (0-4); Lymphocytes # 0.4 K/mcL (0.6-4.6); Lymphocytes % 3.5 %; Mean Corpuscular HGB Conc 32.7 g/dL (31.6-35.5); Mean Corpuscular Hemoglobin 26.7 pg (28.0-33.3); Mean Corpuscular Volume 81.7 fL (83.0-100.0); Mean Platelet Volume 9.9 fL (9.4-12.4); Monocytes # 0.4 K/mcL (0.0-1.3); Monocytes % 3.6 %; Platelet Count 224 K/mcL (140-400); Red Blood Count 3.89 M/mcL (3.82-4.97); Red Cell Distribution Width 14.4 % (11.5-14.5); Segmented Neutrophils % 91.4 %; White Blood Count 12.1 K/mcL (4.3-11.1)
[2019-10-31 10:36] LABS: Calcium 9.2 mg/dL (8.6-10.3); Potassium 3.9 mEq/L (3.5-5.1)
[2019-10-31] MEDS ORDERED: Nitroglycerin 0.4 MG TAB.SUBL SL PRN (11:45)
[2019-10-31] MEDS: Doxycycline 100 MG CAPSULE PO SCH ×2 (12:26→19:36)
[2019-10-31] MEDS: Acetaminophen 325 MG TABLET PO PRN (15:11)
[2019-10-31] MEDS: Torsemide 20 MG TABLET PO SCH (17:05)
[2019-10-31] MEDS: *HR* Rivaroxaban 15 MG TABLET PO SCH (17:05)
[2019-10-31] MEDS: Piperacillin/Tazobactam 3.375 GM in 0.9 % Sodium Chloride Mini Bag 100 ML IVPB SCH (17:05)
[2019-10-31] MEDS ORDERED: Piperacillin/Tazobactam 3.375 GM in 0.9 % Sodium Chloride Mini Bag 100 ML IVPB SCH (17:29)
[2019-10-31] MEDS: Ascorbic Acid 500 MG TABLET PO SCH (19:36)
[2019-10-31] MEDS: *HR* LORazepam 0.5 MG TABLET PO SCH (19:36)
[2019-10-31] MEDS: rOPINIRole 0.25 MG TABLET PO SCH (19:36)
[2019-11-01] MEDS: Acetaminophen 325 MG TABLET PO PRN ×2 (02:16→10:19)
[2019-11-01] MEDS: Piperacillin/Tazobactam 3.375 GM in 0.9 % Sodium Chloride Mini Bag 100 ML IVPB SCH ×2 (05:48→17:49)
[2019-11-01] MEDS: Doxycycline 100 MG CAPSULE PO SCH ×2 (08:06→20:34)
[2019-11-01] MEDS: Ascorbic Acid 500 MG TABLET PO SCH ×2 (08:06→20:34)
[2019-11-01] MEDS: *HR* LORazepam 0.5 MG TABLET PO SCH ×2 (08:07→20:34)
[2019-11-01] MEDS: tiZANidine 4 MG TABLET PO SCH ×3 (08:07→20:34)
[2019-11-01] MEDS: Torsemide 20 MG TABLET PO SCH ×2 (08:07→17:48)
[2019-11-01] MEDS: Sennosides/Docusate Sodium TABLET PO SCH (08:08)
[2019-11-01] MEDS: Dexamethasone 4 MG/ML VIAL IVP SCH (08:08)
[2019-11-01] MEDS: Psyllium 1 PACKET POWD.PACK PO SCH (08:09)
[2019-11-01] MEDS: Insulin LISPRO 300 UNITS/3 ML VIAL SQ SCH ×4 (08:51→20:35)
[2019-11-01] MEDS: Nystatin Cream 15 GM TUBE TP SCH ×2 (08:52→20:35)
[2019-11-01] MEDS: Nystatin POWDER 30 GM BOTTLE TP SCH ×2 (08:52→20:36)
[2019-11-01 10:32] LABS: ABG Base Excess 5 mEq/L (-2 to 3); ABG HCO3 29 mEq/L (21-27); ABG Oxygen Saturation 94 % (95-98); ABG PCO2 38 mmHg (35-45); ABG PH 7.48 pH Units (7.32-7.45); ABG PO2 65 mmHg (85-104); ABG TCO2 30 mEq/L (20-26)
[2019-11-01 10:57] LABS: Calcium 9.7 mg/dL (8.6-10.3); Potassium 3.4 mEq/L (3.5-5.1)
[2019-11-01 10:59] LABS: D-Dimer 1607 ng/mLFEU (0-500)
[2019-11-01 11:02] LABS: Fibrinogen 948 mg/dL (169-393)
[2019-11-01] MEDS ORDERED: metOLazone 2.5 MG TABLET PO SCH (13:00)
[2019-11-01] MEDS: Tobramycin Opth SOLN 5 ML BOTTLE LEFT EYE SCH ×3 (14:20→20:36)
[2019-11-01] MEDS: *HR* Rivaroxaban 15 MG TABLET PO SCH (17:49)
[2019-11-01] MEDS: rOPINIRole 0.25 MG TABLET PO SCH (20:34)
[2019-11-01] MEDS: Latanoprost 2.5 ML BOTTLE BOTH EYES SCH (20:36)
[2019-11-02] MEDS: Tobramycin Opth SOLN 5 ML BOTTLE LEFT EYE SCH ×6 (02:10→20:28)
[2019-11-02] MEDS: Piperacillin/Tazobactam 3.375 GM in 0.9 % Sodium Chloride Mini Bag 100 ML IVPB SCH ×2 (06:23→16:13)
[2019-11-02 06:54] LABS: Basophils % 0.2 %; Hemoglobin 10.1 g/dL (11.5-15.4); Immature Granulocytes % 1.8 % (0-4); Lymphocytes # 0.5 K/mcL (0.6-4.6); Lymphocytes % 4.5 %; Mean Corpuscular HGB Conc 32.6 g/dL (31.6-35.5); Mean Corpuscular Hemoglobin 26.4 pg (28.0-33.3); Mean Corpuscular Volume 81.2 fL (83.0-100.0); Monocytes # 0.5 K/mcL (0.0-1.3); Monocytes % 5.4 %; Neutrophils # 8.8 K/mcL (1.6-8.9); Platelet Count 246 K/mcL (140-400); Red Blood Count 3.82 M/mcL (3.82-4.97); Red Cell Distribution Width 13.9 % (11.5-14.5); Segmented Neutrophils % 88.1 %
[2019-11-02 07:05] LABS: INR 1.8
[2019-11-02 07:19] LABS: Calcium 9.8 mg/dL (8.6-10.3); Potassium 3.4 mEq/L (3.5-5.1)
[2019-11-02] MEDS: Insulin LISPRO 300 UNITS/3 ML VIAL SQ SCH ×4 (08:43→20:26)
[2019-11-02] MEDS: Nystatin Cream 15 GM TUBE TP SCH ×2 (08:44→20:27)
[2019-11-02] MEDS: Nystatin POWDER 30 GM BOTTLE TP SCH ×2 (08:44→20:28)
[2019-11-02] MEDS: *HR* LORazepam 0.5 MG TABLET PO SCH ×2 (08:45→20:26)
[2019-11-02] MEDS: Dexamethasone 4 MG/ML VIAL IVP SCH (08:45)
[2019-11-02] MEDS: Doxycycline 100 MG CAPSULE PO SCH ×2 (08:46→20:26)
[2019-11-02] MEDS: Sennosides/Docusate Sodium TABLET PO SCH (08:47)
[2019-11-02] MEDS: Psyllium 1 PACKET POWD.PACK PO SCH (08:47)
[2019-11-02] MEDS: Ascorbic Acid 500 MG TABLET PO SCH ×2 (08:48→20:26)
[2019-11-02] MEDS: tiZANidine 4 MG TABLET PO SCH ×2 (08:48→14:00)
[2019-11-02] MEDS ORDERED: tiZANidine 4 MG TABLET PO PRN (16:11)
[2019-11-02] MEDS: *HR* Rivaroxaban 15 MG TABLET PO SCH (16:13)
[2019-11-02] MEDS: rOPINIRole 0.25 MG TABLET PO SCH (20:26)
[2019-11-02] MEDS: Latanoprost 2.5 ML BOTTLE BOTH EYES SCH (20:28)
[2019-11-02] MEDS ORDERED: Insulin DETEMIR 100 UNIT/ML X5UNITS SQ SCH (21:00)
[2019-11-03] MEDS: Tobramycin Opth SOLN 5 ML BOTTLE LEFT EYE SCH ×6 (01:20→21:28)
[2019-11-03] MEDS: Piperacillin/Tazobactam 3.375 GM in 0.9 % Sodium Chloride Mini Bag 100 ML IVPB SCH ×2 (05:50→16:18)
[2019-11-03] MEDS ORDERED: *HR* Metoprolol 5 MG/5 ML VIAL IVP ONE (06:41)
[2019-11-03 06:52] LABS: Basophils % 0.2 %; Hematocrit 30.6 % (35.3-44.9); Hemoglobin 10.3 g/dL (11.5-15.4); Immature Granulocytes % 2.3 % (0-4); Lymphocytes # 0.6 K/mcL (0.6-4.6); Lymphocytes % 7.2 %; Mean Corpuscular HGB Conc 33.7 g/dL (31.6-35.5); Mean Corpuscular Volume 80.3 fL (83.0-100.0); Monocytes # 0.5 K/mcL (0.0-1.3); Monocytes % 6.6 %; Neutrophils # 6.9 K/mcL (1.6-8.9); Platelet Count 229 K/mcL (140-400); Red Blood Count 3.81 M/mcL (3.82-4.97); Red Cell Distribution Width 13.7 % (11.5-14.5); Segmented Neutrophils % 83.7 %; White Blood Count 8.2 K/mcL (4.3-11.1)
[2019-11-03 07:00] LABS: D-Dimer 1381 ng/mLFEU (0-500)
[2019-11-03 07:05] LABS: Fibrinogen 878 mg/dL (169-393)
[2019-11-03] MEDS: Dexamethasone 4 MG/ML VIAL IVP SCH (07:24)
[2019-11-03] MEDS: *HR* LORazepam 0.5 MG TABLET PO SCH ×2 (07:24→21:28)
[2019-11-03] MEDS: Psyllium 1 PACKET POWD.PACK PO SCH (07:25)
[2019-11-03] MEDS: Doxycycline 100 MG CAPSULE PO SCH ×2 (07:25→20:14)
[2019-11-03] MEDS: Nystatin Cream 15 GM TUBE TP SCH ×2 (07:25→21:28)
[2019-11-03] MEDS: Nystatin POWDER 30 GM BOTTLE TP SCH ×2 (07:25→21:27)
[2019-11-03] MEDS: Sennosides/Docusate Sodium TABLET PO SCH (07:25)
[2019-11-03] MEDS: Ascorbic Acid 500 MG TABLET PO SCH ×2 (07:25→20:14)
[2019-11-03 07:38] LABS: Blood Urea Nitrogen > 130 mg/dL (8-23); Calcium 9.4 mg/dL (8.6-10.3); Carbon Dioxide 22 mEq/L (23-29); Chloride 91 mEq/L (98-107); Ferritin 840 ng/mL (10-120); Glucose 112 mg/dL (70-105); Lactate Dehydrogenase 172 Units/L (140-271); Magnesium 1.9 mg/dL (1.6-2.6); Phosphorous 4.2 mg/dL (2.7-4.5); Potassium 3.2 mEq/L (3.5-5.1); Sodium 130 mEq/L (136-145); eGFR For African Americans 30 (> 60); eGFR For Non-African Americans 25 (> 60)
[2019-11-03] MEDS: Insulin LISPRO 300 UNITS/3 ML VIAL SQ SCH ×4 (07:42→21:27)
[2019-11-03] MEDS: tiZANidine 4 MG TABLET PO SCH ×2 (12:25→20:15)
[2019-11-03] MEDS: *HR* Rivaroxaban 15 MG TABLET PO SCH (16:18)
[2019-11-03] MEDS: DilTIAZem 50 MG/50 ML IV.SOLN IVC SCH ×2 (16:18→21:58)
[2019-11-03] MEDS: rOPINIRole 0.25 MG TABLET PO SCH (20:10)
[2019-11-03] MEDS: Insulin DETEMIR 100 UNIT/ML X5UNITS SQ SCH (21:19)
[2019-11-03] MEDS: Latanoprost 2.5 ML BOTTLE BOTH EYES SCH (21:26)
[2019-11-04] MEDS: DilTIAZem 50 MG/50 ML IV.SOLN IVC SCH ×2 (00:05→10:42)
[2019-11-04] MEDS: Piperacillin/Tazobactam 3.375 GM in 0.9 % Sodium Chloride Mini Bag 100 ML IVPB SCH ×2 (00:05→09:28)
[2019-11-04] MEDS: Tobramycin Opth SOLN 5 ML BOTTLE LEFT EYE SCH ×6 (00:08→22:10)
[2019-11-04 04:29] LABS: Hematocrit 31.7 % (35.3-44.9); Hemoglobin 10.6 g/dL (11.5-15.4); Mean Corpuscular HGB Conc 33.4 g/dL (31.6-35.5); Mean Corpuscular Hemoglobin 26.5 pg (28.0-33.3); Mean Corpuscular Volume 79.3 fL (83.0-100.0); Mean Platelet Volume 9.5 fL (9.4-12.4); Platelet Count 250 K/mcL (140-400); Red Cell Distribution Width 13.8 % (11.5-14.5); White Blood Count 9.3 K/mcL (4.3-11.1)
[2019-11-04 04:52] LABS: Blood Urea Nitrogen > 130 mg/dL (8-23); Calcium 9.2 mg/dL (8.6-10.3); Carbon Dioxide 18 mEq/L (23-29); Chloride 96 mEq/L (98-107); Glucose 167 mg/dL (70-105); Magnesium 2.2 mg/dL (1.6-2.6); Potassium 4.8 mEq/L (3.5-5.1); Sodium 131 mEq/L (136-145); eGFR For African Americans 33 (> 60); eGFR For Non-African Americans 27 (> 60)
[2019-11-04] MEDS: Dexamethasone 4 MG/ML VIAL IVP SCH (09:25)
[2019-11-04] MEDS: Doxycycline 100 MG CAPSULE PO SCH (09:25)
[2019-11-04] MEDS: Sennosides/Docusate Sodium TABLET PO SCH (09:26)
[2019-11-04] MEDS: Ascorbic Acid 500 MG TABLET PO SCH ×2 (09:26→22:08)
[2019-11-04] MEDS: Psyllium 1 PACKET POWD.PACK PO SCH (09:26)
[2019-11-04] MEDS: tiZANidine 4 MG TABLET PO SCH ×2 (09:26→22:08)
[2019-11-04] MEDS: Insulin LISPRO 300 UNITS/3 ML VIAL SQ SCH ×4 (09:28→22:09)
[2019-11-04] MEDS: *HR* LORazepam 0.5 MG TABLET PO SCH ×2 (09:28→22:08)
[2019-11-04] MEDS: Nystatin POWDER 30 GM BOTTLE TP SCH ×2 (09:29→22:10)
[2019-11-04] MEDS: Nystatin Cream 15 GM TUBE TP SCH ×2 (09:29→22:09)
[2019-11-04] MEDS: *HR* Acetaminophen w/Cod 300-30 mg 1 TAB TABLET PO PRN (10:44)
[2019-11-04] MEDS: *HR* Rivaroxaban 15 MG TABLET PO SCH (18:10)
[2019-11-04] MEDS: Insulin DETEMIR 100 UNIT/ML X5UNITS SQ SCH (22:08)
[2019-11-04] MEDS: rOPINIRole 0.25 MG TABLET PO SCH (22:08)
[2019-11-04] MEDS: Latanoprost 2.5 ML BOTTLE BOTH EYES SCH (22:10)
[2019-11-05] MEDS: Tobramycin Opth SOLN 5 ML BOTTLE LEFT EYE SCH ×6 (00:34→21:33)
[2019-11-05 07:05] LABS: Calcium 9.5 mg/dL (8.6-10.3); Potassium 3.9 mEq/L (3.5-5.1)
[2019-11-05] MEDS: Dexamethasone 4 MG/ML VIAL IVP SCH (08:00)
[2019-11-05] MEDS: tiZANidine 4 MG TABLET PO SCH ×2 (08:01→21:34)
[2019-11-05] MEDS: *HR* LORazepam 0.5 MG TABLET PO SCH ×2 (08:01→21:27)
[2019-11-05] MEDS: Psyllium 1 PACKET POWD.PACK PO SCH (08:01)
[2019-11-05] MEDS: Ascorbic Acid 500 MG TABLET PO SCH ×2 (08:01→21:33)
[2019-11-05] MEDS: Sennosides/Docusate Sodium TABLET PO SCH (08:01)
[2019-11-05] MEDS: Nystatin POWDER 30 GM BOTTLE TP SCH ×2 (08:02→21:16)
[2019-11-05] MEDS: Nystatin Cream 15 GM TUBE TP SCH ×2 (08:02→21:16)
[2019-11-05] MEDS: Insulin LISPRO 300 UNITS/3 ML VIAL SQ SCH ×4 (08:02→21:27)
[2019-11-05] MEDS: Metoprolol XL (24 HR) Succ 50 MG TAB.ER.24H PO SCH (12:16)
[2019-11-05] MEDS: *HR* Rivaroxaban 15 MG TABLET PO SCH (17:56)
[2019-11-05] MEDS: *HR* Acetaminophen w/Cod 300-30 mg 1 TAB TABLET PO PRN (18:22)
[2019-11-05] MEDS: Insulin DETEMIR 100 UNIT/ML X5UNITS SQ SCH (21:29)
[2019-11-05] MEDS: rOPINIRole 0.25 MG TABLET PO SCH (21:33)
[2019-11-05] MEDS: Latanoprost 2.5 ML BOTTLE BOTH EYES SCH (22:18)
[2019-11-06] MEDS: Tobramycin Opth SOLN 5 ML BOTTLE LEFT EYE SCH ×6 (03:04→22:24)
[2019-11-06 06:08] LABS: Calcium 9.5 mg/dL (8.6-10.3); Magnesium 2.3 mg/dL (1.6-2.6); Phosphorous 3.3 mg/dL (2.7-4.5)
[2019-11-06] MEDS: Insulin LISPRO 300 UNITS/3 ML VIAL SQ SCH ×4 (08:37→22:21)
[2019-11-06] MEDS: Torsemide 20 MG TABLET PO SCH ×2 (08:40→16:43)
[2019-11-06] MEDS: *HR* LORazepam 0.5 MG TABLET PO SCH ×2 (08:40→22:18)
[2019-11-06] MEDS: Sennosides/Docusate Sodium TABLET PO SCH (08:40)
[2019-11-06] MEDS: Metoprolol XL (24 HR) Succ 50 MG TAB.ER.24H PO SCH (08:40)
[2019-11-06] MEDS: Ascorbic Acid 500 MG TABLET PO SCH ×2 (08:40→22:19)
[2019-11-06] MEDS: tiZANidine 4 MG TABLET PO SCH ×2 (08:40→22:19)
[2019-11-06] MEDS: Nystatin POWDER 30 GM BOTTLE TP SCH ×2 (08:41→22:10)
[2019-11-06] MEDS: Dexamethasone 4 MG/ML VIAL IVP SCH (08:41)
[2019-11-06] MEDS: Nystatin Cream 15 GM TUBE TP SCH ×2 (08:41→22:09)
[2019-11-06] MEDS: Psyllium 1 PACKET POWD.PACK PO SCH (08:41)
[2019-11-06] MEDS ORDERED: Metoprolol XL (24 HR) Succ 50 MG TAB.ER.24H PO ONE (09:18)
[2019-11-06] MEDS: *HR* Rivaroxaban 15 MG TABLET PO SCH (16:43)
[2019-11-06] MEDS ORDERED: Insulin DETEMIR 100 UNIT/ML X5UNITS SQ SCH (21:00)
[2019-11-06] MEDS: rOPINIRole 0.25 MG TABLET PO SCH (22:18)
[2019-11-06] MEDS: Latanoprost 2.5 ML BOTTLE BOTH EYES SCH (22:24)
[2019-11-07] MEDS: Tobramycin Opth SOLN 5 ML BOTTLE LEFT EYE SCH ×4 (01:32→12:13)
[2019-11-07 02:08] LABS: Calcium 9.2 mg/dL (8.6-10.3); Potassium 3.5 mEq/L (3.5-5.1)
[2019-11-07] MEDS: Ascorbic Acid 500 MG TABLET PO SCH (08:54)
[2019-11-07] MEDS: tiZANidine 4 MG TABLET PO SCH (08:55)
[2019-11-07] MEDS: Torsemide 20 MG TABLET PO SCH (08:58)
[2019-11-07] MEDS: *HR* LORazepam 0.5 MG TABLET PO SCH (08:58)
[2019-11-07] MEDS: Sennosides/Docusate Sodium TABLET PO SCH (08:58)
[2019-11-07] MEDS: Dexamethasone 4 MG/ML VIAL IVP SCH (08:59)
[2019-11-07] MEDS: Nystatin POWDER 30 GM BOTTLE TP SCH (08:59)
[2019-11-07] MEDS: Nystatin Cream 15 GM TUBE TP SCH (08:59)
[2019-11-07] MEDS: Insulin LISPRO 300 UNITS/3 ML VIAL SQ SCH ×2 (08:59→12:12)
[2019-11-07] MEDS: Psyllium 1 PACKET POWD.PACK PO SCH (08:59)
[2019-11-07] MEDS ORDERED: Metoprolol XL (24 HR) Succ 50 MG TAB.ER.24H PO SCH (09:00)
[2019-11-07 09:26] VITALS: BP 133/65
== END 2019-11-07 14:00 | DRG 871 ==
LOC: 2NENU 14:30 → EMEROOARM 14:30 → 2NENU 18:28 → SUATTDRO 10-31 12:04
PROVIDERS: ADMIT Internal Medicine; ATTEND Internal Medicine